=== PATIENT | female | born 1950 | race Caucasian/White ===

== ENCOUNTER → 2020-02-23 10:36 | Outpatient (BNVA) | payer MEDICARE, SELFPAY | PROVIDERS: PCP Internal Medicine; Referring Provider Internal Medicine; Visit Provider Surgery | DX: Z76.89 Persons encountering health services in other specified circumstances (principal) ==

== ENCOUNTER → 2020-03-31 10:45 | Outpatient (BNVA) | payer MEDICARE, SELFPAY | PROVIDERS: PCP Internal Medicine; Referring Provider Internal Medicine; Visit Provider Internal Medicine Cardiovascular Disease | DX: R42 Dizziness and giddiness (principal) | CPT/HCPCS: 93005; 99202 ==

== ENCOUNTER 2020-04-22 11:35 | Emergency (ER) | payer MEDICARE, SELFPAY ==
[2020-04-22 11:44] VITALS: BP 168/95; PULSE 107; RESP 18; TEMP 36.8; O2SAT 96; BMI 23.7
--- NOTE | 2020-04-22 13:14 | ECG_ITS ---
Test Reason : WEAKNESS Blood Pressure : / mmHG Vent. Rate : 094 BPM Atrial Rate : 094 BPM P-R Int : 136 ms QRS Dur : 122 ms QT Int : 398 ms P-R-T Axes : 077 -10 038 degrees QTc Int : 497 ms Normal sinus rhythm Biatrial enlargement Right bundle branch block Left ventricular hypertrophy Abnormal ECG When compared with ECG of 07-FEB-2020 07:21, No significant change was found Referred By: Britney Silva Electronically Signed By:SAMUEL JAVIER MD
--- NOTE | 2020-04-22 13:15 | CT_ITS ---
EXAMINATION: CT ABDOMEN AND PELVIS WITHOUT CONTRAST CLINICAL INFORMATION: Constipation. Assess for obstruction. COMPARISON: CT abdomen and pelvis with contrast 02/09/2020, CT abdomen and pelvis noncontrast 02/07/2020 TECHNIQUE: Multidetector volumetric imaging was performed from the superior aspect of the liver through the pubic symphysis. Sagittal and coronal reformatted images were obtained on the technologist's workstation. No oral or intravenous contrast. This CT examination was performed using dose optimization techniques as appropriate, variously including the following: *Automated exposure control *Adjustment of mA and/or kV according to patient size (this includes techniques or standardized protocols for targeted exams where dose is matched to indication/reason for exam; i.e. extremities or head) *Use of iterative reconstruction technique DLP: 470 mGy-cm FINDINGS: LUNG BASES: The visualized lung bases are unremarkable. LIVER, GALLBLADDER, AND BILIARY TREE: The liver is normal in size, shape, and attenuation. No focal hepatic lesion or biliary ductal dilatation is present. The gallbladder is unremarkable with no evidence of radiopaque gallstones, gallbladder wall thickening, or obvious pericholecystic inflammatory changes. PANCREAS: Unremarkable. SPLEEN: Unremarkable. ADRENAL GLANDS: Unremarkable. KIDNEYS AND URETERS: The kidneys are normal in size and smooth in contour. The left kidney shows no hydronephrosis, hydroureter, calculi, or perinephric stranding. The right kidney again shows mild hydronephrosis similar to prior exams. The ureter is nondistended and there is no obstructing calculus or perinephric stranding. There is a punctate renal vascular calcification right renal sinus. BLADDER: Unremarkable. GASTROINTESTINAL TRACT: There is no bowel obstruction. Probable prior appendectomy. There are no inflammatory changes in the small or large bowel or adjacent mesentery. Again, small gas bubble is noted in the proximal duodenal wall with probable mild wall thickening. Findings may suggest ulcer crater. No mesenteric inflammatory changes. No gastric dilatation. There is no ascites or fluid collection. ABDOMINAL WALL: No significant hernia is appreciated. LYMPH NODES: No lymphadenopathy. VASCULAR: Unremarkable. PELVIC VISCERA: Unremarkable. OSSEOUS STRUCTURES: Degenerative changes lumbosacral spine. CT/CT abdomen pelvis wo con IMPRESSION: 1. Mild chronic thickening duodenal bulb with small gas-like outpouching which may suggest chronic ulcer crater. No periduodenal inflammatory changes, ascites, or gastric dilatation. Small and large bowel are unremarkable. 2. Mild right hydronephrosis similar to prior studies. No hydroureter or perinephric stranding.
--- NOTE | 2020-04-22 13:15 | XR_ITS ---
EXAMINATION: XR CHEST CLINICAL INFORMATION: AMS COMPARISON: February 10, 2020 TECHNIQUE: 2 views of the chest were obtained. FINDINGS: There is hyperinflation of the lungs. There is bilateral apical pleural-parenchymal scarring present. There is no evidence of acute parenchymal disease, pneumothorax, or pleural effusion. Heart normal size. No evidence of pulmonary edema. XR/XR chest 2V IMPRESSION: No acute disease. Hyperinflation consistent with COPD.
--- NOTE | 2020-04-22 13:15 | CT_ITS ---
EXAMINATION: CT HEAD WITHOUT CONTRAST CLINICAL INFORMATION: AMS. Dizzy COMPARISON: None TECHNIQUE: Contiguous axial imaging was performed from the skull base to vertex without intravenous administration of contrast. This CT examination was performed using dose optimization techniques as appropriate, variously including the following: *Automated exposure control *Adjustment of mA and/or kV according to patient size (this includes techniques or standardized protocols for targeted exams where dose is matched to indication/reason for exam; i.e. extremities or head) *Use of iterative reconstruction technique DLP: 565 mGy-cm FINDINGS: There is no evidence of acute intracranial hemorrhage or territorial infarction. No abnormal mass effect or midline shift is seen. Downs to white matter differentiation is well preserved. No extra-axial fluid collections are identified. The ventricles are normal in size. There is periventricular white matter low density consistent with microangiopathy. The osseous structures and soft tissues are normal. The mastoid air cells and visualized portions of the paranasal sinuses are well aerated. CT/CT head/brain wo con IMPRESSION: No acute intracranial pathology. Findings consistent with microangiopathy.
--- NOTE | 2020-04-22 13:26 | ED.GENADULT ---
HPI - General Adult General Chief complaint: General Medical Stated complaint: constipated,weak,confused Time Seen by Provider: 04/22/20 13:01 Source: family Mode of arrival: ambulatory History of Present Illness HPI narrative: 69-year-old female with a past medical history of duodenectomy, presenting to ED for constipation, intermittent lightheadedness/dizziness, and worsening confusion per partner x1 week. Denies passing flatus. Partner reports patients increasingly confused, anxious, & pacing/perseverating over finances, at baseline is usually A&Ox3. Denies recent illness, falls/trauma, CP/SOB, vomiting, dysuria/hematuria Onset (ago): week(s) Related Data Home Medications Medication Instructions Recorded Confirmed omeprazole 40 mg capsule,delayed 40 mg PO DAILY 03/31/20 release Previous Rx's Medication Instructions Recorded tramadol 50 mg tablet 50 mg PO Q6H PRN #20 tab 02/23/20 Allergies Allergy/AdvReac Type Severity Reaction Status Date / Time No Known Allergies Allergy Verified 02/23/20 10:48 [No Known Allergies*] Review of Systems Review of Systems: Constitutional: No Weight loss, No Fever, No Chills ENT/Mouth: No sore throat Eyes: No Eye Pain, No Vision Changes Cardiovascular: No Chest Pain, No SOB Respiratory: No Cough, No Sputum, No Wheezing Gastrointestinal: +Nausea, No Vomiting, No Diarrhea, No Constipation, + Abdominal pain Genitourinary: No irregular bleeding, No Dysuria, No Urinary Frequency, No Hematuria Musculoskeletal: No joint pain, No Myalgias, No Joint Swelling Skin: No Skin Lesions, No rash Neuro: No Weakness, No Numbness, No Paresthesias, No Loss of Consciousness, +Dizziness, + Headache Psych: + Anxiety, +confused Yes all other systems are reviewed and are negative Neurologic: Denies Sensory deficit (Neuro) [facility] Past Medical History Attestation statement: The following information was validated with the patient. Medical History (Updated 04/22/20 @ 16:08 by JOSEMANUEL Johnson) Dizziness Surgical History (Updated 03/31/20 @ 10:59 by Lucas Ruiz) History of appendectomy History of gastric surgery Family History Family History (Updated 02/23/20 @ 10:49 by JUAN Rincon) Mother No problems noted. Father No problems noted. Social History Social History (Updated 02/23/20 @ 10:50 by Kerri Caldwell Cristo) Alcohol intake: former Smoking Status: Never smoker Advance Directives: No Advance Directives Information Provided: No Physical Exam Vital Signs: Vital Signs: Last Vital Signs Temp 97.7 F 04/22/20 15:03 Pulse 78 04/22/20 15:03 Resp 16 04/22/20 15:03 BP 161/85 H 04/22/20 15:03 Pulse Ox 98 04/22/20 15:03 Body Mass Index 23.7 Const: General: cooperative and healthy appearing Orientation/consciousness: patient oriented x3 Limitations: no limitations HENMT: Head: Yes normal to inspection Ears: hearing grossly normal bilaterally General nose exam: Normal external nose present Face and sinus: Yes normal facial exam Eyes: General: appearance normal, both eyes and all related structures Pupils: Equal, round and reactive pupils present EOM: EOMs intact bilaterally Neck: Neck: Yes normal visual inspection, Yes no lymphadenopathy and Yes no meningeal signs Chest: Chest palpation & inspection: normal inspection of the chest Resp: Effort & Inspection: normal respiratory effort Auscultation: clear to auscultation bilaterally, no rhonchi and no wheezes Cardio: Rate: regular rate Heart sounds: S1 normal heart sound present and S2 normal heart sound present GI: Inspection: Yes normal to inspection Palpation (GI): Soft to palpation, Tenderness to palpation present (GI) (Lower abdomen), no guarding and not rigid Skin: Rashes: no rashes Wounds: no wounds Neuro: Other: Pacing around room, anxious General: patient oriented x3, gait normal, tone normal, moves all extremities, no meningeal signs, no focal motor deficits and CN's II-XI intact bilaterally Cranial nerves: Yes Equal, round and reactive pupils present Cognition (Neuro): normal cognition Gait exam (Neuro): Normal gait present Motor exam (neuro): 5/5 motor strength present throughout and Pronator motor function not present Sensory Exam: No Sensory deficit (Neuro) Extrem: General: Yes normal to inspection Course Course Course Narrative: -labs, UA, and tox screen unremarkable -CXR without acute disease, hyperinflation consistent with COPD -head CT without acute intracranial pathology -CT AP with mild chronic thickening duodenal bulb suggestive of chronic ulcer crater, no inflammatory changes. Small/large bowel unremarkable. Mild right hydronephrosis similar to prior studies -1550--discussed lab/imaging results with patient and partner. Patient continues to be A&O x3. Discussed potential need for lumbar puncture, which patient is not agreeable to at this time > will touch base with patient's PCP prior to discharge -1600--spoke to patient's PCP Dr. Hinton who saw pt this morning sent to ED. Discussed with PCP lab/imaging results. She reports patient has history of memory issues, is seeing Neurology at [facility]. Informed that I offer lumbar puncture to patient which she refused, PCP aware and not high on her differential either Worrisome signs and symptoms and strict return precautions discussed with patient and partner. Plan for DC home to follow-up with PCP Medical Decision Making MDM Narrative Medical decision making narrative: 69-year-old female with a past medical history of duodenectomy, presenting to ED for constipation, intermittent lightheadedness/dizziness, and worsening confusion per partner x1 week. On exam initially mildly tachycardic, anxious/pacing around room, nontoxic appearing, no focal neuro deficits, abdomen soft was lower TTP, no rebound or guarding. Concern for constipation/SBO vs metabolic abnormalities vs infectious etiology. Meningitis/encephalitis on differential but of lower concern as patient A&O x3, afebrile. Plan: EKG, labs, UA, head CT, CXR, reassess Lab Data Result diagrams: 04/22/20 13:41 04/22/20 13:41 Labs: Lab Results 04/22/20 04/22/20 04/22/20 Range/Units 13:41 13:41 13:41 WBC 9.3 (4.8-10.8) X10*3/uL RBC 5.17 (4.20-5.50) X10*6/uL Hgb 15.3 (12.0-16.0) g/dl Hct 45.8 (37-47) % MCV 88.6 (80-98) fL MCH 29.6 (27.0-33.0) pg MCHC 33.4 (31.0-35.0) g/dl RDW 13.0 (11.0-16.0) % Plt Count 298 (160-400) X10*3/uL MPV 10.0 (9.4-12.3) fL Immature Gran % (Auto) 0.3 (0.0-0.4) % Neut % (Auto) 76.0 H (45-73) % Lymph % (Auto) 14.6 L (20-40) % [place] % (Auto) 8.4 (2-11) % Eos % (Auto) 0.3 (0-4) % Baso % (Auto) 0.4 (0-2) % Lymph # (Auto) 1.4 (1.2-4.9) X10*3/uL [place] # (Auto) 0.8 (0.1-1.2) X10*3/uL Eos # (Auto) 0.0 (0.0-0.4) X10*3/uL Baso # (Auto) 0.0 (0.0-0.2) X10*3/uL Abs Immat Gran (auto) 0.03 (0.00-0.03) X10*3/uL Absolute Neuts (auto) 7.1 (2.0-8.3) X10*3/uL Absolute Nucleated RBC 0.000 (0.0-0.012) X10*3/uL Nucleated RBC % (auto) 0.0 (0.0-0.2) /100WBC Hold Blue Top SEE NOTE Sodium 139 (135-145) mmol/L Potassium 3.8 (3.3-5.1) mmol/l Chloride 100 (96-108) mmol/L Carbon Dioxide 23 (22-29) mmol/L Anion Gap 20 (12-20) BUN 13 (9-16) mg/dL Creatinine 0.75 (0.5-1.4) mg/dL Estim Creat Clear Calc 64.3 Estimated GFR > 60 Random Glucose 83 (60-115) mg/dL Calcium 9.9 (8.4-10.2) mg/dL Magnesium 1.8 (1.6-2.6) mg/dL Total Bilirubin 0.8 (0.0-1.0) mg/dL Direct Bilirubin 0.3 (0.0-0.5) mg/dL AST 25 (5-31) U/L ALT 16 (0-31) U/L Alkaline Phosphatase 79 (39-117) U/L Ammonia (13-55) umol/L Troponin I High Sens (<3.5-17.0) ng/L B-Natriuretic Peptide (<100) pg/mL Total Protein 7.5 (6.5-8.0) g/dL Albumin 4.4 (3.5-5.0) g/dL Lipase 25 (8-78) U/L Urine Color Urine Appearance Urine pH (5.0-8.0) Ur Specific [place] (1.005-1.025) Urine Protein (NEG-TRACE) MG/DL Urine Glucose (UA) (NEG) MG/DL Urine Ketones (NEG) MG/DL Urine Blood (NEG) Urine Nitrite (NEG) Ur Leukocyte Esterase (NEG) Salicylates < 5.0 L (15-30) mg/dL Urine Opiates Screen (Not Detect) Acetaminophen < 1 (<30) mcg/mL Ur Barbiturates Screen (Not Detect) Ur Phencyclidine Scrn (Not Detect) Ur Amphetamines Screen (Not Detect) U Benzodiazepines Scrn (Not Detect) Urine Cocaine Screen (Not Detect) U Marijuana (THC) Screen (Not Detect) Ethyl Alcohol mg/dL 04/22/20 04/22/20 04/22/20 Range/Units 13:41 13:41 13:41 WBC (4.8-10.8) X10*3/uL RBC (4.20-5.50) X10*6/uL Hgb (12.0-16.0) g/dl Hct (37-47) % MCV (80-98) fL MCH (27.0-33.0) pg MCHC (31.0-35.0) g/dl RDW (11.0-16.0) % Plt Count (160-400) X10*3/uL MPV (9.4-12.3) fL Immature Gran % (Auto) (0.0-0.4) % Neut % (Auto) (45-73) % Lymph % (Auto) (20-40) % [place] % (Auto) (2-11) % Eos % (Auto) (0-4) % Baso % (Auto) (0-2) % Lymph # (Auto) (1.2-4.9) X10*3/uL [place] # (Auto) (0.1-1.2) X10*3/uL Eos # (Auto) (0.0-0.4) X10*3/uL Baso # (Auto) (0.0-0.2) X10*3/uL Abs Immat Gran (auto) (0.00-0.03) X10*3/uL Absolute Neuts (auto) (2.0-8.3) X10*3/uL Absolute Nucleated RBC (0.0-0.012) X10*3/uL Nucleated RBC % (auto) (0.0-0.2) /100WBC Hold Blue Top Sodium (135-145) mmol/L Potassium (3.3-5.1) mmol/l Chloride (96-108) mmol/L Carbon Dioxide (22-29) mmol/L Anion Gap (12-20) BUN (9-16) mg/dL Creatinine (0.5-1.4) mg/dL Estim Creat Clear Calc Estimated GFR Random Glucose (60-115) mg/dL Calcium (8.4-10.2) mg/dL Magnesium (1.6-2.6) mg/dL Total Bilirubin (0.0-1.0) mg/dL Direct Bilirubin (0.0-0.5) mg/dL AST (5-31) U/L ALT (0-31) U/L Alkaline Phosphatase (39-117) U/L Ammonia 30 (13-55) umol/L Troponin I High Sens 7.9 (<3.5-17.0) ng/L B-Natriuretic Peptide 35 (<100) pg/mL Total Protein (6.5-8.0) g/dL Albumin (3.5-5.0) g/dL Lipase (8-78) U/L Urine Color Urine Appearance Urine pH (5.0-8.0) Ur Specific [place] (1.005-1.025) Urine Protein (NEG-TRACE) MG/DL Urine Glucose (UA) (NEG) MG/DL Urine Ketones (NEG) MG/DL Urine Blood (NEG) Urine Nitrite (NEG) Ur Leukocyte Esterase (NEG) Salicylates (15-30) mg/dL Urine Opiates Screen (Not Detect) Acetaminophen (<30) mcg/mL Ur Barbiturates Screen (Not Detect) Ur Phencyclidine Scrn (Not Detect) Ur Amphetamines Screen (Not Detect) U Benzodiazepines Scrn (Not Detect) Urine Cocaine Screen (Not Detect) U Marijuana (THC) Screen (Not Detect) Ethyl Alcohol < 10 mg/dL 04/22/20 04/22/20 Range/Units 13:41 13:41 WBC (4.8-10.8) X10*3/uL RBC (4.20-5.50) X10*6/uL Hgb (12.0-16.0) g/dl Hct (37-47) % MCV (80-98) fL MCH (27.0-33.0) pg MCHC (31.0-35.0) g/dl RDW (11.0-16.0) % Plt Count (160-400) X10*3/uL MPV (9.4-12.3) fL Immature Gran % (Auto) (0.0-0.4) % Neut % (Auto) (45-73) % Lymph % (Auto) (20-40) % [place] % (Auto) (2-11) % Eos % (Auto) (0-4) % Baso % (Auto) (0-2) % Lymph # (Auto) (1.2-4.9) X10*3/uL [place] # (Auto) (0.1-1.2) X10*3/uL Eos # (Auto) (0.0-0.4) X10*3/uL Baso # (Auto) (0.0-0.2) X10*3/uL Abs Immat Gran (auto) (0.00-0.03) X10*3/uL Absolute Neuts (auto) (2.0-8.3) X10*3/uL Absolute Nucleated RBC (0.0-0.012) X10*3/uL Nucleated RBC % (auto) (0.0-0.2) /100WBC Hold Blue Top Sodium (135-145) mmol/L Potassium (3.3-5.1) mmol/l Chloride (96-108) mmol/L Carbon Dioxide (22-29) mmol/L Anion Gap (12-20) BUN (9-16) mg/dL Creatinine (0.5-1.4) mg/dL Estim Creat Clear Calc Estimated GFR Random Glucose (60-115) mg/dL Calcium (8.4-10.2) mg/dL Magnesium (1.6-2.6) mg/dL Total Bilirubin (0.0-1.0) mg/dL Direct Bilirubin (0.0-0.5) mg/dL AST (5-31) U/L ALT (0-31) U/L Alkaline Phosphatase (39-117) U/L Ammonia (13-55) umol/L Troponin I High Sens (<3.5-17.0) ng/L B-Natriuretic Peptide (<100) pg/mL Total Protein (6.5-8.0) g/dL Albumin (3.5-5.0) g/dL Lipase (8-78) U/L Urine Color YELLOW Urine Appearance CLEAR Urine pH 6.0 (5.0-8.0) Ur Specific [place] 1.015 (1.005-1.025) Urine Protein NEG (NEG-TRACE) MG/DL Urine Glucose (UA) NEG (NEG) MG/DL Urine Ketones 5 (NEG) MG/DL Urine Blood NEG (NEG) Urine Nitrite NEG (NEG) Ur Leukocyte Esterase NEG (NEG) Salicylates (15-30) mg/dL Urine Opiates Screen Not Detected (Not Detect) Acetaminophen (<30) mcg/mL Ur Barbiturates Screen Not Detected (Not Detect) Ur Phencyclidine Scrn Not Detected (Not Detect) Ur Amphetamines Screen Not Detected (Not Detect) U Benzodiazepines Scrn Not Detected (Not Detect) Urine Cocaine Screen Not Detected (Not Detect) U Marijuana (THC) Screen Not Detected (Not Detect) Ethyl Alcohol mg/dL Discharge Plan Discharge Clinical Impression: Abdominal pain, Confusion Patient Disposition: Home, Self-Care Instructions: Abdominal Pain (ED) Additional Instructions: Your blood work, urine, and imaging studies were unremarkable today in the ED I spoke your primary care doctor, you need to follow-up with them It is important that her staying hydrated at home If her symptoms persist or worsen, he develops fever, nausea/vomiting, or worsening confusion return to the ED immediately Follow-up with your neurologist as well Prescriptions: No Action tramadol 50 mg tablet 50 mg PO Q6H PRN (Reason: pain) Qty: 20 RF: 0 omeprazole 40 mg capsule,delayed release(DR/EC) 40 mg PO DAILY RF: 0 Referrals: Jasiel Fink MD [Primary Care Provider] - 2 days
[2020-04-22] MEDS: 0.9 % Sodium Chloride 1,000 ML 999 ML IVCONT (13:44)
[2020-04-22 13:46] VITALS: BP 173/93; PULSE 102; RESP 16; O2SAT 98
[2020-04-22 13:55] LABS: MANUAL DIFF FLAG NO
[2020-04-22 13:57] LABS: Basophils Percent Auto 0.4 % (0-2); Eosinophils Percent Auto 0.3 % (0-4); Hematocrit 45.8 % (37-47); Hemoglobin 15.3 g/dl (12.0-16.0); Imm Gran Abs Auto 0.03 X10*3/uL (0.00-0.03); Imm Gran Pct Auto 0.3 % (0.0-0.4); Lymphocytes Absolute Auto 1.4 X10*3/uL (1.2-4.9); Lymphocytes Percent Auto 14.6 % (20-40); Mean Corpuscular HGB Conc 33.4 g/dl (31.0-35.0); Mean Corpuscular Hemoglobin 29.6 pg (27.0-33.0); Mean Corpuscular Volume 88.6 fL (80-98); Monocytes Absolute Auto 0.8 X10*3/uL (0.1-1.2); Monocytes Percent Auto 8.4 % (2-11); Neutrophils Absolute Auto 7.1 X10*3/uL (2.0-8.3); Platelet Count 298 X10*3/uL (160-400); Red Blood Count 5.17 X10*6/uL (4.20-5.50); White Blood Count 9.3 X10*3/uL (4.8-10.8)
[2020-04-22 14:13] LABS: Ammonia 30 umol/L (13-55)
[2020-04-22 14:16] LABS: Ethanol < 10 mg/dL
[2020-04-22 14:24] LABS: Glucose Urine UA NEG (NEG); Leukocyte Esterase Urine NEG (NEG); Nitrite Urine NEG (NEG); Specific Gravity - Urine 1.015 (1.005-1.025); Urine Blood NEG (NEG); Urine Ketones 5 MG/DL (NEG); Urine Protein NEG (NEG-TRACE)
[2020-04-22 14:27] LABS: Appearance Urine CLEAR; B Type Natriuretic Peptide 35 pg/mL (<100); Color Urine YELLOW; Troponin-I High Sensitivity 7.9 ng/L (<3.5-17.0)
[2020-04-22 14:39] LABS: Alanine Aminotransferase 16 U/L (0-31); Albumin Level 4.4 g/dL (3.5-5.0); Alkaline Phosphatase 79 U/L (39-117); Anion Gap 20 (12-20); Aspartate Amino Transferase 25 U/L (5-31); Bilirubin Direct 0.3 mg/dL (0.0-0.5); Bilirubin Total 0.8 mg/dL (0.0-1.0); Blood Urea Nitrogen 13 mg/dL (9-16); Calcium 9.9 mg/dL (8.4-10.2); Carbon Dioxide 23 mmol/L (22-29); Chloride 100 mmol/L (96-108); Creatinine Clr Calc Pharmacy 64.3; Estimated Glomerular Filt Rate > 60; Glucose Random 83 mg/dL (60-115); Lipase 25 U/L (8-78); Magnesium 1.8 mg/dL (1.6-2.6); Potassium 3.8 mmol/l (3.3-5.1); Salicylate < 5.0 mg/dL (15-30); Sodium 139 mmol/L (135-145); Total Protein 7.5 g/dL (6.5-8.0)
[2020-04-22 14:41] LABS: Amphetamine Screen Urine Not Detected (Not Detect); Barbiturates, Urine Not Detected (Not Detect); Benzodiazepines Screen Urine Not Detected (Not Detect); Cannabinoid Screen Urine Not Detected (Not Detect); Cocaine Screen Urine Not Detected (Not Detect); Opiate Screen Urine Not Detected (Not Detect); Phencyclidine Screen Urine Not Detected (Not Detect)
[2020-04-22 14:49] LABS: Acetaminophen LAB < 1 mcg/mL (<30)
[2020-04-22 15:03] VITALS: BP 161/85; PULSE 78; RESP 16; TEMP 36.5; O2SAT 98
== END 2020-04-22 16:22 | disposition home or self-care (01) ==
PROVIDERS: Physician Assistant; Emergency Provider Emergency Medicine; PCP Internal Medicine
DX: R10.30 Lower abdominal pain, unspecified (principal); R41.0 Disorientation, unspecified; Z87.891 Personal history of nicotine dependence; Z79.899 Other long term (current) drug therapy
CPT/HCPCS: 36415; 70450; 71046; 74176; 80048; 80076; 80307; 80320; 81003; 82140; 83690; 83735; 83880; 84484; 85025; 93005; 96360; 99284; G0480

== ENCOUNTER 2020-05-04 06:20 | Inpatient (IN) | payer MEDICARE, SELFPAY ==
[2020-05-04] VITALS (17 sets, daily range): BP systolic 112–170; BP diastolic 65–97; PULSE 77–121; RESP 14–34; TEMP 35.7–37.6; O2SAT 94–99; BMI 23.1; BMI 22.3
--- NOTE | 2020-05-04 06:36 | PC.NURSE ---
PT TO ROOM WITH C/O NAUSEA AND VOMITING WHICH STARTED APPROX 6PM LAST NIGHT. PT APPEARS CONFUSED AND UNABLE TO GIVE TIMELINE OF WHAT HAPPENED AND STATES I JUST WANT TO GO HOME NOW . UNABLE TO GET DETAILS FROM PT. PT CHG INTO GOWN AND AWAITING MD'S EVAL.
--- NOTE | 2020-05-04 06:48 | ED_ITS ---
HPI - Nausea/Vomiting/Diarrhea General Chief complaint: Nausea/Vomiting/Diarrhea Stated complaint: VOMITING Time Seen by Provider: 05/04/20 06:48 Source: patient Mode of arrival: ambulatory Limitations: no limitations History of Present Illness HPI Narrative: Patient woke up this morning with vomiting dark blood, almost black. In the ED she continued to vomit coffee grounds MD elicited complaint: nausea and vomiting Onset (ago): hour(s) Location of pain: epigastric Related Data Home Medications Medication Instructions Recorded Confirmed omeprazole 40 mg capsule,delayed 40 mg PO DAILY 03/31/20 release Previous Rx's Medication Instructions Recorded tramadol 50 mg tablet 50 mg PO Q6H PRN #20 tab 02/23/20 Allergies Allergy/AdvReac Type Severity Reaction Status Date / Time No Known Allergies Allergy Verified 02/23/20 10:48 [No Known Allergies*] Review of Systems Constitutional: Constitutional: Reports no additional constitutional complaints Eyes: Eyes: Reports no additional eye complaints ENT: Denies dizziness Cardiovascular: Cardiovascular: Reports no additional cardiovascular complaints Respiratory: Respiratory: Reports as per HPI Gastrointestinal: Gastrointestinal: Reports no additional gastrointestinal complaints Genitourinary: Genitourinary: Reports no additional female genitourinary complaints Musculoskeletal: Musculoskeletal: Reports no additional musculoskeletal complaints Integumentary/Breasts: Skin/Breast: Denies rash Neurologic: Reports system reviewed and no additional complaints, except as documented, Denies dizziness and Denies Sensory deficit (Neuro) Psychiatric: Psychiatric: Denies anxiety PMF Past Medical History Medical History Dizziness Surgical History History of appendectomy History of gastric surgery Family History Family History Mother No problems noted. Father No problems noted. Social History Social History Alcohol intake: former Smoking Status: Never smoker Use of substances other than those prescribed or required for medical reasons: No Advance Directives: No Advance Directives Information Provided: No Physical Exam Vital Signs: Vital Signs: Last Vital Signs Temp 97.9 F 05/04/20 06:43 Pulse 83 05/04/20 11:41 Resp 28 H 05/04/20 11:41 BP 112/82 05/04/20 11:42 Pulse Ox 95 05/04/20 11:41 Body Mass Index 22.3 Const: Other: thin pale female vomiting coffee grounds Nutritional Appearance: thin Orientation/consciousness: oriented to person and patient oriented x3 Limitations: no limitations HENMT: Head: Yes normal to inspection Ears: external ears normal General nose exam: Normal external nose present Mouth: Normal oral and palatal mucosa present and oropharynx normal Throat: Yes posterior oropharynx normal Eyes: General: appearance normal, both eyes and all related structures Neck: Other: supple Neck: Yes normal visual inspection Chest: Chest palpation & inspection: normal inspection of the chest Resp: Auscultation: clear to auscultation bilaterally Cardio: Jugular venous distension: no JVD Rate: regular rate Rhythm: regular rhythm Heart sounds: S1 normal heart sound present and S2 normal heart sound present GI: Inspection: Yes normal to inspection Palpation (GI): Soft to palpation, nontender and No hepatosplenomegaly present Auscultation: normal bowel sounds : Other: rectal exam with brown stool heme negative General: Yes no CVA tenderness Back/Spine/Pelvis: Back: no CVA tenderness Skin: General skin exam: no rashes or lesions noted Neuro: General: oriented to person and patient oriented x3 Cranial nerves: Yes CN's II-XII intact bilaterally Motor exam (neuro): 5/5 motor strength present throughout Sensory Exam: No Sensory deficit (Neuro) Extrem: General: Yes normal to inspection Psych: Appearance: grossly normal Course Course Course Narrative: Discussed with Dr. Light. Patient had GI bleed needing surgical repair, now with coffee ground vomitus. she recommends admission MDM - Nausea/Vomiting/Diarrhea MDM Narrative Medical decision making narrative: Upper gI bleed vs gastritis, vs evens patricio Lab Data Result diagrams: 05/04/20 10:43 05/04/20 07:58 Labs: Lab Results 05/04/20 05/04/20 05/04/20 Range/Units 07:14 07:15 07:18 WBC 3.4 L (4.8-10.8) X10*3/uL RBC 5.37 (4.20-5.50) X10*6/uL Hgb 15.6 (12.0-16.0) g/dl Hct 46.6 (37-47) % MCV 86.8 (80-98) fL MCH 29.1 (27.0-33.0) pg MCHC 33.5 (31.0-35.0) g/dl RDW 13.5 (11.0-16.0) % Plt Count 375 D (160-400) X10*3/uL MPV 9.6 (9.4-12.3) fL Immature Gran % (Auto) 0.3 (0.0-0.4) % Neut % (Auto) 83.1 H (45-73) % Lymph % (Auto) 7.4 L (20-40) % [place] % (Auto) 8.9 (2-11) % Eos % (Auto) 0.0 (0-4) % Baso % (Auto) 0.3 (0-2) % Lymph # (Auto) 0.3 L (1.2-4.9) X10*3/uL [place] # (Auto) 0.3 (0.1-1.2) X10*3/uL Eos # (Auto) 0.0 (0.0-0.4) X10*3/uL Baso # (Auto) 0.0 (0.0-0.2) X10*3/uL Abs Immat Gran (auto) 0.01 (0.00-0.03) X10*3/uL Absolute Neuts (auto) 2.8 (2.0-8.3) X10*3/uL Absolute Nucleated RBC 0.000 (0.0-0.012) X10*3/uL Nucleated RBC % (auto) 0.0 (0.0-0.2) /100WBC Smear Tech's Comments VERIFIED Hold Purple Top SEE NOTE Hold Blue Top Sodium Cancelled Potassium Cancelled Chloride Cancelled Carbon Dioxide Cancelled Anion Gap Cancelled BUN Cancelled Creatinine Cancelled Estim Creat Clear Calc Cancelled Estimated GFR Cancelled Random Glucose Cancelled Calcium Cancelled Total Bilirubin Cancelled Direct Bilirubin Cancelled AST Cancelled ALT Cancelled Alkaline Phosphatase Cancelled Total Protein Cancelled Albumin Cancelled Lipase Cancelled Blood Type Antibody Screen 05/04/20 05/04/20 05/04/20 Range/Units 07:18 07:24 07:58 WBC (4.8-10.8) X10*3/uL RBC (4.20-5.50) X10*6/uL Hgb (12.0-16.0) g/dl Hct (37-47) % MCV (80-98) fL MCH (27.0-33.0) pg MCHC (31.0-35.0) g/dl RDW (11.0-16.0) % Plt Count (160-400) X10*3/uL MPV (9.4-12.3) fL Immature Gran % (Auto) (0.0-0.4) % Neut % (Auto) (45-73) % Lymph % (Auto) (20-40) % [place] % (Auto) (2-11) % Eos % (Auto) (0-4) % Baso % (Auto) (0-2) % Lymph # (Auto) (1.2-4.9) X10*3/uL [place] # (Auto) (0.1-1.2) X10*3/uL Eos # (Auto) (0.0-0.4) X10*3/uL Baso # (Auto) (0.0-0.2) X10*3/uL Abs Immat Gran (auto) (0.00-0.03) X10*3/uL Absolute Neuts (auto) (2.0-8.3) X10*3/uL Absolute Nucleated RBC (0.0-0.012) X10*3/uL Nucleated RBC % (auto) (0.0-0.2) /100WBC Smear Tech's Comments Hold Purple Top Hold Blue Top SEE NOTE Sodium 140 Potassium 3.0 L D Chloride 101 Carbon Dioxide 23 Anion Gap 19 BUN 24 H D Creatinine 0.73 Estim Creat Clear Calc 61.0 Estimated GFR > 60 Random Glucose 121 H D Calcium 8.1 L D Total Bilirubin 0.6 Direct Bilirubin 0.4 AST 25 ALT 16 Alkaline Phosphatase 65 Total Protein 5.7 L D Albumin 3.3 L D Lipase 51 Blood Type A Positive Antibody Screen NEGATIVE 05/04/20 Range/Units 10:43 WBC 2.5 L (4.8-10.8) X10*3/uL RBC 4.96 (4.20-5.50) X10*6/uL Hgb 14.5 (12.0-16.0) g/dl Hct 43.6 (37-47) % MCV 87.9 (80-98) fL MCH 29.2 (27.0-33.0) pg MCHC 33.3 (31.0-35.0) g/dl RDW 13.5 (11.0-16.0) % Plt Count 307 (160-400) X10*3/uL MPV 9.8 (9.4-12.3) fL Immature Gran % (Auto) 0.0 (0.0-0.4) % Neut % (Auto) 74.8 H (45-73) % Lymph % (Auto) 15.0 L (20-40) % [place] % (Auto) 9.8 (2-11) % Eos % (Auto) 0.0 (0-4) % Baso % (Auto) 0.4 (0-2) % Lymph # (Auto) 0.4 L (1.2-4.9) X10*3/uL [place] # (Auto) 0.3 (0.1-1.2) X10*3/uL Eos # (Auto) 0.0 (0.0-0.4) X10*3/uL Baso # (Auto) 0.0 (0.0-0.2) X10*3/uL Abs Immat Gran (auto) 0.00 (0.00-0.03) X10*3/uL Absolute Neuts (auto) 1.9 L (2.0-8.3) X10*3/uL Absolute Nucleated RBC 0.000 (0.0-0.012) X10*3/uL Nucleated RBC % (auto) 0.0 (0.0-0.2) /100WBC Smear Tech's Comments Hold Purple Top Hold Blue Top Sodium Potassium Chloride Carbon Dioxide Anion Gap BUN Creatinine Estim Creat Clear Calc Estimated GFR Random Glucose Calcium Total Bilirubin Direct Bilirubin AST ALT Alkaline Phosphatase Total Protein Albumin Lipase Blood Type Antibody Screen Critical Care Time Critical Care Time Critical Care Time: Yes Total Critical Care Time: 35 Attestation: I spent 35 minutes of critical care, with interventions, assessments, speaking to patient, consultants, and family. Discharge Plan Discharge Prescriptions: No Action tramadol 50 mg tablet 50 mg PO Q6H PRN (Reason: pain) Qty: 20 RF: 0 omeprazole 40 mg capsule,delayed release(DR/EC) 40 mg PO DAILY RF: 0
--- NOTE | 2020-05-04 07:00 | PC.NURSE ---
REPORT TO SHARON CASTILLO.
[2020-05-04 07:23] LABS: Basophils Percent Auto 0.3 % (0-2); Hematocrit 46.6 % (37-47); Hemoglobin 15.6 g/dl (12.0-16.0); Imm Gran Abs Auto 0.01 X10*3/uL (0.00-0.03); Imm Gran Pct Auto 0.3 % (0.0-0.4); Lymphocytes Absolute Auto 0.3 X10*3/uL (1.2-4.9); Lymphocytes Percent Auto 7.4 % (20-40); MANUAL DIFF FLAG SCAN; Mean Corpuscular HGB Conc 33.5 g/dl (31.0-35.0); Mean Corpuscular Hemoglobin 29.1 pg (27.0-33.0); Mean Corpuscular Volume 86.8 fL (80-98); Mean Platelet Volume 9.6 fL (9.4-12.3); Monocytes Absolute Auto 0.3 X10*3/uL (0.1-1.2); Monocytes Percent Auto 8.9 % (2-11); Neutrophils Absolute Auto 2.8 X10*3/uL (2.0-8.3); Neutrophils Percent Auto 83.1 % (45-73); Platelet Count 375 X10*3/uL (160-400); Red Blood Count 5.37 X10*6/uL (4.20-5.50); Red Cell Distribution Width 13.5 % (11.0-16.0); SCAN SMEAR FLAG 1; White Blood Count 3.4 X10*3/uL (4.8-10.8)
[2020-05-04] MEDS: Pantoprazole Sodium 40 MG/10 ML VIAL IVPUSH ×2 (07:26→18:25)
[2020-05-04] MEDS: ondansetron HCL 4 MG/2 ML VIAL IVPUSH (07:26)
[2020-05-04] MEDS: 0.9 % Sodium Chloride 1,000 ML 999 ML IVCONT ×2 (07:26→08:21)
--- NOTE | 2020-05-04 07:36 | PC.NURSE ---
Pt vague, reports vomiting dark emesis and abd pain since last night. Upon first assessment coffee ground emesis noted on face and peter. This RN and Dr Marin in to [facility] obtained and negative at bedside. IV established and medicated per EMAR. Fluids infusing and type/screen sent. Sinus tach on tele. Skin pale. Plan for admission
[2020-05-04 07:59] LABS: SLIDE REVIEW VERIFIED
[2020-05-04 08:42] LABS: Alanine Aminotransferase 16 U/L (0-31); Albumin Level 3.3 g/dL (3.5-5.0); Alkaline Phosphatase 65 U/L (39-117); Anion Gap 19 (12-20); Aspartate Amino Transferase 25 U/L (5-31); Bilirubin Direct 0.4 mg/dL (0.0-0.5); Bilirubin Total 0.6 mg/dL (0.0-1.0); Blood Urea Nitrogen 24 mg/dL (9-16); Calcium 8.1 mg/dL (8.4-10.2); Carbon Dioxide 23 mmol/L (22-29); Chloride 101 mmol/L (96-108); Estimated Glomerular Filt Rate > 60; Glucose Random 121 mg/dL (60-115); Lipase 51 U/L (8-78); Sodium 140 mmol/L (135-145); Total Protein 5.7 g/dL (6.5-8.0)
[2020-05-04] MEDS: Magnesium Sulfate/H2O 2 GM/50 ML PIGGYBACK IV (09:58)
[2020-05-04] MEDS: Potassium Chloride/H20 10 MEQ/100 ML PIGGYBACK 100 MEQ IV ×3 (09:58→13:11)
[2020-05-04 10:53] LABS: Basophils Percent Auto 0.4 % (0-2); Hematocrit 43.6 % (37-47); Hemoglobin 14.5 g/dl (12.0-16.0); Lymphocytes Absolute Auto 0.4 X10*3/uL (1.2-4.9); Mean Corpuscular HGB Conc 33.3 g/dl (31.0-35.0); Mean Corpuscular Hemoglobin 29.2 pg (27.0-33.0); Mean Corpuscular Volume 87.9 fL (80-98); Mean Platelet Volume 9.8 fL (9.4-12.3); Monocytes Absolute Auto 0.3 X10*3/uL (0.1-1.2); Monocytes Percent Auto 9.8 % (2-11); Neutrophils Absolute Auto 1.9 X10*3/uL (2.0-8.3); Neutrophils Percent Auto 74.8 % (45-73); Platelet Count 307 X10*3/uL (160-400); Red Blood Count 4.96 X10*6/uL (4.20-5.50); Red Cell Distribution Width 13.5 % (11.0-16.0); SCAN SMEAR FLAG 1
[2020-05-04 10:59] LABS: White Blood Count 2.5 X10*3/uL (4.8-10.8)
[2020-05-04 11:00] LABS: MANUAL DIFF FLAG SCAN
--- NOTE | 2020-05-04 11:54 | P.CNGI_ITS ---
History of Present Illness Data of Consult Service Date: 05/04/20 Primary Care Provider: Jasiel Fink MD HPI Reason for consult: UGIB, abd pain, nausea and vomiting 69 YF came to [facility] today with abdominal pain, nausea vomiting and hematemesis with weakness: Patient woke up this morning with vomiting dark blood, almost black. In the ED she continued to vomit coffee grounds. MD elicited complaint: nausea and vomiting Labs showed hemoglobin is 14.5, hematocrit 43.6, platelets 307, WBC 2.5. INR 1.2. Potassium 3.08. Coronavirus PCR negative. Vital signs were stable - initial BP was elevated when she came in at 170/96. Blood pressure improved to 112/82. Pt was treated with IV Protonix, normal saline, IV potassium, magnesium in the ER. She was admitted for further management. IMAGING STUDIES: 04/22/[address] scan showed: 1. Mild chronic thickening duodenal bulb with small gas-like outpouching which may suggest chronic ulcer crater. No periduodenal inflammatory changes, ascites, or gastric dilatation. Small and large bowel are unremarkable. 2. Mild right hydronephrosis similar to prior studies. No hydroureter or perinephric stranding. Patient complains of abdominal pain for the past few days followed by nausea and with dark coffee ground emesis this morning. She notes chills and denies fever. She has a poor appetite with decreased PO intake and has lost weight (she is unsure about the amount of weight loss) Pt was seen at [facility] on 04/22/[address] findings as noted above. At that time, she also had a head CT due to dizziness, which was negative for any acute abnormality. PAST GI HISTORY BY REVIEW OF MEDICAL RECORDS: Pt was hospitalized at [facility] in 02/07 with UGIB complicated by severe anemia (Hb of 6.2). CAT scan showed an intramural perforation without any free air in the duodenum secondary to ulcer. 02/10/20 Pt had an emergent laparotomy, duodenostomy with over-sew to duodenal bleeder by Dr. Ruiz for massive UGI bleed requiring 6 units PRBC. A distal gastrectomy with Bilroth reconstruction coud not be performed due to significant induration on the posterior aspect of the 1st part of the duodenum the pancreas. Review of Systems Constitutional: Constitutional: Reports chills, Reports fatigue, Denies fever(s), Denies headache(s), Reports poor appetite, Reports weakness and Reports weight loss Eyes: Eyes: Denies eye discharge and Denies irritation ENT: Denies dysphagia, Reports dizziness and Denies headache(s) Cardiovascular: Cardiovascular: Denies chest pain, Denies leg edema and Denies dyspnea on exertion Respiratory: Respiratory: Denies cough and Denies dyspnea on exertion Gastrointestinal: Gastrointestinal: Reports abdominal pain, Reports melena, Reports change in bowel habits, Denies dysphagia, Reports early satiety, Denies heartburn, Reports nausea, Reports vomiting and Reports hematemesis Genitourinary: Genitourinary: Denies difficulty voiding and Denies dysuria Musculoskeletal: Musculoskeletal: Denies back pain and Denies arthralgias Integumentary/Breasts: Skin/Breast: Denies pruritus, Denies rash and Denies jaundice Neurologic: Reports system reviewed and no additional complaints, except as documented, Reports dizziness, Denies headache(s), Denies Sensory deficit (Neuro) and Reports weakness Psychiatric: Psychiatric: Denies anxiety, Denies depression and Denies panic attacks Endocrine: Endocrine: Denies cold intolerance, Reports fatigue, Denies flushing and Denies heat intolerance PMFSH Past Medical History Medical History (Updated 05/04/20 @ 18:58 by Jorge Light MD) Dizziness History of ETOH abuse Family History Family History Mother No problems noted. Father No problems noted. Surgical History Surgical History History of appendectomy History of gastric surgery Social History Social History Household Members: Significant Other Housing: House Do you presently have visiting nurse or other home services: No Alcohol intake: former Smoking Status: Never smoker Use of substances other than those prescribed or required for medical reasons: No Have you been hit, kicked, punched, or otherwise hurt by someone within the past year? If so, by whom?: No Do you feel safe in your current relationship?: Yes Is there a partner from a previous relationship who is making you feel unsafe now?: No Are you made to feel afraid or neglected: No Advance Directives: No Advance Directives Information Provided: No Do you have thoughts of harming others: None Do you have a plan to hurt others: No Plan Recently lost weight without trying: No Meds Allergies Allergy/AdvReac Type Severity Reaction Status Date / Time No Known Allergies Allergy Verified 02/23/20 10:48 [No Known Allergies*] Home Medications Medication Instructions Recorded Confirmed Type omeprazole 40 mg capsule,delayed 40 mg PO DAILY 03/31/20 05/04/20 History release sertraline 25 mg PO DAILY 05/04/20 05/04/20 History Physical Exam Vital Signs: Vital Signs: Last Vital Signs Temp 97.9 F 05/04/20 06:43 Pulse 83 05/04/20 11:41 Resp 28 H 05/04/20 11:41 BP 112/82 05/04/20 11:42 Pulse Ox 95 05/04/20 11:41 Body Mass Index 22.3 Const: General: no acute distress, ill appearing and tired appearing Nutritional Appearance: malnourished and thin Orientation/consciousness: patient oriented x3 Limitations: no limitations HENMT: Head: Yes normal to inspection Ears: hearing grossly normal bilaterally Mouth: Normal oral and palatal mucosa present Eyes: Sclerae: sclerae normal Pupils: Equal, round and reactive pupils present Neck: Neck: Yes normal visual inspection Chest: Chest palpation & inspection: normal inspection of the chest Resp: Effort & Inspection: normal respiratory effort Auscultation: clear to auscultation bilaterally Cardio: Palpation: normal PMI Rate: regular rate Rhythm: regular rhythm Heart sounds: S1 normal heart sound present, S2 normal heart sound present and no murmurs GI: Palpation (GI): Soft to palpation, Tenderness to palpation present (GI) in the epigastrum (diffuse generalized tenderness) and No hepatosplenomegaly present Auscultation: normal bowel sounds Rectal Exam - Female: deferred Skin: General skin exam: no rashes or lesions noted Neuro: General: patient oriented x3, gait normal and moves all extremities Cranial nerves: Yes Equal, round and reactive pupils present Sensory Exam: No Sensory deficit (Neuro) Psych: Appearance: grossly normal Mental Status: mental status grossly normal Results Labs CBC & Chem 7: 05/04/20 17:56 05/04/20 07:58 Labs: Short CBC 05/04/20 05/04/20 Range/Units 07:14 10:43 WBC 3.4 L 2.5 L (4.8-10.8) X10*3/uL Hgb 15.6 14.5 (12.0-16.0) g/dl Hct 46.6 43.6 (37-47) % Plt Count 375 D 307 (160-400) X10*3/uL BMP 05/04/20 05/04/20 07:15 07:58 Sodium Cancelled 140 Potassium Cancelled 3.0 L D Chloride Cancelled 101 Carbon Dioxide Cancelled 23 BUN Cancelled 24 H D Creatinine Cancelled 0.73 Calcium Cancelled 8.1 L D Liver Function 05/04/20 05/04/20 Range/Units 07:15 07:58 Total Bilirubin Cancelled 0.6 Direct Bilirubin Cancelled 0.4 AST Cancelled 25 ALT Cancelled 16 Alkaline Phosphatase Cancelled 65 Albumin Cancelled 3.3 L D Assessment and Plan (1) UGI bleed: Status: Acute (2) Nausea and vomiting: Status: Acute (3) Duodenal ulcer: Problem details: She is status post laparotomy, duodenotomy and over-sew of a duodenal bleeder. She is doing well. Her coral were removed. Her incision is well healed. She was advised on avoiding NSAIDs. She has to continue taking proton pump inhibitors. I also advised her to avoid any lifting more than 20 lb for at least 2 more weeks. She was instructed to continue following up with her primary care physician gregoria kaminski. She can otherwise follow up with me on a p.r.n. basis. Status: Acute 69 YF with back pain, remote hx of ETOH abuse, and recent massive UGIB from DU treated by over-sew of duodenal bleeder Pt admitted with generalized abdominal pain, nausea, vomiting with hematemsis. H & H is stable. Pt denies taking NSAIDS recently. She has not been taking a PPI either. Her symptoms are likely due to persistent/recurrent duodenal ulcer (due to non- compliance wth PPI), erosive esophagitis or Victoria-Cobian tear. RECOMMENDATIONS: 1. Continue IV PPI and monitor H & H twice daily. 2. Proceed with the upper endoscopy today for evaluation of GI bleeding. Procedure and potential complications including bleeding, perforation, drug reaction, aspiration and misdiagnosis were reviewed with the patient.
--- NOTE | 2020-05-04 11:57 | PC.NURSE ---
introduced self to pt, c/o discomfort from lying in stretcher and ongoing epigastric pain worsened with movement. reporting mild lightheadedness. appears slightly pale, skin warm, dry. no further episodes of hematemesis, denies any nausea.
--- NOTE | 2020-05-04 12:30 | PC.NURSE ---
3RD BAG K+ HANGING. MED REC COMPLETED. SEEN BY HOSPITALIST. REPORT GIVEN TO SSS.
[2020-05-04 13:01] LABS: INTERNATIONAL NORM RATIO 1.2 (0.9-1.1); Prothrombin Time 13.8 SEC (10.8-13.0)
[2020-05-04 13:12] LABS: COVID-19 Test Negative (Negative); IDNOW Serial# 9DD0AD1C
--- NOTE | 2020-05-04 13:28 | PC.NURSE ---
REPORT GIVEN TO SSS. MED REC COMPLETED. 3RD BAG K+ HANGING.
--- NOTE | 2020-05-04 13:31 | PC.NURSE ---
TRANSFERRED TO [facility]
--- NOTE | 2020-05-04 14:40 | HP_ITS ---
DATE OF SERVICE: 05/04/2020 HISTORY OF PRESENT ILLNESS: 69-year-old woman, presenting to the ER after episodes of vomiting. She reported that she woke up this morning vomiting dark blood, resembling coffee-grounds. She did report some nausea and vomiting. She presented to the ER on April [address] showed no blockage. At that time, she also had a head CT due to dizziness, which was negative for any acute abnormality. In the ER today, her hemoglobin is 14.5, hematocrit 43.6, platelets 307, WBC 2.5. INR 1.2. Potassium 3.08. Coronavirus PCR negative. She reported that she does feel weak, but her vital signs are fairly stable after blood pressure was elevated when she came in at 170/96, however, this did improve significantly to 112/82. She received IV Protonix, normal saline, IV potassium, magnesium. She will be admitted for further management and treatment of GI bleed. PAST MEDICAL HISTORY: 1. Chronic back pain. 2. History of alcohol abuse. 3. History of appendectomy. FAMILY HISTORY: Denies any cardiac disease. ALLERGIES: NO KNOWN ALLERGIES. MEDICATIONS: 1. Omeprazole 40 mg p.o. daily. 2. Sertraline 25 mg p.o. daily. REVIEW OF SYSTEMS: CONSTITUTIONAL: Denies any recent fever, chills, or decrease in appetite. RESPIRATORY: Denies any shortness of breath, cough, or sputum production. CARDIOVASCULAR: Denies any chest pain, orthopnea, PND, or edema. GASTROINTESTINAL: See HPI. GENITOURINARY: Denies any dysuria, frequency, or hematuria. MUSCULOSKELETAL: Denies any joint pain or swelling. NEUROPSYCH: Denies any weakness or seizures. All other systems are reviewed and are negative. PHYSICAL EXAMINATION: CONSTITUTIONAL: Resting in bed, appearing weak, tired. HEENT: Head is normocephalic, atraumatic. Eyes, pupils are PERRLA. Sclerae anicteric. Mouth and throat: Mucous membranes are intact and moist. NECK: Supple. No lymphadenopathy. No JVD noted. CHEST: Clear to auscultation without wheezes, rhonchi, or rales. HEART: Regular rate and rhythm. Clear S1, S2. No murmurs, rubs, or gallops. ABDOMEN: Positive bowel sounds. Diffusely tender. NEURO: The patient is alert and oriented x3. Cranial nerves II through XII are grossly intact without focal deficits. LABORATORY DATA: WBC 2.5, hemoglobin 14.5, hematocrit 43.6, platelets 307. Sodium is 140, potassium is 3.0, chloride is 101, bicarb is 23, BUN is 24, creatinine is 0.73. Coronavirus PCR is negative. ASSESSMENT AND PLAN: 69-year-old woman, who is being admitted with upper gastrointestinal bleed. She reports coffee-ground emesis this morning. She has a history of this in the past and has been anemic; however, today her blood counts are within acceptable limits and blood pressure is stable. 1. Upper gastrointestinal bleed. She had to follow, will likely need scope. Continue IV PPI. No active bleeding at this time. Stable H and H, trend. Reported that she had been taking Aleve, however, that was in January and she had ceased taking that. 2. Depression. Continue sertraline. 3. Hypokalemia. Replete in the ER. We will trend. 4. Coagulopathy. On anticoagulation. History of alcohol use in the past. Normal LFTs. We will monitor PT, INR daily. 5. Deep vein thrombosis prophylaxis with mechanical compression boots due to GI bleed. 6. Case discussed with Dr. Brewer. 7. Full code. TOBIAS Morel MD JR/EMELIA / [id number]
--- NOTE | 2020-05-04 14:51 | MHC.SHP ---
Pre-Procedural Eval Section A The patient is an INPATIENT: Yes Changes since office visit: Yes New Medical Problems, Yes Changes in Medication and Yes Patient answered all questions; No Cold of Flu in the past 2 weeks The History & Physical has been completed within 30 days and I have reviewed it.: Yes Section B Chief Complaint: Dizziness Allergies: Allergies Allergy/AdvReac Type Severity Reaction Status Date / Time No Known Allergies Allergy Verified 02/23/20 10:48 [No Known Allergies*] Plan Diagnosis/Plan: Change (Proceed with EGD.) Patient has been examined and remains a candidate for the planned procedure
--- NOTE | 2020-05-04 15:07 | P.OP_ITS ---
Operative Note Operative Note Date of Service: 05/04/20 Narrative: Pre-op diagnosis: UGI Bleed, hx of duodenal ulcer Post-op diagnosis: other (Large duodenal ulcer, gastritis, hiatal hernia, esophagitis) Procedure: FLEXIBLE TRANSORAL UPPER GASTROINTESTINAL ENDOSCOPY WITH BIOPSIES Consent: Indications for the procedure and potential complications of bleeding, perforation, reaction to medications and missed diagnosis were discussed with the patient and informed consent was obtained. Instrument: Olympus GIF H 190 mid size upper endoscope Monitoring: Vital signs and clinical assessment, continuous EKG monitoring, Pulse oximetry, Carbon Dioxide monitoring and blood pressure monitoring were done throughout the procedure. Procedure: The patient was placed in the left lateral decubitis position and pre-procedure medications were administered and a bite block was placed. The endoscope was inserted into the mouth and advanced under direct vision to the third part of duodenum. A careful inspection was made as the upper endoscope was withdrawn including a retroflexed examination of the proximal stomach; Findings and interventions are described below. Findings: Larynx: Normal Esophagus: GE junction at 35 cms, hiatal hernia 35 to 38 cms. Severe erosive esophagitis from 30 to 35 cms with circumferential ulcerations and exudate. Stomach: Copious amount of coffee ground material in the fundus which was suctioned. Mild gastric erythema. Antral Biopsies were obtained to check for H pylori. Grade 3 flap valve on retroflexed examination of the cardia. Duodenum: Edematous folds with large ulcer crater at the apex and posterior wall of the bulb with large eschar and possible contained perforation . Descending duodenum was not examined. Intervention: Biopsies as noted above Impression and Post Procedure Diagnosis: Endoscopy Findings: ESOPHAGUS: GE junction at 35 cms, hiatal hernia 35 to 38 cms. Severe erosive esophagitis from 30 to 35 cms with circumferential ulcerations and exudate. STOMACH: Copious amount of coffee ground material in the fundus which was suctioned. Mild gastric erythema. Antral Biopsies were obtained to check for H pylori. DUODENUM: Edematous folds with large ulcer crater at the apex and posterior wall of the bulb with large eschar and possible contained perforation . Descending duodenum was not examined. Procedure was performed with minimal insufflation of CO2. UGI bleeding likely from severe erosive esophagitis. No active bleeding seen from DU. Plan: Check H & H Q 12 hrly. Serum Gastrin with next lab draw - order placed. Keep NPO and obtain repeat CT scan to rule out perforated DU. IV PPI Await pathology results. If H Pylori is positive, treat with triple therapy as an out patient. Above findings were reviewed with the patient. Surgeon: Jorge Light MD Anesthesia: MAC (ELISABETH Anaya) Aviation Maintenance Technician: Geovanna Goldberg Estimated blood loss (mL): 0 Pathology: other (A. Gastric antrum) Condition: stable Disposition: PACU
--- NOTE | 2020-05-04 16:01 | PM.EVENT ---
Event Note Date of Service: 05/04/20 Event Note: admission note the patient was seen and evaluated with Diana Ma NP. I agree with her note, assessment and plan with the following. In summary, a 69 years old patient with PMH of the reason for the chronic pain, alcohol abuse, GERD who presents to the hospital with coffee-ground emesis. She reports she woke up this morning vomiting dark blood. Episode resolved prior to hospital presentation. In the emergency head hemoglobin level was found to be stable. CT scan the did not show any acute findings. His She was evaluated by engineer sergeant Dr. Light who did EGD with findings of erosive esophagitis and peptic ulcer disease. With upper GI bleed Secondary to erosive gastritis, PUD disease Continue IV PPI Avoid nonsteroidal Keep NPO and to check for the CT scan of the abdomen and pelvis to rule out perforated DU Appreciate GI input Rest of evaluations by SHOWROOM MANAGER note.
--- NOTE | 2020-05-04 16:10 | CT_ITS ---
EXAMINATION: CT ABDOMEN AND PELVIS WITHOUT CONTRAST CLINICAL INFORMATION: Ulcer with question of perforation. COMPARISON: 04/22/2020 TECHNIQUE: Multidetector volumetric imaging was performed from the superior aspect of the liver through the pubic symphysis. Sagittal and coronal reformatted images were obtained on the technologist's workstation. This CT examination was performed using dose optimization techniques as appropriate, variously including the following: *Automated exposure control. *Adjustment of mA and/or kV according to patient size (this includes techniques or standardized protocols for targeted exams where dose is matched to indication/reason for exam; i.e. extremities or head). *Use of iterative reconstruction technique. DLP: 528 mGy-cm FINDINGS: LUNG BASES: There is a new small right pleural effusion present since the prior study. PERITONEUM: There is a large amount of free intraperitoneal air present with air within the mesentery as well. Free intraperitoneal fluid is present as well, mostly in the right upper quadrant, with air-fluid levels. LIVER, GALLBLADDER, AND BILIARY TREE: The liver is normal in size, shape, and attenuation. No focal hepatic lesion or biliary ductal dilatation is present. The gallbladder is distended and more thickened when compared to the prior study. No evidence of radiopaque gallstones obvious pericholecystic inflammatory changes. PANCREAS: Unremarkable. SPLEEN: Unremarkable. ADRENAL GLANDS: Unremarkable. KIDNEYS AND URETERS: The kidneys are normal in size, shape, and attenuation. No hydronephrosis, hydroureter, or calculi seen. No perinephric stranding. BLADDER: Unremarkable. GASTROINTESTINAL TRACT: Of note, the duodenal bulb and second portion of the duodenum is grossly abnormal with marked edema. On a number of images one can see air extending out of the duodenum and I suspect that a perforated/ruptured duodenum is the cause of the patient's large amount of free intraperitoneal air. In the mesentery, just below the gallbladder and duodenum, there are ill-defined streaky changes with small areas fluid collections but no well defined drainable collection is seen. The small and large bowel are otherwise unremarkable. The appendix is not seen with certainty. ABDOMINAL WALL: No significant hernia is appreciated. LYMPH NODES: No retroperitoneal lymphadenopathy. VASCULAR: Minimal calcific plaquing present. No aneurysms. PELVIC VISCERA: An anteverted uterus is present. An abnormal adnexal mass is not seen. OSSEOUS STRUCTURES: Degenerative change is present in the spine most marked at L4-L5 with a large Schmorl's node superior endplate L5. Marked narrowing also present at L1-L2. CT/CT abdomen pelvis wo con IMPRESSION: 1. There is a large amount of free intraperitoneal air present along with ascites with air-fluid levels and air in the mesentery. Some poorly defined small fluid collections are seen in the mesentery. I suspect that the etiology of this is a ruptured duodenal ulcer. Surgical consultation is recommended. 2. New right pleural effusion and distended gallbladder with wall thickening are all probably reactive. This critical result was discussed with Dr. Roberson at 10:45 PM on the day of the exam and it was ascertained that the content and urgency of the report was understood at the time of direct communication.
[2020-05-04 18:05] LABS: Hematocrit 42.7 % (37-47); Hemoglobin 14.4 g/dl (12.0-16.0)
[2020-05-04] MEDS: 0.9 % Sodium Chloride Flush 3 ML SYRINGE IVFLUSH (18:26)
[2020-05-04 21:33] LABS: Hematocrit 41.7 % (37-47); Hemoglobin 14.2 g/dl (12.0-16.0); Mean Corpuscular HGB Conc 34.1 g/dl (31.0-35.0); Mean Corpuscular Hemoglobin 29.7 pg (27.0-33.0); Mean Corpuscular Volume 87.2 fL (80-98); Mean Platelet Volume 9.8 fL (9.4-12.3); Platelet Count 317 X10*3/uL (160-400); Red Blood Count 4.78 X10*6/uL (4.20-5.50); Red Cell Distribution Width 13.5 % (11.0-16.0); White Blood Count 5.5 X10*3/uL (4.8-10.8)
[2020-05-04] MEDS: Diatrizoate Meglumine, Sodium 30 ML SOLUTION PO (22:14)
--- NOTE | 2020-05-04 23:10 | PM.EVENT ---
Event Note Date of Service: 05/04/20 Event Note: Called by Radiologist for a significant finding on CT abdomen for this patient: IMPRESSION: 1. There is a large amount of free intraperitoneal air present along with ascites with air-fluid levels and air in the mesentery. Some poorly defined small fluid collections are seen in the mesentery. I suspect that the etiology of this is a ruptured duodenal ulcer. Surgical consultation is recommended. 2. New right pleural effusion and distended gallbladder with wall thickening are all probably reactive. General Surgery consulted STAT Dr Riddle and was made aware of the findings. Per General surgeon, will look at the imaging and then will discuss if will plan surgery.
[2020-05-05] VITALS (7 sets, daily range): BP systolic 119–163; BP diastolic 75–100; PULSE 78–109; RESP 16–20; TEMP 36.2–36.4; O2SAT 95–97
[2020-05-05] MEDS: Piperacillin Sodium/Tazobactam 3.375 GM in 0.9 % Sodium Chloride 50 ML IV ×4 (00:49→21:36)
[2020-05-05] MEDS: 0.9 % Sodium Chloride Flush 3 ML SYRINGE IVFLUSH ×2 (00:49→16:14)
[2020-05-05] MEDS: Lactated Ringers 1,000 ML 150 ML IVCONT (00:51)
--- NOTE | 2020-05-05 00:53 | PM.CNGS ---
History of Present Illness Consult details Consult date: 05/04/20 Reason for consult: other (Perforated ulcer) Requesting physician: Anna Ventura Narrative: This is a 69-year-old female with a recent history of a bleeding duodenal ulcer who presented to the emergency department 05/04/2020 with complaints of abdominal pain. She underwent an EGD and was found to have an ulcer involving the posterior and superior aspect of the duodenal bulb with possible contained perforation. Following the procedure, a CT scan of the abdomen and pelvis was obtained. This demonstrated free intraperitoneal air and fluid and findings consistent with a perforated duodenal ulcer. She has a recent history of bleeding duodenal ulcer and underwent surgery for this in January. At that time, an attempt was made to perform a partial gastrectomy, but the duodenum was indurated and fixed and ultimately duodenostomy with over-sewing of the bleeding ulcer was carried out. Currently, she complains of diffuse abdominal pain. She does not report fever, chills, nausea or vomiting. She reports that she came to the emergency department for evaluation because of abdominal pain. Review of Systems Constitutional: Constitutional: Denies headache(s) and Reports weakness ENT: Reports dizziness and Denies headache(s) Cardiovascular: Comments: No chest pain or palpitations Respiratory: Comments: No shortness of breath or cough Gastrointestinal: Gastrointestinal: Reports as per HPI Neurologic: Reports system reviewed and no additional complaints, except as documented, Reports dizziness, Denies headache(s), Denies Sensory deficit (Neuro) and Reports weakness PMFSH Past Medical History Medical History (Updated 05/05/20 @ 00:58 by Natacha Riddle MD) Dizziness History of ETOH abuse Family History Family History Mother No problems noted. Father No problems noted. Surgical History Surgical History (Updated 05/05/20 @ 01:04 by Natacha Riddle MD) History of appendectomy History of gastric surgery Social History Social History Household Members: Significant Other Housing: House Do you presently have visiting nurse or other home services: No Alcohol intake: former Smoking Status: Never smoker Use of substances other than those prescribed or required for medical reasons: No Have you been hit, kicked, punched, or otherwise hurt by someone within the past year? If so, by whom?: No Do you feel safe in your current relationship?: Yes Is there a partner from a previous relationship who is making you feel unsafe now?: No Are you made to feel afraid or neglected: No Advance Directives: No Advance Directives Information Provided: No Do you have thoughts of harming others: None Do you have a plan to hurt others: No Plan Recently lost weight without trying: No Meds Allergies Allergy/AdvReac Type Severity Reaction Status Date / Time No Known Allergies Allergy Verified 02/23/20 10:48 [No Known Allergies*] Home Medications Medication Instructions Recorded Confirmed Type omeprazole 40 mg capsule,delayed 40 mg PO DAILY 03/31/20 05/04/20 History release sertraline 25 mg PO DAILY 05/04/20 05/04/20 History Physical Exam Vital Signs: Vital Signs: Last Vital Signs Temp 99.6 F 05/04/20 23:39 Pulse 80 05/04/20 23:39 Resp 20 05/04/20 23:39 BP 149/85 H 05/04/20 23:39 Pulse Ox 94 05/04/20 23:39 Body Mass Index 22.3 Const: Other: Uncomfortable General: anxious HENMT: Other: Normocephalic, atraumatic Neck: Other: supple trachea midline Resp: Other: Clear to auscultation Cardio: Other: Regular rate and rhythm GI: Other: Mildly distended, somewhat firm, diffusely tender most significant in the right lower quadrant, no palpable masses, well-healed upper midline scar Skin: Other: Warm and dry, pale Neuro: Sensory Exam: No Sensory deficit (Neuro) Extrem: Other: No edema, pedal pulses palpable Results Labs Result diagrams: 05/04/20 21:16 05/04/20 07:58 Labs: Abnormal lab results 05/04/20 05/04/20 05/04/20 Range/Units 07:14 07:58 10:43 WBC 3.4 L 2.5 L (4.8-10.8) X10*3/uL Neut % (Auto) 83.1 H 74.8 H (45-73) % Lymph % (Auto) 7.4 L 15.0 L (20-40) % Lymph # (Auto) 0.3 L 0.4 L (1.2-4.9) X10*3/uL Absolute Neuts (auto) 1.9 L (2.0-8.3) X10*3/uL PT (10.8-13.0) SEC INR (0.9-1.1) Potassium 3.0 L D (3.3-5.1) mmol/l BUN 24 H D (9-16) mg/dL Random Glucose 121 H D (60-115) mg/dL Calcium 8.1 L D (8.4-10.2) mg/dL Total Protein 5.7 L D (6.5-8.0) g/dL Albumin 3.3 L D (3.5-5.0) g/dL 05/04/20 Range/Units 12:41 WBC (4.8-10.8) X10*3/uL Neut % (Auto) (45-73) % Lymph % (Auto) (20-40) % Lymph # (Auto) (1.2-4.9) X10*3/uL Absolute Neuts (auto) (2.0-8.3) X10*3/uL PT 13.8 H (10.8-13.0) SEC INR 1.2 H (0.9-1.1) Potassium (3.3-5.1) mmol/l BUN (9-16) mg/dL Random Glucose (60-115) mg/dL Calcium (8.4-10.2) mg/dL Total Protein (6.5-8.0) g/dL Albumin (3.5-5.0) g/dL Short CBC 05/04/20 05/04/20 05/04/20 Range/Units 07:14 10:43 17:56 WBC 3.4 L 2.5 L (4.8-10.8) X10*3/uL Hgb 15.6 14.5 14.4 (12.0-16.0) g/dl Hct 46.6 43.6 42.7 (37-47) % Plt Count 375 D 307 (160-400) X10*3/uL 05/04/20 Range/Units 21:16 WBC 5.5 (4.8-10.8) X10*3/uL Hgb 14.2 (12.0-16.0) g/dl Hct 41.7 (37-47) % Plt Count 317 (160-400) X10*3/uL BMP 05/04/20 05/04/20 07:15 07:58 Sodium Cancelled 140 Potassium Cancelled 3.0 L D Chloride Cancelled 101 Carbon Dioxide Cancelled 23 BUN Cancelled 24 H D Creatinine Cancelled 0.73 Calcium Cancelled 8.1 L D Liver Function 05/04/20 05/04/20 Range/Units 07:15 07:58 Total Bilirubin Cancelled 0.6 Direct Bilirubin Cancelled 0.4 AST Cancelled 25 ALT Cancelled 16 Alkaline Phosphatase Cancelled 65 Albumin Cancelled 3.3 L D All other labs normal. Assessment and Plan (1) Perforated duodenal ulcer: Status: Acute She has a duodenal ulcer with evidence of perforation. She underwent surgery for bleeding duodenal ulcer apparently in the same location 3 months ago. At that time, mobilization of the stomach was carried out and preparation for distal gastrectomy, but ultimately distal gastrectomy was not performed due to severe induration in the area of the duodenum. Exploration will be needed for evaluation of spilled GI contents and repair of the perforation, possible partial gastrectomy. I have discussed the prior operative findings with her and recommendations for surgery and have reviewed risks including but not limited to recurrent perforation, breakdown of anastomotic lines, infection, bleeding, DVT and PE, incisional hernia. She agrees to proceed.
--- NOTE | 2020-05-05 07:19 | W.PM.OPN ---
Operative Note Operative Note Date of Service: 05/05/20 Narrative: Preoperative diagnosis: Perforated duodenal ulcer Postoperative Diagnosis: Same Procedure: Exploratory laparotomy, lysis of adhesions, pyloric exclusion, gastrojejunostomy, placement of decompressive duodenal tube, over-sewing of perforated duodenal ulcer and placement of Miguel A patch Mixing Machine Attendant: None Anesthesia: General endotracheal Estimated blood loss: 50 cc Specimen: Peritoneal cultures Drains: 10 mm Deandre-Rayo, 16 gauge Malicot duodenal tube Immediate complications: None Indications: This is a 69-year-old with a recent history of laparotomy and over-sewing of a bleeding duodenal ulcer who presented to the emergency department yesterday with weakness and a history of coffee-ground emesis. EGD was performed and a large ulcer with eschar was noted in the duodenal bulb posteriorly and superiorly. There was concern for contained perforation. Following the procedure, CT scan of the abdomen and pelvis was performed. This revealed copious free fluid in the abdomen and free intraperitoneal air. Perforated duodenal ulcer was suspected. Procedure in detail: With the patient in the supine position following induction of adequate general anesthesia, the abdomen was prepped with ChloraPrep and was draped sterilely. Time-out procedure was performed. The area for incision was infiltrated with local anesthetic prior to making incision. Incision was then made through the patient's old upper midline scar and was carried down through the subcutaneous tissues to the level of the fascia using the electrosurgical pencil. The fascia was initially incised centrally using a scalpel. Subfascial dissection was then carried out using Metzenbaum scissors and the fascial incision was extended to the length of the skin incision using the electrosurgical pencil. The peritoneum was then elevated with Trish clamps and incised. Peritoneal cavity was entered. Small amount of slightly greenish fluid was encountered initially. The omentum was adherent to the area of the midline scar and also to the right side to abdominal wall in several locations. These areas were mobilized using a combination of Metzenbaum dissection and division with electrosurgical pencil and LigaSure or. Once there was adequate free space, manual exploration was carried out. There were dense adhesions in the upper abdomen between the stomach, transverse colon and gallbladder as well as the inferior margin of the liver centrally. The the duodenum was not initially visible in the area of the duodenal bulb was not palpable. During exploration, a moderate amount of murky she enteric appearing fluid was encountered in the right abdomen and was drained. The abdomen was irrigated with saline solution and some inflammatory exudate was evacuated as well. The Bookwalter retractor was positioned. Tedious dissection was then undertaken to free adherent midtransverse colon from the greater curvature of the stomach and to free the gallbladder from the inferior margin of the stomach along the antrum. As this dissection was being carried out, julia bilious appearing drainage was encountered near the infundibulum of the gallbladder.. This proved to be the area of the perforated duodenal ulcer. Findings were consistent with and initially walled off perforation with the liver and infundibulum of the gallbladder forming a portion of the abscess wall. The tissues in the area of the perforation were quite indurated and thickened. The perforation was located along the superior aspect of the anterior duodenal bulb extending superiorly. The tissues posteriorly also were quite indurated. Because of the location over the uzma hepatis there was significant risk of damage to underlying portal structures with dissection in this area. Because of this risk, decision was made to perform a pyloric exclusion with gastrojejunostomy. An NG tube was inserted and the position was confirmed manually. A longitudinal gastrotomy was created along the inferior aspect of the anterior wall of the antrum. A holding suture was placed on the mid inferior and mid superior margin for retraction. The pylorus was identified and grasped with Darion clamp. It was oversewn interiorly using partial-thickness sutures of running 2 0 surgipro. The point for creation of the gastrojejunostomy was chosen about 30 cm distal to the ligament of Treitz. Small bowel mesentery was somewhat short. An opening was created in the transverse mesocolon and the loop of jejunum was brought through. A hand-sewn gastrojejunostomy was created using a seromuscular layer of interrupted imbricating sutures of 2-0 Surgilon and an interior full-thickness layer of running 2 0 Polysorb using a locking technique for the posterior layer and canal suture for the anterior layer. Next, a tube duodenostomy was created for decompression of the duodenum. This was placed along the anterior aspect of the duodenum in the descending portion. Two concentric pursestring sutures of 2 0 silk were positioned. An enterotomy was then created centrally. A 16 Vincentian mallet cut tube was passed through the right upper quadrant abdominal wall and inserted into the duodenotomy. The pursestring sutures were then securely tied. Following this, over-sewing of the duodenal ulcer was carried out using interrupted sutures of 2-0 Surgilon. For sutures were placed. The ends of the sutures were left long. A tongue of omentum was dissected free from the proximal aspect of the transverse Colon and was placed over the site. It was held in place hands of the sutures, which then were trimmed. A Deandre Rayo drain, 10 mm, was placed in the area of the gastrojejunostomy and the duodenal repair. Both the Deandre-Rayo drain and the were sutured in place with 2 0 nylon. The abdomen was copiously irrigated with saline solution and was inspected for bleeding. No bleeding was seen. The midline fascia was closed with 2 running sutures of 1. Maxon. Subcutaneous tissues were irrigated with saline solution and inspected for bleeding. Minimal bleeding was noted and was controlled with electrosurgical pencil. Skin was then loosely closed using coral. Wound felicita of quarter-inch plain packing were placed between approximately every 3rd staple. Dry sterile dressings were applied. She tolerated the procedure well and was transported to the postanesthesia care unit in stable condition. Sponge and instrument counts were correct.
--- NOTE | 2020-05-05 08:15 | PC.NURSE ---
7P-7A SHIFT; 2200 PATIENT SENT FOR CAT SCAN OF ABDOMEN. CRITICAL RESULTS REPORTED TO DR. RA VASQUES. STAT GENERAL SURGERY CONSULTED. DR. WRIGHT IN TO SEE PATIENT, AT PATIENT'S BEDSIDE. 0150; REPORT GIVEN TO OR NURSE. 0155 PATIENT SENT DOWN FOR SURGERY. 0700; PATIENT STILL OFF THE FLOOR, IN SURGERY. DAY SHIFT RN UPDATED.
[2020-05-05] MEDS: Dextrose 5 % and Lactated Ring 1,000 ML 100 ML IVCONT ×2 (10:16→20:08)
[2020-05-05 10:57] LABS: INTERNATIONAL NORM RATIO 1.3 (0.9-1.1); Prothrombin Time 15.9 SEC (10.8-13.0)
[2020-05-05 11:11] LABS: Hematocrit 42.5 % (37-47); Mean Corpuscular HGB Conc 32.9 g/dl (31.0-35.0); Mean Corpuscular Hemoglobin 29.4 pg (27.0-33.0); Mean Corpuscular Volume 89.3 fL (80-98); Mean Platelet Volume 10.1 fL (9.4-12.3); Platelet Count 302 X10*3/uL (160-400); Red Blood Count 4.76 X10*6/uL (4.20-5.50); Red Cell Distribution Width 13.8 % (11.0-16.0)
[2020-05-05 11:15] LABS: WBC ABN SCTR FOR CBC 1
[2020-05-05 11:42] LABS: Anion Gap 11 (12-20); Blood Urea Nitrogen 25 mg/dL (9-16); Calcium 7.5 mg/dL (8.4-10.2); Carbon Dioxide 26 mmol/L (22-29); Chloride 106 mmol/L (96-108); Creatinine Clr Calc Pharmacy 57.1; Estimated Glomerular Filt Rate > 60; Glucose Random 121 mg/dL (60-115); Potassium 4.3 mmol/l (3.3-5.1); Sodium 139 mmol/L (135-145)
[2020-05-05 12:20] LABS: Band Neutrophils Percent 50 % (3-5); Lymphocytes Percent Manual 4 % (20-40); Metamyelocytes Percent 4 %; Monocytes Percent Manual 9 % (2-11); Neutrophils Percent Manual 33 % (45-73)
[2020-05-05 12:22] LABS: RBC Morphology NOTED; Toxic Granulation 1+; Toxic Vacuolation 1+
[2020-05-05 12:23] LABS: Acanthocytes 2+
[2020-05-05 12:25] LABS: Platelet Estimate NORMAL (NORMAL); Platelet Morphology Comment NORMAL
[2020-05-05 12:28] LABS: Lymphocytes Absolute Manual 0.4 X10*3/uL (0.6-4.8); Metamyelocytes Absolute 0.4 X10*3/uL; Monocytes Absolute Manual 0.8 X10*3/uL (0.0-1.2); Neutrophils Absolute Manual 7.4 X10*3/uL (2.2-7.9); White Blood Count 8.9 X10*3/uL (4.8-10.8)
--- NOTE | 2020-05-05 12:47 | MHC.CM.PN ---
CM met with patient at the bedside who reports she lives with S.O. and is independent. Patient does have a HCP [facility] [phone] and a copy is on file. Discussed discharge plan home with services from [facility], [facility] S.O. will provide transport. IMM addressed. CM will continue to follow patient for discharge needs.
--- NOTE | 2020-05-05 14:25 | HO.POSTANES ---
Post Anesthesia Evaluation Post Anesthesia Evaluation Vital Signs: Vital Signs Temp Pulse Resp BP Pulse Ox 05/05/20 11:14 97.4 F 93 18 141/75 H 95 05/05/20 08:55 97.5 F 78 16 129/81 97 Anesthesia: Monitored (EGD) Mental Status: Awake Pain Control: Satisfactory Nausea/Vomiting: None Hydration: Adequate Anesthesia-Related Issues: No Anes. Related Issues
--- NOTE | 2020-05-05 14:27 | HO.POSTANES ---
Post Anesthesia Evaluation Post Anesthesia Evaluation Vital Signs: Vital Signs Temp Pulse Resp BP Pulse Ox 05/05/20 11:14 97.4 F 93 18 141/75 H 95 05/05/20 08:55 97.5 F 78 16 129/81 97 Anesthesia: General Endotracheal-GETA (patient back to OR with perforated ulcer) Mental Status: Awake Pain Control: Satisfactory Nausea/Vomiting: None Hydration: Adequate Anesthesia-Related Issues: No Anes. Related Issues
--- NOTE | 2020-05-05 16:20 | HO.PM.IMPN ---
Subjective Subjective Date of Service: 05/05/20 Interval History: patient seen and examined at bedside patient is status post surgery NG tube in place reporting abdominal pain Constitutional Constitutional: Reports no additional constitutional complaints, Reports chills, Reports fatigue, Denies fever(s), Denies headache(s), Reports poor appetite, Reports weakness and Reports weight loss Eyes Eyes: Reports no additional eye complaints, Denies eye discharge and Denies irritation ENT Ears, Nose, Mouth, and Throat: Denies dysphagia, Reports dizziness and Denies headache(s) Cardiovascular Cardiovascular: Reports no additional cardiovascular complaints, Denies chest pain, Denies leg edema and Denies dyspnea on exertion Respiratory Respiratory: Reports as per HPI, Denies cough and Denies dyspnea on exertion Gastrointestinal Gastrointestinal: Reports as per HPI, Reports no additional gastrointestinal complaints, Reports abdominal pain, Reports melena, Reports change in bowel habits, Denies dysphagia, Reports early satiety, Denies heartburn, Reports nausea, Reports vomiting and Reports hematemesis Musculoskeletal Musculoskeletal: Reports no additional musculoskeletal complaints, Denies back pain and Denies arthralgias Integumentary/Breasts Skin/Breast: Denies pruritus, Denies rash and Denies jaundice Neurologic Neurologic: Reports system reviewed and no additional complaints, except as documented, Reports dizziness, Denies headache(s), Denies Sensory deficit (Neuro) and Reports weakness Psychiatric Psychiatric: Denies anxiety, Denies depression and Denies panic attacks Endocrine Endocrine: Denies cold intolerance, Reports fatigue, Denies flushing and Denies heat intolerance Hematologic/Lymphatic Hematologic/Lymphatic: Denies easy bleeding and Denies easy bruising Physical Exam Vital Signs: Vital Signs: Last Vital Signs Temp 97.4 F 05/05/20 15:37 Pulse 99 05/05/20 15:37 Resp 20 05/05/20 15:37 BP 140/88 H 05/05/20 15:37 Pulse Ox 95 05/05/20 15:37 Body Mass Index 22.3 Const: Other: Regular rate and rhythm General: no acute distress, anxious, ill appearing and tired appearing Nutritional Appearance: malnourished and thin Orientation/consciousness: oriented to person and patient oriented x3 Limitations: no limitations and No language barrier HENMT: Other: Normocephalic, atraumatic Head: Yes normal to inspection Ears: hearing grossly normal bilaterally and external ears normal General nose exam: Normal external nose present Mouth: Normal oral and palatal mucosa present and oropharynx normal Throat: Yes posterior oropharynx normal Eyes: General: appearance normal, both eyes and all related structures Sclerae: sclerae normal Pupils: Equal, round and reactive pupils present Neck: Other: supple trachea midline Neck: Yes normal visual inspection Chest: Chest palpation & inspection: normal inspection of the chest Resp: Other: Clear to auscultation Effort & Inspection: normal respiratory effort Auscultation: clear to auscultation bilaterally Cardio: Other: Regular rate and rhythm Jugular venous distension: no JVD Palpation: normal PMI Rate: regular rate Rhythm: regular rhythm Heart sounds: S1 normal heart sound present, S2 normal heart sound present and no murmurs GI: Other: Mildly distended, somewhat firm, diffusely tender most significant in the right lower quadrant, no palpable masses, well-healed upper midline scar Inspection: Yes normal to inspection Palpation (GI): Soft to palpation, Tenderness to palpation present (GI) in the epigastrum (diffuse generalized tenderness) and No hepatosplenomegaly present Auscultation: normal bowel sounds Rectal Exam - Female: deferred : Other: rectal exam with brown stool heme negative General: Yes no CVA tenderness Back/Spine/Pelvis: Back: no CVA tenderness Skin: Other: Warm and dry, pale General skin exam: no rashes or lesions noted Neuro: General: oriented to person, patient oriented x3, gait normal and moves all extremities Cranial nerves: Yes CN's II-XII intact bilaterally and Yes Equal, round and reactive pupils present Motor exam (neuro): 5/5 motor strength present throughout Sensory Exam: No Sensory deficit (Neuro) Extrem: Other: No edema, pedal pulses palpable General: Yes normal to inspection Psych: Appearance: grossly normal Mental Status: mental status grossly normal Objective Data Current Medications Generic Name Dose Route Start Last Admin Trade Name Freq PRN Reason Stop Dose Admin Acetaminophen 1,000 mg in 100 mls @ 400 mls/hr 05/05/20 10:00 05/05/20 16:17 Ofirmev IV 400 mls/hr Q6H [facility] Administration Dextrose/Lactated Ringer's 1,000 mls @ 100 mls/hr 05/05/20 08:41 05/05/20 10:16 D5lr IVCONT 100 mls/hr .Q10H [facility] Administration Piperacillin Sod/Tazobactam 50 mls @ 100 mls/hr 12/16/20 10:00 05/05/20 16:18 Sod 3.375 gm/ Sodium Chloride IV 100 mls/hr Q6H [facility] Administration Morphine Sulfate 4 mg 05/05/20 08:41 Morphine Sulfate 4 Mg/Ml Cartridge IVPUSH Q3H PRN Pain, Severe (Pain Scale 7-10) Ondansetron HCl 4 mg 05/04/20 16:10 Ondansetron Hcl 4 Mg/2 Ml Vial IVPUSH Q8H PRN Nausea and Vomiting Pantoprazole Sodium 40 mg 05/04/20 16:30 05/05/20 06:53 Pantoprazole Sodium 40 Mg/10 Ml Vial IVPUSH Not Given BID@0630,1630 [facility] Pharmacy Consult 1 each 05/04/20 12:41 Consult Rx Perform Med Rec MISCELLANE ONCE PRN Consult order Sertraline HCl 25 mg 05/05/20 09:00 Sertraline Hcl 25 Mg Tablet PO DAILY [facility] Sodium Chloride 3 ml 05/04/20 16:46 05/05/20 16:14 0.9 % Sodium Chloride Flush 3 Ml Syringe IVFLUSH 3 ml QSHIFT [facility] Administration Sodium Chloride 3 ml 05/05/20 08:41 05/05/20 16:18 0.9 % Sodium Chloride Flush 3 Ml Syringe IVFLUSH Not Given QSHIFT [facility] Labs CBC & Chem 7: 05/05/20 10:18 05/05/20 10:18 Microbiology Microbiology Results: Microbiology 05/05/20 02:37 Peritoneal Fluid Gram Stain - Final Assessment and Plan (1) Perforated duodenal ulcer: Status: Acute Assessment and Plan: 69-year-old woman, who is being admitted with upper gastrointestinal bleed. She reports coffee-ground emesis . She has a history of this in the past and has been anemic Upper gastrointestinal bleed Perforated ulcer s/p surgery Status post EGD shows ulcer on 05/04/[address] abdomen shows perforated ulcer general surgery was consulted patient underwent Exploratory laparotomy, lysis of adhesions, pyloric exclusion, gastrojejunostomy, placement of decompressive duodenal tube, over-sewing of perforated duodenal ulcer and placement of Miguel A patch continue IV PPI continue NG tube and keep NPO management per surgery monitor H&H .Stable H and H, trend. Depression. Continue sertraline Hypokalemia. resolved monitor electrolytes Deep vein thrombosis prophylaxis with mechanical compression boots due to GI blee
[2020-05-05] MEDS: Pantoprazole Sodium 40 MG/10 ML VIAL IVPUSH (16:25)
[2020-05-06] VITALS: BP 139/68; PULSE 96; RESP 20; TEMP 36.6; O2SAT 94
[2020-05-06] MEDS: 0.9 % Sodium Chloride Flush 3 ML SYRINGE IVFLUSH ×6 (00:02→17:19)
[2020-05-06 03:24] VITALS: BP 151/70; PULSE 100; RESP 20; TEMP 36.9; O2SAT 94
[2020-05-06] MEDS: Piperacillin Sodium/Tazobactam 3.375 GM in 0.9 % Sodium Chloride 50 ML IV ×4 (04:53→22:29)
[2020-05-06] MEDS: Pantoprazole Sodium 40 MG/10 ML VIAL IVPUSH ×2 (05:06→17:21)
[2020-05-06] MEDS: Dextrose 5 % and Lactated Ring 1,000 ML 100 ML IVCONT ×2 (05:06→20:19)
[2020-05-06 06:08] LABS: Hematocrit 32.9 % (37-47); Mean Corpuscular HGB Conc 33.4 g/dl (31.0-35.0); Mean Corpuscular Hemoglobin 29.5 pg (27.0-33.0); Mean Corpuscular Volume 88.2 fL (80-98); Mean Platelet Volume 10.2 fL (9.4-12.3); Platelet Count 258 X10*3/uL (160-400); Red Blood Count 3.73 X10*6/uL (4.20-5.50); Red Cell Distribution Width 13.5 % (11.0-16.0); White Blood Count 10.7 X10*3/uL (4.8-10.8)
[2020-05-06 06:36] LABS: Anion Gap 11 (12-20); Blood Urea Nitrogen 24 mg/dL (9-16); Calcium 7.4 mg/dL (8.4-10.2); Carbon Dioxide 23 mmol/L (22-29); Chloride 109 mmol/L (96-108); Creatinine Clr Calc Pharmacy 68.5; Estimated Glomerular Filt Rate > 60; Glucose Random 99 mg/dL (60-115); Potassium 3.4 mmol/l (3.3-5.1); Sodium 140 mmol/L (135-145)
[2020-05-06 06:55] LABS: Band Neutrophils Percent 31 % (3-5); Lymphocytes Percent Manual 9 % (20-40); Metamyelocytes Absolute 0.1 X10*3/uL; Metamyelocytes Percent 1 %; Monocytes Absolute Manual 0.4 X10*3/uL (0.0-1.2); Monocytes Percent Manual 4 % (2-11); Neutrophils Absolute Manual 9.2 X10*3/uL (2.2-7.9); Neutrophils Percent Manual 55 % (45-73)
[2020-05-06 06:56] LABS: Toxic Vacuolation PRES
[2020-05-06 06:57] LABS: Platelet Estimate NORMAL (NORMAL); RBC Morphology NORMAL
[2020-05-06 06:58] LABS: Large Platelet PRESENT; Platelet Morphology Comment NOTE
[2020-05-06 06:59] LABS: Acanthocytes 1+; Toxic Granulation PRESENT
[2020-05-06 08:00] VITALS: BP 148/65; PULSE 92; RESP 18; TEMP 36.2; O2SAT 95; BMI 25.9
--- NOTE | 2020-05-06 09:30 | P.PNGS_ITS ---
Subjective Subjective Date of Service: 05/06/20 Interval history: Alert, she reports abdominal pain and some confusion about recent events. She says that she was not taking any medication for ulcer disease reliably following her discharge from [facility] in January. Physical Exam Vital Signs: Vital Signs: Last Vital Signs Temp 97.2 F 05/06/20 08:00 Pulse 92 05/06/20 08:00 Resp 18 05/06/20 08:00 BP 148/65 H 05/06/20 08:00 Pulse Ox 95 05/06/20 08:00 Body Mass Index 22.3 Laboratory Results - last 24 hr 05/05/20 05/05/20 05/05/20 10:18 10:18 10:18 WBC 8.9 RBC 4.76 Hgb 14.0 Hct 42.5 MCV 89.3 MCH 29.4 MCHC 32.9 RDW 13.8 Plt Count 302 MPV 10.1 Immature Gran % (A uto) Neut % (Auto) Lymph % (Auto) [place] % (Auto) Eos % (Auto) Baso % (Auto) Lymph # (Auto) [place] # (Auto) Eos # (Auto) Baso # (Auto) Abs Immat Gran (au to) Absolute Neuts (au to) Absolute Nucleated RBC 0.000 Nucleated RBC % (a uto) 0.0 Neutrophils % (Man ual) 33 L Band Neutrophils % 50 H Lymphocytes % (Man ual) 4 L Monocytes % (Manua l) 9 Metamyelocytes % 4 Abs Neuts (Manual) 7.4 Lymphocytes # (Man ual) 0.4 L Monocytes # (Manua l) 0.8 Metamyelocytes # 0.4 Toxic Granulation 1+ Toxic Vacuolation 1+ Platelet Estimate NORMAL Large Platelets Plt Morphology Com ment NORMAL RBC Morphology NOTED Acanthocytes (Spur ) 2+ PT 15.9 H INR 1.3 H Sodium 139 Potassium 4.3 D Chloride 106 Carbon Dioxide 26 Anion Gap 11 L BUN 25 H Creatinine 0.78 Estim Creat Clear Calc 57.1 Estimated GFR > 60 Random Glucose 121 H Fasting Glucose Calcium 7.5 L D 05/06/20 05/06/20 05/06/20 05:35 05:35 05:35 WBC Cancelled 10.7 RBC Cancelled 3.73 L D Hgb Cancelled 11.0 L D Hct Cancelled 32.9 L D MCV Cancelled 88.2 MCH Cancelled 29.5 MCHC Cancelled 33.4 RDW Cancelled 13.5 Plt Count Cancelled 258 MPV Cancelled 10.2 Immature Gran % (A uto) Cancelled Neut % (Auto) Cancelled Lymph % (Auto) Cancelled [place] % (Auto) Cancelled Eos % (Auto) Cancelled Baso % (Auto) Cancelled Lymph # (Auto) Cancelled [place] # (Auto) Cancelled Eos # (Auto) Cancelled Baso # (Auto) Cancelled Abs Immat Gran (au to) Cancelled Absolute Neuts (au to) Cancelled Absolute Nucleated RBC Cancelled 0.000 Nucleated RBC % (a uto) Cancelled 0.0 Neutrophils % (Man ual) 55 Band Neutrophils % 31 H Lymphocytes % (Man ual) 9 L Monocytes % (Manua l) 4 Metamyelocytes % 1 Abs Neuts (Manual) 9.2 H Lymphocytes # (Man ual) 1.0 Monocytes # (Manua l) 0.4 Metamyelocytes # 0.1 Toxic Granulation PRESENT Toxic Vacuolation PRES Platelet Estimate NORMAL Large Platelets PRESENT Plt Morphology Com ment NOTE RBC Morphology NORMAL Acanthocytes (Spur ) 1+ PT INR Sodium Cancelled Potassium Cancelled Chloride Cancelled Carbon Dioxide Cancelled Anion Gap Cancelled BUN Cancelled Creatinine Cancelled Estim Creat Clear Calc Cancelled Estimated GFR Cancelled Random Glucose Fasting Glucose Cancelled Calcium Cancelled 05/06/20 05:35 WBC RBC Hgb Hct MCV MCH MCHC RDW Plt Count MPV Immature Gran % (A uto) Neut % (Auto) Lymph % (Auto) [place] % (Auto) Eos % (Auto) Baso % (Auto) Lymph # (Auto) [place] # (Auto) Eos # (Auto) Baso # (Auto) Abs Immat Gran (au to) Absolute Neuts (au to) Absolute Nucleated RBC Nucleated RBC % (a uto) Neutrophils % (Man ual) Band Neutrophils % Lymphocytes % (Man ual) Monocytes % (Manua l) Metamyelocytes % Abs Neuts (Manual) Lymphocytes # (Man ual) Monocytes # (Manua l) Metamyelocytes # Toxic Granulation Toxic Vacuolation Platelet Estimate Large Platelets Plt Morphology Com ment RBC Morphology Acanthocytes (Spur ) PT INR Sodium 140 Potassium 3.4 D Chloride 109 H Carbon Dioxide 23 Anion Gap 11 L BUN 24 H Creatinine 0.65 Estim Creat Clear Calc 68.5 Estimated GFR > 60 Random Glucose 99 Fasting Glucose Calcium 7.4 L Const: Other: Alert, and in no acute distress Resp: Other: Clear to auscultation bilaterally Cardio: Other: Regular rate and rhythm GI: Other: Soft, nondistended, incision is clean, wound felicita in place, minimal drainage. Deandre-Rayo drain and duodenostomy tube sites are clean as well. DANIEL drainage in tubing appears serous with some blood clots present, but in bulb the color appears slightly bilious Duodenostomy tube is draining enteric appearing fluid Skin: Other: Normal color, warm and dry Progress Note: A&P Assessment and plan (1) Perforated duodenal ulcer: Problem details: It appears likely that she developed a contained perforation and progressed to free perforation. The area of the chronic abscess cavity and ulcer appeared to be overlying the portal structures. There is significant induration present as well as extensive scar tissue likely related to her prior surgery. Status: Acute Assessment and Plan: Healing of the ulcer repair site is of concern based upon the quality of the tissue. Nutrition is a concern. We will request PICC line for TPN. Out of bed today. Continue NPO. Monitor NG tube drainage. May be able to discontinue in the next 24 hours. Continue Zosyn pending results of our cultures. Continue to monitor mental status. She is oriented, but is having some difficulty with more complex concepts and decision making. I spoke with her significant other about this. The problem apparently predates the onset of this acute illness. Fall Risk Details Current Medications: Current Medications Generic Name Dose Route Start Last Admin Trade Name Derekq PRN Reason Stop Dose Admin Acetaminophen 1,000 mg in 100 mls @ 400 mls/hr 05/05/20 10:00 05/06/20 05:17 Ofirmev IV Infused Q6H [facility] Infusion Dextrose/Lactated Ringer's 1,000 mls @ 100 mls/hr 05/05/20 08:41 05/06/20 05:06 D5lr IVCONT 100 mls/hr .Q10H [facility] Administration Piperacillin Sod/Tazobactam 50 mls @ 100 mls/hr 05/05/20 10:00 05/06/20 09:22 Sod 3.375 gm/ Sodium Chloride IV 100 mls/hr Q6H [facility] Administration Morphine Sulfate 4 mg 05/05/20 08:41 Morphine Sulfate 4 Mg/Ml Cartridge IVPUSH Q3H PRN Pain, Severe (Pain Scale 7-10) Ondansetron HCl 4 mg 05/04/20 16:10 Ondansetron Hcl 4 Mg/2 Ml Vial IVPUSH Q8H PRN Nausea and Vomiting Pantoprazole Sodium 40 mg 05/04/20 16:30 05/06/20 05:06 Pantoprazole Sodium 40 Mg/10 Ml Vial IVPUSH 40 mg BID@0630,1630 [facility] Administration Pharmacy Consult 1 each 05/04/20 12:41 Consult Rx Perform Med Rec MISCELLANE ONCE PRN Consult order Sertraline HCl 25 mg 05/05/20 09:00 Sertraline Hcl 25 Mg Tablet PO DAILY [facility] Sodium Chloride 3 ml 05/04/20 16:46 05/06/20 09:22 0.9 % Sodium Chloride Flush 3 Ml Syringe IVFLUSH 3 ml QSHIFT [facility] Administration Sodium Chloride 3 ml 05/05/20 08:41 05/06/20 09:22 0.9 % Sodium Chloride Flush 3 Ml Syringe IVFLUSH 3 ml QSHIFT [facility] Administration Time Spent With Patient Time: Total time spent is greater than 50% in coordination of care (as documented) at patient's floor/unit and/or counseling patient: Time with patient: 15 - 24 minutes
[2020-05-06 10:39] LABS: Phosphorus 1.5 mg/dL (2.7-4.5); Triglycerides 69 mg/dL
[2020-05-06 11:38] LABS: Anion Gap 6 (12-20); Blood Urea Nitrogen 23 mg/dL (9-16); Carbon Dioxide 28 mmol/L (22-29); Chloride 109 mmol/L (96-108); Magnesium 1.9 mg/dL (1.6-2.6); Phosphorus 1.4 mg/dL (2.7-4.5); Potassium 3.3 mmol/l (3.3-5.1); Sodium 140 mmol/L (135-145)
[2020-05-06 12:00] VITALS: BP 158/79; PULSE 97; RESP 16; TEMP 36.4; O2SAT 93
[2020-05-06 12:21] VITALS: BMI 25.9
--- NOTE | 2020-05-06 12:25 | MHC.CLN ---
RE: CONSULT RECOMMEND DAY I D15 AA5% AT 40CC/HR TO PROVIDE 682KCALS, 48G PROTEIN DAY 2 INCREASE TO 60CC/HR TO PROVIDE 1022KCALS, 72G PROTEIN (1.2G/KG) DAY 3 ADD 19ML OF 20% LIPIDS X 12 HRS TO PROVIDE 1478KCALS (25KCALS/KG); DISCUSSED WITH PHARMACY; NOTED TRIGS WNL REPLETE LYTES NEEDED
[2020-05-06 12:52] LABS: Glucose, Whole Blood 110 mg/dL (60-115)
[2020-05-06] MEDS: Morphine Sulfate 4 MG/ML CARTRIDGE IVPUSH (13:43)
--- NOTE | 2020-05-06 15:29 | P.PNIM_ITS ---
Subjective Subjective Date of Service: 05/06/20 Interval History: Patient seen and examined at bedside patient is status post surgery patient was reporting abdominal discomfort Constitutional Constitutional: Reports no additional constitutional complaints, Reports chills, Reports fatigue, Denies fever(s), Denies headache(s), Reports poor appetite, Reports weakness and Reports weight loss Eyes Eyes: Reports no additional eye complaints, Denies eye discharge and Denies irritation ENT Ears, Nose, Mouth, and Throat: Reports dysphagia, Reports dizziness and Denies headache(s) Cardiovascular Cardiovascular: Reports no additional cardiovascular complaints, Denies chest pain, Denies leg edema and Denies dyspnea on exertion Respiratory Respiratory: Reports as per HPI, Denies cough and Denies dyspnea on exertion Gastrointestinal Gastrointestinal: Reports as per HPI, Reports abdominal pain and Reports dysphagia Musculoskeletal Musculoskeletal: Reports no additional musculoskeletal complaints, Denies back pain and Denies arthralgias Integumentary/Breasts Skin/Breast: Denies pruritus, Denies rash and Denies jaundice Neurologic Neurologic: Reports system reviewed and no additional complaints, except as documented, Reports dizziness, Denies headache(s), Denies Sensory deficit (Neuro) and Reports weakness Psychiatric Psychiatric: Denies anxiety, Denies depression and Denies panic attacks Endocrine Endocrine: Denies cold intolerance, Reports fatigue, Denies flushing and Denies heat intolerance Hematologic/Lymphatic Hematologic/Lymphatic: Denies easy bleeding and Denies easy bruising Physical Exam Vital Signs: Vital Signs: Last Vital Signs Temp 97.6 F 05/06/20 12:00 Pulse 97 05/06/20 12:00 Resp 16 05/06/20 12:00 BP 158/79 H 05/06/20 12:00 Pulse Ox 93 05/06/20 12:00 Body Mass Index 25.9 Const: Other: Regular rate and rhythm General: no acute distress, anxious, ill appearing and tired appearing Nutritional Appearance: malnourished and t hin Orientation/consciousness: oriented to person and patient oriented x3 Limitations: no limitations and No language barrier HENMT: Other: Normocephalic, atraumatic Head: Yes normal to inspection Ears: hearing grossly normal bilaterally and external ears normal General nose exam: Normal external nose present Mouth: Normal oral and palatal mucosa present and oropharynx normal Throat: Yes posterior oropharynx normal Eyes: General: appearance normal, both eyes and all related structures Scle hosea: sclerae normal Pupils: Equal, round and reactive pupils present Neck: Other: supple trachea midline Neck: Yes normal visual inspection Chest: Chest palpation & inspection: normal inspection of the chest Resp: Other: Clear to auscultation Effort & Inspection: normal respiratory effort Auscultation: clear to auscultation bilaterally Cardio: Other: Regular rate and rhythm Jugular venous distension: no JVD Palpation: normal PMI Rate: regular rate Rhythm: regular rhythm Heart sounds: S1 normal heart sound present, S2 normal heart sound present and no murmurs GI: Other: mild tender in upper abdomen, surgery site appears clear, drains in place Palpation (GI): Tenderness to palpation present (GI) in the epigastrum (diffuse generalized tenderness) : Other: rectal exam with brown stool heme negative General: Yes no CVA tenderness Back/Spine/Pelvis: Back: no CVA tenderness Skin: Other: Warm and dry, pale General skin exam: no rashes or lesions noted Neuro: General: oriented to person, patient oriented x3, gait normal and moves all extremities Cranial nerves: Yes CN's II-XII intact bilaterally and Yes Equal, round and reactive pupils present Motor exam (neuro): 5/5 motor strength present throughout Sensory Exam: No Sensory deficit (Neuro) Extrem: Other: No edema, pedal pulses palpable General: Yes normal to inspection Psych: Appearance: grossly normal Mental Status: mental status grossly normal Objective Data Current Medications Generic Name Dose Route Start Last Admin Trade Name Freq PRN Reason Stop Dose Admin Acetaminophen 1,000 mg in 100 mls @ 400 mls/hr 05/05/20 10:00 05/06/20 12:30 Ofirmev IV Not Given Q6H [facility] Dextrose/Lactated Ringer's 1,000 mls @ 100 mls/hr 05/05/20 08:41 05/06/20 13:50 D5lr IVCONT 0 mls/hr .Q10H [facility] Infusion Piperacillin Sod/Tazobactam 50 mls @ 100 mls/hr 05/05/20 10:00 05/06/20 09:52 Sod 3.375 gm/ Sodium Chloride IV Infused Q6H [facility] Infusion Multivitamins 10.5 ml/ Trace 960 mls @ 40 mls/hr 05/06/20 18:00 Metals 1 ml/ Amino Acids/ IV 05/07/20 17:59 Electrolytes DAILY@1800 [facility] Morphine Sulfate 4 mg 05/05/20 08:41 05/06/20 13:43 Morphine Sulfate 4 Mg/Ml Cartridge IVPUSH 4 mg Q3H PRN Administration Pain, Severe (Pain Scale 7-10) Ondansetron HCl 4 mg 05/04/20 16:10 Ondansetron Hcl 4 Mg/2 Ml Vial IVPUSH Q8H PRN Nausea and Vomiting Pantoprazole Sodium 40 mg 05/04/20 16:30 05/06/20 05:06 Pantoprazole Sodium 40 Mg/10 Ml Vial IVPUSH 40 mg BID@0630,1630 [facility] Administration Pharmacy Consult 1 each 05/04/20 12:41 Consult Rx Perform Med Rec MISCELLANE ONCE PRN Consult order Sertraline HCl 25 mg 05/05/20 09:00 Sertraline Hcl 25 Mg Tablet PO DAILY [facility] Sodium Chloride 3 ml 05/04/20 16:46 05/06/20 09:22 0.9 % Sodium Chloride Flush 3 Ml Syringe IVFLUSH 3 ml QSHIFT [facility] Administration Sodium Chloride 3 ml 05/05/20 08:41 05/06/20 09:22 0.9 % Sodium Chloride Flush 3 Ml Syringe IVFLUSH 3 ml QSHIFT [facility] Administration Labs CBC & Chem 7: 05/06/20 05:35 05/06/20 10:47 Microbiology Microbiology Results: Microbiology 05/05/20 02:37 Peritoneal Fluid Gram Stain - Final 05/05/20 02:37 Peritoneal Fluid Routine Culture - Preliminary Culture in progress. Assessment and Plan (1) Perforated duodenal ulcer: Problem details: I Status: Acute Assessment and Plan: 69-year-old woman, who is being admitted with upper gastrointestinal bleed. She reports coffee-ground emesis . patient underwent EGD, found to have ulcer with possible contained perforation, CT abdomen shows perforation with free air,l surgery was consulted patient underwent Exploratory laparotomy, lysis of adhesions, pyloric exclusion, gastrojejunostomy, placement of decompressive duodenal tube, over-sewing of perforated duodenal ulcer and placement of Miguel A patch, Upper gastrointestinal bleed Perforated ulcer s/p surgery Status post EGD shows ulcer on 05/04/[address] abdomen shows perforated ulcer S/p Exploratory laparotomy, lysis of adhesions, pyloric exclusion, gastrojejunostomy, placement of decompressive duodenal tube, over-sewing of perforated duodenal ulcer and placement of Miguel A patch continue IV PPI continue NG tube started on TPN management per surgery monitor H&H .Stable H and H Depression. Continue sertraline Hypokalemia. resolved monitor electrolytes Deep vein thrombosis prophylaxis with mechanical compression boots due to GI bleed
--- NOTE | 2020-05-06 16:03 | XR_ITS ---
EXAMINATION: XR CHEST CLINICAL INFORMATION: Evaluate right PICC positioning. COMPARISON: 04/22/2020 chest radiographs. TECHNIQUE: Frontal view of the chest was obtained. FINDINGS: Support devices: There has been interval placement of a right PICC with tip pointing superiorly, likely within the right internal jugular vein. A nasogastric tube is seen with tip not included on the study, but below the left hemidiaphragm. There is mild elevation of the right hemidiaphragm. Mild increased markings are seen in the right infrahilar region. The left lung is clear. The heart and mediastinal structures are unremarkable. XR/XR chest 1V IMPRESSION: 1. Right PICC tip likely within the proximal aspect of the right internal jugular vein. Repositioning is recommended. 2. Mild increased markings in the right infrahilar region likely represents vascular crowding. Atelectasis or an infiltrate would be less likely.
--- NOTE | 2020-05-06 16:42 | HO.PICC ---
PICC Line Insertion NPICC Diagnosis: [Upper GI Bleed] Indication: [NEEDED FOR TPN] Pertinent Labs: [Reviewed] Technique: Following informed consent including risks, benefits and alternatives and using sterile technique including cap and mask, sterile gown, glove and drape, the [Right] arm was prepped and draped in the usual sterile fashion of full barrier technique with CHG. Following completion of [place] Protocol the skin and soft tissues were anesthetized with 1% Lidocaine plain. Using ultrasound guidance, [Right Basilic] vein access was obtained by Lucrecia Owens RN. Over an 0.018 wire through peel-away sheath, a [5fr Double Lumen] PICC line was positioned. Catheter length is [36 CM] internal length, [OCM at HUB] external length, for a total trimmed length of [36CM]. The procedure was performed in [RM. 279]. Had difficulty placing Picc Line in SVC. Dr Lay assisted with placement over 0.18 wire. Ultrasound was used to document vein patency and for needle entry. CXR verified placement of PICC line in the SVC. Line is currently dressed with a StatLock, Tegaderm, and CHG disc. Verification has been performed for blood return and line patency. Arm Circumference: [27cm] Equipment: [[employer] PiCC Solo] Catheter Type: [5fR Double Lumen PICC] Lot #: [id number]]
[2020-05-06 17:10] VITALS: BP 152/70; PULSE 95; RESP 18; TEMP 37.1; O2SAT 94
[2020-05-06 17:12] LABS: Glucose, Whole Blood 80 mg/dL (60-115)
[2020-05-06 20:03] VITALS: BP 145/71; PULSE 91; RESP 18; TEMP 36.8; O2SAT 93
[2020-05-06 22:00] LABS: Glucose, Whole Blood 134 mg/dL (60-115)
[2020-05-07] VITALS (7 sets, daily range): BP systolic 137–169; BP diastolic 74–100; PULSE 54–98; RESP 16–20; TEMP 36.6–37.2; O2SAT 94–97; BMI 26.4
[2020-05-07] MEDS: Piperacillin Sodium/Tazobactam 3.375 GM in 0.9 % Sodium Chloride 50 ML IV ×4 (04:08→22:19)
[2020-05-07] MEDS: Pantoprazole Sodium 40 MG/10 ML VIAL IVPUSH ×2 (04:12→16:55)
[2020-05-07] MEDS: Dextrose 5 % and Lactated Ring 1,000 ML 100 ML IVCONT (06:07)
[2020-05-07 06:20] LABS: MANUAL DIFF FLAG NO
[2020-05-07 06:26] LABS: Basophils Percent Auto 0.2 % (0-2); Eosinophils Percent Auto 0.4 % (0-4); Hematocrit 31.1 % (37-47); Hemoglobin 10.2 g/dl (12.0-16.0); Imm Gran Abs Auto 0.03 X10*3/uL (0.00-0.03); Imm Gran Pct Auto 0.3 % (0.0-0.4); Lymphocytes Absolute Auto 0.8 X10*3/uL (1.2-4.9); Lymphocytes Percent Auto 7.8 % (20-40); Mean Corpuscular HGB Conc 32.8 g/dl (31.0-35.0); Mean Corpuscular Hemoglobin 29.1 pg (27.0-33.0); Mean Corpuscular Volume 88.6 fL (80-98); Mean Platelet Volume 10.3 fL (9.4-12.3); Monocytes Absolute Auto 0.5 X10*3/uL (0.1-1.2); Monocytes Percent Auto 4.7 % (2-11); Neutrophils Absolute Auto 8.6 X10*3/uL (2.0-8.3); Neutrophils Percent Auto 86.6 % (45-73); Platelet Count 256 X10*3/uL (160-400); Red Blood Count 3.51 X10*6/uL (4.20-5.50); Red Cell Distribution Width 13.6 % (11.0-16.0)
[2020-05-07 06:50] LABS: Anion Gap 13 (12-20); Blood Urea Nitrogen 12 mg/dL (9-16); Calcium 7.5 mg/dL (8.4-10.2); Carbon Dioxide 26 mmol/L (22-29); Chloride 105 mmol/L (96-108); Creatinine Clr Calc Pharmacy 89.2; Estimated Glomerular Filt Rate > 60; Glucose Random 126 mg/dL (60-115); Potassium 3.2 mmol/l (3.3-5.1); Sodium 141 mmol/L (135-145)
[2020-05-07 07:05] LABS: Magnesium 1.6 mg/dL (1.6-2.6); Phosphorus 1.5 mg/dL (2.7-4.5)
[2020-05-07 08:00] LABS: Glucose, Whole Blood 134 mg/dL (60-115)
--- NOTE | 2020-05-07 08:27 | PM.PNGS ---
Subjective Subjective Date of Service: 05/07/20 <Phuong Sparks PA-C - Last Filed: 05/07/20 08:48> 05/07/20 <Louie Ruiz MD - Last Filed: 05/07/20 09:55> Interval history: Pain is less then when she came in. C/o throat discomfort from NGT. <Phuong Sparks PA-C - Last Filed: 05/07/20 08:48> Physical Exam Vital Signs: Vital Signs: Last Vital Signs Temp 98.4 F 05/07/20 04:46 Pulse 95 05/07/20 04:46 Resp 18 05/07/20 04:46 BP 165/85 H 05/07/20 04:46 Pulse Ox 97 05/07/20 04:46 Body Mass Index 25.9 <SHADIA Torres Last Filed: 05/07/20 08:48> Const: General: no acute distress and alert <Phuong Sparks PA-C - Last Filed: 05/07/20 08:48> Orientation/consciousness: patient oriented x3 <Phuong Sparks PA-C - Last Filed: 05/07/20 08:48> Eyes: Sclerae: sclerae normal <Phuong Sparks PA-C Last Filed: 05/07/20 08:48> Resp: Effort & Inspection: normal respiratory effort <Phuong Sparks PA-C - Last Filed: 05/07/20 08:48> Cardio: Rate: regular rate <Phuong Sparks PA-C Last Filed: 05/07/20 08:48> GI: Other: DANIEL drain and duodenal tube with enteric contents <Phuong Sparks PA-C Last Filed: 05/07/20 08:48> Inspection: No distended and Yes incision (large abdominal dressings intact, clean) <SHADIA Torres Last Filed: 05/07/20 08:48> Palpation (GI): Soft to palpation, Tenderness to palpation present (GI) (mild), not rigid and No Rebound tenderness present <SHADIA Torres Last Filed: 05/07/20 08:48> Skin: Other: normal color, warm and dry <SHADIA Torres Last Filed: 05/07/20 08:48> Neuro: General: patient oriented x3 <SHADIA Torres Last Filed: 05/07/20 08:48> Extrem: General: Yes no clubbing, cyanosis or edema <SHADIA Torres Last Filed: 05/07/20 08:48> Progress Note: A&P Assessment and plan (1) Perforated duodenal ulcer: Problem details: It appears likely that she developed a contained perforation and progressed to free perforation. The area of the chronic abscess cavity and ulcer appeared to be overlying the portal structures. There is significant induration present as well as extensive scar tissue likely related to her prior surgery. Healing of the ulcer repair site is of concern based upon the quality of the tissue. <SHADIA Torres Last Filed: 05/07/20 08:48> Status: Acute <SHADIA Torres Last Filed: 05/07/20 08:48> Assessment and Plan: POD #2 s/p exploratory laparotomy, lysis of adhesions, pyloric exclusion, gastrojejunostomy, placement of decompressive duodenal tube, over-sewing of perforated duodenal ulcer and placement of Miguel A patch. PICC line placed yesterday, started on TPN. Will continue and increase rate to 60cc/hr per nutrition recs. Hypokalemia and hypophosphatemia on labs this am- will supplement. Continue NPO. Monitor NG tube drainage. Cont DANIEL and duodenal tube. Continue Zosyn, cultures pending. Continue IV protonix. Encouraged OOB to chair today, IS use. <SHADIA Torres Last Filed: 05/07/20 08:48> she looks well abd soft, DANIEL - scanty, tube duodenostomy draining bilious fluid NGT in place correct K keep NGT in place until output lower TPN OOB pt's son Filiberto and signficiant other John updated by phone seen and examined - agree with JOSEMANUEL Sparks <Louie Ruiz MD - Last Filed: 05/07/20 09:55> Fall Risk Details Current Medications: Current Medications Generic Name Dose Route Start Last Admin Trade Name Freq PRN Reason Stop Dose Admin Acetaminophen 1,000 mg in 100 mls @ 400 mls/hr 05/05/20 10:00 05/07/20 05:04 Ofirmev IV Infused Q6H [facility] Infusion Dextrose/Lactated Ringer's 1,000 mls @ 100 mls/hr 05/05/20 08:41 05/07/20 06:07 D5lr IVCONT 100 mls/hr .Q10H [facility] Administration Piperacillin Sod/Tazobactam 50 mls @ 100 mls/hr 05/05/20 10:00 05/07/20 05:04 Sod 3.375 gm/ Sodium Chloride IV Infused Q6H [facility] Infusion Multivitamins 10.5 ml/ Trace 960 mls @ 40 mls/hr 05/06/20 18:00 05/06/20 18:20 Metals 1 ml/ Amino Acids/ IV 05/07/20 17:59 40 mls/hr Electrolytes DAILY@1800 [facility] Administration Potassium Phosphate 15 mmol/ 505 mls @ 84.17 mls/hr 05/07/20 08:25 Sodium Chloride IV 05/07/20 14:24 ONCE ONE Morphine Sulfate 4 mg 05/05/20 08:41 05/06/20 13:43 Morphine Sulfate 4 Mg/Ml Cartridge IVPUSH 4 mg Q3H PRN Administration Pain, Severe (Pain Scale 7-10) Ondansetron HCl 4 mg 05/04/20 16:10 Ondansetron Hcl 4 Mg/2 Ml Vial IVPUSH Q8H PRN Nausea and Vomiting Pantoprazole Sodium 40 mg 05/04/20 16:30 05/07/20 04:12 Pantoprazole Sodium 40 Mg/10 Ml Vial IVPUSH 40 mg BID@0630,1630 [facility] Administration Pharmacy Consult 1 each 05/04/20 12:41 Consult Rx Perform Med Rec MISCELLANE ONCE PRN Consult order Sertraline HCl 25 mg 05/05/20 09:00 Sertraline Hcl 25 Mg Tablet PO DAILY [facility] Sodium Chloride 3 ml 05/04/20 16:46 05/07/20 01:51 0.9 % Sodium Chloride Flush 3 Ml Syringe IVFLUSH Not Given QSHIFT [facility] Sodium Chloride 3 ml 05/05/20 08:41 05/07/20 01:51 0.9 % Sodium Chloride Flush 3 Ml Syringe IVFLUSH Not Given QSHIFT [facility] <Phuong Sparks PA-C - Last Filed: 05/07/20 08:48> Time Spent With Patient Time: Total time spent is greater than 50% in coordination of care (as documented) at patient's floor/unit and/or counseling patient: <SHADIA Torres Last Filed: 05/07/20 08:48> Time with patient: 15 - 24 minutes <SHADIA Torres Last Filed: 05/07/20 08:48> No Severe Sepsis: No Severe Sepsis <SHADIA Torres Last Filed: 05/07/20 08:48>
[2020-05-07 10:07] LABS: Thyroid Stimulating Hormone 2.26 uIU/mL (0.32-4.0)
[2020-05-07 10:27] LABS: Folate 4.7 ng/mL (> or = 4.0); Vitamin B12 994 pg/mL (200-900)
[2020-05-07 11:00] LABS: Glucose, Whole Blood 120 mg/dL (60-115)
--- NOTE | 2020-05-07 11:57 | MHC.CM.PN ---
Patient is NPO with NG tube to wall suction S/P duodenal ulcer repair day 3.. Patient is on IV Clinimix, IV MS and IV Zosyn. Discharge plan is home with new referral to [facility]. [facility] will provide transportation. CM will continue to follow patient for discharge needs.
--- NOTE | 2020-05-07 13:31 | MHC.CLN ---
F/U DAY 2 D15 AA5% AT 60CC/HR TO PROVIDE 1022KCALS, 72G PROTEIN (1.2G/KG) NOTED TRIGS WNL DAY 3 TOMORROW (05/08) ADD 19ML OF 20% LIPIDS X 12 HRS TO PROVIDE 1478KCALS (25KCALS/KG) REPLETE LYTES NEEDED FOLLOWING
--- NOTE | 2020-05-07 14:28 | PC.NURSE ---
Pt peripheral IV line blew. Pt difficult stick. Pt IV potassium started in second PICC line port. Checked with Pharmacy to confirm it is ok to run TPN and Potassium through different PICC line ports.
[2020-05-07] MEDS: 0.9 % Sodium Chloride Flush 3 ML SYRINGE IVFLUSH ×3 (16:55→22:55)
[2020-05-07 17:02] LABS: Glucose, Whole Blood 112 mg/dL (60-115)
--- NOTE | 2020-05-07 17:12 | HO.PM.IMPN ---
Subjective Subjective Date of Service: 05/07/20 Interval History: Patient seen and examined at bedside patient is status post surgery patient was reporting abdominal discomfort Constitutional Constitutional: Reports no additional constitutional complaints, Reports chills, Reports fatigue, Denies fever(s), Denies headache(s), Reports poor appetite, Reports weakness and Reports weight loss Eyes Eyes: Reports no additional eye complaints, Denies eye discharge and Denies irritation ENT Ears, Nose, Mouth, and Throat: Reports dysphagia, Reports dizziness and Denies headache(s) Cardiovascular Cardiovascular: Reports no additional cardiovascular complaints, Denies chest pain, Denies leg edema and Denies dyspnea on exertion Respiratory Respiratory: Reports as per HPI, Denies cough and Denies dyspnea on exertion Gastrointestinal Gastrointestinal: Reports as per HPI, Reports abdominal pain and Reports dysphagia Musculoskeletal Musculoskeletal: Reports no additional musculoskeletal complaints, Denies back pain and Denies arthralgias Integumentary/Breasts Skin/Breast: Denies pruritus, Denies rash and Denies jaundice Neurologic Neurologic: Reports system reviewed and no additional complaints, except as documented, Reports dizziness, Denies headache(s), Denies Sensory deficit (Neuro) and Reports weakness Psychiatric Psychiatric: Denies anxiety, Denies depression and Denies panic attacks Endocrine Endocrine: Denies cold intolerance, Reports fatigue, Denies flushing and Denies heat intolerance Hematologic/Lymphatic Hematologic/Lymphatic: Denies easy bleeding and Denies easy bruising Physical Exam Vital Signs: Vital Signs: Last Vital Signs Temp 98.9 F 05/07/20 16:33 Pulse 94 05/07/20 16:33 Resp 18 05/07/20 16:33 BP 162/93 H 05/07/20 16:33 Pulse Ox 96 05/07/20 16:33 Body Mass Index 26.4 Const: Other: Regular rate and rhythm General: no acute distress, anxious, ill appearing and tired appearing Nutritional Appearance: malnourished and thin Orientation/consciousness: oriented to person and patient oriented x3 Limitations: no limitations and No language barrier HENMT: Other: Normocephalic, atraumatic Head: Yes normal to inspection Ears: hearing grossly normal bilaterally and external ears normal General nose exam: Normal external nose present Mouth: Normal oral and palatal mucosa present and oropharynx normal Throat: Yes posterior oropharynx normal Eyes: General: appearance normal, both eyes and all related structures Sclerae: sclerae normal Pupils: Equal, round and reactive pupils present Neck: Other: supple trachea midline Neck: Yes normal visual inspection Chest: Chest palpation & inspection: normal inspection of the chest Resp: Other: Clear to auscultation Effort & Inspection: normal respiratory effort Auscultation: clear to auscultation bilaterally Cardio: Other: Regular rate and rhythm Jugular venous distension: no JVD Palpation: normal PMI Rate: regular rate Rhythm: regular rhythm Heart sounds: S1 normal heart sound present, S2 normal heart sound present and no murmurs GI: Other: mild tender in upper abdomen, surgery site appears clear, drains in place Inspection: Yes normal to inspection Palpation (GI): Tenderness to palpation present (GI) in the epigastrum (diffuse generalized tenderness) Auscultation: normal bowel sounds Rectal Exam - Female: deferred : Other: rectal exam with brown stool heme negative General: Yes no CVA tenderness Back/Spine/Pelvis: Back: no CVA tenderness Skin: Other: Warm and dry, pale General skin exam: no rashes or lesions noted Neuro: General: oriented to person, patient oriented x3, gait normal and moves all extremities Cranial nerves: Yes CN's II-XII intact bilaterally and Yes Equal, round and reactive pupils present Motor exam (neuro): 5/5 motor strength present throughout Sensory Exam: No Sensory deficit (Neuro) Extrem: Other: No edema, pedal pulses palpable General: Yes normal to inspection Psych: Appearance: grossly normal Mental Status: mental status grossly normal Objective Data Current Medications Generic Name Dose Route Start Last Admin Trade Name Freq PRN Reason Stop Dose Admin Benzocaine 1 lozenge 05/07/20 08:48 Throat Lozenge, Medicated Lozenge MUCOUS MEM Q2H PRN Sore Throat Acetaminophen 1,000 mg in 100 mls @ 400 mls/hr 05/05/20 10:00 05/07/20 17:03 Ofirmev IV 400 mls/hr Q6H [facility] Administration Dextrose/Lactated Ringer's 1,000 mls @ 100 mls/hr 05/05/20 08:41 05/07/20 10:10 D5lr IVCONT 0 mls/hr .Q10H [facility] Infusion Piperacillin Sod/Tazobactam 50 mls @ 100 mls/hr 05/05/20 10:00 05/07/20 10:02 Sod 3.375 gm/ Sodium Chloride IV Infused Q6H [facility] Infusion Multivitamins 10.5 ml/ Trace 960 mls @ 40 mls/hr 05/06/20 18:00 05/06/20 18:20 Metals 1 ml/ Amino Acids/ IV 05/07/20 17:59 40 mls/hr Electrolytes DAILY@1800 COUNTS INCLUDE 234 BEDS AT [facility] Administration Multivitamins 14 ml/ Trace 1,440 mls @ 60 mls/hr 05/07/20 18:00 Metals 1.4 ml/ Amino Acids/ IV 05/08/20 17:59 Electrolytes DAILY@1800 COUNTS INCLUDE 234 BEDS AT THE [facility] Morphine Sulfate 4 mg 05/05/20 08:41 05/06/20 13:43 Morphine Sulfate 4 Mg/Ml Cartridge IVPUSH 4 mg Q3H PRN Administration Pain, Severe (Pain Scale 7-10) Ondansetron HCl 4 mg 05/04/20 16:10 Ondansetron Hcl 4 Mg/2 Ml Vial IVPUSH Q8H PRN Nausea and Vomiting Pantoprazole Sodium 40 mg 05/04/20 16:30 05/07/20 16:55 Pantoprazole Sodium 40 Mg/10 Ml Vial IVPUSH 40 mg BID@0630,1630 COUNTS INCLUDE 234 BEDS AT THE [facility] Administration Pharmacy Consult 1 each 05/04/20 12:41 Consult Rx Perform Med Rec MISCELLANE ONCE PRN Consult order Sertraline HCl 25 mg 05/05/20 09:00 Sertraline Hcl 25 Mg Tablet PO DAILY COUNTS INCLUDE 234 BEDS AT THE [facility] Sodium Chloride 3 ml 05/04/20 16:46 05/07/20 16:55 0.9 % Sodium Chloride Flush 3 Ml [facility]ringe [facility] Administration Sodium Chloride 3 ml 05/05/20 08:41 05/07/20 16:55 0.9 % Sodium Chloride Flush 3 Ml Syringe [facility]FLUSH Not [facility] Labs CBC & Chem 7: 05/07/20 05:17 05/07/20 05:17 Microbiology Microbiology Results: Microbiology 05/05/20 02:37 Peritoneal Fluid Gram Stain - Final 05/05/20 02:37 Peritoneal Fluid Routine Culture - Preliminary Yeast Gram positive cocci 05/05/20 02:37 Peritoneal Fluid Anaerobic Culture - Preliminary Culture in progress. Assessment and Plan (1) Perforated duodenal ulcer: Status: Acute Assessment and Plan: 69-year-old woman, who is being admitted with upper gastrointestinal bleed. She reports coffee-ground emesis . patient underwent EGD, found to have ulcer with possible contained perforation, CT abdomen shows perforation with free air,l surgery was consulted patient underwent Exploratory laparotomy, lysis of adhesions, pyloric exclusion, gastrojejunostomy, placement of decompressive duodenal tube, over-sewing of perforated duodenal ulcer and placement of Miguel A patch, Upper gastrointestinal bleed Perforated ulcer s/p surgery Status post EGD shows ulcer on 05/04/[address] abdomen shows perforated ulcer S/p Exploratory laparotomy, lysis of adhesions, pyloric exclusion, gastrojejunostomy, placement of decompressive duodenal tube, over-sewing of perforated duodenal ulcer and placement of Miguel A patch continue IV PPI continue NG tube continue TPN management per surgery monitor H&H Stable H and H Depression. Continue sertraline Hypokalemia. resolved monitor electrolytes Deep vein thrombosis prophylaxis with mechanical compression boots due to GI bleed
[2020-05-07 21:26] LABS: Glucose, Whole Blood 120 mg/dL (60-115)
[2020-05-08] MEDS: Dextrose 5 % and Lactated Ring 1,000 ML 100 ML IVCONT (01:44)
[2020-05-08 03:00] VITALS: BP 161/82; PULSE 88; RESP 20; TEMP -13; TEMP 8.6; O2SAT 93
[2020-05-08] MEDS: Piperacillin Sodium/Tazobactam 3.375 GM in 0.9 % Sodium Chloride 50 ML IV ×4 (03:35→20:59)
[2020-05-08] MEDS: Pantoprazole Sodium 40 MG/10 ML VIAL IVPUSH (05:33)
[2020-05-08 06:16] VITALS: BMI 25.9
[2020-05-08 07:05] LABS: MANUAL DIFF FLAG NO
[2020-05-08 07:14] LABS: Basophils Percent Auto 0.2 % (0-2); Eosinophils Absolute Auto 0.1 X10*3/uL (0.0-0.4); Eosinophils Percent Auto 1.4 % (0-4); Hematocrit 34.2 % (37-47); Hemoglobin 11.2 g/dl (12.0-16.0); Imm Gran Abs Auto 0.08 X10*3/uL (0.00-0.03); Imm Gran Pct Auto 0.9 % (0.0-0.4); Lymphocytes Absolute Auto 0.9 X10*3/uL (1.2-4.9); Lymphocytes Percent Auto 10.4 % (20-40); Mean Corpuscular HGB Conc 32.7 g/dl (31.0-35.0); Mean Corpuscular Hemoglobin 28.8 pg (27.0-33.0); Mean Corpuscular Volume 87.9 fL (80-98); Mean Platelet Volume 10.2 fL (9.4-12.3); Monocytes Absolute Auto 0.7 X10*3/uL (0.1-1.2); Monocytes Percent Auto 7.8 % (2-11); Neutrophils Percent Auto 79.3 % (45-73); Platelet Count 262 X10*3/uL (160-400); Red Blood Count 3.89 X10*6/uL (4.20-5.50); Red Cell Distribution Width 13.6 % (11.0-16.0); White Blood Count 8.9 X10*3/uL (4.8-10.8)
[2020-05-08 07:47] LABS: Anion Gap 11 (12-20); Blood Urea Nitrogen 10 mg/dL (9-16); Carbon Dioxide 28 mmol/L (22-29); Chloride 102 mmol/L (96-108); Creatinine Clr Calc Pharmacy 96.1; Estimated Glomerular Filt Rate > 60; Glucose Random 134 mg/dL (60-115); Potassium 3.3 mmol/l (3.3-5.1); Sodium 138 mmol/L (135-145)
[2020-05-08] MEDS: 0.9 % Sodium Chloride Flush 3 ML SYRINGE IVFLUSH ×6 (08:31→21:06)
[2020-05-08 08:48] LABS: Glucose, Whole Blood 142 mg/dL (60-115)
[2020-05-08 09:23] VITALS: BP 144/79; PULSE 76; RESP 18; TEMP 36.9; O2SAT 95
--- NOTE | 2020-05-08 10:19 | PM.PNGS ---
Subjective Subjective Date of Service: 05/08/20 Interval history: frustrated about being in the hospital no n/v pain well controlled Physical Exam Vital Signs: Vital Signs: Last Vital Signs Temp 98.5 F 05/08/20 09:23 Pulse 76 05/08/20 09:23 Resp 18 05/08/20 09:23 BP 144/79 H 05/08/20 09:23 Pulse Ox 95 05/08/20 09:23 Body Mass Index 25.9 Chemistry 05/05/20 05/06/20 05/06/20 10:18 05:35 05:35 Sodium 139 Cancelled 140 Potassium 4.3 D Cancelled 3.4 D Carbon Dioxide 26 Cancelled 23 BUN 25 H Cancelled 24 H Creatinine 0.78 Cancelled 0.65 Calcium 7.5 L D Cancelled 7.4 L Phosphorus 1.5 L 05/06/20 05/07/20 05/07/20 10:47 05:17 05:17 Sodium 140 141 Potassium 3.3 3.2 L Carbon Dioxide 28 26 BUN 23 H 12 Creatinine 0.55 Calcium 7.5 L Phosphorus 1.4 L 1.5 L 05/08/20 06:15 Sodium 138 Potassium 3.3 Carbon Dioxide 28 BUN 10 Creatinine 0.51 Calcium 8.0 L D Phosphorus Hematology 05/05/20 05/06/20 05/06/20 10:18 05:35 05:35 WBC 8.9 Cancelled 10.7 Hgb 14.0 Cancelled 11.0 L D Plt Count 302 Cancelled 258 05/07/20 05/08/20 05:17 06:15 WBC 10.0 8.9 Hgb 10.2 L 11.2 L Plt Count 256 262 Const: General: no acute distress Orientation/consciousness: patient oriented x3 Eyes: Sclerae: sclerae normal Resp: Effort & Inspection: normal respiratory effort Cardio: Rhythm: regular rhythm : Other: soft, nondistended, no guarding, incision clean and dry, tube duodenostomy - draining bilious fluid, DANIEL drain scanty, serous-clear Neuro: General: patient oriented x3 Progress Note: A&P Assessment and plan (1) Perforated duodenal ulcer: Status: Acute Assessment and Plan: S/P pyloric exclusion, tube duodenostomy, gastrojej NGT output not much dc NGT today dc Krishnamurthy OOB instructed on incentive spirometry lytes ok - K 3.3 TPN discussed plan with pt improving Fall Risk Details Current Medications: Current Medications Generic Name Dose Route Start Last Admin Trade Name Freq PRN Reason Stop Dose Admin Benzocaine 1 lozenge 05/07/20 08:48 Throat Lozenge, Medicated Lozenge MUCOUS MEM Q2H PRN Sore Throat Piperacillin Sod/Tazobactam 50 mls @ 100 mls/hr 05/05/20 10:00 05/08/20 09:18 Sod 3.375 gm/ Sodium Chloride IV Infused Q6H [facility] Infusion Multivitamins 14 ml/ Trace 1,440 mls @ 60 mls/hr 05/07/20 18:00 05/07/20 18:14 Metals 1.4 ml/ Amino Acids/ IV 05/08/20 17:59 60 mls/hr Electrolytes DAILY@1800 [facility] Administration Morphine Sulfate 4 mg 05/05/20 08:41 05/06/20 13:43 Morphine Sulfate 4 Mg/Ml Cartridge IVPUSH 4 mg Q3H PRN Administration Pain, Severe (Pain Scale 7-10) Ondansetron HCl 4 mg 05/04/20 16:10 Ondansetron Hcl 4 Mg/2 Ml Vial IVPUSH Q8H PRN Nausea and Vomiting Pharmacy Consult 1 each 05/04/20 12:41 Consult Rx Perform Med Rec MISCELLANE ONCE PRN Consult order Sertraline HCl 25 mg 05/05/20 09:00 Sertraline Hcl 25 Mg Tablet PO DAILY [facility] Sodium Chloride 3 ml 05/04/20 16:46 05/08/20 08:31 0.9 % Sodium Chloride Flush 3 Ml Syringe IVFLUSH 3 ml QSHIFT [facility] Administration Sodium Chloride 3 ml 05/05/20 08:41 05/08/20 08:31 0.9 % Sodium Chloride Flush 3 Ml Syringe IVFLUSH 3 ml QSHIFT [facility] Administration Time Spent With Patient Time: Total time spent is greater than 50% in coordination of care (as documented) at patient's floor/unit and/or counseling patient: Time with patient: 15 - 24 minutes
[2020-05-08 12:12] LABS: Glucose, Whole Blood 136 mg/dL (60-115)
[2020-05-08 12:20] VITALS: BP 161/90; PULSE 90; RESP 20; TEMP 36.6; O2SAT 97
--- NOTE | 2020-05-08 13:45 | PM.EVENT ---
Event Note Date of Service: 05/08/20 Event Note: pt seen and examined NGT output seems higher since this AM ?200 cc kristy keep NGT in instructed nursing staff to kevin/monitor NGT output
--- NOTE | 2020-05-08 15:08 | HO.PM.IMPN ---
Subjective Subjective Date of Service: 05/08/20 Interval History: Patient seen and examined at bedside patient is status post surgery patient was reporting abdominal discomfort Constitutional Constitutional: Reports no additional constitutional complaints, Reports chills, Reports fatigue, Denies fever(s), Denies headache(s), Reports poor appetite, Reports weakness and Reports weight loss Eyes Eyes: Reports no additional eye complaints, Denies eye discharge and Denies irritation ENT Ears, Nose, Mouth, and Throat: Reports dysphagia, Reports dizziness and Denies headache(s) Cardiovascular Cardiovascular: Reports no additional cardiovascular complaints, Denies chest pain, Denies leg edema and Denies dyspnea on exertion Respiratory Respiratory: Reports as per HPI, Denies cough and Denies dyspnea on exertion Gastrointestinal Gastrointestinal: Reports as per HPI, Reports abdominal pain and Reports dysphagia Musculoskeletal Musculoskeletal: Reports no additional musculoskeletal complaints, Denies back pain and Denies arthralgias Integumentary/Breasts Skin/Breast: Denies pruritus, Denies rash and Denies jaundice Neurologic Neurologic: Reports system reviewed and no additional complaints, except as documented, Reports dizziness, Denies headache(s), Denies Sensory deficit (Neuro) and Reports weakness Psychiatric Psychiatric: Denies anxiety, Denies depression and Denies panic attacks Endocrine Endocrine: Denies cold intolerance, Reports fatigue, Denies flushing and Denies heat intolerance Hematologic/Lymphatic Hematologic/Lymphatic: Denies easy bleeding and Denies easy bruising Physical Exam Vital Signs: Vital Signs: Last Vital Signs Temp 97.9 F 05/08/20 12:20 Pulse 90 05/08/20 12:20 Resp 20 05/08/20 12:20 BP 161/90 H 05/08/20 12:20 Pulse Ox 97 05/08/20 12:20 Body Mass Index 25.9 Const: Other: Regular rate and rhythm General: no acute distress, anxious, ill appearing and tired appearing Nutritional Appearance: malnourished and thin Orientation/consciousness: oriented to person and patient oriented x3 Limitations: no limitations and No language barrier HENMT: Other: Normocephalic, atraumatic Head: Yes normal to inspection Ears: hearing grossly normal bilaterally and external ears normal General nose exam: Normal external nose present Mouth: Normal oral and palatal mucosa present and oropharynx normal Throat: Yes posterior oropharynx normal Eyes: General: appearance normal, both eyes and all related structures Sclerae: sclerae normal Pupils: Equal, round and reactive pupils present Neck: Other: supple trachea midline Neck: Yes normal visual inspection Chest: Chest palpation & inspection: normal inspection of the chest Resp: Other: Clear to auscultation Effort & Inspection: normal respiratory effort Auscultation: clear to auscultation bilaterally Cardio: Other: Regular rate and rhythm Jugular venous distension: no JVD Palpation: normal PMI Rate: regular rate Rhythm: regular rhythm Heart sounds: S1 normal heart sound present, S2 normal heart sound present and no murmurs GI: Other: mild tender in upper abdomen, surgery site appears clear, drains in place Inspection: Yes normal to inspection Palpation (GI): Tenderness to palpation present (GI) in the epigastrum (diffuse generalized tenderness) Auscultation: normal bowel sounds Rectal Exam - Female: deferred : Other: rectal exam with brown stool heme negative General: Yes no CVA tenderness Back/Spine/Pelvis: Back: no CVA tenderness Skin: Other: Warm and dry, pale General skin exam: no rashes or lesions noted Neuro: General: oriented to person, patient oriented x3, gait normal and moves all extremities Cranial nerves: Yes CN's II-XII intact bilaterally and Yes Equal, round and reactive pupils present Motor exam (neuro): 5/5 motor strength present throughout Sensory Exam: No Sensory deficit (Neuro) Extrem: Other: No edema, pedal pulses palpable General: Yes normal to inspection Psych: Appearance: grossly normal Mental Status: mental status grossly normal Objective Data Current Medications Generic Name Dose Route Start Last Admin Trade Name Freq PRN Reason Stop Dose Admin Benzocaine 1 lozenge 05/07/20 08:48 Throat Lozenge, Medicated Lozenge MUCOUS MEM Q2H PRN Sore Throat Piperacillin Sod/Tazobactam 50 mls @ 100 mls/hr 05/05/20 10:00 05/08/20 09:18 Sod 3.375 gm/ Sodium Chloride IV Infused Q6H MOSHE Infusion Multivitamins 14 ml/ Trace 1,440 mls @ 60 mls/hr 05/07/20 18:00 05/07/20 18:14 Metals 1.4 ml/ Amino Acids/ IV 05/08/20 17:59 60 mls/hr Electrolytes DAILY@1800 MOS[facility] Administration Multivitamins 14 ml/ Trace 2,015.4 mls @ 60 mls/hr 05/08/20 18:00 Metals 1.4 ml/ Amino Acids/ IV 05/09/20 17:59 Electrolytes DAILY@1800 [facility] Fat Emulsion Intravenous 228 mls @ 19 mls/hr 05/08/20 18:00 Intralipid IV 05/09/20 05:59 DAILY@1800 [facility] Morphine Sulfate 4 mg 05/05/20 08:41 05/06/20 13:43 Morphine Sulfate 4 Mg/Ml Cartridge IVPUSH 4 mg Q3H PRN Administration Pain, Severe (Pain Scale 7-10) Ondansetron HCl 4 mg 05/04/20 16:10 Ondansetron Hcl 4 Mg/2 Ml Vial IVPUSH Q8H PRN Nausea and Vomiting Pharmacy Consult 1 each 05/04/20 12:41 Consult Rx Perform Med Rec MISCELLANE ONCE PRN Consult order Potassium Chloride 40 meq 05/08/20 15:03 Potassium Chloride Packet 20 Meq Packet PO 05/08/20 15:04 ONCE ONE Sertraline HCl 25 mg 05/05/20 09:00 Sertraline Hcl 25 Mg Tablet PO DAILY [facility] Sodium Chloride 3 ml 05/04/20 16:46 05/08/20 08:31 0.9 % Sodium Chloride Flush 3 Ml Syringe IVFLUSH 3 ml QSHIFT [facility] Administration Sodium Chloride 3 ml 05/05/20 08:41 05/08/20 08:31 0.9 % Sodium Chloride Flush 3 Ml Syringe IVFLUSH 3 ml QSHIFT [facility] Administration Labs CBC & Chem 7: 05/08/20 06:15 05/08/20 06:15 Microbiology Microbiology Results: Microbiology 05/05/20 02:37 Peritoneal Fluid Gram Stain - Final 05/05/20 02:37 Peritoneal Fluid Routine Culture - Preliminary Catherine dubliniensis Gram positive cocci Yeast#2 Staphylococcus species 05/05/20 02:37 Peritoneal Fluid Anaerobic Culture - Preliminary Culture in progress. Assessment and Plan (1) Perforated duodenal ulcer: Status: Acute Assessment and Plan: 69-year-old woman, who is being admitted with upper gastrointestinal bleed. She reports coffee-ground emesis . patient underwent EGD, found to have ulcer with possible contained perforation, CT abdomen shows perforation with free air,l surgery was consulted patient underwent Exploratory laparotomy, lysis of adhesions, pyloric exclusion, gastrojejunostomy, placement of decompressive duodenal tube, over-sewing of perforated duodenal ulcer and placement of Miguel A patch, Upper gastrointestinal bleed Perforated ulcer s/p surgery Status post EGD shows ulcer on 05/04/[address] abdomen shows perforated ulcer S/p Exploratory laparotomy, lysis of adhesions, pyloric exclusion, gastrojejunostomy, placement of decompressive duodenal tube, over-sewing of perforated duodenal ulcer and placement of Miguel A patch Continue IV PPI Continue NG tube Continue TPN management per surgery monitor H&H Stable H and H Depression. Continue sertraline Hypokalemia. resolved Monitor electrolytes Question of memory issues at home TSH B12 and folate level normal Deep vein thrombosis prophylaxis with mechanical compression boots due to GI bleed
[2020-05-08 15:34] VITALS: BP 170/100; PULSE 96; RESP 18; TEMP 36.5; O2SAT 96
[2020-05-08] MEDS: KCl 40 mEq in 5% Dex/0.45% Sod 40 MEQ/1,000 ML IV.SOLN 42 MEQ IVCONT (16:13)
[2020-05-08 16:45] LABS: Glucose, Whole Blood 128 mg/dL (60-115)
[2020-05-08] MEDS: Fat Emulsions 20% 250 ML 19 ML IV (17:32)
[2020-05-08 18:30] VITALS: BP 150/90
[2020-05-08 20:21] LABS: Glucose, Whole Blood 138 mg/dL (60-115)
[2020-05-08 22:00] VITALS: BP 150/86; PULSE 82; RESP 18; TEMP 36.9; O2SAT 96
[2020-05-09] VITALS (10 sets, daily range): BP systolic 121–166; BP diastolic 70–97; PULSE 58–114; RESP 18; TEMP 36.6–37.2; O2SAT 96–97
[2020-05-09] MEDS: Piperacillin Sodium/Tazobactam 3.375 GM in 0.9 % Sodium Chloride 50 ML IV ×4 (04:37→22:06)
[2020-05-09 07:06] LABS: Anion Gap 14 (12-20); Blood Urea Nitrogen 14 mg/dL (9-16); Calcium 8.2 mg/dL (8.4-10.2); Carbon Dioxide 25 mmol/L (22-29); Chloride 101 mmol/L (96-108); Creatinine Clr Calc Pharmacy 92.5; Estimated Glomerular Filt Rate > 60; Glucose Random 123 mg/dL (60-115); Potassium 3.7 mmol/l (3.3-5.1); Sodium 136 mmol/L (135-145)
[2020-05-09 07:07] LABS: Basophils Percent Auto 0.4 % (0-2); Eosinophils Absolute Auto 0.2 X10*3/uL (0.0-0.4); Eosinophils Percent Auto 1.6 % (0-4); Hematocrit 37.5 % (37-47); Hemoglobin 12.2 g/dl (12.0-16.0); Imm Gran Abs Auto 0.14 X10*3/uL (0.00-0.03); Imm Gran Pct Auto 1.3 % (0.0-0.4); Lymphocytes Absolute Auto 1.4 X10*3/uL (1.2-4.9); Lymphocytes Percent Auto 13.1 % (20-40); MANUAL DIFF FLAG SCAN; Mean Corpuscular HGB Conc 32.5 g/dl (31.0-35.0); Mean Corpuscular Hemoglobin 28.6 pg (27.0-33.0); Monocytes Absolute Auto 1.5 X10*3/uL (0.1-1.2); Monocytes Percent Auto 13.9 % (2-11); Neutrophils Absolute Auto 7.6 X10*3/uL (2.0-8.3); Neutrophils Percent Auto 69.7 % (45-73); Platelet Count 300 X10*3/uL (160-400); Red Blood Count 4.26 X10*6/uL (4.20-5.50); Red Cell Distribution Width 13.7 % (11.0-16.0); SCAN SMEAR FLAG 1; White Blood Count 10.9 X10*3/uL (4.8-10.8)
[2020-05-09 07:08] LABS: Glucose, Whole Blood 126 mg/dL (60-115)
[2020-05-09 07:51] LABS: SLIDE REVIEW VERIFIED
--- NOTE | 2020-05-09 09:51 | PM.PNGS ---
Subjective Subjective Date of Service: 05/09/20 Interval history: frustrated says she has been in the hospital too long appears depressed and unmotivated does not want to get out of bed NGT kept in place yesterday due to high output Physical Exam Vital Signs: Vital Signs: Last Vital Signs Temp 97.9 F 05/09/20 07:00 Pulse 100 05/09/20 07:00 Resp 18 05/09/20 07:00 BP 166/90 H 05/09/20 07:00 Pulse Ox 96 05/09/20 07:00 Body Mass Index 25.9 Chemistry 05/06/20 05/06/20 05/07/20 05:35 10:47 05:17 Sodium 140 141 Potassium 3.3 3.2 L Carbon Dioxide 28 26 BUN 23 H 12 Creatinine 0.55 Calcium 7.5 L Phosphorus 1.5 L 1.4 L 05/07/20 05/08/20 05/09/20 05:17 06:15 05:54 Sodium 138 136 Potassium 3.3 3.7 Carbon Dioxide 28 25 BUN 10 14 Creatinine 0.51 0.53 Calcium 8.0 L D 8.2 L Phosphorus 1.5 L Hematology 05/07/20 05/08/20 05/09/20 05:17 06:15 05:54 WBC 10.0 8.9 10.9 H Hgb 10.2 L 11.2 L 12.2 Plt Count 256 262 300 Const: General: comfortable, no acute distress and anxious Eyes: Sclerae: sclerae normal Resp: Effort & Inspection: normal respiratory effort GI: Other: soft, nondistended, DANIEL - scanty, serous; tube duodenostomy bilious; NGT high output overnight, incision clean Extrem: General: Yes no calf tenderness Progress Note: A&P Assessment and plan (1) Perforated duodenal ulcer: Status: Acute Assessment and Plan: appears unmotivated, frustrated had a long discussion with her about need to get out of bed, do incentive spirometry and be more active she had been refusing to get out of bed, did poorly with PT NGT output was high yesterday - will keep in place labs ok - continue same TPN formula DANIEL drain around duodenal repair with scanty output Krishnamurthy out - pt voiding but says she has been wetting her bed; difficult to quantify UO creatinine ok Fall Risk Details Current Medications: Current Medications Generic Name Dose Route Start Last Admin Trade Name Freq PRN Reason Stop Dose Admin Benzocaine 1 lozenge 05/07/20 08:48 Throat Lozenge, Medicated Lozenge MUCOUS MEM Q2H PRN Sore Throat Piperacillin Sod/Tazobactam 50 mls @ 100 mls/hr 05/05/20 10:00 05/09/20 09:16 Sod 3.375 gm/ Sodium Chloride IV 100 mls/hr Q6H [facility] Administration Multivitamins 14 ml/ Trace 2,015.4 mls @ 60 mls/hr 05/08/20 18:00 05/08/20 17:30 Metals 1.4 ml/ Amino Acids/ IV 05/09/20 17:59 60 mls/hr Electrolytes DAILY@1800 [facility] Administration Potassium Chloride/Dextrose/Sod Cl 40 meq in 1,000 mls @ 42 mls/hr 05/08/20 16:00 05/08/20 16:13 IVCONT 42 mls/hr .[id number] [facility] Administration Morphine Sulfate 4 mg 05/05/20 08:41 05/06/20 13:43 Morphine Sulfate 4 Mg/Ml Cartridge IVPUSH 4 mg Q3H PRN Administration Pain, Severe (Pain Scale 7-10) Ondansetron HCl 4 mg 05/04/20 16:10 Ondansetron Hcl 4 Mg/2 Ml Vial IVPUSH Q8H PRN Nausea and Vomiting Pharmacy Consult 1 each 05/04/20 12:41 Consult Rx Perform Med Rec MISCELLANE ONCE PRN Consult order Sertraline HCl 25 mg 05/05/20 09:00 Sertraline Hcl 25 Mg Tablet PO DAILY [facility] Sodium Chloride 3 ml 05/04/20 16:46 05/09/20 09:16 0.9 % Sodium Chloride Flush 3 Ml Syringe IVFLUSH Not Given QSHIFT [facility]HE Sodium Chloride 3 ml 05/05/20 08:41 05/09/20 09:16 0.9 % Sodium Chloride Flush 3 Ml Syringe IVFLUSH Not Given QSHIFT MOSHE Time Spent With Patient Time: Total time spent is greater than 50% in coordination of care (as documented) at patient's floor/unit and/or counseling patient: Time with patient: 15 - 24 minutes
[2020-05-09 10:43] LABS: Magnesium 1.7 mg/dL (1.6-2.6); Phosphorus 2.9 mg/dL (2.7-4.5)
[2020-05-09 11:03] LABS: Glucose, Whole Blood 126 mg/dL (60-115)
--- NOTE | 2020-05-09 14:31 | PM.EVENT ---
Event Note Date of Service: 05/09/20 Event Note: pt noted to have retention of urine Krishnamurthy reinserted - large amount of urine drained pt encouraged to get out of bed to reclined keep NGT in drains in place continue current care
--- NOTE | 2020-05-09 14:41 | P.PNIM_ITS ---
Subjective Subjective Date of Service: 05/09/20 Interval History: Patient seen and examined at bedside patient is status post surgery patient was reporting abdominal discomfort Constitutional Constitutional: Reports no additional constitutional complaints, Reports chills, Reports fatigue, Denies fever(s), Denies headache(s), Reports poor appetite, Reports weakness and Reports weight loss Eyes Eyes: Reports no additional eye complaints, Denies eye discharge and Denies irritation ENT Ears, Nose, Mouth, and Throat: Reports dysphagia, Reports dizziness and Denies headache(s) Cardiovascular Cardiovascular: Reports no additional cardiovascular complaints, Denies chest pain, Denies leg edema and Denies dyspnea on exertion Respiratory Respiratory: Reports as per HPI, Denies cough and Denies dyspnea on exertion Gastrointestinal Gastrointestinal: Reports as per HPI, Reports no additional gastrointestinal complaints, Reports abdominal pain, Reports melena, Reports change in bowel habits, Reports dysphagia, Reports early satiety, Denies heartburn, Reports nausea, Reports vomiting and Reports hematemesis Musculoskeletal Musculoskeletal: Reports no additional musculoskeletal complaints, Denies back pain and Denies arthralgias Integumentary/Breasts Skin/Breast: Denies pruritus, Denies rash and Denies jaundice Neurologic Neurologic: Reports system reviewed and no additional complaints, except as documented, Reports dizziness, Denies headache(s), Denies Sensory deficit (Neuro) and Reports weakness Psychiatric Psychiatric: Denies anxiety, Denies depression and Denies panic attacks Endocrine Endocrine: Denies cold intolerance, Reports fatigue, Denies flushing and Denies heat intolerance Hematologic/Lymphatic Hematologic/Lymphatic: Denies easy bleeding and Denies easy bruising Physical Exam Vital Signs: Vital Signs: Last Vital Signs Temp 98.5 F 05/09/20 11:00 Pulse 78 05/09/20 11:00 Resp 18 05/09/20 11:00 BP 160/82 H 05/09/20 11:00 Pulse Ox 96 05/09/20 11:00 Body Mass Index 25.9 Const: Other: Regular rate and rhythm General: no acute distress, anxious, ill appearing and tired appearing Nutritional Appearance: malnourished and thin Orientation/consciousness: oriented to person and patient oriented x3 Limitations: no limitations and No language barrier HENMT: Other: Normocephalic, atraumatic Head: Yes normal to inspection Ears: hearing grossly normal bilaterally and external ears normal General nose exam: Normal external nose present Mouth: Normal oral and palatal mucosa present and oropharynx normal Throat: Yes posterior oropharynx normal Eyes: General: appearance normal, both eyes and all related structures Sclerae: sclerae normal Pupils: Equal, round and reactive pupils present Neck: Other: supple trachea midline Neck: Yes normal visual inspection Chest: Chest palpation & inspection: normal inspection of the chest Resp: Other: Clear to auscultation Effort & Inspection: normal respiratory effort Auscultation: clear to auscultation bilaterally Cardio: Other: Regular rate and rhythm Jugular venous distension: no JVD Palpation: normal PMI Rate: regular rate Rhythm: regular rhythm Heart sounds: S1 normal heart sound present, S2 normal heart sound present and no murmurs GI: Other: mild tender in upper abdomen, surgery site appears clear, drains in place Palpation (GI): Tenderness to palpation present (GI) in the epigastrum (diffuse generalized tenderness) Auscultation: Hypoactive bowel sounds present Rectal Exam - Female: deferred : Other: rectal exam with brown stool heme negative General: Yes no CVA tenderness Back/Spine/Pelvis: Back: no CVA tenderness Skin: Other: Warm and dry, pale General skin exam: no rashes or lesions noted Neuro: General: oriented to person, patient oriented x3, gait normal and moves all extremities Cranial nerves: Yes CN's II-XII intact bilaterally and Yes Equal, round and reactive pupils present Motor exam (neuro): 5/5 motor strength present throughout Sensory Exam: No Sensory deficit (Neuro) Extrem: Other: No edema, pedal pulses palpable General: Yes normal to inspection Psych: Appearance: grossly normal Mental Status: mental status grossly normal Objective Data Current Medications Generic Name Dose Route Start Last Admin Trade Name Freq PRN Reason Stop Dose Admin Benzocaine 1 lozenge 05/07/20 08:48 Throat Lozenge, Medicated Lozenge MUCOUS MEM Q2H PRN Sore Throat Piperacillin Sod/Tazobactam 50 mls @ 100 mls/hr 05/05/20 10:00 05/09/20 09:58 Sod 3.375 gm/ Sodium Chloride IV Infused Q6H [facility] Infusion Multivitamins 14 ml/ Trace 2,015.4 mls @ 60 mls/hr 05/08/20 18:00 05/08/20 17:30 Metals 1.4 ml/ Amino Acids/ IV 05/09/20 17:59 60 mls/hr Electrolytes DAILY@1800 [facility] Administration Potassium Chloride/Dextrose/Sod Cl 40 meq in 1,000 mls @ 42 mls/hr 05/08/20 16:00 05/08/20 16:13 IVCONT 42 mls/hr .[id number] [facility] Administration Multivitamins 10 ml/ Trace 1,011 mls @ 60 mls/hr 05/09/20 18:00 Metals 1 ml/ Amino Acids/ IV 05/10/20 10:50 Electrolytes DAILY@1800 [facility] Fat Emulsion Intravenous 228 mls @ 19 mls/hr 05/09/20 18:00 Intralipid IVCONT 05/10/20 05:59 DAILY@1800 [facility] Amino Acids/Electrolytes 440 mls @ 60 mls/hr 05/10/20 10:50 Clinimix E 5%-15% IV 05/10/20 18:09 DAILY@1050 [facility] Morphine Sulfate 4 mg 05/05/20 08:41 05/06/20 13:43 Morphine Sulfate 4 Mg/Ml Cartridge IVPUSH 4 mg Q3H PRN Administration Pain, Severe (Pain Scale 7-10) Ondansetron HCl 4 mg 05/04/20 16:10 Ondansetron Hcl 4 Mg/2 Ml Vial IVPUSH Q8H PRN Nausea and Vomiting Pharmacy Consult 1 each 05/04/20 12:41 Consult Rx Perform Med Rec MISCELLANE ONCE PRN Consult order Sertraline HCl 25 mg 05/05/20 09:00 Sertraline Hcl 25 Mg Tablet PO DAILY [facility] Sodium Chloride 3 ml 05/04/20 16:46 05/09/20 09:16 0.9 % Sodium Chloride Flush 3 Ml Syringe IVFLUSH Not Given [facility] Sodium Chloride 3 ml 05/05/20 08:41 05/09/20 09:16 0.9 % Sodium Chloride Flush 3 Ml [facility] Chem 7: 05/09/20 05:54 05/09/20 05:54 Microbiology Microbiology Results: Microbiology 05/05/20 02:37 Peritoneal Fluid Gram Stain - Final 05/05/20 02:37 Peritoneal Fluid Routine Culture - Final Catherine dubliniensis Streptococcus gordonii Catherine glabrata Methicillin Res Staph Aureus 05/05/20 02:37 Peritoneal Fluid Anaerobic Culture - Preliminary Culture in progress. Assessment and Plan (1) Perforated duodenal ulcer: Status: Acute Assessment and Plan: 69-year-old woman, who is being admitted with upper gastrointestinal bleed. She reports coffee-ground emesis . patient underwent EGD, found to have ulcer with possible contained perforation, CT abdomen shows perforation with free air,l surgery was consulted patient underwent Exploratory laparotomy, lysis of adhesions, pyloric exclusion, gastrojejunostomy, placement of decompressive duodenal tube, over-sewing of perforated duodenal ulcer and placement of Miguel A patch, Upper gastrointestinal bleed Perforated ulcer s/p surgery Status post EGD shows ulcer on 05/04/[address] abdomen shows perforated ulcer S/p Exploratory laparotomy, lysis of adhesions, pyloric exclusion, gastrojejunostomy, placement of decompressive duodenal tube, over-sewing of p erforated duodenal ulcer and placement of Miguel A patch Continue IV PPI Continue NG tube Continue TPN management per surgery monitor H&H Depression. Continue sertraline Hypokalemia. resolved Monitor electrolytes Question of memory issues at home TSH B12 and folate level normal Deep vein thrombosis prophylaxis with mechanical compression boots due to GI bleed Medicine will sign off call us with question
[2020-05-09] MEDS: KCl 40 mEq in 5% Dex/0.45% Sod 40 MEQ/1,000 ML IV.SOLN 42 MEQ IVCONT (16:07)
[2020-05-09 16:58] LABS: Glucose, Whole Blood 154 mg/dL (60-115)
[2020-05-09] MEDS: Fat Emulsions 20% 250 ML 19 ML IVCONT (18:01)
[2020-05-09 21:13] LABS: Glucose, Whole Blood 122 mg/dL (60-115)
[2020-05-10] VITALS (7 sets, daily range): BP systolic 133–149; BP diastolic 60–92; PULSE 89–112; RESP 18–20; TEMP 36.6–37.3; O2SAT 91–98
--- NOTE | 2020-05-10 | CT_ITS ---
EXAMINATION: CT ABDOMEN AND PELVIS WITHOUT CONTRAST CLINICAL INFORMATION: High NG tube output. Post gastrojejunostomy. Pyloric exclusion. COMPARISON: Previous CT scans most recent 05/04/2020 TECHNIQUE: Multidetector volumetric imaging was performed from the superior aspect of the liver through the pubic symphysis. Sagittal and coronal reformatted images were obtained on the technologist's workstation. This CT examination was performed using dose optimization techniques as appropriate, variously including the following: *Automated exposure control *Adjustment of mA and/or kV according to patient size (this includes techniques or standardized protocols for targeted exams where dose is matched to indication/reason for exam; i.e. extremities or head) *Use of iterative reconstruction technique DLP: 463 mGy-cm FINDINGS: LUNG BASES: There is a right lower lobe atelectasis. There are small bilateral pleural effusions, right greater than left. LIVER, GALLBLADDER, AND BILIARY TREE: The liver is normal in size, shape, and attenuation. No focal hepatic lesion or biliary ductal dilatation is present. The gallbladder is unremarkable with no evidence of radiopaque gallstones, gallbladder wall thickening, or obvious pericholecystic inflammatory changes. PANCREAS: Unremarkable. SPLEEN: Unremarkable. ADRENAL GLANDS: Unremarkable. KIDNEYS AND URETERS: There is mild right hydronephrosis. This is new from previous exams. The right ureter does not appear dilated. The left kidney is unremarkable. BLADDER: There is a Krishnamurthy catheter in the bladder. GASTROINTESTINAL TRACT: There is a nasogastric tube with tip projecting over the distal stomach. There is a question of a postsurgical change with small bowel anastomosis to the anterior distal stomach. There is wall thickening seen in this region. There is some high attenuation that may represent oral contrast. The duodenum remains abnormal appearing with dilatation of wall thickening and small amount of extraluminal air. No free air is seen. There is a small amount of ascites in the right upper quadrant adjacent to the liver and in the pelvis. The small and large bowel are otherwise unremarkable. ABDOMINAL WALL: There are new postsurgical changes. LYMPH NODES: Normal. VASCULAR: Unremarkable. PELVIC VISCERA: Unremarkable. OSSEOUS STRUCTURES: There is a L5 vertebral body compression fracture versus Schmorl's node that appears unchanged. CT/CT abdomen pelvis wo con IMPRESSION: New postsurgical change with question anastomosis of the small bowel to the anterior distal stomach. There is wall thickening seen in this region and high attenuation, question representing oral contrast. The duodenum remains abnormal appearing with wall thickening and small amount of extraluminal air. No free air is seen. This could be further evaluated with upper GI if clinically indicated. There are no dilated loops of bowel to suggest obstruction. Small amount of ascites decreased from previous exam. New mild right hydronephrosis. Small bilateral pleural effusions, right greater than left and right lower lobe atelectasis.
--- NOTE | 2020-05-10 04:49 | MHC.PIE ---
P- Patient c/o blurred vision and dizziness at rest. I- Assessed patient , neuro signs intact, vss. Dr. Portillo notified, Orthos ordered. E- Patient resting in bed. Orthostatic BP's neg. Will continue to monitor.
[2020-05-10] MEDS: Piperacillin Sodium/Tazobactam 3.375 GM in 0.9 % Sodium Chloride 50 ML IV ×4 (05:18→22:03)
[2020-05-10 07:40] LABS: Glucose, Whole Blood 127 mg/dL (60-115)
--- NOTE | 2020-05-10 08:58 | PM.PNGS ---
Subjective Subjective Date of Service: 05/10/20 Interval history: Very depressed Says she is frustrated More confused today than yesterday Denies abdominal pain however Krishnamurthy reinserted yesterday due to urinary retention Physical Exam Vital Signs: Vital Signs: Last Vital Signs Temp 97.9 F 05/10/20 07:42 Pulse 93 05/10/20 07:42 Resp 18 05/10/20 07:42 BP 142/87 H 05/10/20 07:42 Pulse Ox 97 05/10/20 07:42 Body Mass Index 25.9 Const: Other: Very depressed affect, some confusion General: no acute distress Resp: Effort & Inspection: normal respiratory effort Cardio: Rate: regular rate GI: Other: Soft, no guarding, nondistended, NG tube output still elevated - as per nurse 1700cc/24 hours, tube duodenostomy in place, DANIEL drain in place, scanty, thin serous Progress Note: A&P Assessment and plan (1) Perforated duodenal ulcer: Status: Acute Assessment and Plan: Status post pyloric exclusion, gastrojejunostomy NG tube now with higher output - will check CT scan with oral contrast via NG tube Check labs Continue TPN Abdomen otherwise benign Will update family Fall Risk Details Current Medications: Current Medications Generic Name Dose Route Start Last Admin Trade Name Freq PRN Reason Stop Dose Admin Benzocaine 1 lozenge 05/07/20 08:48 Throat Lozenge, Medicated Lozenge MUCOUS MEM Q2H PRN Sore Throat Potassium Chloride/Dextrose/Sod Cl 40 meq in 1,000 mls @ 42 mls/hr 05/08/20 16:00 05/10/20 06:17 IVCONT 42 mls/hr .[id number] [facility] Infusion Multivitamins 10 ml/ Trace 1,011 mls @ 60 mls/hr 05/09/20 18:00 05/10/20 07:01 Metals 1 ml/ Amino Acids/ IV 05/10/20 10:50 Infused Electrolytes DAILY@1800 [facility] Infusion Amino Acids/Electrolytes 440 mls @ 60 mls/hr 05/10/20 10:50 Clinimix E 5%-15% IV 05/10/20 18:09 DAILY@1050 [facility] Piperacillin Sod/Tazobactam 50 mls @ 100 mls/hr 05/09/20 22:00 05/10/20 08:56 Sod 3.375 gm/ Sodium Chloride IV 100 mls/hr Q6H [facility] Administration Ondansetron HCl 4 mg 05/04/20 16:10 Ondansetron Hcl 4 Mg/2 Ml Vial IVPUSH Q8H PRN Nausea and Vomiting Pharmacy Consult 1 each 05/04/20 12:41 Consult Rx Perform Med Rec MISCELLANE ONCE PRN Consult order Sertraline HCl 25 mg 05/05/20 09:00 Sertraline Hcl 25 Mg Tablet PO DAILY [facility] Sodium Chloride 3 ml 05/04/20 16:46 05/10/20 08:20 0.9 % Sodium Chloride Flush 3 Ml Syringe IVFLUSH Not Given QSHIFT MOSHE Sodium Chloride 3 ml 05/05/20 08:41 05/10/20 08:21 0.9 % Sodium Chloride Flush 3 Ml Syringe IVFLUSH Not Given QSHIFT MOSHE Time Spent With Patient Time: Total time spent is greater than 50% in coordination of care (as documented) at patient's floor/unit and/or counseling patient: Time with patient: 15 - 24 minutes
[2020-05-10 09:44] LABS: Hematocrit 36.9 % (37-47); Hemoglobin 12.2 g/dl (12.0-16.0); Mean Corpuscular HGB Conc 33.1 g/dl (31.0-35.0); Mean Corpuscular Hemoglobin 28.8 pg (27.0-33.0); Mean Platelet Volume 9.9 fL (9.4-12.3); Platelet Count 404 X10*3/uL (160-400); Red Blood Count 4.24 X10*6/uL (4.20-5.50); Red Cell Distribution Width 13.9 % (11.0-16.0); White Blood Count 15.2 X10*3/uL (4.8-10.8)
[2020-05-10 10:12] LABS: Anion Gap 14 (12-20); Blood Urea Nitrogen 24 mg/dL (9-16); Calcium 8.4 mg/dL (8.4-10.2); Carbon Dioxide 32 mmol/L (22-29); Chloride 95 mmol/L (96-108); Creatinine Clr Calc Pharmacy 79.1; Estimated Glomerular Filt Rate > 60; Glucose Random 102 mg/dL (60-115); Sodium 137 mmol/L (135-145)
[2020-05-10 10:59] LABS: Phosphorus 3.5 mg/dL (2.7-4.5)
[2020-05-10 11:06] LABS: Albumin Level 2.6 g/dL (3.5-5.0)
[2020-05-10 11:11] LABS: Glucose, Whole Blood 137 mg/dL (60-115)
--- NOTE | 2020-05-10 11:38 | MHC.CM.PN ---
Patient continues to be NPO with NG tube to wall suctioning with higher output. Surgeon has ordered a CT scan for today. Patient also has a DANIEL drain, F/C and is on IV Zosyn and IV Clinimix. Discharge plan is home with [facility] services, patient will need PT eval to determine if this is safe d/c plan. CM will continue to follow for discharge needs.
--- NOTE | 2020-05-10 14:03 | W.PM.IDCN ---
History of Present Illness Data of Consult Service Date: 05/10/20 Requesting physician: Natacha Riddle Primary Care Provider: Jasiel Fink MD HPI Reason for consult: possible GI infection She presents to hospital with vomiting black material in the morning of admission. She was seen by GI and found to have perforated duodenal ulcer. She on 05/04 underwent exploratory lap with lysis of adhesions,pyloric exclusion and gastrojejunostomy. She then had oversewing perforated duodenal ulcer as well as Miguel A patch Swab from abdominal fluid showed mixed abdominal jaswant on thiol broth only,no growth on plate, was initially reported as mildred dublinensis,MRSA,strep gordonae Pathology was negative for Helicobacter Review of Systems Review of Systems: Yes all other systems are reviewed and are negative Constitutional: Constitutional: Denies headache(s) and Reports weakness ENT: Reports dizziness and Denies headache(s) Neurologic: Reports system reviewed and no additional complaints, except as documented, Reports dizziness, Denies headache(s), Denies Sensory deficit (Neuro) and Reports weakness PMFSH Past Medical History Medical History Dizziness History of ETOH abuse Family History Family History Mother No problems noted. Father No problems noted. Family history: reviewed and not pertinent Surgical History Surgical History History of appendectomy History of gastric surgery Social History Social History Household Members: Significant Other Housing: House Do you presently have visiting nurse or other home services: No Alcohol intake: former Smoking Status: Never smoker Use of substances other than those prescribed or required for medical reasons: No Currently Displaying Signs/Symptoms of Drug Intoxication Withdrawal: No Have you been hit, kicked, punched, or otherwise hurt by someone within the past year? If so, by whom?: No Do you feel safe in your current relationship?: Yes Is there a partner from a previous relationship who is making you feel unsafe now?: No Are you made to feel afraid or neglected: No Advance Directives: No Advance Directives Information Provided: No Do you have thoughts of harming others: None Do you have a plan to hurt others: No Plan Recently lost weight without trying: No service: No Current occupational status: retired Meds Allergies Allergy/AdvReac Type Severity Reaction Status Date / Time No Known Allergies Allergy Verified 02/23/20 10:48 [No Known Allergies*] Home Medications Medication Instructions Recorded Confirmed Type omeprazole 40 mg capsule,delayed 40 mg PO DAILY 03/31/20 05/04/20 History release sertraline 25 mg PO DAILY 05/04/20 05/04/20 History Physical Exam Vital Signs: Vital Signs: Last Vital Signs Temp 98.0 F 05/10/20 11:22 Pulse 89 05/10/20 11:22 Resp 18 05/10/20 11:22 BP 141/80 H 05/10/20 11:22 Pulse Ox 98 05/10/20 11:22 Body Mass Index 25.9 Const: General: cooperative Orientation/consciousness: oriented to person, oriented to place and oriented to time HENMT: Head: Yes normal to inspection Mouth: Normal oral and palatal mucosa present Eyes: General: appearance normal, both eyes and all related structures Resp: Effort & Inspection: normal respiratory effort Cardio: Rate: regular rate Rhythm: regular rhythm GI: Other: drains in place,coral in Palpation (GI): nontender and no hepatosplenomegaly : General: Yes no CVA tenderness Back/Spine/Pelvis: Back: no CVA tenderness Skin: General skin exam: no rashes or lesions noted Neuro: General: oriented to person, oriented to place and oriented to time Sensory Exam: No Sensory deficit (Neuro) Extrem: General: Yes normal to inspection Assessment and Plan (1) Perforated duodenal ulcer: Status: Acute (2) Back pain: Status: Acute (3) Nausea and vomiting: Status: Acute (4) Peritonitis: Problem details: there is concern over peritonitis however patient looks comfortable there is slightly increased WBC count today to 15,000 There are no organisms found except on swab and particularly MRSA likely not associated but rarely fungal organisms can be associated with peritonitis Status: Acute Would continue Zosyn at this time cover strep and anerobes Would add Diflucan 200 mg daily at this time Follow WBC,doubtful but consider add Vancomycin if increasing Results Labs CBC & Chem 7: 05/10/20 09:28 05/10/20 09:28 Labs: Short CBC 05/10/20 Range/Units 09:28 WBC 15.2 H (4.8-10.8) X10*3/uL Hgb 12.2 (12.0-16.0) g/dl Hct 36.9 L (37-47) % Plt Count 404 H D (160-400) X10*3/uL BMP 05/10/20 09:28 Sodium 137 Potassium 4.0 Chloride 95 L Carbon Dioxide 32 H BUN 24 H D Creatinine 0.62 Calcium 8.4 Liver Function 05/10/20 Range/Units 09:28 Albumin 2.6 L D (3.5-5.0) g/dL Microbiology Microbiology Results: Microbiology 05/05/20 02:37 Peritoneal Fluid Gram Stain - Final 05/05/20 02:37 Peritoneal Fluid Routine Culture - Final Mildred dubliniensis Streptococcus gordonii Mildred glabrata Methicillin Res Staph Aureus 05/05/20 02:37 Peritoneal Fluid Anaerobic Culture - Final
--- NOTE | 2020-05-10 14:21 | MHC.CLN ---
F/U PT RECEIVING D15 AA5% AT 60CC/HR TO PROVIDE 19ML OF 20% LIPIDS X 12 HRS TO PROVIDE 1478KCALS (25KCALS/KG) 72G PROTEIN (1.2G/KG) LABS REVIEWED REPLETE LYTES NEEDED FOLLOWING
[2020-05-10] MEDS: Diatrizoate Meglumine, Sodium 30 ML SOLUTION PO (14:30)
[2020-05-10] MEDS: Fluconazole in NaCl,Iso-Osm 200 MG/100 ML PIGGYBACK 100 MG IV (15:35)
[2020-05-10] MEDS: 0.9 % Sodium Chloride Flush 3 ML SYRINGE IVFLUSH ×2 (15:36→15:37)
[2020-05-10 16:06] LABS: Glucose, Whole Blood 135 mg/dL (60-115)
--- NOTE | 2020-05-10 17:04 | P.EN_ITS ---
Event Note Date of Service: 05/11/20 Event Note: CT scan done earlier today. I have reviewed the images with the r adiologist Dr. Gupta. There is no new fluid collection. There was no signs of any extravasation of oral contrast. There is no evidence of any bowel obstruction. The tube duodenostomy and DANIEL drain are in place. The NG tube is in place as well. This small amount of extraluminal air seen adjacent to the duodenum may represent air from the drain itself as there is no significant fluid collection around this. She does have pleural effusions right more than the left. There is no small bowel dilatation. She does have large amount of NG tube output still and today, she put out 1000 cc from 07:00 o'clock. Given extra IVF and K I therefore am not going to remove the NG tube today. I plan on clamping this tomorrow and see how she does. She has been started on anti fungal because of the culture report from the peritoneum. We will follow her electrolytes and white count. She appears more confused today than yesterday. Otherwise is hemodynamically stable. I have updated her significant other John.
[2020-05-10] MEDS: Fat Emulsions 20% 250 ML 19 ML IVCONT (18:09)
[2020-05-10 19:32] LABS: Glucose, Whole Blood 130 mg/dL (60-115)
[2020-05-11] MEDS: 0.9 % Sodium Chloride Flush 3 ML SYRINGE IVFLUSH ×6 (00:25→17:37)
[2020-05-11 04:00] VITALS: BP 160/74; PULSE 101; RESP 18; TEMP 37; O2SAT 96
[2020-05-11] MEDS: Piperacillin Sodium/Tazobactam 3.375 GM in 0.9 % Sodium Chloride 50 ML IV ×4 (04:38→21:09)
[2020-05-11 05:03] VITALS: BMI 23.8
[2020-05-11 06:53] LABS: Hematocrit 37.5 % (37-47); Hemoglobin 12.4 g/dl (12.0-16.0); Mean Corpuscular HGB Conc 33.1 g/dl (31.0-35.0); Mean Corpuscular Hemoglobin 28.9 pg (27.0-33.0); Mean Corpuscular Volume 87.4 fL (80-98); Platelet Count 519 X10*3/uL (160-400); Red Blood Count 4.29 X10*6/uL (4.20-5.50); Red Cell Distribution Width 13.8 % (11.0-16.0); White Blood Count 20.2 X10*3/uL (4.8-10.8)
[2020-05-11 07:00] LABS: Anion Gap 16 (12-20); Blood Urea Nitrogen 36 mg/dL (9-16); Calcium 8.4 mg/dL (8.4-10.2); Carbon Dioxide 34 mmol/L (22-29); Chloride 90 mmol/L (96-108); Creatinine Clr Calc Pharmacy 57.1; Estimated Glomerular Filt Rate > 60; Glucose Random 126 mg/dL (60-115); Magnesium 2.2 mg/dL (1.6-2.6); Sodium 136 mmol/L (135-145)
[2020-05-11 08:00] VITALS: BP 131/88; PULSE 107; RESP 16; TEMP 36.9; O2SAT 94
[2020-05-11 08:18] LABS: Glucose, Whole Blood 138 mg/dL (60-115)
--- NOTE | 2020-05-11 10:31 | PM.PNGS ---
Subjective Subjective Date of Service: 05/11/20 Interval history: No complaints of pain. She reports that she can not get comfortable, but she is not able to be specific. Remains somewhat confused. Physical Exam Vital Signs: Vital Signs: Last Vital Signs Temp 98.4 F 05/11/20 08:00 Pulse 107 H 05/11/20 08:00 Resp 16 05/11/20 08:00 BP 131/88 05/11/20 08:00 Pulse Ox 94 05/11/20 08:00 Body Mass Index 23.8 Const: Other: Frail, alert, appears mildly upset but not in acute distress Resp: Other: Clear to auscultation Cardio: Other: Regular rate and rhythm GI: Other: Soft, flat, occasional bowel sounds, incision clean and well approximated, DANIEL drainage scant and serous, duodenostomy tube moderate and bilious Skin: Other: Pale, warm and dry Progress Note: A&P Assessment and plan (1) Perforated duodenal ulcer: Status: Acute Assessment and Plan: She is now day 6 following exploratory laparotomy with lysis of adhesions, pyloric exclusion, gastrojejunostomy, placement of decompressive duodenostomy tube and repair of perforated duodenal ulcer with over-sewing and Miguel A patch. Peritoneal cultures reveal MRSA and yeast. She has been started on Diflucan and remains on Zosyn. White blood count has increased. CT done 05/10/2020 scan does not show any evidence of leak or collection. Continue antibiotics, if white blood count continues to rise, will consult with Dr. Fritz regarding need for MRSA coverage. Malnutrition. On TPN. Will continue. Trial of NG clamping in progress. Will request physical therapy consultation. Fall Risk Details Current Medications: Current Medications Generic Name Dose Route Start Last Admin Trade Name Freq PRN Reason Stop Dose Admin Benzocaine 1 lozenge 05/07/20 08:48 Throat Lozenge, Medicated Lozenge MUCOUS MEM Q2H PRN Sore Throat Piperacillin Sod/Tazobactam 50 mls @ 100 mls/hr 05/09/20 22:00 05/11/20 09:54 Sod 3.375 gm/ Sodium Chloride IV 100 mls/hr Q6H [facility] Administration Multivitamins 10 ml/ Trace 1,011 mls @ 60 mls/hr 05/10/20 18:00 05/10/20 18:13 Metals 1 ml/ Amino Acids/ IV 12/22/20 10:50 60 mls/hr Electrolytes DAILY@1800 [facility] Administration Amino Acids/Electrolytes 440 mls @ 26.4 mls/hr 05/11/20 10:51 Clinimix E 5%-15% IV 05/11/20 17:59 DAILY@1800 [facility] Fluconazole 200 mg in 100 mls @ 100 mls/hr 05/10/20 14:45 05/10/20 16:44 Diflucan IV Infused Q24H [facility] Infusion Ondansetron HCl 4 mg 05/04/20 16:10 Ondansetron Hcl 4 Mg/2 Ml Vial IVPUSH Q8H PRN Nausea and Vomiting Pharmacy Consult 1 each 05/04/20 12:41 Consult Rx Perform Med Rec MISCELLANE ONCE PRN Consult order Sertraline HCl 25 mg 05/05/20 09:00 Sertraline Hcl 25 Mg Tablet PO DAILY [facility] Sodium Chloride 3 ml 05/04/20 16:46 05/11/20 09:56 0.9 % Sodium Chloride Flush 3 Ml Syringe IVFLUSH 3 ml QSHIFT [facility] Administration Sodium Chloride 3 ml 05/05/20 08:41 05/11/20 09:49 0.9 % Sodium Chloride Flush 3 Ml Syringe IVFLUSH 3 ml QSHIFT [facility] Administration Time Spent With Patient Time: Total time spent is greater than 50% in coordination of care (as documented) at patient's floor/unit and/or counseling patient: Time with patient: 15 - 24 minutes
[2020-05-11 11:18] LABS: Glucose, Whole Blood 122 mg/dL (60-115)
[2020-05-11 11:35] VITALS: BP 122/55; PULSE 111; RESP 18; TEMP 37.2; O2SAT 96
[2020-05-11] MEDS: Fluconazole in NaCl,Iso-Osm 200 MG/100 ML PIGGYBACK 100 MG IV (15:48)
[2020-05-11 15:56] VITALS: BP 103/66; PULSE 103; RESP 18; TEMP 36.6; O2SAT 94
[2020-05-11 17:10] LABS: Glucose, Whole Blood 126 mg/dL (60-115)
[2020-05-11 17:12] LABS: Gastrin 66 pg/mL (<=100)
--- NOTE | 2020-05-11 19:00 | PM.EVENT ---
Event Note Date of Service: 05/11/20 Event Note: NG tube was removed earlier today. No nausea or vomiting since then. Remains somewhat confused. Reports incisional pain. BP is running a somewhat lower than usual, 103/66 this afternoon. May be due to relative volume depletion as losses from NG tube and duodenostomy tube have been high. Will add normal saline IV. Repeat labs in a.m..
[2020-05-11 19:11] VITALS: BP 146/86; PULSE 97; RESP 20; TEMP 37.3; O2SAT 95
[2020-05-11] MEDS: Fat Emulsions 20% 250 ML 19 ML IV (19:20)
[2020-05-11] MEDS: 0.9 % Sodium Chloride 1,000 ML 80 ML IVCONT (19:20)
[2020-05-12] VITALS (7 sets, daily range): BP systolic 150–169; BP diastolic 74–98; PULSE 82–98; RESP 16–20; TEMP 36.1–37.4; O2SAT 95–98; BMI 23.8
[2020-05-12] MEDS: Piperacillin Sodium/Tazobactam 3.375 GM in 0.9 % Sodium Chloride 50 ML IV ×4 (04:45→21:31)
[2020-05-12 06:48] LABS: Basophils Absolute Auto 0.1 X10*3/uL (0.0-0.2); Basophils Percent Auto 0.2 % (0-2); Eosinophils Absolute Auto 0.2 X10*3/uL (0.0-0.4); Eosinophils Percent Auto 0.9 % (0-4); Hematocrit 34.8 % (37-47); Hemoglobin 11.1 g/dl (12.0-16.0); Imm Gran Abs Auto 0.36 X10*3/uL (0.00-0.03); Imm Gran Pct Auto 1.8 % (0.0-0.4); Lymphocytes Absolute Auto 1.7 X10*3/uL (1.2-4.9); Lymphocytes Percent Auto 8.1 % (20-40); MANUAL DIFF FLAG SCAN; Mean Corpuscular HGB Conc 31.9 g/dl (31.0-35.0); Mean Corpuscular Hemoglobin 28.6 pg (27.0-33.0); Mean Corpuscular Volume 89.7 fL (80-98); Mean Platelet Volume 10.1 fL (9.4-12.3); Monocytes Absolute Auto 1.6 X10*3/uL (0.1-1.2); Neutrophils Absolute Auto 16.5 X10*3/uL (2.0-8.3); Platelet Count 537 X10*3/uL (160-400); Red Blood Count 3.88 X10*6/uL (4.20-5.50); Red Cell Distribution Width 13.7 % (11.0-16.0); SCAN SMEAR FLAG 1; White Blood Count 20.4 X10*3/uL (4.8-10.8)
[2020-05-12 07:35] LABS: Glucose, Whole Blood 146 mg/dL (60-115)
[2020-05-12 07:54] LABS: Anion Gap 14 (12-20); Blood Urea Nitrogen 42 mg/dL (9-16); Carbon Dioxide 30 mmol/L (22-29); Chloride 95 mmol/L (96-108); Estimated Glomerular Filt Rate > 60; Glucose Fasting 127 mg/dL (60-99); Sodium 135 mmol/L (135-145)
[2020-05-12] MEDS: 0.9 % Sodium Chloride Flush 3 ML SYRINGE IVFLUSH ×6 (08:23→21:31)
[2020-05-12] MEDS: 0.9 % Sodium Chloride 1,000 ML 80 ML IVCONT ×2 (08:28→21:31)
[2020-05-12 10:08] LABS: Alanine Aminotransferase 34 U/L (0-31); Albumin Level 2.6 g/dL (3.5-5.0); Alkaline Phosphatase 302 U/L (39-117); Aspartate Amino Transferase 45 U/L (5-31); Bilirubin Direct 1.2 mg/dL (0.0-0.5); Bilirubin Total 1.5 mg/dL (0.0-1.0)
[2020-05-12 11:30] LABS: Glucose, Whole Blood 126 mg/dL (60-115)
--- NOTE | 2020-05-12 11:53 | PM.PNGS ---
Subjective Subjective Date of Service: 05/12/20 Interval history: Easily arousable. Remains somewhat confused. Continues to complain of abdominal pain, which she localizes to the area of the incision. NG tube was removed yesterday. Physical Exam Vital Signs: Vital Signs: Last Vital Signs Temp 97.6 F 05/12/20 11:10 Pulse 88 05/12/20 11:10 Resp 16 05/12/20 11:10 BP 156/74 H 05/12/20 11:10 Pulse Ox 95 05/12/20 11:10 Body Mass Index 23.8 Const: Other: Arousable. Appears mildly ill. Resp: Auscultation: clear to auscultation bilaterally Cardio: Rate: regular rate Rhythm: regular rhythm GI: Other: Nondistended, hypoactive bowel sounds, diffuse mild tenderness, midline incision clean and well approximated Skin: Other: Pale, warm, dry Progress Note: A&P Assessment and plan (1) Perforated duodenal ulcer: Problem details: She is 1 week post exploratory laparotomy with lysis of adhesions, pyloric exclusion, gastrojejunostomy, insertion of decompressive duodenostomy tube and repair of perforated duodenal ulcer with Miguel A patch. She continues to exhibit confusion that appears similar to immediate postoperative situation. She is on parental nutrition. Liver function studies, particularly alkaline phosphatase, are a now somewhat elevated. BUN is elevated as well. This may be related to cholestasis and the parental nutrition. Cholecystitis is a concern as well. There was no evidence of this on recent CT scan. Status: Acute Assessment and Plan: Continue parental nutrition, check HIDA scan to evaluate for cholestasis/cholecystitis. Continue IV antibiotics, Zosyn and Diflucan. Will check with Dr. Fritz regarding any need for broadening coverage. Out of bed. Will begin trial of clear liquids if appropriate following completion of HIDA scan. Fall Risk Details Current Medications: Current Medications Generic Name Dose Route Start Last Admin Trade Name Freq PRN Reason Stop Dose Admin Benzocaine 1 lozenge 05/07/20 08:48 Throat Lozenge, Medicated Lozenge MUCOUS MEM Q2H PRN Sore Throat Piperacillin Sod/Tazobactam 50 mls @ 100 mls/hr 05/09/20 22:00 05/12/20 11:07 Sod 3.375 gm/ Sodium Chloride IV 100 mls/hr Q6H [facility] Administration Fluconazole 200 mg in 100 mls @ 100 mls/hr 05/10/20 14:45 05/11/20 16:50 Diflucan IV Infused Q24H [facility] Infusion Multivitamins 14 ml/ Trace 1,440 mls @ 60 mls/hr 05/11/20 18:00 05/11/20 18:51 Metals 1.4 ml/ Amino Acids/ IV 05/12/20 17:59 60 mls/hr Electrolytes DAILY@1800 [facility] Administration Sodium Chloride 1,000 mls @ 80 mls/hr 05/11/20 19:00 05/12/20 08:28 Ns IVCONT 80 mls/hr .[id number] [facility] Administration Morphine Sulfate 2 mg 05/12/20 05:37 Morphine Sulfate 2 Mg/Ml Cartridge IVPUSH Q3H PRN Pain, Moderate (Pain Scale 4-6 Ondansetron HCl 4 mg 05/04/20 16:10 Ondansetron Hcl 4 Mg/2 Ml Vial IVPUSH Q8H PRN Nausea and Vomiting Pharmacy Consult 1 each 05/04/20 12:41 Consult Rx Perform Med Rec MISCELLANE ONCE PRN Consult order Sertraline HCl 25 mg 05/05/20 09:00 Sertraline Hcl 25 Mg Tablet PO DAILY [facility] Sodium Chloride 3 ml 05/04/20 16:46 05/12/20 08:23 0.9 % Sodium Chloride Flush 3 Ml Syringe IVFLUSH 3 ml QSHIFT [facility] Administration Sodium Chloride 3 ml 05/05/20 08:41 05/12/20 08:24 0.9 % Sodium Chloride Flush 3 Ml Syringe IVFLUSH 3 ml QSHIFT [facility] Administration Time Spent With Patient Time: Total time spent is greater than 50% in coordination of care (as documented) at patient's floor/unit and/or counseling patient: Time with patient: 15 - 24 minutes Results Laboratory Findings Labs: Laboratory Results - last 24 hr 05/04/20 05/11/20 05/12/20 17:56 17:06 05:36 WBC 20.4 H RBC 3.88 L Hgb 11.1 L Hct 34.8 L MCV 89.7 MCH 28.6 MCHC 31.9 RDW 13.7 Plt Count 537 H MPV 10.1 Immature Gran % (Auto) 1.8 H Neut % (Auto) 81.0 H Lymph % (Auto) 8.1 L Hendry % (Auto) 8.0 Eos % (Auto) 0.9 Baso % (Auto) 0.2 Lymph # (Auto) 1.7 Hendry # (Auto) 1.6 H Eos # (Auto) 0.2 Baso # (Auto) 0.1 Abs Immat Gran (auto) 0.36 H Absolute Neuts (auto) 16.5 H Absolute Nucleated RBC 0.000 Nucleated RBC % (auto) 0.0 Smear Tech's Comments VERIFIED Sodium Potassium Chloride Carbon Dioxide Anion Gap BUN Creatinine Estim Creat Clear Calc Estimated GFR POC Glucose 126 H Fasting Glucose Calcium Total Bilirubin Direct Bilirubin AST ALT Alkaline Phosphatase Total Protein Albumin Gastrin 66 05/12/20 05/12/20 05/12/20 05:36 07:24 11:15 WBC RBC Hgb Hct MCV MCH MCHC RDW Plt Count MPV Immature Gran % (Auto) Neut % (Auto) Lymph % (Auto) Hendry % (Auto) Eos % (Auto) Baso % (Auto) Lymph # (Auto) Hendry # (Auto) Eos # (Auto) Baso # (Auto) Abs Immat Gran (auto) Absolute Neuts (auto) Absolute Nucleated RBC Nucleated RBC % (auto) Smear Tech's Comments Sodium 135 Potassium 4.0 Chloride 95 L Carbon Dioxide 30 H Anion Gap 14 BUN 42 H Creatinine 0.73 Estim Creat Clear Calc 61.0 Estimated GFR > 60 POC Glucose 146 H 126 H Fasting Glucose 127 H Calcium 8.0 L Total Bilirubin 1.5 H Direct Bilirubin 1.2 H AST 45 H D ALT 34 H Alkaline Phosphatase 302 H D Total Protein 6.0 L Albumin 2.6 L Gastrin
[2020-05-12 11:58] LABS: SLIDE REVIEW VERIFIED
--- NOTE | 2020-05-12 14:12 | MHC.CM.PN ---
Patient's NG tube was discontinued today but remains NPO and on TPN for nutrition. Continues on IV Zosyn/Diflucan for peritoneal fluid +. PT has recommending STR, list left with patient for STR's that are contracted with [facility], still need choices. CM will continue to follow patient for discharge needs.
[2020-05-12 16:30] LABS: Glucose, Whole Blood 94 mg/dL (60-115)
[2020-05-12] MEDS: Fluconazole in NaCl,Iso-Osm 200 MG/100 ML PIGGYBACK 100 MG IV (17:44)
[2020-05-12] MEDS: Fat Emulsions 20% 250 ML 19 ML IV (18:44)
[2020-05-12] MEDS: vancomycin HCL 750 MG in 0.9 % Sodium Chloride 250 ML 265 MG IV (19:03)
[2020-05-12 20:40] LABS: Glucose, Whole Blood 105 mg/dL (60-115)
--- NOTE | 2020-05-13 | NM_ITS ---
EXAMINATION: NUCLEAR MEDICINE HEPATOBILIARY SCAN. CLINICAL INFORMATION: Cholestasis versus cholecystitis. COMPARISON: None TECHNIQUE: Following intravenous administration of 5 mCi of 99m technetium mebrofenin, imaging over the right upper quadrant was obtained up to 3.5 hours. FINDINGS: There is normal hepatic uptake without any focal defect. No intrahepatic ductal dilatation seen. There is prompt visualization of gallbladder by 29 minutes. CBD is not visualized. However the size of the valleculae seen within the catheter draining the duodenal bulb following a duodenal ulcer repair. This finding is suggestive of the patent CBD but not clearly visualized due to surgery. NM/NM hepatobiliary wo pharm IMPRESSION: Patent cystic duct. Indirect patency of CBD with isotope activity seen in the drainage catheter extending from the duodenal bulb into the bag. Normal hepatic uptake. Results were discussed with Dr. Riddle after the exam
[2020-05-13 03:46] VITALS: BP 169/81; PULSE 78; RESP 18; TEMP 36.6; O2SAT 93
[2020-05-13] MEDS: Piperacillin Sodium/Tazobactam 3.375 GM in 0.9 % Sodium Chloride 50 ML IV ×4 (05:02→23:39)
[2020-05-13] MEDS: vancomycin HCL 750 MG in 0.9 % Sodium Chloride 250 ML 265 MG IV ×2 (05:33→18:10)
[2020-05-13 06:49] LABS: Hemoglobin 9.7 g/dl (12.0-16.0); Mean Corpuscular HGB Conc 32.3 g/dl (31.0-35.0); Mean Corpuscular Hemoglobin 29.3 pg (27.0-33.0); Mean Corpuscular Volume 90.6 fL (80-98); Platelet Count 519 X10*3/uL (160-400); Red Blood Count 3.31 X10*6/uL (4.20-5.50); Red Cell Distribution Width 13.8 % (11.0-16.0); White Blood Count 18.6 X10*3/uL (4.8-10.8)
[2020-05-13 07:15] LABS: Alanine Aminotransferase 36 U/L (0-31); Albumin Level 2.3 g/dL (3.5-5.0); Anion Gap 13 (12-20); Aspartate Amino Transferase 36 U/L (5-31); Bilirubin Direct 1.1 mg/dL (0.0-0.5); Bilirubin Total 1.2 mg/dL (0.0-1.0); Blood Urea Nitrogen 31 mg/dL (9-16); Calcium 7.8 mg/dL (8.4-10.2); Carbon Dioxide 23 mmol/L (22-29); Chloride 105 mmol/L (96-108); Estimated Glomerular Filt Rate > 60; Glucose Fasting 105 mg/dL (60-99); Potassium 4.3 mmol/l (3.3-5.1); Sodium 137 mmol/L (135-145); Total Protein 5.4 g/dL (6.5-8.0)
[2020-05-13 07:30] VITALS: BP 137/75; PULSE 79; RESP 16; TEMP 36.6; O2SAT 97
[2020-05-13 07:30] LABS: Alkaline Phosphatase 275 U/L (39-117)
[2020-05-13 08:14] LABS: Glucose, Whole Blood 116 mg/dL (60-115)
[2020-05-13] MEDS: Morphine Sulfate 2 MG/ML CARTRIDGE IVPUSH ×3 (08:19→20:08)
--- NOTE | 2020-05-13 09:24 | PM.PNGS ---
Subjective Subjective Date of Service: 05/13/20 Interval history: Continues to report incisional pain. Has been unwilling to undergo HIDA scan. She states that she is not able to go now but is either on willing or unable to explain why. She is oriented x2-3. She read the date from the dry erase board in the room but questioned whether it really is May 13. Physical Exam Vital Signs: Vital Signs: Last Vital Signs Temp 98 F 05/13/20 07:30 Pulse 79 05/13/20 07:30 Resp 16 05/13/20 07:30 BP 137/75 05/13/20 07:30 Pulse Ox 97 05/13/20 07:30 Body Mass Index 23.8 Const: Other: Continually covering head and face during my visit General: alert Chest: Other: Clear to auscultation Resp: Other: Regular rate and rhythm GI: Other: Nondistended, hypoactive bowel sounds, incision clean, tender centrally and in right upper quadrant. DNAIEL draining serous fluid in small amounts. Duodenostomy tube remains high output, bilious Progress Note: A&P Assessment and plan (1) Perforated duodenal ulcer: Problem details: She is 8 days post exploratory laparotomy with lysis of adhesions, pyloric exclusion, gastrojejunostomy, insertion of decompressive duodenostomy tube and repair of perforated duodenal ulcer with Miguel A patch. She continues to exhibit confusion that appears similar to immediate postoperative situation. She is on parental nutrition. Clear liquid diet was initiated last night. Liver function studies and white blood count are slightly improved. Status: Acute Assessment and Plan: Concern regarding cholecystitis versus TPN related cholestasis remains. She has been refusing the HIDA scan. I discussed this with her. We will try medicating her for pain and will see if she is willing to proceed with the scan after this. Will continue clear liquid diet today, TPN. Continue antibiotics, Zosyn, vancomycin and Diflucan. Continue physical therapy as tolerated. Discussed progress with her significant other, healthcare proxy, yesterday. Fall Risk Details Current Medications: Current Medications Generic Name Dose Route Start Last Admin Trade Name Freq PRN Reason Stop Dose Admin Benzocaine 1 lozenge 05/07/20 08:48 Throat Lozenge, Medicated Lozenge MUCOUS MEM Q2H PRN Sore Throat Piperacillin Sod/Tazobactam 50 mls @ 100 mls/hr 05/09/20 22:00 05/13/20 05:31 Sod 3.375 gm/ Sodium Chloride IV Infused Q6H MOS[facility] Infusion Fluconazole 200 mg in 100 mls @ 100 mls/hr 05/10/20 14:45 05/12/20 18:44 Diflucan IV Infused Q24H [facility] Infusion Sodium Chloride 1,000 mls @ 20 mls/hr 05/11/20 19:00 05/12/20 21:31 Ns IVCONT 80 mls/hr .Q24H MOSHE Administration Multivitamins 14 ml/ Trace 1,440 mls @ 60 mls/hr 05/12/20 18:00 05/12/20 18:43 Metals 1.4 ml/ Amino Acids/ IV 05/13/20 17:59 60 mls/hr Electrolytes DAILY@1800 MOSHE Administration Vancomycin HCl 750 mg/ Sodium 265 mls @ 265 mls/hr 05/12/20 18:00 05/13/20 05:53 Chloride IV Infused Q12H [facility] Infusion Morphine Sulfate 2 mg 05/12/20 05:37 05/13/20 08:19 Morphine Sulfate 2 Mg/Ml Cartridge IVPUSH 2 mg Q3H PRN Administration Pain, Moderate (Pain Scale 4-6 Ondansetron HCl 4 mg 05/04/20 16:10 Ondansetron Hcl 4 Mg/2 Ml Vial IVPUSH Q8H PRN Nausea and Vomiting Oxycodone HCl 5 mg 05/12/20 17:41 Oxycodone Hcl Immed Release 5 Mg Tablet PO Q4H PRN Pain, Moderate (Pain Scale 4-6 Pharmacy Consult 1 each 05/04/20 12:41 Consult Rx Perform Med Rec MISCELLANE ONCE PRN Consult order Pharmacy Consult 1 each 05/12/20 16:38 Consult Rx Vancomycin Dosing MISCELLANE DAILY PRN Consult order Sertraline HCl 25 mg 05/05/20 09:00 Sertraline Hcl 25 Mg Tablet PO DAILY MOSHE Sodium Chloride 3 ml 05/04/20 16:46 05/12/20 21:31 0.9 % Sodium Chloride Flush 3 Ml Syringe IVFLUSH 3 ml QSHIFT MOSHE Administration Sodium Chloride 3 ml 05/05/20 08:41 05/12/20 21:31 0.9 % Sodium Chloride Flush 3 Ml Syringe IVFLUSH 3 ml QSHIFT MOSHE Administration Time Spent With Patient Time: Total time spent is greater than 50% in coordination of care (as documented) at patient's floor/unit and/or counseling patient: Time with patient: 15 - 24 minutes Results Laboratory Findings Labs: Laboratory Results - last 24 hr 05/12/20 05/12/20 05/12/20 05:36 05:36 11:15 WBC RBC Hgb Hct MCV MCH MCHC RDW Plt Count MPV Absolute Nucleated RBC Nucleated RBC % (auto) Smear Tech's Comments VERIFIED Sodium Potassium Chloride Carbon Dioxide Anion Gap BUN Creatinine Estim Creat Clear Calc Estimated GFR POC Glucose 126 H Fasting Glucose Calcium Total Bilirubin 1.5 H Direct Bilirubin 1.2 H AST 45 H D ALT 34 H Alkaline Phosphatase 302 H D Total Protein 6.0 L Albumin 2.6 L 05/12/20 05/12/20 05/13/20 16:22 20:33 05:44 WBC 18.6 H RBC 3.31 L Hgb 9.7 L Hct 30.0 L MCV 90.6 MCH 29.3 MCHC 32.3 RDW 13.8 Plt Count 519 H MPV 10.0 Absolute Nucleated RBC 0.000 Nucleated RBC % (auto) 0.0 Smear Tech's Comments Sodium Potassium Chloride Carbon Dioxide Anion Gap BUN Creatinine Estim Creat Clear Calc Estimated GFR POC Glucose 94 105 Fasting Glucose Calcium Total Bilirubin Direct Bilirubin AST ALT Alkaline Phosphatase Total Protein Albumin 05/13/20 05/13/20 05:44 08:02 WBC RBC Hgb Hct MCV MCH MCHC RDW Plt Count MPV Absolute Nucleated RBC Nucleated RBC % (auto) Smear Tech's Comments Sodium 137 Potassium 4.3 Chloride 105 Carbon Dioxide 23 Anion Gap 13 BUN 31 H Creatinine 0.61 Estim Creat Clear Calc 73.0 Estimated GFR > 60 POC Glucose 116 H Fasting Glucose 105 H Calcium 7.8 L Total Bilirubin 1.2 H Direct Bilirubin 1.1 H AST 36 H ALT 36 H Alkaline Phosphatase 275 H Total Protein 5.4 L Albumin 2.3 L
[2020-05-13 10:21] LABS: MANUAL DIFF FLAG NO
[2020-05-13] MEDS: 0.9 % Sodium Chloride Flush 3 ML SYRINGE IVFLUSH ×4 (10:22→16:20)
[2020-05-13 10:24] LABS: Basophils Absolute Auto 0.1 X10*3/uL (0.0-0.2); Basophils Percent Auto 0.3 % (0-2); Eosinophils Absolute Auto 0.2 X10*3/uL (0.0-0.4); Eosinophils Percent Auto 1.1 % (0-4); Hematocrit 28.7 % (37-47); Hemoglobin 9.2 g/dl (12.0-16.0); Imm Gran Abs Auto 0.38 X10*3/uL (0.00-0.03); Imm Gran Pct Auto 2.2 % (0.0-0.4); Lymphocytes Absolute Auto 1.5 X10*3/uL (1.2-4.9); Lymphocytes Percent Auto 8.7 % (20-40); Mean Corpuscular HGB Conc 32.1 g/dl (31.0-35.0); Mean Corpuscular Hemoglobin 29.2 pg (27.0-33.0); Mean Corpuscular Volume 91.1 fL (80-98); Mean Platelet Volume 9.6 fL (9.4-12.3); Monocytes Absolute Auto 1.1 X10*3/uL (0.1-1.2); Monocytes Percent Auto 6.6 % (2-11); Neutrophils Percent Auto 81.1 % (45-73); Platelet Count 505 X10*3/uL (160-400); Red Blood Count 3.15 X10*6/uL (4.20-5.50); Red Cell Distribution Width 13.7 % (11.0-16.0); White Blood Count 17.3 X10*3/uL (4.8-10.8)
[2020-05-13] MEDS: 0.9 % Sodium Chloride 1,000 ML 20 ML IVCONT (10:25)
--- NOTE | 2020-05-13 10:30 | PC.NURSE ---
Addendum entered by Jessica Nunez RN 05/13/20 17:48: Pt did agree to go to nuclear medicine. She returned with no changes to mentation. She continues to be drowsy but alert and oriented yet bizarre at times. PT cleaned of dark stool, she had not realized that she was incontinent. Original Note: Pt not wanting to go for nuclear med scan. Pt edcucated and encouraged on importance of going to scan. She is alert but drowst and oriented x3. She is able to recall the events of her admission and the treatments she has received. She is however makng other unrelated strange comments at times.
[2020-05-13 10:42] LABS: Magnesium 2.3 mg/dL (1.6-2.6); Phosphorus 2.2 mg/dL (2.7-4.5)
[2020-05-13 10:48] LABS: Triglycerides 75 mg/dL
--- NOTE | 2020-05-13 11:34 | MHC.CM.PN ---
Addendum entered by Renee Chou 05/13/20 11:45: Mejia has returned call and [facility]st choice is [facility], 2nd choice [facility]. Referrals made via allscripts. Original Note: CM spoke with patient today re: discharge plan. Patient somewhat confused and does not want to pick STR. Patient gave CM permission to speak with Isabel Ba. CM spoke with Mejia and instructed PT is recommending STR for patient prior to going home. Mejia voiced concern and asked if patient has to go to STR. CATRACHITO explained patient has a right to refuse to go but also voiced concern for patient safety and fall risk if she does not go to STR. Also instructed if she goes home we can refer patient to a VNA. Mejia asked for names of STR in [place] are: [facility], [facility], [facility] and [facility]. Also stated patient is not ready for discharge yet and CM can return call on Thursday 05/17. Mejia verbalizes understanding and agrees with plan. CM will continue to follow patient for discharge needs.
[2020-05-13 16:00] VITALS: BP 141/73; PULSE 81; RESP 18; TEMP 36.3; O2SAT 96
[2020-05-13] MEDS: Fluconazole in NaCl,Iso-Osm 200 MG/100 ML PIGGYBACK 100 MG IV (16:13)
[2020-05-13] MEDS: Sodium,Potassium Phosphates POWD.PACK 1 PACKET PO (16:22)
[2020-05-13 17:02] LABS: Glucose, Whole Blood 97 mg/dL (60-115)
[2020-05-13] MEDS: Fat Emulsions 20% 250 ML 19 ML IV (18:21)
[2020-05-13 20:04] VITALS: BP 148/80; PULSE 94; RESP 18; TEMP 37.6; O2SAT 95
[2020-05-13 20:08] VITALS: RESP 18
[2020-05-13 21:20] LABS: Glucose, Whole Blood 107 mg/dL (60-115)
[2020-05-14] VITALS (7 sets, daily range): BP systolic 140–177; BP diastolic 67–103; PULSE 83–108; RESP 15–20; TEMP 36.3–36.9; O2SAT 93–98; BMI 22.2
[2020-05-14] MEDS: 0.9 % Sodium Chloride Flush 3 ML SYRINGE IVFLUSH ×8 (01:08→23:11)
[2020-05-14] MEDS: Morphine Sulfate 2 MG/ML CARTRIDGE IVPUSH (01:28)
[2020-05-14] MEDS: Piperacillin Sodium/Tazobactam 3.375 GM in 0.9 % Sodium Chloride 50 ML IV ×4 (04:36→21:53)
[2020-05-14] MEDS: vancomycin HCL 750 MG in 0.9 % Sodium Chloride 250 ML 265 MG IV ×2 (05:42→17:10)
[2020-05-14 06:11] LABS: Vancomycin Trough 9.6 mcg/mL (10.0-20.0)
[2020-05-14 07:33] LABS: Glucose, Whole Blood 120 mg/dL (60-115)
--- NOTE | 2020-05-14 08:33 | P.PNGS_ITS ---
Subjective Subjective Date of Service: 05/14/20 Interval history: Patient denies any abdominal pain but appears confused to place and time. Physical Exam Vital Signs: Vital Signs: Last Vital Signs Temp 97.9 F 05/14/20 07:18 Pulse 84 05/14/20 07:18 Resp 20 05/14/20 07:18 BP 177/82 H 05/14/20 07:18 Pulse Ox 97 05/14/20 07:18 Body Mass Index 23.8 Const: General: comfortable, no acute distress and confusion Orientation/consciousness: oriented to person, No oriented to place, No oriented to time and confusion Eyes: Sclerae: sclerae normal Resp: Effort & Inspection: normal respiratory effort, no cough and not tachypneic GI: Other: Soft, nondistended, drains intact, DANIEL with approximately 15 mL and duodenostomy tube approximately 400 mL Skin: Other: Warm and dry Neuro: General: oriented to person, No oriented to place, No oriented to time and confusion Progress Note: A&P Assessment and plan (1) Perforated duodenal ulcer: Problem details: She is 8 days post exploratory laparotomy with lysis of adhesions, pyloric exclusion, gastrojejunostomy, insertion of decompressive duodenostomy tube and repair of perforated duodenal ulcer with Miguel A patch. She continues to exhibit confusion that appears similar to immediate postoperative situation. Continue parental nutrition, clear liquid diet. Results of HIDA scan noted. No evidence of common bile duct obstruction, contrast in drainage tube from duodenostomy. Will recheck labs in a.m.. Status: Acute Fall Risk Details Current Medications: Current Medications Generic Name Dose Route Start Last Admin Trade Name Freq PRN Reason Stop Dose Admin Benzocaine 1 lozenge 05/07/20 08:48 Throat Lozenge, Medicated Lozenge MUCOUS MEM Q2H PRN Sore Throat Piperacillin Sod/Tazobactam 50 mls @ 100 mls/hr 05/09/20 22:00 05/14/20 05:38 Sod 3.375 gm/ Sodium Chloride IV Infused Q6H [facility] Infusion Fluconazole 200 mg in 100 mls @ 100 mls/hr 05/10/20 14:45 05/13/20 17:20 Diflucan IV Infused Q24H [facility] Infusion Sodium Chloride 1,000 mls @ 20 mls/hr 05/11/20 19:00 05/13/20 10:25 Ns IVCONT 20 mls/hr .Q24H [facility] Administration Vancomycin HCl 750 mg/ Sodium 265 mls @ 265 mls/hr 05/12/20 18:00 05/14/20 06:47 Chloride IV Infused Q12H [facility] Infusion Multivitamins 14 ml/ Trace 1,440 mls @ 60 mls/hr 05/13/20 18:00 05/13/20 18:13 Metals 1.4 ml/ Amino Acids/ IV 05/14/20 17:59 60 mls/hr Electrolytes DAILY@1800 MOS[facility] Administration Morphine Sulfate 2 mg 05/12/20 05:37 05/14/20 01:28 Morphine Sulfate 2 Mg/Ml Cartridge IVPUSH 2 mg Q3H PRN Administration Pain, Moderate (Pain Scale 4-6 Ondansetron HCl 4 mg 05/04/20 16:10 Ondansetron Hcl 4 Mg/2 Ml Vial IVPUSH Q8H PRN Nausea and Vomiting Oxycodone HCl 5 mg 05/12/20 17:41 Oxycodone Hcl Immed Release 5 Mg Tablet PO Q4H PRN Pain, Moderate (Pain Scale 4-6 Pharmacy Consult 1 each 05/04/20 12:41 Consult Rx Perform Med Rec MISCELLANE ONCE PRN Consult order Pharmacy Consult 1 each 05/12/20 16:38 Consult Rx Vancomycin Dosing MISCELLANE DAILY PRN Consult order Sertraline HCl 25 mg 05/05/20 09:00 Sertraline Hcl 25 Mg Tablet PO DAILY MOSHE Sodium Chloride 3 ml 05/04/20 16:46 05/14/20 01:08 0.9 % Sodium Chloride Flush 3 Ml Syringe IVFLUSH 3 ml QSHIFT MOSHE Administration Sodium Chloride 3 ml 05/05/20 08:41 05/14/20 01:10 0.9 % Sodium Chloride Flush 3 Ml Syringe IVFLUSH 3 ml QSHIFT MOSHE Administration Time Spent With Patient Time: Total time spent is greater than 50% in coordination of care (as documented) at patient's floor/unit and/or counseling patient: Time with patient: 15 - 24 minutes Results Laboratory Findings Labs: Laboratory Results - last 24 hr 05/13/20 05/13/20 05/13/20 05:44 10:10 10:10 WBC 17.3 H RBC 3.15 L Hgb 9.2 L Hct 28.7 L MCV 91.1 MCH 29.2 MCHC 32.1 RDW 13.7 Plt Count 505 H MPV 9.6 Immature Gran % (Auto) 2.2 H Neut % (Auto) 81.1 H Lymph % (Auto) 8.7 L [place] % (Auto) 6.6 Eos % (Auto) 1.1 Baso % (Auto) 0.3 Lymph # (Auto) 1.5 [place] # (Auto) 1.1 Eos # (Auto) 0.2 Baso # (Auto) 0.1 Abs Immat Gran (auto) 0.38 H Absolute Neuts (auto) 14.0 H Absolute Nucleated RBC 0.000 Nucleated RBC % (auto) 0.0 PT 12.0 D INR 1.0 POC Glucose Phosphorus 2.2 L Magnesium 2.3 Triglycerides Vancomycin Trough 05/13/20 05/13/20 05/13/20 10:10 16:53 21:14 WBC RBC Hgb Hct MCV MCH MCHC RDW Plt Count MPV Immature Gran % (Auto) Neut % (Auto) Lymph % (Auto) [place] % (Auto) Eos % (Auto) Baso % (Auto) Lymph # (Auto) [place] # (Auto) Eos # (Auto) Baso # (Auto) Abs Immat Gran (auto) Absolute Neuts (auto) Absolute Nucleated RBC Nucleated RBC % (auto) PT INR POC Glucose 97 107 Phosphorus Magnesium Triglycerides 75 Vancomycin Trough 05/14/20 05/14/20 04:49 07:25 WBC RBC Hgb Hct MCV MCH MCHC RDW Plt Count MPV Immature Gran % (Auto) Neut % (Auto) Lymph % (Auto) [place] % (Auto) Eos % (Auto) Baso % (Auto) Lymph # (Auto) [place] # (Auto) Eos # (Auto) Baso # (Auto) Abs Immat Gran (auto) Absolute Neuts (auto) Absolute Nucleated RBC Nucleated RBC % (auto) PT INR POC Glucose 120 H Phosphorus Magnesium Triglycerides Vancomycin Trough 9.6 L EXAMINATION: NUCLEAR MEDICINE HEPATOBILIARY SCAN. CLINICAL INFORMATION: Cholestasis versus cholecystitis. COMPARISON: None TECHNIQUE: Following intravenous administration of 5 mCi of 99m technetium mebrofenin, imaging over the right upper quadrant was obtained up to 3.5 hours. FINDINGS: There is normal hepatic uptake without any focal defect. No intrahepatic ductal dilatation seen. There is prompt visualization of gallbladder by 29 minutes. CBD is not visualized. However the size of the valleculae seen within the catheter draining the duodenal bulb following a duodenal ulcer repair. This finding is suggestive of the patent CBD but not clearly visualized due to surgery. NM/NM hepatobiliary wo pharm IMPRESSION: Patent cystic duct. Indirect patency of CBD with isotope activity seen in the drainage catheter extending from the duodenal bulb into the bag. Normal hepatic uptake. Results were discussed with Dr. Riddle after the exam Dictated By:THEO ISAAC MD Signed By:<Electronically signed by THEO ISAAC MD in OV>05/13/20 2559
[2020-05-14] MEDS: 0.9 % Sodium Chloride 1,000 ML 20 ML IVCONT (09:12)
[2020-05-14] MEDS: Sertraline HCL 25 MG TABLET PO (09:13)
[2020-05-14 11:19] LABS: Glucose, Whole Blood 120 mg/dL (60-115)
[2020-05-14] MEDS: Fluconazole in NaCl,Iso-Osm 200 MG/100 ML PIGGYBACK 100 MG IV (13:36)
--- NOTE | 2020-05-14 13:58 | MHC.CM.PN ---
DP STR VS [facility]. S.O. WILL PROVIDE TRANSPORTATION.
[2020-05-14 17:12] LABS: Glucose, Whole Blood 85 mg/dL (60-115)
[2020-05-14] MEDS: Fat Emulsions 20% 250 ML 19 ML IV (17:29)
[2020-05-14 21:33] LABS: Glucose, Whole Blood 109 mg/dL (60-115)
[2020-05-15] VITALS (7 sets, daily range): BP systolic 135–176; BP diastolic 63–89; PULSE 75–95; RESP 16–20; TEMP 36.7–37.1; O2SAT 95–97; BMI 22.1
[2020-05-15] MEDS: Morphine Sulfate 2 MG/ML CARTRIDGE IVPUSH (01:13)
--- NOTE | 2020-05-15 01:47 | PC.NURSE ---
Pt becoming increasingly confused, alert only to person. Pt trying to get out of bed, stating she needs to find the door. Pt scoring 8 on gonzalez-masters pain scale, prn morphine administered. Sitter placed at bedside for safety.
[2020-05-15] MEDS: Piperacillin Sodium/Tazobactam 3.375 GM in 0.9 % Sodium Chloride 50 ML IV ×4 (04:17→21:18)
[2020-05-15] MEDS: vancomycin HCL 750 MG in 0.9 % Sodium Chloride 250 ML 265 MG IV ×2 (05:51→17:48)
[2020-05-15 06:43] LABS: MANUAL DIFF FLAG NO
[2020-05-15 07:00] LABS: Basophils Percent Auto 0.3 % (0-2); Eosinophils Absolute Auto 0.2 X10*3/uL (0.0-0.4); Eosinophils Percent Auto 1.2 % (0-4); Hematocrit 26.1 % (37-47); Hemoglobin 8.3 g/dl (12.0-16.0); Imm Gran Pct Auto 2.6 % (0.0-0.4); Lymphocytes Absolute Auto 1.4 X10*3/uL (1.2-4.9); Lymphocytes Percent Auto 9.4 % (20-40); Mean Corpuscular HGB Conc 31.8 g/dl (31.0-35.0); Mean Corpuscular Hemoglobin 28.4 pg (27.0-33.0); Mean Corpuscular Volume 89.4 fL (80-98); Mean Platelet Volume 9.8 fL (9.4-12.3); Monocytes Absolute Auto 1.1 X10*3/uL (0.1-1.2); Monocytes Percent Auto 7.1 % (2-11); Neutrophils Absolute Auto 12.1 X10*3/uL (2.0-8.3); Neutrophils Percent Auto 79.4 % (45-73); Platelet Count 595 X10*3/uL (160-400); Red Blood Count 2.92 X10*6/uL (4.20-5.50); Red Cell Distribution Width 13.7 % (11.0-16.0); White Blood Count 15.3 X10*3/uL (4.8-10.8)
[2020-05-15 07:22] LABS: Anion Gap 10 (12-20); Blood Urea Nitrogen 19 mg/dL (9-16); Calcium 7.9 mg/dL (8.4-10.2); Carbon Dioxide 22 mmol/L (22-29); Chloride 107 mmol/L (96-108); Creatinine Clr Calc Pharmacy 82.5; Estimated Glomerular Filt Rate > 60; Glucose Random 130 mg/dL (60-115); Sodium 135 mmol/L (135-145)
[2020-05-15 07:42] LABS: Glucose, Whole Blood 126 mg/dL (60-115)
[2020-05-15] MEDS: 0.9 % Sodium Chloride 1,000 ML 20 ML IVCONT (08:12)
[2020-05-15 11:48] LABS: Glucose, Whole Blood 121 mg/dL (60-115)
--- NOTE | 2020-05-15 11:52 | P.PNGS_ITS ---
Subjective Subjective Date of Service: 05/15/20 Interval history: Patient appears less confused this morning and seem to remember our conversation yesterday. She denies significant abdominal pain currently. Physical Exam Vital Signs: Vital Signs: Last Vital Signs Temp 98.5 F 05/15/20 08:00 Pulse 80 05/15/20 08:00 Resp 18 05/15/20 08:00 BP 151/78 H 05/15/20 08:00 Pulse Ox 97 05/15/20 08:00 Body Mass Index 22.1 Const: General: cooperative, comfortable and no acute distress Eyes: Other: Normal sclera Resp: Other: Breathing comfortably on room air, no respiratory distress GI: Other: Abdomen is soft and nondistended. Duodenostomy tube is draining bilious fluid, small amount of clear, serosanguineous discharge. Skin: Other: Warm and dry Extrem: Other: No edema Progress Note: A&P Assessment and plan (1) Perforated duodenal ulcer: Status: Acute Assessment and Plan: She is status post exploratory laparotomy with lysis of adhesions, pyloric exclusion, gastrojejunostomy, insertion of decompressive duodenostomy tube and repair of perforated duodenal ulcer with Miguel A patch. She continues to exhibit confusion but is slightly improved today.. Continue parental nutrition, clear liquid diet. Labs recheck this morning appears stable. Continue to monitor DANIEL and duodenostomy output Fall Risk Details Current Medications: Current Medications Generic Name Dose Route Start Last Admin Trade Name Freq PRN Reason Stop Dose Admin Benzocaine 1 lozenge 05/07/20 08:48 Throat Lozenge, Medicated Lozenge MUCOUS MEM Q2H PRN Sore Throat Piperacillin Sod/Tazobactam 50 mls @ 100 mls/hr 05/09/20 22:00 05/15/20 10:53 Sod 3.375 gm/ Sodium Chloride IV Infused Q6H [facility] Infusion Fluconazole 200 mg in 100 mls @ 100 mls/hr 05/10/20 14:45 05/14/20 14:57 Diflucan IV Infused Q24H [facility] Infusion Sodium Chloride 1,000 mls @ 20 mls/hr 05/11/20 19:00 05/15/20 08:12 Ns IVCONT 20 mls/hr .Q24H MOS[facility] Administration Vancomycin HCl 750 mg/ Sodium 265 mls @ 265 mls/hr 05/12/20 18:00 05/15/20 07:32 Chloride IV Infused Q12H [facility] Infusion Multivitamins 14 ml/ Trace 1,440 mls @ 60 mls/hr 05/14/20 18:00 05/14/20 17:22 Metals 1.4 ml/ Amino Acids/ IV 05/15/20 17:59 60 mls/hr Electrolytes DAILY@1800 MOSHE Administration Morphine Sulfate 2 mg 05/12/20 05:37 05/15/20 01:13 Morphine Sulfate 2 Mg/Ml Cartridge IVPUSH 2 mg Q3H PRN Administration Pain, Moderate (Pain Scale 4-6 Ondansetron HCl 4 mg 05/04/20 16:10 Ondansetron Hcl 4 Mg/2 Ml Vial IVPUSH Q8H PRN Nausea and Vomiting Oxycodone HCl 5 mg 05/12/20 17:41 Oxycodone Hcl Immed Release 5 Mg Tablet PO Q4H PRN Pain, Moderate (Pain Scale 4-6 Pharmacy Consult 1 each 05/04/20 12:41 Consult Rx Perform Med Rec MISCELLANE ONCE PRN Consult order Pharmacy Consult 1 each 05/12/20 16:38 Consult Rx Vancomycin Dosing MISCELLANE DAILY PRN Consult order Sertraline HCl 25 mg 05/05/20 09:00 05/15/20 08:11 Sertraline Hcl 25 Mg Tablet PO Not Given DAILY MOSHE Sodium Chloride 3 ml 05/04/20 16:46 05/14/20 23:11 0.9 % Sodium Chloride Flush 3 Ml Syringe IVFLUSH 3 ml QSHIFT MOSHE Administration Sodium Chloride 3 ml 05/05/20 08:41 05/15/20 08:11 0.9 % Sodium Chloride Flush 3 Ml Syringe IVFLUSH Not Given QSHIFT MOSHE Time Spent With Patient Time: Total time spent is greater than 50% in coordination of care (as document ed) at patient's floor/unit and/or counseling patient: Time with patient: 15 - 24 minutes
--- NOTE | 2020-05-15 13:23 | MHC.CLN ---
F/U PT STARTED ON C/L DIET PT CONTINUES TO RECEIVE D15 AA5% AT 60CC/HR WITH 19ML OF 20% LIPIDS X 12 HRS TO PROVIDE 1478KCALS (25KCALS/KG) 72G PROTEIN (1.2G/KG) LABS REVIEWED, WT STABLE REPLETE LYTES NEEDED, MONITOR TRIGS AND PO INTAKE FOLLOWING
[2020-05-15] MEDS: Fluconazole in NaCl,Iso-Osm 200 MG/100 ML PIGGYBACK 100 MG IV (14:26)
[2020-05-15 16:24] LABS: Glucose, Whole Blood 109 mg/dL (60-115)
[2020-05-15] MEDS: Fat Emulsions 20% 250 ML 19 ML IV (17:32)
[2020-05-15 17:40] LABS: Vancomycin Trough 9.3 mcg/mL (10.0-20.0)
[2020-05-15 20:22] LABS: Glucose, Whole Blood 106 mg/dL (60-115)
[2020-05-16] VITALS (7 sets, daily range): BP systolic 138–168; BP diastolic 60–85; PULSE 80–86; RESP 14–20; TEMP 36.8–37; O2SAT 97–99
[2020-05-16] MEDS: Morphine Sulfate 2 MG/ML CARTRIDGE IVPUSH ×2 (04:31→16:14)
[2020-05-16] MEDS: Piperacillin Sodium/Tazobactam 3.375 GM in 0.9 % Sodium Chloride 50 ML IV ×4 (04:31→23:57)
[2020-05-16] MEDS: vancomycin HCL 1,000 MG in 0.9 % Sodium Chloride 250 ML 270 MG IV ×2 (05:51→18:11)
[2020-05-16] MEDS: oxyCODONE HCl Immed Release 5 MG TABLET PO (06:01)
[2020-05-16 08:33] LABS: Glucose, Whole Blood 124 mg/dL (60-115)
[2020-05-16] MEDS: 0.9 % Sodium Chloride Flush 3 ML SYRINGE IVFLUSH ×4 (09:13→22:08)
--- NOTE | 2020-05-16 09:35 | PM.PNGS ---
Subjective Subjective Date of Service: 05/16/20 Interval history: Patient is sleepy this morning, denies any new complaints.. She denies any significant abdominal pain currently. Physical Exam Vital Signs: Vital Signs: Last Vital Signs Temp 98.3 F 05/16/20 08:00 Pulse 80 05/16/20 08:00 Resp 20 05/16/20 08:00 BP 140/85 H 05/16/20 08:00 Pulse Ox 97 05/16/20 08:00 Body Mass Index 22.1 Const: General: confusion and tired appearing Orientation/consciousness: oriented to person and confusion Neck: Neck: Yes normal visual inspection GI: Other: Abdomen is soft and nondistended. Duodenostomy tube is draining bilious fluid, small amount of clear, serosanguineous discharge Neuro: General: oriented to person and confusion Progress Note: A&P Assessment and plan (1) Perforated duodenal ulcer: Status: Acute Assessment and Plan: 69-year-old female patient who is status post exploratory laparotomy with lysis of adhesions, pyloric exclusion, gastrojejunostomy, insertion of decompressive duodenostomy tube and repair of perforated duodenal ulcer with Miguel A patch. She continues to exhibit confusion but is slightly improved today. Continue parental nutrition, clear liquid diet. Continue to monitor DANIEL and duodenostomy output. Fall Risk Details Current Medications: Current Medications Generic Name Dose Route Start Last Admin Trade Name Freq PRN Reason Stop Dose Admin Benzocaine 1 lozenge 05/07/20 08:48 Throat Lozenge, Medicated Lozenge MUCOUS MEM Q2H PRN Sore Throat Piperacillin Sod/Tazobactam 50 mls @ 100 mls/hr 05/09/20 22:00 05/16/20 05:01 Sod 3.375 gm/ Sodium Chloride IV Infused Q6H [facility] Infusion Fluconazole 200 mg in 100 mls @ 100 mls/hr 05/10/20 14:45 05/15/20 15:57 Diflucan IV Infused Q24H [facility] Infusion Sodium Chloride 1,000 mls @ 20 mls/hr 05/11/20 19:00 05/15/20 08:12 Ns IVCONT 20 mls/hr .Q24H MOSHE Administration Multivitamins 14 ml/ Trace 2,015.4 mls @ 60 mls/hr 05/15/20 18:00 05/15/20 17:32 Metals 1.4 ml/ Amino Acids/ IV 05/16/20 17:59 60 mls/hr Electrolytes DAILY@1800 MOSHE Administration Vancomycin HCl 1,000 mg/ 270 mls @ 270 mls/hr 05/16/20 06:00 05/16/20 06:58 Sodium Chloride IV Infused Q12H [facility]HE Infusion Morphine Sulfate 2 mg 05/12/20 05:37 05/16/20 04:31 Morphine Sulfate 2 Mg/Ml Cartridge IVPUSH 2 mg Q3H PRN Administration Pain, Moderate (Pain Scale 4-6 Ondansetron HCl 4 mg 05/04/20 16:10 Ondansetron Hcl 4 Mg/2 Ml Vial IVPUSH Q8H PRN Nausea and Vomiting Oxycodone HCl 5 mg 05/12/20 17:41 05/16/20 06:01 Oxycodone Hcl Immed Release 5 Mg Tablet PO 5 mg Q4H PRN Administration Pain, Moderate (Pain Scale 4-6 Pharmacy Consult 1 each 05/04/20 12:41 Consult Rx Perform Med Rec MISCELLANE ONCE PRN Consult order Pharmacy Consult 1 each 05/12/20 16:38 Consult Rx Vancomycin Dosing MISCELLANE DAILY PRN Consult order Sertraline HCl 25 mg 05/05/20 09:00 05/15/20 08:11 Sertraline Hcl 25 Mg Tablet PO Not Given DAILY MOSHE Sodium Chloride 3 ml 05/04/20 16:46 05/16/20 09:13 0.9 % Sodium Chloride Flush 3 Ml Syringe IVFLUSH 3 ml QSHIFT MOSHE Administration Sodium Chloride 3 ml 05/05/20 08:41 05/16/20 09:14 0.9 % Sodium Chloride Flush 3 Ml Syringe IVFLUSH 3 ml QSHIFT MOSHE Administration Time Spent With Patient Time: Total time spent is greater than 50% in coordination of care (as documented) at patient's floor/unit and/or counseling patient: Time with patient: 15 - 24 minutes
[2020-05-16 10:38] LABS: Albumin Level 2.4 g/dL (3.5-5.0)
[2020-05-16 10:44] LABS: Anion Gap 10 (12-20); Blood Urea Nitrogen 20 mg/dL (9-16); Calcium 7.9 mg/dL (8.4-10.2); Carbon Dioxide 21 mmol/L (22-29); Chloride 107 mmol/L (96-108); Creatinine Clr Calc Pharmacy 85.7; Estimated Glomerular Filt Rate > 60; Glucose Random 112 mg/dL (60-115); Potassium 4.3 mmol/l (3.3-5.1); Sodium 134 mmol/L (135-145)
[2020-05-16 10:45] LABS: Magnesium 1.8 mg/dL (1.6-2.6); Phosphorus 2.7 mg/dL (2.7-4.5)
--- NOTE | 2020-05-16 11:09 | PC.NURSE ---
Pt is alert and oriented to person, place, and time. She is aware why she is in the hospital but she can be very bizarre at times. When I wake pt to assess she says things such as I'm supposed to be upstairs and these arent all alright my wires i just fixed Not reporting pain but says she is frustrated when asked why she again makes me odd remarks I forgot to organize this morning Tried to encourage PO clear liq intake- pt refused tray just took one simple sip of water. Refusing mouth care at this time. Tried to encourage pt to get OOB today, offered to set up in chair - refused. Encouraging use of Incentive Spirometer- instructed use but pt not able to understand the big deep breath part - taking short shallow breaths. Showed pt an exaggerated big deep breath to indicate how to breath with it- still not able to comprehend at this time. DANIEL drain draining <5ml per 12hr shift of light yellow drainage. duodenostomy tube draining brown ~600ml per 12hr shift brown. Pt also refused PO zoloft today and yesterday - pt is stating she hasnt taken that in years Told pt she has been taking it here and on med list- pt denies. Will cont with current plan at this time. Will note any significant changes.
[2020-05-16 11:42] LABS: Glucose, Whole Blood 120 mg/dL (60-115)
[2020-05-16] MEDS: Fluconazole in NaCl,Iso-Osm 200 MG/100 ML PIGGYBACK 100 MG IV (14:35)
[2020-05-16] MEDS: Fat Emulsions 20% 250 ML 19 ML IV (17:52)
[2020-05-16 18:22] LABS: Glucose, Whole Blood 113 mg/dL (60-115)
[2020-05-16 21:05] LABS: Glucose, Whole Blood 107 mg/dL (60-115)
[2020-05-17 03:03] VITALS: BP 144/67; PULSE 72; RESP 18; TEMP 36.8; O2SAT 97
[2020-05-17] MEDS: Piperacillin Sodium/Tazobactam 3.375 GM in 0.9 % Sodium Chloride 50 ML IV ×4 (05:16→23:31)
[2020-05-17 06:27] LABS: MANUAL DIFF FLAG NO
[2020-05-17] MEDS: vancomycin HCL 1,000 MG in 0.9 % Sodium Chloride 250 ML 270 MG IV ×2 (06:30→19:46)
[2020-05-17 06:51] LABS: Basophils Absolute Auto 0.1 X10*3/uL (0.0-0.2); Basophils Percent Auto 0.6 % (0-2); Eosinophils Absolute Auto 0.3 X10*3/uL (0.0-0.4); Eosinophils Percent Auto 2.1 % (0-4); Hematocrit 27.4 % (37-47); Hemoglobin 8.9 g/dl (12.0-16.0); Imm Gran Abs Auto 0.39 X10*3/uL (0.00-0.03); Imm Gran Pct Auto 2.7 % (0.0-0.4); Lymphocytes Absolute Auto 1.9 X10*3/uL (1.2-4.9); Mean Corpuscular HGB Conc 32.5 g/dl (31.0-35.0); Mean Corpuscular Hemoglobin 28.9 pg (27.0-33.0); Monocytes Absolute Auto 1.3 X10*3/uL (0.1-1.2); Monocytes Percent Auto 8.7 % (2-11); Neutrophils Absolute Auto 10.6 X10*3/uL (2.0-8.3); Neutrophils Percent Auto 72.9 % (45-73); Platelet Count 741 X10*3/uL (160-400); Red Blood Count 3.08 X10*6/uL (4.20-5.50); Red Cell Distribution Width 14.1 % (11.0-16.0); White Blood Count 14.5 X10*3/uL (4.8-10.8)
[2020-05-17 06:58] LABS: Anion Gap 14 (12-20); Blood Urea Nitrogen 19 mg/dL (9-16); Calcium 8.1 mg/dL (8.4-10.2); Carbon Dioxide 19 mmol/L (22-29); Chloride 106 mmol/L (96-108); Creatinine Clr Calc Pharmacy 84.1; Estimated Glomerular Filt Rate > 60; Glucose Random 113 mg/dL (60-115); Potassium 4.5 mmol/l (3.3-5.1); Sodium 134 mmol/L (135-145)
[2020-05-17 07:50] VITALS: BP 148/74; PULSE 88; RESP 18; TEMP 36.7; O2SAT 99
[2020-05-17] MEDS: 0.9 % Sodium Chloride 1,000 ML 20 ML IVCONT (08:15)
[2020-05-17 08:21] LABS: Glucose, Whole Blood 115 mg/dL (60-115)
[2020-05-17] MEDS: 0.9 % Sodium Chloride Flush 3 ML SYRINGE IVFLUSH ×3 (08:23→19:48)
[2020-05-17 10:47] LABS: Albumin Level 2.5 g/dL (3.5-5.0); Magnesium 1.8 mg/dL (1.6-2.6); Phosphorus 2.8 mg/dL (2.7-4.5); Triglycerides 107 mg/dL
[2020-05-17 11:48] VITALS: BP 166/77; PULSE 104; RESP 18; TEMP 37.1; O2SAT 98
[2020-05-17 12:05] LABS: Glucose, Whole Blood 110 mg/dL (60-115)
--- NOTE | 2020-05-17 13:46 | PM.PNGS ---
Subjective Subjective Date of Service: 05/17/20 Interval history: Patient sitting up in chair, appears more alert and awake, reports some abdominal pain but denies nausea or vomiting. Was able to ambulate a short distance but was fairly unsteady. Physical Exam Vital Signs: Vital Signs: Last Vital Signs Temp 98.7 F 05/17/20 11:48 Pulse 104 H 05/17/20 11:48 Resp 18 05/17/20 11:48 BP 166/77 H 05/17/20 11:48 Pulse Ox 98 05/17/20 11:48 Body Mass Index 22.1 Const: General: comfortable, no acute distress and confusion Orientation/consciousness: confusion Resp: Effort & Inspection: normal respiratory effort, no cough, no stridor and not tachypneic GI: Other: Abdomen is soft and nondistended. Duodenostomy tube is draining thin, clear bilious fluid, small amount of clear, serosanguineous discharge from DANIEL, approximately 11 cc in 24 hours Skin: General skin exam: dry skin, no ecchymosis and no erythema Neuro: General: confusion Extrem: General: Yes pedal edema Progress Note: A&P Assessment and plan (1) Perforated duodenal ulcer: Status: Acute Assessment and Plan: 69-year-old female patient who is status post exploratory laparotomy with lysis of adhesions, pyloric exclusion, gastrojejunostomy, insertion of decompressive duodenostomy tube and repair of perforated duodenal ulcer with Miguel A patch. Her confusion appears improved today but is still present. DANIEL drainage is minimal and duodenostomy drainage is clear slightly bilious. Continue parental nutrition, clear liquid diet. Continue to monitor DANIEL and duodenostomy output. Fall Risk Details Current Medications: Current Medications Generic Name Dose Route Start Last Admin Trade Name Freq PRN Reason Stop Dose Admin Benzocaine 1 lozenge 05/07/20 08:48 Throat Lozenge, Medicated Lozenge MUCOUS MEM Q2H PRN Sore Throat Fluconazole 200 mg in 100 mls @ 100 mls/hr 05/10/20 14:45 05/16/20 15:44 Diflucan IV Infused Q24H [facility] Infusion Vancomycin HCl 1,000 mg/ 270 mls @ 270 mls/hr 05/16/20 06:00 05/17/20 07:30 Sodium Chloride IV Infused Q12H [facility] Infusion Multivitamins 14 ml/ Trace 2,015.4 mls @ 60 mls/hr 05/16/20 18:00 05/17/20 03:28 Metals 1.4 ml/ Amino Acids/ IV 05/17/20 17:59 60 mls/hr Electrolytes DAILY@1800 [facility] Infusion Piperacillin Sod/Tazobactam 50 mls @ 100 mls/hr 05/16/20 22:30 05/17/20 13:41 Sod 3.375 gm/ Sodium Chloride IV Infused Q6H [facility] Infusion Multivitamins 14 ml/ Trace 1,440 mls @ 60 mls/hr 05/17/20 18:00 Metals 1.4 ml/ Amino Acids/ IV Electrolytes DAILY@1800 [facility] Fat Emulsion Intravenous 228 mls @ 19 mls/hr 05/17/20 18:00 Intralipid IV 05/18/20 05:59 DAILY@1800 [facility] Ondansetron HCl 4 mg 05/04/20 16:10 Ondansetron Hcl 4 Mg/2 Ml Vial IVPUSH Q8H PRN Nausea and Vomiting Oxycodone HCl 5 mg 05/12/20 17:41 05/16/20 06:01 Oxycodone Hcl Immed Release 5 Mg Tablet PO 5 mg Q4H PRN Administration Pain, Moderate (Pain Scale 4-6 Pharmacy Consult 1 each 05/04/20 12:41 Consult Rx Perform Med Rec MISCELLANE ONCE PRN Consult order Pharmacy Consult 1 each 05/12/20 16:38 Consult Rx Vancomycin Dosing MISCELLANE DAILY PRN Consult order Sertraline HCl 25 mg 05/05/20 09:00 05/17/20 08:23 Sertraline Hcl 25 Mg Tablet PO Not Given DAILY MOS[facility] Sodium Chloride 3 ml 05/04/20 16:46 05/17/20 08:23 0.9 % Sodium Chloride Flush 3 Ml Syringe IVFLUSH 3 ml QSHIFT MOSHE Administration Time Spent With Patient Time: Total time spent is greater than 50% in coordination of care (as documented) at patient's floor/unit and/or counseling patient: Time with patient: 15 - 24 minutes
--- NOTE | 2020-05-17 14:57 | MHC.CLN ---
F/U PT ON C/L DIET BUT PT REFUSES PT CONTINUES TO RECEIVE D15 AA5% AT 60CC/HR WITH 19ML OF 20% LIPIDS X 12 HRS TO PROVIDE 1478KCALS (25KCALS/KG) 72G PROTEIN (1.2G/KG) LABS REVIEWED; DISCUSSED WITH PHARMACY, WT STABLE REPLETE LYTES NEEDED, MONITOR TRIGS AND PO INTAKE FOLLOWING
[2020-05-17 16:00] VITALS: BP 150/64; PULSE 97; RESP 16; TEMP 36.8; O2SAT 98
[2020-05-17] MEDS: Fluconazole in NaCl,Iso-Osm 200 MG/100 ML PIGGYBACK 100 MG IV (16:14)
[2020-05-17 17:28] LABS: Glucose, Whole Blood 108 mg/dL (60-115)
[2020-05-17 17:53] LABS: Vancomycin Trough 17.1 mcg/mL (10.0-20.0)
[2020-05-17] MEDS: Fat Emulsions 20% 250 ML 19 ML IV (18:02)
[2020-05-17 19:44] VITALS: BP 160/71; PULSE 94; RESP 18; TEMP 36.8; O2SAT 99
[2020-05-17 21:16] LABS: Glucose, Whole Blood 109 mg/dL (60-115)
[2020-05-18] VITALS (7 sets, daily range): BP systolic 137–192; BP diastolic 74–90; PULSE 79–110; RESP 16–22; TEMP 36.2–36.9; O2SAT 95–99
[2020-05-18] MEDS: Piperacillin Sodium/Tazobactam 3.375 GM in 0.9 % Sodium Chloride 50 ML IV ×4 (05:14→21:25)
[2020-05-18] MEDS: vancomycin HCL 1,000 MG in 0.9 % Sodium Chloride 250 ML 270 MG IV ×2 (06:14→18:01)
[2020-05-18 07:23] LABS: Glucose, Whole Blood 124 mg/dL (60-115)
--- NOTE | 2020-05-18 08:43 | PM.PNGS ---
Subjective Subjective Date of Service: 05/18/20 Interval history: Resting quietly in bed, awake, reports being unwell, which has been her usual response to me. Unable to provide any additional information as to why she is unwell or what is bothering her. Physical Exam Vital Signs: Vital Signs: Last Vital Signs Temp 98.1 F 05/18/20 08:00 Pulse 82 05/18/20 08:00 Resp 22 H 05/18/20 08:00 BP 159/88 H 05/18/20 08:00 Pulse Ox 98 05/18/20 08:00 Body Mass Index 22.1 Const: General: cooperative and confusion (Mildly) Orientation/consciousness: confusion (Mildly) Resp: Effort & Inspection: normal respiratory effort Auscultation: clear to auscultation bilaterally Cardio: Rate: regular rate Rhythm: regular rhythm GI: Other: Soft, nontender, nondistended, incision clean and well approximated. DANIEL draining minimal serous material. Right upper quadrant duodenostomy output remains high. Skin: Other: Pale, warm and dry Neuro: General: confusion (Mildly) Progress Note: A&P Assessment and plan (1) Perforated duodenal ulcer: Status: Acute Assessment and Plan: 69-year-old female patient who is status post exploratory laparotomy with lysis of adhesions, pyloric exclusion, gastrojejunostomy, insertion of decompressive duodenostomy tube and repair of perforated duodenal ulcer with Miguel A patch. Continue parental nutrition, IV antibiotics. Advance to full liquid diet. Duodenostomy tube clamped. Remove Krishnamurthy catheter. Continue physical therapy. PPI - omeprazole PO. Fall Risk Details Current Medications: Current Medications Generic Name Dose Route Start Last Admin Trade Name Freq PRN Reason Stop Dose Admin Benzocaine 1 lozenge 05/07/20 08:48 Throat Lozenge, Medicated Lozenge MUCOUS MEM Q2H PRN Sore Throat Fluconazole 200 mg in 100 mls @ 100 mls/hr 05/10/20 14:45 05/17/20 17:14 Diflucan IV Infused Q24H [facility] Infusion Vancomycin HCl 1,000 mg/ 270 mls @ 270 mls/hr 05/16/20 06:00 05/18/20 06:14 Sodium Chloride IV 270 mls/hr Q12H [facility] Administration Piperacillin Sod/Tazobactam 50 mls @ 100 mls/hr 05/16/20 22:30 05/18/20 05:47 Sod 3.375 gm/ Sodium Chloride IV Infused Q6H [facility] Infusion Multivitamins 14 ml/ Trace 1,440 mls @ 60 mls/hr 05/17/20 18:00 05/17/20 18:10 Metals 1.4 ml/ Amino Acids/ IV 60 mls/hr Electrolytes DAILY@1800 [facility] Administration Ondansetron HCl 4 mg 05/04/20 16:10 Ondansetron Hcl 4 Mg/2 Ml Vial IVPUSH Q8H PRN Nausea and Vomiting Pharmacy Consult 1 each 05/04/20 12:41 Consult Rx Perform Med Rec MISCELLANE ONCE PRN Consult order Pharmacy Consult 1 each 05/12/20 16:38 Consult Rx Vancomycin Dosing MISCELLANE DAILY PRN Consult order Sertraline HCl 25 mg 05/05/20 09:00 05/17/20 08:23 Sertraline Hcl 25 Mg Tablet PO Not Given DAILY [facility] Sodium Chloride 3 ml 05/04/20 16:46 05/17/20 19:48 0.9 % Sodium Chloride Flush 3 Ml Syringe IVFLUSH 3 ml QSHIFT MOSHE Administration Time Spent With Patient Time: Total time spent is greater than 50% in coordination of care (as documented) at patient's floor/unit and/or counseling patient: Time with patient: 15 - 24 minutes
[2020-05-18] MEDS: Sertraline HCL 25 MG TABLET PO (10:18)
[2020-05-18] MEDS: 0.9 % Sodium Chloride Flush 3 ML SYRINGE IVFLUSH ×2 (10:21→15:54)
[2020-05-18 11:06] LABS: Glucose, Whole Blood 120 mg/dL (60-115)
[2020-05-18] MEDS: Fluconazole in NaCl,Iso-Osm 200 MG/100 ML PIGGYBACK 100 MG IV (13:32)
[2020-05-18] MEDS: Omeprazole 20 MG CAPSULE.DR PO (15:55)
[2020-05-18 17:07] LABS: Glucose, Whole Blood 111 mg/dL (60-115)
[2020-05-18] MEDS: Fat Emulsions 20% 250 ML 19 ML IV (17:55)
[2020-05-18] MEDS: oxyCODONE HCl Immed Release 5 MG TABLET PO (21:38)
[2020-05-19] VITALS (7 sets, daily range): BP systolic 120–176; BP diastolic 65–85; PULSE 72–91; RESP 16–19; TEMP 36.3–36.7; O2SAT 95–98
[2020-05-19] MEDS: 0.9 % Sodium Chloride Flush 3 ML SYRINGE IVFLUSH
[2020-05-19] MEDS: Piperacillin Sodium/Tazobactam 3.375 GM in 0.9 % Sodium Chloride 50 ML IV ×4 (04:55→20:45)
[2020-05-19 05:56] LABS: Vancomycin Trough 18.9 mcg/mL (10.0-20.0)
[2020-05-19] MEDS: vancomycin HCL 1,000 MG in 0.9 % Sodium Chloride 250 ML 270 MG IV (06:17)
[2020-05-19 06:59] LABS: Glucose, Whole Blood 110 mg/dL (60-115)
[2020-05-19 07:10] LABS: Glucose, Whole Blood 108 mg/dL (60-115)
--- NOTE | 2020-05-19 07:13 | MHC.PIE ---
p - pt continues refusing po intake except for rare sips, denied nausea on q4h assessments 12 hr shift i - continue to encourage e - continue to monitor
[2020-05-19] MEDS: Sertraline HCL 25 MG TABLET PO (08:42)
[2020-05-19 08:43] LABS: MANUAL DIFF FLAG NO
[2020-05-19 08:44] LABS: Basophils Absolute Auto 0.1 X10*3/uL (0.0-0.2); Basophils Percent Auto 0.4 % (0-2); Eosinophils Absolute Auto 0.4 X10*3/uL (0.0-0.4); Eosinophils Percent Auto 2.7 % (0-4); Hematocrit 26.9 % (37-47); Hemoglobin 8.6 g/dl (12.0-16.0); Imm Gran Abs Auto 0.31 X10*3/uL (0.00-0.03); Imm Gran Pct Auto 2.3 % (0.0-0.4); Lymphocytes Absolute Auto 1.9 X10*3/uL (1.2-4.9); Lymphocytes Percent Auto 14.5 % (20-40); Mean Corpuscular Hemoglobin 28.6 pg (27.0-33.0); Mean Corpuscular Volume 89.4 fL (80-98); Mean Platelet Volume 9.3 fL (9.4-12.3); Monocytes Absolute Auto 1.1 X10*3/uL (0.1-1.2); Monocytes Percent Auto 8.1 % (2-11); NRBC Pct Auto 0.2 /100WBC (0.0-0.2); Neutrophils Absolute Auto 9.5 X10*3/uL (2.0-8.3); Platelet Count 688 X10*3/uL (160-400); Red Blood Count 3.01 X10*6/uL (4.20-5.50); Red Cell Distribution Width 14.4 % (11.0-16.0); White Blood Count 13.2 X10*3/uL (4.8-10.8)
[2020-05-19] MEDS: ondansetron HCL 4 MG/2 ML VIAL IVPUSH (08:46)
[2020-05-19 09:18] LABS: Alanine Aminotransferase 32 U/L (0-31); Albumin Level 2.7 g/dL (3.5-5.0); Alkaline Phosphatase 323 U/L (39-117); Anion Gap 12 (12-20); Aspartate Amino Transferase 28 U/L (5-31); Bilirubin Direct 0.5 mg/dL (0.0-0.5); Bilirubin Total 0.7 mg/dL (0.0-1.0); Blood Urea Nitrogen 20 mg/dL (9-16); Calcium 8.4 mg/dL (8.4-10.2); Carbon Dioxide 23 mmol/L (22-29); Chloride 107 mmol/L (96-108); Estimated Glomerular Filt Rate > 60; Glucose Random 108 mg/dL (60-115); Magnesium 1.7 mg/dL (1.6-2.6); Phosphorus 2.7 mg/dL (2.7-4.5); Potassium 4.2 mmol/l (3.3-5.1); Sodium 138 mmol/L (135-145); Total Protein 6.4 g/dL (6.5-8.0)
--- NOTE | 2020-05-19 09:25 | PM.PNGS ---
Subjective Subjective Date of Service: 05/19/20 Interval history: Somewhat more interactive, continues to report abdominal pain but unable to describe. Physical Exam Vital Signs: Vital Signs: Last Vital Signs Temp 97.8 F 05/19/20 07:59 Pulse 72 05/19/20 07:59 Resp 19 05/19/20 07:59 BP 152/76 H 05/19/20 07:59 Pulse Ox 97 05/19/20 07:59 Body Mass Index 22.1 Laboratory Results - last 24 hr 05/18/20 05/18/20 05/18/20 11:02 17:04 21:31 WBC RBC Hgb Hct MCV MCH MCHC RDW Plt Count MPV Immature Gran % (A uto) Neut % (Auto) Lymph % (Auto) Refugio % (Auto) Eos % (Auto) Baso % (Auto) Lymph # (Auto) Refugio # (Auto) Eos # (Auto) Baso # (Auto) Abs Immat Gran (au to) Absolute Neuts (au to) Absolute Nucleated RBC Nucleated RBC % (a uto) Sodium Potassium Chloride Carbon Dioxide Anion Gap BUN Creatinine Estim Creat Clear Calc Estimated GFR POC Glucose 120 H 111 110 Random Glucose Calcium Phosphorus Magnesium Total Bilirubin Direct Bilirubin AST ALT Alkaline Phosphata se Total Protein Albumin Vancomycin Trough 05/19/20 05/19/20 05/19/20 04:33 07:01 08:34 WBC 13.2 H RBC 3.01 L Hgb 8.6 L Hct 26.9 L MCV 89.4 MCH 28.6 MCHC 32.0 RDW 14.4 Plt Count 688 H MPV 9.3 L Immature Gran % (A uto) 2.3 H Neut % (Auto) 72.0 Lymph % (Auto) 14.5 L Refugio % (Auto) 8.1 Eos % (Auto) 2.7 Baso % (Auto) 0.4 Lymph # (Auto) 1.9 Refugio # (Auto) 1.1 Eos # (Auto) 0.4 Baso # (Auto) 0.1 Abs Immat Gran (au to) 0.31 H Absolute Neuts (au to) 9.5 H Absolute Nucleated RBC 0.020 H Nucleated RBC % (a uto) 0.2 Sodium Potassium Chloride Carbon Dioxide Anion Gap BUN Creatinine Estim Creat Clear Calc Estimated GFR POC Glucose 108 Random Glucose Calcium Phosphorus Magnesium Total Bilirubin Direct Bilirubin AST ALT Alkaline Phosphata se Total Protein Albumin Vancomycin Trough 18.9 05/19/20 08:34 WBC RBC Hgb Hct MCV MCH MCHC RDW Plt Count MPV Immature Gran % (A uto) Neut % (Auto) Lymph % (Auto) Refugio % (Auto) Eos % (Auto) Baso % (Auto) Lymph # (Auto) Refugio # (Auto) Eos # (Auto) Baso # (Auto) Abs Immat Gran (au to) Absolute Neuts (au to) Absolute Nucleated RBC Nucleated RBC % (a uto) Sodium 138 Potassium 4.2 Chloride 107 Carbon Dioxide 23 Anion Gap 12 BUN 20 H Creatinine 0.61 Estim Creat Clear Calc 73.0 Estimated GFR > 60 POC Glucose Random Glucose 108 Calcium 8.4 Phosphorus 2.7 Magnesium 1.7 Total Bilirubin 0.7 Direct Bilirubin 0.5 AST 28 ALT 32 H Alkaline Phosphata se 323 H Total Protein 6.4 L Albumin 2.7 L Vancomycin Trough Const: General: no acute distress and alert Resp: Effort & Inspection: normal respiratory effort Auscultation: clear to auscultation bilaterally Cardio: Rate: regular rate Rhythm: regular rhythm GI: Other: Slightly distended, hypoactive bowel sounds, incision clean and dry, reports generalized tenderness and seems more tender lower abdomen Skin: Other: Pale, warm and dry Progress Note: A&P Assessment and plan (1) Perforated duodenal ulcer: Status: Acute Assessment and Plan: 69-year-old female patient who is status post exploratory laparotomy with lysis of adhesions, pyloric exclusion, gastrojejunostomy, insertion of decompressive duodenostomy tube and repair of perforated duodenal ulcer with Miguel A patch. Continue parental nutrition, albumin slightly improved, 2.7. Appetite remains poor. Continue full liquid diet IV antibiotics: Zosyn, vancomycin, Diflucan. Vancomycin trough in range. White blood count is slowly decreasing. Duodenostomy tube clamped 05/18/20. She appears to be tolerating this so far though she does appear slightly more distended today. DANIEL drainage remained serous and low volume. Will check bladder scan as Krishnamurthy was removed yesterday, to evaluate for urinary retention. May need to repeat CT scan of the abdomen and pelvis depending upon progress. Has thrombocytosis, reactive, improving. Cannot use aspirin due to peptic ulcer disease. Begin subcu heparin. Continue physical therapy. Clonus and dystonia noted. She has mental status changes as well that may be more chronic. Her significant other reported that she was having difficulty with more complex tasks prior to admission. Neurology consult requested. PPI - omeprazole PO. Fall Risk Details Current Medications: Current Medications Generic Name Dose Route Start Last Admin Trade Name Freq PRN Reason Stop Dose Admin Benzocaine 1 lozenge 05/07/20 08:48 Throat Lozenge, Medicated Lozenge MUCOUS MEM Q2H PRN Sore Throat Fluconazole 200 mg in 100 mls @ 100 mls/hr 05/10/20 14:45 05/18/20 15:07 Diflucan IV Infused Q24H [facility] Infusion Vancomycin HCl 1,000 mg/ 270 mls @ 270 mls/hr 05/16/20 06:00 05/19/20 07:17 Sodium Chloride IV Infused Q12H [facility] Infusion Piperacillin Sod/Tazobactam 50 mls @ 100 mls/hr 05/16/20 22:30 05/19/20 05:32 Sod 3.375 gm/ Sodium Chloride IV Infused Q6H [facility] Infusion Multivitamins 14 ml/ Trace 1,440 mls @ 60 mls/hr 05/18/20 18:00 05/18/20 17:50 Metals 1.4 ml/ Amino Acids/ IV 05/19/20 17:59 60 mls/hr Electrolytes DAILY@1800 [facility] Administration Omeprazole 20 mg 05/18/20 16:30 05/19/20 06:17 Omeprazole 20 Mg Capsule.Dr PO 20 mg BID@0630,1630 [facility] Administration Ondansetron HCl 4 mg 05/04/20 16:10 05/19/20 08:46 Ondansetron Hcl 4 Mg/2 Ml Vial IVPUSH 4 mg Q8H PRN Administration Nausea and Vomiting Oxycodone HCl 5 mg 05/18/20 13:12 05/18/20 21:38 Oxycodone Hcl Immed Release 5 Mg Tablet PO 5 mg Q4H PRN Administration Pain, Moderate (Pain Scale 4-6 Pharmacy Consult 1 each 05/04/20 12:41 Consult Rx Perform Med Rec MISCELLANE ONCE PRN Consult order Pharmacy Consult 1 each 05/12/20 16:38 Consult Rx Vancomycin Dosing MISCELLANE DAILY PRN Consult order Sertraline HCl 25 mg 05/05/20 09:00 05/19/20 08:42 Sertraline Hcl 25 Mg Tablet PO 25 mg DAILY [facility] Administration Sodium Chloride 3 ml 05/04/20 16:46 05/19/20 08:41 0.9 % Sodium Chloride Flush 3 Ml Syringe IVFLUSH Not Given QSHIFT MOSHE Time Spent With Patient Time: Total time spent is greater than 50% in coordination of care (as documented) at patient's floor/unit and/or counseling patient: Time with patient: 15 - 24 minutes
[2020-05-19] MEDS: Heparin Sodium,Porcine 5,000 UNIT/ML VIAL 5000 UNIT SUBCUT ×2 (10:16→20:44)
--- NOTE | 2020-05-19 10:38 | P.CNNE_ITS ---
History of Present Illness Data of Consult Service Date: 05/19/20 Primary Care Provider: Jasiel Fink MD [facility] Reason for consult: Altered mental status This is a 69-year-old woman who was admitted with a GI bleed with the a perforated duodenal ulcer also hemoglobin has dropped from 12-8.6. She also has the low back pain. She has a previous history of alcohol abuse but joint achy and has been dry since 1987. The patient denies any headache at this time is not dizzy. She complains of abdominal pain. She is alert and cooperative with examination answering questions appropriately. She has no history of dementia. No history of stroke or seizures. Review of Systems Constitutional: Constitutional: Denies headache(s) and Reports weakness Eyes: Eyes: Reports no additional eye complaints ENT: Reports Normal hearing present, Reports dizziness and Denies headache(s) Cardiovascular: Cardiovascular: Reports no additional cardiovascular complaints Respiratory: Respiratory: Reports no additional respiratory complaints Gastrointestinal: Gastrointestinal: Reports no additional gastrointestinal complaints Musculoskeletal: Musculoskeletal: Reports no additional musculoskeletal complaints Integumentary/Breasts: Skin/Breast: Reports system reviewed and no additional complaints, except as docu Neurologic: Reports system reviewed and no additional complaints, except as documented, Reports Normal hearing present, Reports dizziness, Denies headache(s), Denies Sensory deficit (Neuro) and Reports weakness Endocrine: Endocrine: Reports no additional endocrine complaints Hematologic/Lymphatic: Hematologic/Lymphatic: Reports no additional hematologic/lymphatic complaints Allergic/Immunologic: Allergic/Immunologic: Reports no additional allergic/immunologic complaints PMFSH Past Medical History Medical History (Updated 05/19/20 @ 10:45 by Jennifer Funez MD) Dizziness History of ETOH abuse Peritonitis Family History Family History Mother No problems noted. Father No problems noted. Family history: reviewed and not pertinent Surgical History Surgical History History of appendectomy History of gastric surgery Social History Social History Household Members: Significant Other Housing: House Do you presently have visiting nurse or other home services: No Alcohol intake: former Smoking Status: Never smoker Use of substances other than those prescribed or required for medical reasons: No Currently Displaying Signs/Symptoms of Drug Intoxication Withdrawal: No Have you been hit, kicked, punched, or otherwise hurt by someone within the past year? If so, by whom?: No Do you feel safe in your current relationship?: Yes Is there a partner from a previous relationship who is making you feel unsafe now?: No Are you made to feel afraid or neglected: No Advance Directives: No Advance Directives Information Provided: No Do you have thoughts of harming others: None Do you have a plan to hurt others: No Plan Recently lost weight without trying: No service: No Current occupational status: [employer] Allergies Allergy/AdvReac Type Severity Reaction Status Date / Time No Known Allergies Allergy Verified 02/23/20 10:48 [No Known Allergies*] Home Medications Medication Instructions Recorded Confirmed Type omeprazole 40 mg capsule,delayed 40 mg PO DAILY 03/31/20 05/04/20 History release sertraline 25 mg PO DAILY 05/04/20 05/04/20 History Physical Exam Vital Signs: Vital Signs: Last Vital Signs Temp 97.8 F 05/19/20 07:59 Pulse 72 05/19/20 07:59 Resp 19 05/19/20 07:59 BP 152/76 H 05/19/20 07:59 Pulse Ox 97 05/19/20 07:59 Body Mass Index 22.1 Const: General: cooperative, alert and awake Nutritional Appearance: well nourished Limitations: no limitations HENMT: Head: Yes normal to inspection, Yes normocephalic and Yes atraumatic Ears: hearing grossly normal bilaterally General nose exam: Normal external nose present Face and sinus: Yes normal facial exam Mouth: Normal oral and palatal mucosa present Eyes: General: appearance normal, both eyes and all related structures Visual Franklin: normal visual franklin by confrontation Alignment and Position: alignment normal Periorbital: periorbital findings normal Eyelids: Yes eyelids normal Conjunctivae: conjunctivae normal Sclerae: sclerae normal Corneas: corneas normal Pupils: Equal, round and reactive pupils present and Pupil accommodation reflex normal EOM: EOMs intact bilaterally Direct Ophthalmoscopy: normal light reflex Neck: Neck: Yes normal visual inspection, Yes full ROM and Yes no meningeal signs Thyroid: Thyroid normal Carotids: normal carotid upstroke and bounding pulses Chest: Chest palpation & inspection: normal inspection of the chest Resp: Effort & Inspection: normal respiratory effort Auscultation: clear to auscultation bilaterally Cardio: Rate: regular rate Rhythm: regular rhythm Heart sounds: S1 normal heart sound present and S2 normal heart sound present Peripheral p ulses: Peripheral pulses 2+ throughout GI: Inspection: Yes normal to inspection Percussion: Yes normal to percussion Auscultation: normal bowel sounds Rectal Exam - Female: deferred Back/Spine/Pelvis: Cervical Spine: normal cervical lordosis and cervical ROM normal Thoracic/Lumbar Spine: thoracic and lumbar spine normal to inspection Skin: General skin exam: no rashes or lesions noted Neuro: Other: She is alert oriented except for the exact day and date. She knows it's the end of April 2020. She gives me a coherent history and follows commands. General: no meningeal signs Cranial nerves: Yes CN's II- XII intact bilaterally, Yes Equal, round and reactive pupils present, Yes Bilaterally intact EOM present, Yes Nystagmus not present, Yes Normal facial strength present, Yes Midline tongue present, Yes Normal gag reflex present, Yes Symmetric palate elevation present, Yes Normal hearing present and Yes Ability to bilaterally rotate head present Speech: Other speech findings present (Neuro) Gait exam (Neuro): Normal gait present Motor exam (neuro): 5/5 motor strength present throughout, Pronator motor function not present, no tremor noted, no asterixis, Motor fasciculations not present, Normal motor mu scle tone present throughout and Motor abnormalities not present Sensory Exam: No Sensory deficit (Neuro) Deep tendon reflexes (DTR's): Right triceps reflex intensity grade: 2+, Left triceps reflex intensity grade: 2+, Rt Biceps (C5, C6): 2+, Left biceps reflex intensity grade: 2+, Right brachioradialis reflex intensity grade: 2+, Left brachioradialis reflex intensity grade: 2+, Right patellar reflex intensity grade: 2+, Left patellar reflex intensity grade: 2+, Right ankle reflex intensity grade: 2+ and Left ankle reflex intensity grade: 2+ Plantar Reflex Responses: downgoing: right, left and bilateral Coordination: [id number] test normal and [id number] test normal Pupils: Normal pupillary reactivity/response: bilateral Extrem: General: Yes normal to inspection, Yes normal exam except as noted and Yes no pedal edema Psych: Appearance: grossly normal Mental Status: mental status grossly normal Speech and movement: Normal speech and movement present and Clear speech present Affect: normal affect Attitude: cooperative Thought pro cess: Normal thought process present Results Labs CBC & Chem 7: 05/19/20 08:34 05/19/20 08:34 Labs: Short CBC 05/19/20 Range/Units 08:34 WBC 13.2 H (4.8-10.8) X10*3/uL Hgb 8.6 L (12.0-16.0) g/dl Hct 26.9 L (37-47) % Plt Count 688 H (160-400) X10*3/uL BMP 05/19/20 08:34 Sodium 138 Potassium 4.2 Chloride 107 Carbon Dioxide 23 BUN 20 H Creatinine 0.61 Calcium 8.4 Liver Function 05/19/20 Range/Units 08:34 Total Bilirubin 0.7 (0.0-1.0) mg/dL Direct Bilirubin 0.5 (0.0-0.5) mg/dL AST 28 (5-31) U/L ALT 32 H (0-31) U/L Alkaline Phosphatase 323 H (39-117) U/L Albumin 2.7 L (3.5-5.0) g/dL Microbiology Microbiology Results: Microbiology 05/05/20 02:37 Peritoneal Fluid Gram Stain - Final 05/05/20 02:37 Peritoneal Fluid Routine Culture - Final Catherine dubliniensis Streptococcus gordonii Catherine glabrata Methicillin Res Staph Aureus 05/05/20 02:37 Peritoneal Fluid Anaerobic Culture - Final Assessment and Plan (1) Encephalopathy: Problem details: She appears to have a mild metabolic encephalopathy which could be multifactorial. It's probably related to her infection as well has possibly slightly elevated the morning of from the GI bleed. No evidence of primary neurological process or [employer] infection.CT scan of the brain on 04/22/20 was normal except for mild age-related atrophy and mild microvascular disease. Her labs are fairly unremarkable except for anemia from her GI bleed. Serum ammonia has not been checked. Status: Acute Check serum ammonia.
[2020-05-19 10:52] LABS: Glucose Urine UA NEG (NEG); Leukocyte Esterase Urine NEG (NEG); Nitrite Urine NEG (NEG); PH 5.5 (5.0-8.0); Specific Gravity - Urine 1.025 (1.005-1.025); Urine Blood NEG (NEG); Urine Ketones NEG (NEG); Urine Protein NEG (NEG-TRACE)
[2020-05-19 10:56] LABS: Appearance Urine CLEAR; Color Urine YELLOW
[2020-05-19 11:36] LABS: Glucose, Whole Blood 112 mg/dL (60-115)
[2020-05-19 11:45] LABS: Ammonia 35 umol/L (13-55)
[2020-05-19 13:23] LABS: Vancomycin Trough 32.9 mcg/mL (10.0-20.0)
--- NOTE | 2020-05-19 13:38 | MHC.CM.PN ---
Patient is on IV Flagyl, IV Vanco, IV Zosyn for infected peritoneal fluid. Diet has been upgraded to full liquids and continues on TPN. Patient's discharge plan is [facility], [facility] and [facility] are following. Patient will need BLS transport. CM will continue to follow patient for discharge needs.
--- NOTE | 2020-05-19 13:39 | MHC.CLN ---
F/U PT ON F/L DIET BUT PT CONTINUES TO REFUSE PT RECEIVING D15 AA5% AT 60CC/HR WITH 19ML OF 20% LIPIDS X 12 HRS TO PROVIDE 1478KCALS (25KCALS/KG) 72G PROTEIN (1.2G/KG) LABS REVIEWED REPLETE LYTES NEEDED, MONITOR PO INTAKE FOLLOWING
[2020-05-19 13:56] LABS: Ammonia 34 umol/L (13-55)
[2020-05-19] MEDS: Fluconazole in NaCl,Iso-Osm 200 MG/100 ML PIGGYBACK 100 MG IV (13:57)
[2020-05-19 16:29] LABS: Glucose, Whole Blood 97 mg/dL (60-115)
[2020-05-19] MEDS: Omeprazole 20 MG CAPSULE.DR PO (16:40)
[2020-05-19] MEDS: oxyCODONE HCl Immed Release 5 MG TABLET PO (16:47)
[2020-05-19] MEDS: Fat Emulsions 20% 250 ML 19 ML IV (18:03)
[2020-05-19] MEDS: vancomycin HCL 750 MG in 0.9 % Sodium Chloride 250 ML 265 MG IV (18:16)
[2020-05-19 20:26] LABS: Glucose, Whole Blood 99 mg/dL (60-115)
[2020-05-20 03:50] VITALS: BP 142/79; PULSE 82; RESP 18; TEMP 36.8; O2SAT 99
[2020-05-20] MEDS: Piperacillin Sodium/Tazobactam 3.375 GM in 0.9 % Sodium Chloride 50 ML IV ×4 (04:05→21:22)
[2020-05-20] MEDS: vancomycin HCL 750 MG in 0.9 % Sodium Chloride 250 ML 265 MG IV ×2 (05:03→18:28)
[2020-05-20 07:29] LABS: Glucose, Whole Blood 101 mg/dL (60-115)
[2020-05-20 08:00] VITALS: BP 118/63; PULSE 83; RESP 18; TEMP 36.8; O2SAT 97
[2020-05-20] MEDS: 0.9 % Sodium Chloride Flush 3 ML SYRINGE IVFLUSH ×2 (08:45→16:24)
[2020-05-20] MEDS: Sertraline HCL 25 MG TABLET PO (08:46)
[2020-05-20] MEDS: Heparin Sodium,Porcine 5,000 UNIT/ML VIAL 5000 UNIT SUBCUT ×2 (08:46→21:22)
[2020-05-20 08:50] LABS: Anion Gap 11 (12-20); Blood Urea Nitrogen 20 mg/dL (9-16); Calcium 8.4 mg/dL (8.4-10.2); Carbon Dioxide 25 mmol/L (22-29); Chloride 107 mmol/L (96-108); Creatinine Clr Calc Pharmacy 76.8; Estimated Glomerular Filt Rate > 60; Glucose Random 76 mg/dL (60-115); Potassium 4.3 mmol/l (3.3-5.1); Sodium 139 mmol/L (135-145)
--- NOTE | 2020-05-20 09:07 | PM.PNGS ---
Subjective Subjective Date of Service: 05/20/20 Interval history: More interactive today. Reports some difficulty expressing herself. She is feeling worn out and stated that she is not sure that it is worth at all. She also was concerned about the possibility of incontinence, both for stool and urine. Physical Exam Vital Signs: Vital Signs: Last Vital Signs Temp 98.2 F 05/20/20 08:00 Pulse 83 05/20/20 08:00 Resp 18 05/20/20 08:00 BP 118/63 05/20/20 08:00 Pulse Ox 97 05/20/20 08:00 Body Mass Index 22.1 Const: Other: Still somewhat vague, but oriented and more interactive General: cooperative and alert HENMT: Other: Has whitish plaque on posterior aspect of tongue consistent with thrush Resp: Other: Clear to auscultation Cardio: Other: Regular rate and rhythm GI: Other: Hypoactive bowel sounds, soft, nontender, incision clean and well approximated Skin: Other: Normal color, warm and dry Extrem: Other: No edema Progress Note: A&P Assessment and plan (1) Perforated duodenal ulcer: Status: Acute Assessment and Plan: 69-year-old female patient who is status post exploratory laparotomy with lysis of adhesions, pyloric exclusion, gastrojejunostomy, insertion of decompressive duodenostomy tube and repair of perforated duodenal ulcer with Miguel A patch. Continue parental nutrition, albumin slightly improved, 2.7. Appetite remains poor. Continue full liquid diet, TPN IV antibiotics: Zosyn, vancomycin, Diflucan. Vancomycin trough in range. White blood count is slowly decreasing. She appears to have thrush despite Diflucan. Will add nystatin swish and swallow. Duodenostomy tube clamped 05/18/20. She appears to be tolerating this so far, though she reports intermittent nausea. She has not had any vomiting. Has thrombocytosis, reactive, improving. Cannot use aspirin due to peptic ulcer disease. On subcu heparin. Continue physical therapy. Neurology consult - seen by Dr. Funez, who felt that she might have mild metabolic encephalopathy related to the acute process. No other concerns at this time. Ammonia level was normal. PPI - omeprazole PO. She has refused a couple of doses. I discussed this with her. She reports difficulty swallowing due to intermittent nausea. If she continues to miss doses, may need to switch back to IV medication. Fall Risk Details Current Medications: Current Medications Generic Name Dose Route Start Last Admin Trade Name Freq PRN Reason Stop Dose Admin Benzocaine 1 lozenge 05/07/20 08:48 Throat Lozenge, Medicated Lozenge MUCOUS MEM Q2H PRN Sore Throat Heparin Sodium (Porcine) 5,000 unit 05/19/20 09:45 05/20/20 08:46 Heparin Sodium,Porcine 5,000 Unit/Ml Vial SUBCUT 5,000 unit Q12H [facility] Administration Fluconazole 200 mg in 100 mls @ 100 mls/hr 05/10/20 14:45 05/19/20 14:57 Diflucan IV Infused Q24H [facility] Piperacillin Sod/Tazobactam 50 mls @ 100 mls/hr 05/16/20 22:30 05/20/20 04:42 Sod 3.375 gm/ Sodium Chloride IV Infused Q6H [facility] Vancomycin HCl 750 mg/ Sodium 265 mls @ 265 mls/hr 05/19/20 18:00 05/20/20 06:22 Chloride IV Infused Q12H [facility] Multivitamins 14 ml/ Trace 1,440 mls @ 60 mls/hr 05/19/20 18:00 05/19/20 18:01 Metals 1.4 ml/ Amino Acids/ IV 05/20/20 17:59 60 mls/hr Electrolytes DAILY@1800 [facility] Administration Omeprazole 20 mg 05/18/20 16:30 05/20/20 06:49 Omeprazole 20 Mg Capsule.Dr FIELD Not Given BID@0630,1630 [facility] Ondansetron HCl 4 mg 05/04/20 16:10 05/19/20 08:46 Ondansetron Hcl 4 Mg/2 Ml Vial IVPUSH 4 mg Q8H PRN Administration Nausea and Vomiting Oxycodone HCl 5 mg 05/18/20 13:12 05/19/20 16:47 Oxycodone Hcl Immed Release 5 Mg Tablet PO 5 mg Q4H PRN Administration Pain, Moderate (Pain Scale 4-6 Pharmacy Consult 1 each 05/04/20 12:41 Consult Rx Perform Med Rec MISCELLANE ONCE PRN Consult order Pharmacy Consult 1 each 05/19/20 16:51 Consult Rx Vancomycin Dosing MISCELLANE DAILY PRN Consult order Sertraline HCl 25 mg 05/05/20 09:00 05/20/20 08:46 Sertraline Hcl 25 Mg Tablet PO 25 mg DAILY [facility] Administration Sodium Chloride 3 ml 05/04/20 16:46 05/20/20 08:45 0.9 % Sodium Chloride Flush 3 Ml Syringe IVFLUSH 3 ml QSHIFT [facility] Administration Time Spent With Patient Time: Total time spent is greater than 50% in coordination of care (as documented) at patient's floor/unit and/or counseling patient: Time with patient: 15 - 24 minutes
[2020-05-20 10:15] LABS: Magnesium 1.8 mg/dL (1.6-2.6); Phosphorus 3.2 mg/dL (2.7-4.5)
[2020-05-20 11:06] LABS: Glucose, Whole Blood 124 mg/dL (60-115)
[2020-05-20 11:16] VITALS: BP 122/63; PULSE 80; RESP 18; TEMP 36.6; O2SAT 97
[2020-05-20 15:14] VITALS: BP 116/72; PULSE 76; RESP 18; TEMP 36.4; O2SAT 97
[2020-05-20 16:13] LABS: Glucose, Whole Blood 105 mg/dL (60-115)
[2020-05-20] MEDS: Fluconazole in NaCl,Iso-Osm 200 MG/100 ML PIGGYBACK 100 MG IV (16:21)
[2020-05-20] MEDS: Nystatin Oral Susp 500,000 UNIT/5 ML ORAL.SUSP 200000 UNIT PO ×3 (16:23→21:21)
[2020-05-20] MEDS: Omeprazole 20 MG CAPSULE.DR PO (16:25)
[2020-05-20 17:21] LABS: Vancomycin Trough 17.6 mcg/mL (10.0-20.0)
[2020-05-20] MEDS: Fat Emulsions 20% 250 ML 19 ML IV (18:30)
[2020-05-20 19:52] VITALS: BP 133/61; PULSE 79; RESP 18; TEMP 36.4; O2SAT 98
[2020-05-20 21:20] LABS: Glucose, Whole Blood 109 mg/dL (60-115)
[2020-05-20 23:29] VITALS: BP 165/70; PULSE 85; RESP 16; TEMP 36.8; O2SAT 98
[2020-05-21 04:00] VITALS: BP 164/75; PULSE 87; RESP 18; O2SAT 98
[2020-05-21] MEDS: Piperacillin Sodium/Tazobactam 3.375 GM in 0.9 % Sodium Chloride 50 ML IV ×4 (04:02→22:30)
[2020-05-21] MEDS: vancomycin HCL 750 MG in 0.9 % Sodium Chloride 250 ML 265 MG IV ×2 (06:26→18:51)
[2020-05-21] MEDS: Omeprazole 20 MG CAPSULE.DR PO ×2 (06:28→15:58)
[2020-05-21 07:02] VITALS: BP 155/75; PULSE 73; RESP 17; TEMP 36.2; O2SAT 98
[2020-05-21] MEDS: Nystatin Oral Susp 500,000 UNIT/5 ML ORAL.SUSP 200000 UNIT PO ×3 (07:24→15:58)
[2020-05-21] MEDS: oxyCODONE HCl Immed Release 5 MG TABLET PO ×2 (07:25→12:14)
[2020-05-21] MEDS: 0.9 % Sodium Chloride Flush 3 ML SYRINGE IVFLUSH ×2 (07:25→15:58)
[2020-05-21] MEDS: Sertraline HCL 25 MG TABLET PO (07:25)
[2020-05-21 07:48] LABS: Hematocrit 24.6 % (37-47); Hemoglobin 7.8 g/dl (12.0-16.0); Mean Corpuscular HGB Conc 31.7 g/dl (31.0-35.0); Mean Corpuscular Hemoglobin 28.9 pg (27.0-33.0); Mean Corpuscular Volume 91.1 fL (80-98); NRBC Pct Auto 0.2 /100WBC (0.0-0.2); Platelet Count 557 X10*3/uL (160-400); Red Cell Distribution Width 14.7 % (11.0-16.0); White Blood Count 8.5 X10*3/uL (4.8-10.8)
[2020-05-21 07:53] LABS: Glucose, Whole Blood 114 mg/dL (60-115)
[2020-05-21 08:00] VITALS: BMI 19.0
[2020-05-21 08:14] LABS: Anion Gap 13 (12-20); Blood Urea Nitrogen 21 mg/dL (9-16); Calcium 7.9 mg/dL (8.4-10.2); Carbon Dioxide 24 mmol/L (22-29); Chloride 104 mmol/L (96-108); Creatinine Clr Calc Pharmacy 75.5; Estimated Glomerular Filt Rate > 60; Glucose Fasting 97 mg/dL (60-99); Potassium 4.4 mmol/l (3.3-5.1); Sodium 137 mmol/L (135-145)
[2020-05-21] MEDS: Heparin Sodium,Porcine 5,000 UNIT/ML VIAL 5000 UNIT SUBCUT (09:22)
--- NOTE | 2020-05-21 09:58 | PM.PNGS ---
Subjective Subjective Date of Service: 05/21/20 Interval history: More alert and interactive again today. She reports that she does not quite feel mentally clear. More motivated to participate in plan of care. Physical Exam Vital Signs: Vital Signs: Last Vital Signs Temp 97.1 F 05/21/20 07:02 Pulse 73 05/21/20 07:02 Resp 17 05/21/20 07:02 BP 155/75 H 05/21/20 07:02 Pulse Ox 98 05/21/20 07:02 Body Mass Index 19.0 DANIEL drain 8 cc Const: General: cooperative, no acute distress and alert Orientation/consciousness: oriented to person and oriented to place Resp: Effort & Inspection: normal respiratory effort Auscultation: clear to auscultation bilaterally Cardio: Rate: regular rate Rhythm: regular rhythm GI: Other: Soft, nontender, nondistended, duodenostomy tube remains capped, a DANIEL output minimal serous, incision clean and well approximated Skin: Other: Normal color, warm and dry Neuro: General: oriented to person and oriented to place Progress Note: A&P Assessment and plan (1) Perforated duodenal ulcer: Status: Acute Assessment and Plan: 69-year-old female patient who is status post exploratory laparotomy with lysis of adhesions, pyloric exclusion, gastrojejunostomy, insertion of decompressive duodenostomy tube and repair of perforated duodenal ulcer with Miguel A patch. Continue parental nutrition, albumin slightly improved, 2.7. Appetite remains poor. Continue TPN, advanced to soft diet today IV antibiotics: Zosyn, vancomycin, Diflucan. Vancomycin trough in range but approaching high end. Dose adjusted. Repeat trough to be drawn this evening. White blood count is normal today. Will discontinue Zosyn, vancomycin. Continue Diflucan for now, day 11 today She has thrush despite Diflucan. On nystatin swish and swallow. Duodenostomy tube clamped 05/18/20. DANIEL drain removed today. Has thrombocytosis, reactive, improving. Cannot use aspirin due to peptic ulcer disease. On subcu heparin. Anemia: Slowly worsening, likely related to combination of malnutrition and frequent blood draws. Will continue to monitor, add iron. Continue physical therapy. Neurology consult - seen by Dr. Funez, who felt that she might have mild metabolic encephalopathy related to the acute process. No other concerns at this time. Ammonia level was normal. PPI - omeprazole PO. She has refused a couple of doses. I discussed this with her. She reports difficulty swallowing due to intermittent nausea. If she continues to miss doses, may need to switch back to IV medication. Fall Risk Details Current Medications: Current Medications Generic Name Dose Route Start Last Admin Trade Name Freq PRN Reason Stop Dose Admin Benzocaine 1 lozenge 05/07/20 08:48 Throat Lozenge, Medicated Lozenge MUCOUS MEM Q2H PRN Sore Throat Heparin Sodium (Porcine) 5,000 unit 05/19/20 09:45 05/21/20 09:22 Heparin Sodium,Porcine 5,000 Unit/Ml Vial SUBCUT 5,000 unit Q12H [facility] Administration Fluconazole 200 mg in 100 mls @ 100 mls/hr 05/10/20 14:45 05/20/20 17:25 Diflucan IV Infused Q24H [facility] Piperacillin Sod/Tazobactam 50 mls @ 100 mls/hr 05/16/20 22:30 05/21/20 06:29 Sod 3.375 gm/ Sodium Chloride IV Infused Q6H [facility] Vancomycin HCl 750 mg/ Sodium 265 mls @ 265 mls/hr 05/19/20 18:00 05/21/20 07:33 Chloride IV Infused Q12H [facility] Multivitamins 14 ml/ Trace 1,440 mls @ 60 mls/hr 05/20/20 18:00 05/20/20 18:27 Metals 1.4 ml/ Amino Acids/ IV 05/21/20 17:59 60 mls/hr Electrolytes DAILY@1800 [facility] Administration Multivitamins 14 ml/ Trace 1,440 mls @ 60 mls/hr 05/21/20 18:00 Metals 1.4 ml/ Amino Acids/ IV 05/22/20 17:59 Electrolytes DAILY@1800 [facility] Fat Emulsion Intravenous 228 mls @ 19 mls/hr 05/21/20 18:00 Intralipid IV 05/22/20 05:59 DAILY@1800 [facility] Nystatin 200,000 unit 05/20/20 13:00 05/21/20 07:24 Nystatin Oral Susp 500,000 Unit/5 Ml Oral.Susp PO 200,000 unit QID [facility] Administration Protocol Omeprazole 20 mg 05/18/20 16:30 05/21/20 06:28 Omeprazole 20 Mg Capsule. PO 20 mg BID@0630,1630 [facility] Administration Ondansetron HCl 4 mg 05/04/20 16:10 05/19/20 08:46 Ondansetron Hcl 4 Mg/2 Ml Vial IVPUSH 4 mg Q8H PRN Administration Nausea and Vomiting Oxycodone HCl 5 mg 05/18/20 13:12 05/21/20 07:25 Oxycodone Hcl Immed Release 5 Mg Tablet PO 5 mg Q4H PRN Administration Pain, Moderate (Pain Scale 4-6 Pharmacy Consult 1 each 05/04/20 12:41 Consult Rx Perform Med Rec MISCELLANE ONCE PRN Consult order Pharmacy Consult 1 each 05/19/20 16:51 Consult Rx Vancomycin Dosing MISCELLANE DAILY PRN Consult order Sertraline HCl 25 mg 05/05/20 09:00 05/21/20 07:25 Sertraline Hcl 25 Mg Tablet PO 25 mg DAILY [facility] Administration Sodium Chloride 3 ml 05/04/20 16:46 05/21/20 07:25 0.9 % Sodium Chloride Flush 3 Ml Syringe IVFLUSH 3 ml QSHIFT [facility] Administration Time Spent With Patient Time: Total time spent is greater than 50% in coordination of care (as documented) at patient's floor/unit and/or counseling patient: Time with patient: 15 - 24 minutes
[2020-05-21 10:56] VITALS: BP 121/71; PULSE 77; RESP 18; TEMP 36.1; O2SAT 97
[2020-05-21 11:38] LABS: Glucose, Whole Blood 111 mg/dL (60-115)
[2020-05-21] MEDS: Docusate Sodium 100 MG CAPSULE PO (12:15)
[2020-05-21] MEDS: Fluconazole in NaCl,Iso-Osm 200 MG/100 ML PIGGYBACK 100 MG IV (13:35)
[2020-05-21 15:43] VITALS: BP 145/69; PULSE 88; RESP 18; TEMP 36.9; O2SAT 99
[2020-05-21] MEDS: Ferrous Sulfate 324 MG TABLET.DR PO (15:58)
[2020-05-21 16:19] LABS: Glucose, Whole Blood 112 mg/dL (60-115)
[2020-05-21] MEDS: Fat Emulsions 20% 250 ML 19 ML IV (18:20)
[2020-05-21 18:44] VITALS: BP 135/62; PULSE 85; RESP 18; TEMP 36.6; O2SAT 95
[2020-05-21 21:40] LABS: Glucose, Whole Blood 118 mg/dL (60-115)
[2020-05-21 23:46] VITALS: BP 182/92; PULSE 109; RESP 24; TEMP 36.4; O2SAT 98
[2020-05-22] MEDS: 0.9 % Sodium Chloride Flush 3 ML SYRINGE IVFLUSH ×3 (00:26→15:05)
[2020-05-22 03:32] VITALS: BP 168/74; PULSE 95; RESP 16; TEMP 36.5; O2SAT 98
[2020-05-22 05:14] LABS: Hematocrit 26.3 % (37-47); Hemoglobin 8.3 g/dl (12.0-16.0); Mean Corpuscular HGB Conc 31.6 g/dl (31.0-35.0); Mean Corpuscular Hemoglobin 28.3 pg (27.0-33.0); Mean Corpuscular Volume 89.8 fL (80-98); Mean Platelet Volume 9.7 fL (9.4-12.3); NRBC Pct Auto 0.2 /100WBC (0.0-0.2); Platelet Count 597 X10*3/uL (160-400); Red Blood Count 2.93 X10*6/uL (4.20-5.50); Red Cell Distribution Width 14.8 % (11.0-16.0); White Blood Count 11.4 X10*3/uL (4.8-10.8)
[2020-05-22 05:55] LABS: Vancomycin Trough 14.7 mcg/mL (10.0-20.0)
[2020-05-22] MEDS: vancomycin HCL 750 MG in 0.9 % Sodium Chloride 250 ML 265 MG IV ×2 (06:28→18:46)
[2020-05-22] MEDS: Omeprazole 20 MG CAPSULE.DR PO ×2 (06:28→15:04)
[2020-05-22 07:22] LABS: Glucose, Whole Blood 118 mg/dL (60-115)
[2020-05-22 07:45] VITALS: BP 149/69; PULSE 52; RESP 18; TEMP 36.4; O2SAT 96
[2020-05-22] MEDS: Docusate Sodium 100 MG CAPSULE PO ×2 (09:00→20:24)
[2020-05-22] MEDS: Ferrous Sulfate 324 MG TABLET.DR PO ×2 (09:00→18:20)
[2020-05-22] MEDS: Sertraline HCL 25 MG TABLET PO (09:00)
[2020-05-22] MEDS: Nystatin Oral Susp 500,000 UNIT/5 ML ORAL.SUSP 200000 UNIT PO ×4 (09:01→20:24)
[2020-05-22] MEDS: Heparin Sodium,Porcine 5,000 UNIT/ML VIAL 5000 UNIT SUBCUT ×2 (09:01→20:23)
--- NOTE | 2020-05-22 10:30 | P.PNGS_ITS ---
Subjective Subjective Date of Service: 05/22/20 Interval history: No significant overnight events. Patient was started on regular diet and is tolerating well. She is up out of bed to the chair. Patient has not been ambulating much has not been working with physical therapy. She denies any nausea or vomiting. She reports mild appropriate incisional tenderness. The duodenostomy is clamped. Vital signs are within normal limits. White blood cell count is 11.4 hematocrit 26.3. Physical Exam Vital Signs: Vital Signs: Last Vital Signs Temp 97.6 F 05/22/20 07:45 Pulse 52 05/22/20 07:45 Resp 18 05/22/20 07:45 BP 149/69 H 05/22/20 07:45 Pulse Ox 96 05/22/20 07:45 Body Mass Index 19.0 Const: General: cooperative, healthy appearing, comfortable and no acute distress GI: Inspection: Yes normal to inspection, No Abdominal wall edema, No diste nded and Yes other (Duodenostomy tube is clamped) Palpation (GI): Soft to palpation, Tenderness to palpation present (GI) (Mild appropriate incisional), no guarding and not rigid Extrem: General: Yes normal to inspection, Yes no clubbing, cyanosis or edema, Yes no pedal edema and Yes no calf tenderness Progress Note: A&P Assessment and plan (1) History of gastric surgery: Problem details: Over-sewing bleeding duodenal ulcer Status: Acute Assessment and Plan: Patient is status post exploratory laparotomy with Miguel A patch for duodenal ulcer and duodenostomy tube placement. Duodenostomy is clamped and patient has been tolerating regular diet since yesterday. Will continue regular diet and discontinue TPN. Will continue antibiotics. Patient should be up and out of bed will order physical therapy consultation. (2) Duodenal ulcer: Problem details: She is status post laparotomy, duodenotomy and over-sew of a duodenal bleeder. She is doing well. Her coral were removed. Her incision is well healed. She was advised on avoiding NSAIDs. She has to continue taking proton pump inhibitors. I also advised her to avoid any lifting more than 20 lb for at least 2 more weeks. She was instructed to continue following up with her primary care physician as well. She can otherwise follow up with me on a p.r.n. basis. Status: Acute Fall Risk Details Current Medications: Current Medications Generic Name Dose Route Start Last Admin Trade Name Freq PRN Reason Stop Dose Admin Benzocaine 1 lozenge 05/07/20 08:48 Throat Lozenge, Medicated Lozenge MUCOUS MEM Q2H PRN Sore Throat Docusate Sodium 100 mg 05/21/20 11:15 05/22/20 09:00 Docusate Sodium 100 Mg Capsule PO 100 mg BID [facility] Administration Ferrous Sulfate 324 mg 05/21/20 17:00 05/22/20 09:00 Ferrous Sulfate 324 Mg Tablet. PO 324 mg BIDWM [facility] Administration Heparin Sodium (Porcine) 5,000 unit 05/19/20 09:45 05/22/20 09:01 Heparin Sodium,Porcine 5,000 Unit/Ml Vial SUBCUT 5,000 unit Q12H [facility] Administration Fluconazole 200 mg in 100 mls @ 100 mls/hr 05/10/20 14:45 05/21/20 14:37 Diflucan IV Infused Q24H [facility] Vancomycin HCl 750 mg/ Sodium 265 mls @ 265 mls/hr 05/19/20 18:00 05/22/20 08:57 Chloride IV Infused Q12H [facility] Multivitamins 14 ml/ Trace 1,440 mls @ 60 mls/hr 05/21/20 18:00 05/21/20 18:20 Metals 1.4 ml/ Amino Acids/ IV 05/22/20 17:59 60 mls/hr Electrolytes DAILY@1800 [facility] Administration Multivitamins 14 ml/ Trace 1,440 mls @ 60 mls/hr 05/22/20 18:00 Metals 1.4 ml/ Amino Acids/ IV 05/23/20 17:59 Electrolytes DAILY@1800 [facility] Fat Emulsion Intravenous 228 mls @ 19 mls/hr 05/22/20 18:00 Intralipid IV 05/23/20 05:59 DAILY@1800 [facility] Nystatin 200,000 unit 05/20/20 13:00 05/22/20 09:01 Nystatin Oral Susp 500,000 Unit/5 Ml Oral.Susp PO 200,000 unit QID [facility] Administration Protocol Omeprazole 20 mg 05/18/20 16:30 05/22/20 06:28 Omeprazole 20 Mg Capsule. PO 20 mg BID@0630,1630 [facility] Administration Ondansetron HCl 4 mg 05/04/20 16:10 05/19/20 08:46 Ondansetron Hcl 4 Mg/2 Ml Vial IVPUSH 4 mg Q8H PRN Administration Nausea and Vomiting Oxycodone HCl 5 mg 05/18/20 13:12 05/21/20 12:14 Oxycodone Hcl Immed Release 5 Mg Tablet PO 5 mg Q4H PRN Administration Pain, Moderate (Pain Scale 4-6 Pharmacy Consult 1 each 05/04/20 12:41 Consult Rx Perform Med Rec MISCELLANE ONCE PRN Consult order Pharmacy Consult 1 each 05/19/20 16:51 Consult Rx Vancomycin Dosing MISCELLANE DAILY PRN Consult order Sertraline HCl 25 mg 05/05/20 09:00 05/22/20 09:00 Sertraline Hcl 25 Mg Tablet PO 25 mg DAILY [facility] Administration Sodium Chloride 3 ml 05/04/20 16:46 05/22/20 09:00 0.9 % Sodium Chloride Flush 3 Ml Syringe IVFLUSH 3 ml QSHIFT [facility] Administration Time Spent With Patient Time: Total time spent is greater than 50% in coordination of care (as documented) at patient's floor/unit and/or counseling patient: Time with patient: less than 15 minutes
[2020-05-22 11:02] LABS: Glucose, Whole Blood 135 mg/dL (60-115)
[2020-05-22 11:29] VITALS: BP 118/76; PULSE 82; RESP 18; TEMP 36.4; O2SAT 98
[2020-05-22] MEDS: Fluconazole in NaCl,Iso-Osm 200 MG/100 ML PIGGYBACK 100 MG IV (15:06)
[2020-05-22 15:17] VITALS: BP 135/59; PULSE 83; RESP 18; TEMP 37.2; O2SAT 98
[2020-05-22 16:44] LABS: Glucose, Whole Blood 117 mg/dL (60-115)
[2020-05-22] MEDS: Fat Emulsions 20% 250 ML 19 ML IV (18:23)
[2020-05-22 20:00] VITALS: BP 145/65; PULSE 95; RESP 18; TEMP 36.9; O2SAT 98
[2020-05-22 20:40] LABS: Glucose, Whole Blood 104 mg/dL (60-115)
[2020-05-23] VITALS (7 sets, daily range): BP systolic 131–159; BP diastolic 61–80; PULSE 84–102; RESP 16–18; TEMP 36.6–37; O2SAT 98–100
[2020-05-23] MEDS: 0.9 % Sodium Chloride Flush 3 ML SYRINGE IVFLUSH ×4 (00:37→22:05)
[2020-05-23] MEDS: vancomycin HCL 750 MG in 0.9 % Sodium Chloride 250 ML 265 MG IV ×2 (06:28→18:31)
[2020-05-23] MEDS: Ferrous Sulfate 324 MG TABLET.DR PO ×2 (08:57→18:22)
[2020-05-23] MEDS: Docusate Sodium 100 MG CAPSULE PO ×2 (08:57→22:05)
[2020-05-23] MEDS: Sertraline HCL 25 MG TABLET PO (08:57)
[2020-05-23] MEDS: Heparin Sodium,Porcine 5,000 UNIT/ML VIAL 5000 UNIT SUBCUT ×2 (08:57→22:05)
[2020-05-23] MEDS: Nystatin Oral Susp 500,000 UNIT/5 ML ORAL.SUSP 200000 UNIT PO ×4 (08:57→22:05)
[2020-05-23 11:12] LABS: Glucose, Whole Blood 125 mg/dL (60-115)
--- NOTE | 2020-05-23 13:29 | PM.PNGS ---
Subjective Subjective Date of Service: 05/23/20 Patient reports: no new complaints Interval history: No significant overnight events. Patient tolerating more of her regular diet. TPN was continued today. Patient has not been out of bed today but was out of bed most of the day yesterday. She tolerated that well. She reports some mild abdominal discomfort but has had no nausea vomiting. Physical Exam Vital Signs: Vital Signs: Last Vital Signs Temp 98.5 F 05/23/20 03:44 Pulse 94 05/23/20 03:44 Resp 16 05/23/20 03:44 BP 151/67 H 05/23/20 03:44 Pulse Ox 99 05/23/20 03:44 Body Mass Index 19.0 Const: Other: Patient lying in bed comfortably without apparent distress she is comfortable. GI: Other: Abdomen is soft, nondistended, mild incisional tenderness. No rebound or guarding. Incision is clean dry intact. The duodenostomy is clamped. Extrem: General: Yes normal to inspection, Yes no clubbing, cyanosis or edema, Yes no pedal edema and Yes no calf tenderness Progress Note: A&P Assessment and plan (1) History of gastric surgery: Problem details: Over-sewing bleeding duodenal ulcer Status: Acute Assessment and Plan: 69-year-old lady status post Miguel A patch repair of perforated duodenal ulcer and duodenostomy tube placement. Patient is doing relatively well tolerating regular diet. She still was not eating in adequate amount but is improving in the amount of p.o. diet she is taking. We will continue TPN and will likely be able to discontinue TPN tomorrow. Continue current antibiotics. Labs have been ordered for tomorrow. Patient should be out of bed with physical therapy. Fall Risk Details Current Medications: Current Medications Generic Name Dose Route Start Last Admin Trade Name Freq PRN Reason Stop Dose Admin Benzocaine 1 lozenge 05/07/20 08:48 Throat Lozenge, Medicated Lozenge MUCOUS MEM Q2H PRN Sore Throat Docusate Sodium 100 mg 05/21/20 11:15 05/23/20 08:57 Docusate Sodium 100 Mg Capsule PO 100 mg BID [facility] Administration Ferrous Sulfate 324 mg 05/21/20 17:00 05/23/20 08:57 Ferrous Sulfate 324 Mg Tablet. PO 324 mg BIDWM [facility] Administration Heparin Sodium (Porcine) 5,000 unit 05/19/20 09:45 05/23/20 08:57 Heparin Sodium,Porcine 5,000 Unit/Ml Vial SUBCUT 5,000 unit Q12H [facility] Administration Fluconazole 200 mg in 100 mls @ 100 mls/hr 05/10/20 14:45 05/22/20 16:13 Diflucan IV Infused Q24H [facility] Infusion Vancomycin HCl 750 mg/ Sodium 265 mls @ 265 mls/hr 05/19/20 18:00 05/23/20 07:51 Chloride IV Infused Q12H [facility] Infusion Multivitamins 14 ml/ Trace 1,440 mls @ 60 mls/hr 05/22/20 18:00 05/22/20 18:23 Metals 1.4 ml/ Amino Acids/ IV 05/23/20 17:59 60 mls/hr Electrolytes DAILY@1800 [facility] Administration Multivitamins 14 ml/ Trace 1,440 mls @ 60 mls/hr 05/23/20 18:00 Metals 1.4 ml/ Amino Acids/ IV 05/24/20 17:59 Electrolytes DAILY@1800 [facility] Fat Emulsion Intravenous 228 mls @ 19 mls/hr 05/23/20 18:00 Intralipid IV 05/24/20 05:59 DAILY@1800 [facility] Nystatin 200,000 unit 05/20/20 13:00 05/23/20 08:57 Nystatin Oral Susp 500,000 Unit/5 Ml Oral.Susp PO 200,000 unit QID [facility] Administration Protocol Omeprazole 20 mg 05/18/20 16:30 05/23/20 06:41 Omeprazole 20 Mg Capsule. PO Not Given BID@0630,1630 [facility] Ondansetron HCl 4 mg 05/04/20 16:10 05/19/20 08:46 Ondansetron Hcl 4 Mg/2 Ml Vial IVPUSH 4 mg Q8H [facility] Administration Nausea and Vomiting Oxycodone HCl 5 mg 05/18/20 13:12 05/21/20 12:14 Oxycodone Hcl Immed Release 5 Mg Tablet PO 5 mg Q4H PRN Administration Pain, Moderate (Pain Scale 4-6 Pharmacy Consult 1 each 05/04/20 12:41 Consult Rx Perform Med Rec MISCELLANE ONCE PRN Consult order Pharmacy Consult 1 each 05/19/20 16:51 Consult Rx Vancomycin Dosing MISCELLANE DAILY PRN Consult order Sertraline HCl 25 mg 05/05/20 09:00 05/23/20 08:57 Sertraline Hcl 25 Mg Tablet PO 25 mg DAILY [facility] Administration Sodium Chloride 3 ml 05/04/20 16:46 05/23/20 08:57 0.9 % Sodium Chloride Flush 3 Ml Syringe IVFLUSH 3 ml QSHIFT [facility] Administration Time Spent With Patient Time: Total time spent is greater than 50% in coordination of care (as documented) at patient's floor/unit and/or counseling patient: Time with patient: less than 15 minutes
[2020-05-23] MEDS: Fluconazole in NaCl,Iso-Osm 200 MG/100 ML PIGGYBACK 100 MG IV (14:08)
[2020-05-23 16:31] LABS: Glucose, Whole Blood 108 mg/dL (60-115)
[2020-05-23] MEDS: Omeprazole 20 MG CAPSULE.DR PO (18:21)
[2020-05-23] MEDS: Fat Emulsions 20% 250 ML 19 ML IV (18:39)
[2020-05-23 20:32] LABS: Glucose, Whole Blood 124 mg/dL (60-115)
[2020-05-24 03:28] VITALS: BP 153/71; PULSE 93; RESP 18; TEMP 36.3; O2SAT 95
[2020-05-24 04:51] LABS: Hematocrit 25.1 % (37-47); Hemoglobin 7.9 g/dl (12.0-16.0); Mean Corpuscular HGB Conc 31.5 g/dl (31.0-35.0); Mean Corpuscular Hemoglobin 28.6 pg (27.0-33.0); Mean Corpuscular Volume 90.9 fL (80-98); Mean Platelet Volume 9.7 fL (9.4-12.3); NRBC Pct Auto 0.2 /100WBC (0.0-0.2); Platelet Count 464 X10*3/uL (160-400); Red Blood Count 2.76 X10*6/uL (4.20-5.50); Red Cell Distribution Width 15.2 % (11.0-16.0); White Blood Count 10.8 X10*3/uL (4.8-10.8)
[2020-05-24 05:25] LABS: Vancomycin Trough 13.1 mcg/mL (10.0-20.0)
[2020-05-24] MEDS: Omeprazole 20 MG CAPSULE.DR PO ×2 (05:33→15:56)
[2020-05-24] MEDS: vancomycin HCL 750 MG in 0.9 % Sodium Chloride 250 ML 265 MG IV ×2 (05:33→18:26)
[2020-05-24 08:00] VITALS: BP 127/64; PULSE 90; RESP 18; TEMP 36.6; O2SAT 97
[2020-05-24 08:11] LABS: Creatinine Clr Calc Pharmacy 75.7; Estimated Glomerular Filt Rate > 60
[2020-05-24 08:21] LABS: Glucose, Whole Blood 106 mg/dL (60-115)
--- NOTE | 2020-05-24 08:31 | MHC.CM.PN ---
at this time dc plan is to str. refs have been made. cm to cont. to follow.
[2020-05-24] MEDS: Docusate Sodium 100 MG CAPSULE PO ×2 (09:58→20:44)
[2020-05-24] MEDS: Sertraline HCL 25 MG TABLET PO (09:58)
[2020-05-24] MEDS: Ferrous Sulfate 324 MG TABLET.DR PO ×2 (09:58→18:25)
[2020-05-24] MEDS: Nystatin Oral Susp 500,000 UNIT/5 ML ORAL.SUSP 200000 UNIT PO ×4 (09:58→20:43)
[2020-05-24] MEDS: Heparin Sodium,Porcine 5,000 UNIT/ML VIAL 5000 UNIT SUBCUT ×2 (09:59→20:43)
[2020-05-24] MEDS: 0.9 % Sodium Chloride Flush 3 ML SYRINGE IVFLUSH ×3 (09:59→21:44)
[2020-05-24 11:31] LABS: Glucose, Whole Blood 223 mg/dL (60-115)
[2020-05-24 11:47] VITALS: BP 152/69; PULSE 118; RESP 20; TEMP 36.8; O2SAT 98
[2020-05-24 12:24] LABS: Anion Gap 13 (12-20); Blood Urea Nitrogen 20 mg/dL (9-16); Calcium 8.8 mg/dL (8.4-10.2); Carbon Dioxide 27 mmol/L (22-29); Chloride 101 mmol/L (96-108); Creatinine Clr Calc Pharmacy 58.4; Estimated Glomerular Filt Rate > 60; Glucose Random 116 mg/dL (60-115); Sodium 136 mmol/L (135-145)
[2020-05-24 12:51] LABS: Magnesium 1.7 mg/dL (1.6-2.6); Phosphorus 3.1 mg/dL (2.7-4.5)
--- NOTE | 2020-05-24 13:11 | PM.PNGS ---
Subjective Subjective Date of Service: 05/24/20 Interval history: sitting up on chair, having lunch no reports of N/V she says she has some difficulty swallowing looks anxious Physical Exam Vital Signs: Vital Signs: Last Vital Signs Temp 98.3 F 05/24/20 11:47 Pulse 118 H 05/24/20 11:47 Resp 20 05/24/20 11:47 BP 152/69 H 05/24/20 11:47 Pulse Ox 98 05/24/20 11:47 Body Mass Index 19.0 Chemistry 05/24/20 05/24/20 04:42 11:18 Sodium 136 Potassium 5.0 Carbon Dioxide 27 BUN 20 H Creatinine 0.54 0.70 Calcium 8.8 D Phosphorus 3.1 Hematology 05/22/20 05/24/20 04:57 04:42 WBC 11.4 H 10.8 Hgb 8.3 L 7.9 L Plt Count 597 H 464 H Const: Other: appears anxious, sitting up, having lunch on her own, a little confused General: no acute distress Resp: Effort & Inspection: normal respiratory effort GI: Other: soft, nondistended, laparotomy incision wellhealed, duodenostomy tube has been clamped Progress Note: A&P Assessment and plan (1) Perforated duodenal ulcer: Status: Acute Assessment and Plan: s/p pyloric exclusion tolerating PO intake will stop TPN for today electrolytes ok Hg low - seems to be chronic, multifactorial, no evidence of active bleeding OOB improving still a little confused skin coral removed encouraged oral intake Fall Risk Details Current Medications: Current Medications Generic Name Dose Route Start Last Admin Trade Name Freq PRN Reason Stop Dose Admin Benzocaine 1 lozenge 05/07/20 08:48 Throat Lozenge, Medicated Lozenge MUCOUS MEM Q2H PRN Sore Throat Docusate Sodium 100 mg 05/21/20 11:15 05/24/20 09:58 Docusate Sodium 100 Mg Capsule PO 100 mg BID [facility] Administration Ferrous Sulfate 324 mg 05/21/20 17:00 05/24/20 09:58 Ferrous Sulfate 324 Mg Tablet. PO 324 mg BIDWM [facility] Administration Heparin Sodium (Porcine) 5,000 unit 05/19/20 09:45 05/24/20 09:59 Heparin Sodium,Porcine 5,000 Unit/Ml Vial SUBCUT 5,000 unit Q12H [facility] Administration Fluconazole 200 mg in 100 mls @ 100 mls/hr 05/10/20 14:45 05/23/20 15:18 Diflucan IV Infused Q24H [facility] Infusion Vancomycin HCl 750 mg/ Sodium 265 mls @ 265 mls/hr 05/19/20 18:00 05/24/20 06:45 Chloride IV Infused Q12H [facility] Multivitamins 14 ml/ Trace 1,440 mls @ 60 mls/hr 05/23/20 18:00 05/23/20 18:31 Metals 1.4 ml/ Amino Acids/ IV 05/24/20 17:59 60 mls/hr Electrolytes DAILY@1800 [facility] Administration Fat Emulsion Intravenous 228 mls @ 19 mls/hr 05/24/20 18:00 Intralipid IV 05/25/20 05:59 DAILY@1800 [facility] Nystatin 200,000 unit 05/20/20 13:00 05/24/20 09:58 Nystatin Oral Susp 500,000 Unit/5 Ml Oral.Susp PO 200,000 unit QID [facility] Administration Protocol Omeprazole 20 mg 05/18/20 16:30 05/24/20 05:33 Omeprazole 20 Mg Capsule.Dr PO 20 mg BID@0630,1630 [facility] Administration Ondansetron HCl 4 mg 05/04/20 16:10 05/19/20 08:46 Ondansetron Hcl 4 Mg/2 Ml Vial IVPUSH 4 mg Q8H [facility] Administration Nausea and Vomiting Oxycodone HCl 5 mg 05/18/20 13:12 05/21/20 12:14 Oxycodone Hcl Immed Release 5 Mg Tablet PO 5 mg Q4H PRN Administration Pain, Moderate (Pain Scale 4-6 Pharmacy Consult 1 each 05/04/20 12:41 Consult Rx Perform Med Rec MISCELLANE ONCE PRN Consult order Pharmacy Consult 1 each 05/19/20 16:51 Consult Rx Vancomycin Dosing MISCELLANE DAILY PRN Consult order Sertraline HCl 25 mg 05/05/20 09:00 05/24/20 09:58 Sertraline Hcl 25 Mg Tablet PO 25 mg DAILY [facility] Administration Sodium Chloride 3 ml 05/04/20 16:46 05/24/20 09:59 0.9 % Sodium Chloride Flush 3 Ml Syringe IVFLUSH 3 ml QSHIFT [facility] Administration Time Spent With Patient Time: Total time spent is greater than 50% in coordination of care (as documented) at patient's floor/unit and/or counseling patient: Time with patient: 15 - 24 minutes
[2020-05-24] MEDS: Fluconazole in NaCl,Iso-Osm 200 MG/100 ML PIGGYBACK 100 MG IV (14:11)
--- NOTE | 2020-05-24 14:25 | MHC.CLN ---
F/U PO INTAKE 50% AVG DIET RX: REGULAR-APPROPRIATE ADVANCED ON 05/21 PT RECEIVING D15 AA5% AT 60CC/HR WITH 19ML OF 20% LIPIDS X 12 HRS TO PROVIDE 1478KCALS (25KCALS/KG) 72G PROTEIN (1.2G/KG) MD TO STOP TPN TODAY CONTINUE TO MONITOR PO INTAKE FOLLOWING
[2020-05-24 15:47] VITALS: BP 145/77; PULSE 97; RESP 18; TEMP 36.2; O2SAT 98
[2020-05-24 16:51] LABS: Glucose, Whole Blood 123 mg/dL (60-115)
[2020-05-24 19:34] VITALS: BP 154/78; PULSE 100; RESP 20; TEMP 36.4; O2SAT 98
--- NOTE | 2020-05-24 19:37 | PC.NURSE ---
1210- Pt had brief run ventricular bigemeny. Pt asymptomatic. Dr. Ruiz and Dr. Ha made aware. No new orders at this time.
[2020-05-24 21:05] LABS: Glucose, Whole Blood 99 mg/dL (60-115)
[2020-05-24] MEDS: bisacodyL 10 MG SUPP.RECT PR (22:13)
[2020-05-24 23:35] VITALS: BP 150/82; PULSE 93; RESP 22; TEMP 36.6; O2SAT 98
[2020-05-25] MEDS: Sodium Phosphate,Mono-Dibasic 133 ML ENEMA PR (00:47)
[2020-05-25 03:45] VITALS: PULSE 99; RESP 20; TEMP 36.6; O2SAT 93
[2020-05-25] MEDS: vancomycin HCL 750 MG in 0.9 % Sodium Chloride 250 ML 265 MG IV (06:03)
[2020-05-25] MEDS: Omeprazole 20 MG CAPSULE.DR PO ×2 (06:03→17:12)
[2020-05-25] MEDS: hydrOXYzine HCL 25 MG TABLET PO (06:38)
[2020-05-25 06:50] LABS: Hematocrit 26.4 % (37-47); Hemoglobin 8.2 g/dl (12.0-16.0); Mean Corpuscular HGB Conc 31.1 g/dl (31.0-35.0); Mean Corpuscular Volume 90.1 fL (80-98); Mean Platelet Volume 10.1 fL (9.4-12.3); Platelet Count 478 X10*3/uL (160-400); Red Blood Count 2.93 X10*6/uL (4.20-5.50); Red Cell Distribution Width 15.5 % (11.0-16.0); White Blood Count 11.5 X10*3/uL (4.8-10.8)
[2020-05-25 07:22] LABS: Anion Gap 15 (12-20); Blood Urea Nitrogen 21 mg/dL (9-16); Calcium 8.4 mg/dL (8.4-10.2); Carbon Dioxide 22 mmol/L (22-29); Chloride 106 mmol/L (96-108); Creatinine Clr Calc Pharmacy 69.3; Estimated Glomerular Filt Rate > 60; Glucose Random 82 mg/dL (60-115); Potassium 4.3 mmol/l (3.3-5.1); Sodium 139 mmol/L (135-145)
[2020-05-25 08:00] VITALS: BP 129/74; PULSE 98; RESP 18; TEMP 37; O2SAT 100
--- NOTE | 2020-05-25 08:02 | PM.PNGS ---
Subjective Subjective Date of Service: 05/25/20 Interval history: Seems more mentally clear, but continues to exhibit moderate anxiety and apparent mild confusion. Already out of bed this morning. This coverage with her own progress. Physical Exam Vital Signs: Vital Signs: Last Vital Signs Temp 97.8 F 05/25/20 03:45 Pulse 99 05/25/20 03:45 Resp 20 05/25/20 03:45 BP 150/82 H 05/24/20 23:35 Pulse Ox 93 05/25/20 03:45 Body Mass Index 19.0 Const: General: cooperative, no acute distress and alert Resp: Effort & Inspection: normal respiratory effort Auscultation: clear to auscultation bilaterally Cardio: Rate: regular rate Rhythm: regular rhythm GI: Other: Soft, nontender, nondistended Skin: Other: Normal color, warm and dry Progress Note: A&P Assessment and plan (1) Perforated duodenal ulcer: Status: Acute Assessment and Plan: 69-year-old female patient who is status post exploratory laparotomy with lysis of adhesions, pyloric exclusion, gastrojejunostomy, insertion of decompressive duodenostomy tube and repair of perforated duodenal ulcer with Miguel A patch. Continue parental nutrition, albumin slightly improved, 2.7. Appetite remains poor. TPN stopped yesterday, tolerating soft diet IV antibiotics: Completed Zosyn last week, will discontinue vancomycin, continue Diflucan. She has thrush-improving. On nystatin swish and swallow. Duodenostomy tube clamped 05/18/20. Has thrombocytosis, reactive, improving. Cannot use aspirin due to peptic ulcer disease. On subcu heparin. Anemia: Slowly worsening, likely related to combination of malnutrition and frequent blood draws. Will continue to monitor, add iron. Continue physical therapy. Neurology consult - seen by Dr. Funez, who felt that she might have mild metabolic encephalopathy related to the acute process. No other concerns at this time. PPI - omeprazole PO. Will need short-term rehabilitation. I anticipate that she will be ready for transfer in the next 2-3 days. Fall Risk Details Current Medications: Current Medications Generic Name Dose Route Start Last Admin Trade Name Freq PRN Reason Stop Dose Admin Benzocaine 1 lozenge 05/07/20 08:48 Throat Lozenge, Medicated Lozenge MUCOUS MEM Q2H PRN Sore Throat Bisacodyl 10 mg 05/24/20 21:48 05/24/20 22:13 Bisacodyl 10 Mg Supp.Rect NJ 10 mg BEDTIME PRN Administration Constipation Docusate Sodium 100 mg 05/21/20 11:15 05/24/20 20:44 Docusate Sodium 100 Mg Capsule PO 100 mg BID MOSHE Administration Ferrous Sulfate 324 mg 05/21/20 17:00 05/24/20 18:25 Ferrous Sulfate 324 Mg Tablet. PO 324 mg BIDWM MOSHE Administration Heparin Sodium (Porcine) 5,000 unit 05/19/20 09:45 05/24/20 20:43 Heparin Sodium,Porcine 5,000 Unit/Ml Vial SUBCUT 5,000 unit Q12H MOSHE Administration Fluconazole 200 mg in 100 mls @ 100 mls/hr 05/10/20 14:45 05/24/20 15:38 Diflucan IV Infused Q24H MOSHE Infusion Vancomycin HCl 750 mg/ Sodium 265 mls @ 265 mls/hr 05/19/20 18:00 05/25/20 07:07 Chloride IV Infused Q12H MOSHE Infusion Nystatin 200,000 unit 05/20/20 13:00 05/24/20 20:43 Nystatin Oral Susp 500,000 Unit/5 Ml Oral.Susp PO 200,000 unit QID MOSHE Administration Protocol Omeprazole 20 mg 05/18/20 16:30 05/25/20 06:03 Omeprazole 20 Mg Capsule. PO 20 mg BID@0630,1630 MOSHE Administration Ondansetron HCl 4 mg 05/04/20 16:10 05/19/20 08:46 Ondansetron Hcl 4 Mg/2 Ml Vial IVPUSH 4 mg Q8H PRN Administration Nausea and Vomiting Oxycodone HCl 5 mg 05/18/20 13:12 05/21/20 12:14 Oxycodone Hcl Immed Release 5 Mg Tablet PO 5 mg Q4H PRN Administration Pain, Moderate (Pain Scale 4-6 Pharmacy Consult 1 each 05/04/20 12:41 Consult Rx Perform Med Rec MISCELLANE ONCE PRN Consult order Pharmacy Consult 1 each 05/19/20 16:51 Consult Rx Vancomycin Dosing MISCELLANE DAILY PRN Consult order Sertraline HCl 25 mg 05/05/20 09:00 05/24/20 09:58 Sertraline Hcl 25 Mg Tablet PO 25 mg DAILY MOSHE Administration Sodium Chloride 3 ml 05/04/20 16:46 05/24/20 21:44 0.9 % Sodium Chloride Flush 3 Ml Syringe IVFLUSH 3 ml QSHIFT MOSHE Administration Time Spent With Patient Time: Total time spent is greater than 50% in coordination of care (as documented) at patient's floor/unit and/or counseling patient: Time with patient: less than 15 minutes
[2020-05-25] MEDS: Ferrous Sulfate 324 MG TABLET.DR PO ×2 (08:32→17:12)
[2020-05-25] MEDS: Docusate Sodium 100 MG CAPSULE PO ×2 (08:32→20:09)
[2020-05-25] MEDS: Sertraline HCL 25 MG TABLET PO (08:32)
[2020-05-25] MEDS: 0.9 % Sodium Chloride Flush 3 ML SYRINGE IVFLUSH ×3 (08:32→20:10)
[2020-05-25] MEDS: Nystatin Oral Susp 500,000 UNIT/5 ML ORAL.SUSP 200000 UNIT PO ×4 (08:32→20:09)
[2020-05-25 08:51] LABS: Glucose, Whole Blood 68 mg/dL (60-115)
[2020-05-25] MEDS: Heparin Sodium,Porcine 5,000 UNIT/ML VIAL 5000 UNIT SUBCUT ×2 (10:17→20:08)
[2020-05-25 12:26] VITALS: BP 129/69; PULSE 100; RESP 18; TEMP 37.1; O2SAT 100
[2020-05-25 12:32] LABS: Glucose, Whole Blood 98 mg/dL (60-115)
[2020-05-25] MEDS: Fluconazole in NaCl,Iso-Osm 200 MG/100 ML PIGGYBACK 100 MG IV (13:45)
[2020-05-25 16:00] VITALS: BP 129/63; PULSE 93; RESP 16; TEMP 36.9; O2SAT 100
[2020-05-25 16:44] LABS: Glucose, Whole Blood 122 mg/dL (60-115)
--- NOTE | 2020-05-25 19:12 | PC.NURSE ---
Pt had large black tarry stool. Dr. Riddle made aware. Occult stool ordered. Awaiting for next stool. Will continue to monitor.
[2020-05-25 19:57] VITALS: BP 137/82; PULSE 72; RESP 17; TEMP 36.8; O2SAT 96
[2020-05-25 21:56] LABS: Glucose, Whole Blood 97 mg/dL (60-115)
[2020-05-25 23:33] VITALS: BP 147/72; PULSE 92; RESP 15; TEMP 36.5; O2SAT 100
[2020-05-26 03:20] VITALS: BP 139/82; PULSE 82; RESP 15; TEMP 36.8; O2SAT 98
[2020-05-26] MEDS: Omeprazole 20 MG CAPSULE.DR PO ×2 (05:25→16:04)
[2020-05-26 06:52] LABS: Hematocrit 25.8 % (37-47); Hemoglobin 7.9 g/dl (12.0-16.0); Mean Corpuscular HGB Conc 30.6 g/dl (31.0-35.0); Mean Corpuscular Hemoglobin 28.1 pg (27.0-33.0); Mean Corpuscular Volume 91.8 fL (80-98); Mean Platelet Volume 10.4 fL (9.4-12.3); Platelet Count 427 X10*3/uL (160-400); Red Blood Count 2.81 X10*6/uL (4.20-5.50); Red Cell Distribution Width 15.9 % (11.0-16.0); White Blood Count 10.5 X10*3/uL (4.8-10.8)
[2020-05-26 07:35] LABS: Glucose, Whole Blood 79 mg/dL (60-115)
[2020-05-26 08:00] VITALS: BP 139/62; PULSE 92; RESP 18; TEMP 36.9; O2SAT 99
[2020-05-26] MEDS: Sertraline HCL 25 MG TABLET PO (08:32)
[2020-05-26] MEDS: Ferrous Sulfate 324 MG TABLET.DR PO ×2 (08:32→16:04)
[2020-05-26] MEDS: Docusate Sodium 100 MG CAPSULE PO ×2 (08:32→22:02)
[2020-05-26] MEDS: Nystatin Oral Susp 500,000 UNIT/5 ML ORAL.SUSP 200000 UNIT PO ×4 (08:32→22:02)
[2020-05-26] MEDS: 0.9 % Sodium Chloride Flush 3 ML SYRINGE IVFLUSH ×3 (08:33→22:03)
[2020-05-26] MEDS: Heparin Sodium,Porcine 5,000 UNIT/ML VIAL 5000 UNIT SUBCUT ×2 (08:40→22:02)
[2020-05-26 11:16] VITALS: BP 144/63; PULSE 77; RESP 14; TEMP 37.3; O2SAT 98
--- NOTE | 2020-05-26 11:19 | PM.PNGS ---
Subjective Subjective Date of Service: 05/26/20 Interval history: Alert, out of bed, expressing concerns about arranging for short-term rehabilitation Physical Exam Vital Signs: Vital Signs: Last Vital Signs Temp 98.4 F 05/26/20 08:00 Pulse 92 05/26/20 08:00 Resp 18 05/26/20 08:00 BP 139/62 05/26/20 08:00 Pulse Ox 99 05/26/20 08:00 Body Mass Index 19.0 Const: General: cooperative, no acute distress and anxious Resp: Effort & Inspection: normal respiratory effort Auscultation: clear to auscultation bilaterally Cardio: Rate: regular rate Rhythm: regular rhythm GI: Other: Soft, nontender, nondistended Skin: Other: Normal color, warm and dry Progress Note: A&P Assessment and plan (1) Perforated duodenal ulcer: Status: Acute Assessment and Plan: 69-year-old female patient who is status post exploratory laparotomy with lysis of adhesions, pyloric exclusion, gastrojejunostomy, insertion of decompressive duodenostomy tube and repair of perforated duodenal ulcer with Miguel A patch. Continue parental nutrition, albumin slightly improved, 2.7. Appetite is improving, tolerating soft diet IV antibiotics: Completed Zosyn last week, vancomycin stopped 05/25/2020, continue Diflucan IV 1 more day. She has thrush-improving. On nystatin swish and swallow. Duodenostomy tube clamped 05/18/20. Has thrombocytosis, reactive, improving. Cannot use aspirin due to peptic ulcer disease. On subcu heparin. Anemia: Appears stable, likely related to combination of malnutrition and frequent blood draws. On iron. Continue physical therapy. Neurology consult - seen by Dr. Funez, who felt that she might have mild metabolic encephalopathy related to the acute process. No other concerns at this time. PPI - omeprazole PO. Will need short-term rehabilitation. I anticipate that she will be ready for transfer in the next 1-2 days. (2) Anxiety and depression: Status: Acute Assessment and Plan: She reports ongoing difficulty with expressing herself, concerns about the future and difficulty in making decisions. Her significant other told me that she had been experiencing difficulty with complex decisions prior to this hospitalization. Today, she reported a history of prior care with 2 psychiatrists. She reported that she had been on Depakote and that it was stopped in the past year. She has been participating in rehabilitation efforts, but is expressing passed some is in about recovery and concerns about decision making and what to do moving forward although she is aware that she has good support from her family including her significant other and her sons. Will request Psychiatry evaluation. Fall Risk Details Current Medications: Current Medications Generic Name Dose Route Start Last Admin Trade Name Freq PRN Reason Stop Dose Admin Benzocaine 1 lozenge 05/07/20 08:48 Throat Lozenge, Medicated Lozenge MUCOUS MEM Q2H PRN Sore Throat Bisacodyl 10 mg 05/24/20 21:48 05/24/20 22:13 Bisacodyl 10 Mg Supp.Rect SC 10 mg BEDTIME PRN Administration Constipation Docusate Sodium 100 mg 05/21/20 11:15 05/26/20 08:32 Docusate Sodium 100 Mg Capsule PO 100 mg BID MOSHE Administration Ferrous Sulfate 324 mg 05/21/20 17:00 05/26/20 08:32 Ferrous Sulfate 324 Mg Tablet. PO 324 mg BIDWM MOSHE Administration Heparin Sodium (Porcine) 5,000 unit 05/19/20 09:45 05/26/20 08:40 Heparin Sodium,Porcine 5,000 Unit/Ml Vial SUBCUT 5,000 unit Q12H MOSHE Administration Fluconazole 200 mg in 100 mls @ 100 mls/hr 05/10/20 14:45 05/25/20 14:55 Diflucan IV Infused Q24H MOSHE Infusion Nystatin 200,000 unit 05/20/20 13:00 05/26/20 08:32 Nystatin Oral Susp 500,000 Unit/5 Ml Oral.Susp PO 200,000 unit QID MOSHE Administration Protocol Omeprazole 20 mg 05/18/20 16:30 05/26/20 05:25 Omeprazole 20 Mg Capsule. PO 20 mg BID@0630,1630 MOSHE Administration Ondansetron HCl 4 mg 05/04/20 16:10 05/19/20 08:46 Ondansetron Hcl 4 Mg/2 Ml Vial IVPUSH 4 mg Q8H PRN Administration Nausea and Vomiting Oxycodone HCl 5 mg 05/18/20 13:12 05/21/20 12:14 Oxycodone Hcl Immed Release 5 Mg Tablet PO 5 mg Q4H PRN Administration Pain, Moderate (Pain Scale 4-6 Pharmacy Consult 1 each 05/04/20 12:41 Consult Rx Perform Med Rec MISCELLANE ONCE PRN Consult order Pharmacy Consult 1 each 05/19/20 16:51 Consult Rx Vancomycin Dosing MISCELLANE DAILY PRN Consult order Sertraline HCl 25 mg 05/05/20 09:00 05/26/20 08:32 Sertraline Hcl 25 Mg Tablet PO 25 mg DAILY MOSHE Administration Sodium Chloride 3 ml 05/04/20 16:46 05/26/20 08:33 0.9 % Sodium Chloride Flush 3 Ml Syringe IVFLUSH 3 ml QSHIFT MOSHE Administration Time Spent With Patient Time: Total time spent is greater than 50% in coordination of care (as documented) at patient's floor/unit and/or counseling patient: Time with patient: 15 - 24 minutes
[2020-05-26 11:55] LABS: Glucose, Whole Blood 116 mg/dL (60-115)
[2020-05-26] MEDS: Fluconazole in NaCl,Iso-Osm 200 MG/100 ML PIGGYBACK 100 MG IV (14:09)
--- NOTE | 2020-05-26 14:31 | MHC.CM.PN ---
Patient has been accepted to [facility] pending auth and d/c clearance by surgeon. Patient will need BLS transport. CM will continue to follow patient for discharge needs.
[2020-05-26 15:26] VITALS: BP 167/84; PULSE 100; RESP 18; TEMP 36.6; O2SAT 97
[2020-05-26 16:26] LABS: Glucose, Whole Blood 75 mg/dL (60-115)
[2020-05-26 19:10] VITALS: BP 184/91; PULSE 101; RESP 18; TEMP 36.9; O2SAT 98
--- NOTE | 2020-05-26 19:46 | P.CNPS_ITS ---
History of Present Illness Date of Service: 05/26/2020 Chief Complaint: Dizziness Reason for Consult: AMS ?depression Requesting physician: Natacha Riddle Discussed with referring provider: Yes Sources of Information: patient interviewed and chart reviewed Additional Sources of Information: collateral obtained from boyfriend son, flakita MOE Narrative: Patient is a 69 year old female currently medically admitted followi ng repair of duodenal ulcer. Consult requested as there was concern regarding patients mental status and questioning depression. Patient seen in room 485-1. Sitting up in recliner, blanket pulled up to her neck appearing anxious. Patient guarded/suspicious, initially reporting she needed to rest, then reporting she was trying to get into the system to check on the claims . Unclear what patient was referring to. Initially denied hx of psychiatric medications, then confirmed hx of depakote, though unable to report dose or reason for tx. Collateral from boyfriend: -has been living with patient since July -4 weeks ago he noted that patient was becoming very concerned with finances and checking mail and bills repeatedly -Noted that she was waking in the middle of the night several times Collateral from son: -patient moved to [facility] 4 years ago from [place], [place] -patient has diagnosis of Bipolar I for over 30 years - psychiatric admission late 's early 90's for tuan -Had been stable on Depakote for over 30 years until about a year ago when she started with new psychiatrist and started tapering depakote with plan to d/c (pt unhappy about hairloss r/t depakote) -patient visibly decompensating shortly after medications d/c. Sending text messages to sons at 3am, posting on social media, created numerous social media accts, sending son and ex letters reporting had been conspiring against her -patient irritable and verbally aggressive with son when he has encouraged patient to seek treatment -patient's current presentation is not her baseline -boyfriend unaware of patient's psychiatric hx and diagnosis -history of AUDin remission, son concerned that perhaps she has been drinking again as she admitted to him having one drink within the last year This bid writer called [facility] to obtain medication fill history and Depakote [id number] was last filled late 2018. Also in profile Wellbutrin SR 100mg, Adderall BID, Mirtazipine 7.5mg, and Seroquel 25mg QHS (may of 2019) Past Psychiatric History: as noted above Medical Evaluation Reviewed: Yes seen and cleared by neurology Personal & Social History: reported in HPI Review of Systems Review of Systems Yes Unobtainable due to mental status (gurarded) [facility] Medical History (Updated 05/26/20 @ 20:30 by Reshma Feng CNP) Dizziness History of ETOH abuse Peritonitis Surgical History (Updated 05/22/20 @ 10:33 by Monica Huitron MD) History of appendectomy History of gastric surgery Diagnostics Vital Signs (24Hr): Vital Signs - 24 hr 05/25/20 19:57 05/25/20 23:33 05/26/20 03:20 Temperature 98.3 F 97.7 F 98.3 F Pulse Rate 72 92 82 Respiratory Rate 17 15 15 Blood Pressure 137/82 147/72 H 139/82 Pulse Oximetry 96 100 98 05/26/20 08:00 05/26/20 11:16 05/26/20 15:26 Temperature 98.4 F 99.2 F 97.9 F Pulse Rate 92 77 100 Respiratory Rate 18 14 18 Blood Pressure 139/62 144/63 H 167/84 H Pulse Oximetry 99 98 97 05/26/20 19:10 Temperature 98.5 F Pulse Rate 101 H Respiratory Rate 18 Blood Pressure 184/91 H Pulse Oximetry 98 Body Mass Index 19.0 Labs Results: 05/26/20 04:31 05/25/20 05:35 Labs: Laboratory Results - last 48 hr 05/24/20 05/25/20 05/25/20 20:52 05:34 05:35 WBC 11.5 H RBC 2.93 L Hgb 8.2 L Hct 26.4 L MCV 90.1 MCH 28.0 MCHC 31.1 RDW 15.5 Plt Count 478 H MPV 10.1 Absolute Nucleated RBC 0.000 Nucleated RBC % (auto) 0.0 Sodium 139 Potassium 4.3 Chloride 106 Carbon Dioxide 22 Anion Gap 15 BUN 21 H Creatinine 0.59 Estim Creat Clear Calc 69.3 Estimated GFR > 60 POC Glucose 99 Random Glucose 82 Calcium 8.4 Stool Collect Date Stool 2 Collect Date Fecal Immunochem Test FIT Diagnostic Vancomycin Trough 05/25/20 05/25/20 05/25/20 08:05 12:24 16:32 WBC RBC Hgb Hct MCV MCH MCHC RDW Plt Count MPV Absolute Nucleated RBC Nucleated RBC % (auto) Sodium Potassium Chloride Carbon Dioxide Anion Gap BUN Creatinine Estim Creat Clear Calc Estimated GFR POC Glucose 68 98 122 H Random Glucose Calcium Stool Collect Date Stool 2 Collect Date Fecal Immunochem Test FIT Diagnostic Vancomycin Trough 05/25/20 05/25/20 05/25/20 16:58 21:53 22:37 WBC RBC Hgb Hct MCV MCH MCHC RDW Plt Count MPV Absolute Nucleated RBC Nucleated RBC % (auto) Sodium Potassium Chloride Carbon Dioxide Anion Gap BUN Creatinine Estim Creat Clear Calc Estimated GFR POC Glucose 97 Random Glucose Calcium Stool Collect Date Cancelled Stool 2 Collect Date Cancelled Fecal Immunochem Test Cancelled FIT Diagnostic Cancelled Vancomycin Trough 14.0 05/26/20 05/26/20 05/26/20 04:31 07:08 11:39 WBC 10.5 RBC 2.81 L Hgb 7.9 L Hct 25.8 L MCV 91.8 MCH 28.1 MCHC 30.6 L RDW 15.9 Plt Count 427 H MPV 10.4 Absolute Nucleated RBC 0.000 Nucleated RBC % (auto) 0.0 Sodium Potassium Chloride Carbon Dioxide Anion Gap BUN Creatinine Estim Creat Clear Calc Estimated GFR POC Glucose 79 116 H Random Glucose Calcium Stool Collect Date Stool 2 Collect Date Fecal Immunochem Test FIT Diagnostic Vancomycin Trough 05/26/20 16:11 WBC RBC Hgb Hct MCV MCH MCHC RDW Plt Count MPV Absolute Nucleated RBC Nucleated RBC % (auto) Sodium Potassium Chloride Carbon Dioxide Anion Gap BUN Creatinine Estim Creat Clear Calc Estimated GFR POC Glucose 75 Random Glucose Calcium Stool Collect Date Stool 2 Collect Date Fecal Immunochem Test FIT Diagnostic Vancomycin Trough Imaging Radiology Impressions: ITS Impressions Abdomen/Pelvis CT 05/04/20 16:10 IMPRESSION: 1. There is a large amount of free intraperitoneal air present along with ascites with air-fluid levels and air in the mesentery. Some poorly defined small fluid collections are seen in the mesentery. I suspect that the etiology of this is a ruptured duodenal ulcer. Surgical consultation is recommended. 2. New right pleural effusion and distended gallbladder with wall thickening are all probably reactive. This critical result was discussed with Dr. Roberson at 10:45 PM on the day of the exam and it was ascertained that the content and urgency of the report was understood at the time of direct communication. Chest X-Ray 05/06/20 16:03 IMPRESSION: 1. Right PICC tip likely within the proximal aspect of the right internal jugular vein. Repositioning is recommended. 2. Mild increased markings in the right infrahilar region likely represents vascular crowding. Atelectasis or an infiltrate would be less likely. Abdomen/Pelvis CT 05/10/20 00:00 IMPRESSION: New postsurgical change with question anastomosis of the small bowel to the anterior distal stomach. There is wall thickening seen in this region and high attenuation, question representing oral contrast. The duodenum remains abnormal appearing with wall thickening and small amount of extraluminal air. No free air is seen. This could be further evaluated with upper GI if clinically indicated. There are no dilated loops of bowel to suggest obstruction. Small amount of ascites decreased from previous exam. New mild right hydronephrosis. Small bilateral pleural effusions, right greater than left and right lower lobe atelectasis. Hepatobiliary Scan Nuclear Medicine 05/13/20 00:00 IMPRESSION: Patent cystic duct. Indirect patency of CBD with isotope activity seen in the drainage catheter extending from the duodenal bulb into the bag. Normal hepatic uptake. Results were discussed with Dr. Riddle after the exam Mental Status Exam Mental Status Exam Patient Appearance: Appropriate Patient Orientation: Person, Place and Situation Level of Consciousness: Awake and Alert Patient Behavior: Guarded and Suspicious Mood Description: Anxious and Apprehensive Affect Description: Anxious, Flat and Apprehensive Speech Pattern: Difficulty Finding Words Thought Content: positive for [place] and positive for Poverty of Content Judgement: Fair Medications Medications Current Medications Generic Name Dose Route Start Last Admin Trade Name Freq PRN Reason Stop Dose Admin Benzocaine 1 lozenge 05/07/20 08:48 Throat Lozenge, Medicated Lozenge MUCOUS MEM Q2H PRN Sore Throat Bisacodyl 10 mg 05/24/20 21:48 05/24/20 22:13 Bisacodyl [address] 10 mg BEDTIME PRN Administration Constipation Docusate Sodium 100 mg 05/21/20 11:15 05/26/20 08:32 Docusate Sodium 100 Mg Capsule PO 100 mg BID MOSHE Administration Ferrous Sulfate 324 mg 05/21/20 17:00 05/26/20 16:04 Ferrous Sulfate 324 Mg Tablet. PO 324 mg BIDWM MOSHE Administration Heparin Sodium (Porcine) 5,000 unit 05/19/20 09:45 05/26/20 08:40 Heparin Sodium,Porcine 5,000 Unit/Ml Vial SUBCUT 5,000 unit Q12H MOSHE Administration Fluconazole 200 mg in 100 mls @ 100 mls/hr 05/10/20 14:45 05/26/20 15:15 Diflucan IV Infused Q24H MOSHE Infusion Lorazepam 0.25 mg 05/26/20 17:13 Lorazepam 0.5 Mg Tablet PO Q8H PRN Anxiety Nystatin 200,000 unit 05/20/20 13:00 05/26/20 16:04 Nystatin Oral Susp 500,000 Unit/5 Ml Oral.Susp PO 200,000 unit QID MOSHE Administration Protocol Omeprazole 20 mg 05/18/20 16:30 05/26/20 16:04 Omeprazole 20 Mg Capsule.Dr PO 20 mg BID@0630,1630 MOSHE Administration Ondansetron HCl 4 mg 05/04/20 16:10 05/19/20 08:46 Ondansetron Hcl 4 Mg/2 Ml Vial IVPUSH 4 mg Q8H PRN Administration Nausea and Vomiting Oxcarbazepine 300 mg 05/26/20 21:00 Oxcarbazepine 300 Mg Tablet PO BEDTIME MOSHE Oxycodone HCl 5 mg 05/18/20 13:12 05/21/20 12:14 Oxycodone Hcl Immed Release 5 Mg Tablet PO 5 mg Q4H PRN Administration Pain, Moderate (Pain Scale 4-6 Pharmacy Consult 1 each 05/04/20 12:41 Consult Rx Perform Med Rec MISCELLANE ONCE PRN Consult order Risperidone 0.5 mg 05/26/20 21:00 Risperidone 0.5 Mg Tablet PO BEDTIME MOSHE Sertraline HCl 25 mg 05/05/20 09:00 05/26/20 08:32 Sertraline Hcl 25 Mg Tablet PO 25 mg DAILY MOSHE Administration Sodium Chloride 3 ml 05/04/20 16:46 05/26/20 16:04 0.9 % Sodium Chloride Flush 3 Ml Syringe IVFLUSH 3 ml QSHIFT MOSHE Administration Allergies Allergies Allergy/AdvReac Type Severity Reaction Status Date / Time No Known Allergies Allergy Verified 02/23/20 10:48 [No Known Allergies*] Assessment & Plan Assessment & Plan (1) Bipolar 1 disorder: Status: Acute Code(s): F31.9 - Bipolar disorder, unspecified Recommendations: * trileptal 300mg QHS with plan to titrate * Risperdal 0.5mg QHS * Lorazepam PRN to address anxiety * follow up in AM Greater than 50% of the session was spent on counseling and/or coordination of care
[2020-05-26 20:59] LABS: Glucose, Whole Blood 94 mg/dL (60-115)
[2020-05-26] MEDS: risperiDONE 0.5 MG TABLET PO (22:02)
[2020-05-26] MEDS: OXcarbazepine 300 MG TABLET PO (22:02)
[2020-05-27 00:14] VITALS: BP 156/70; PULSE 100; RESP 18; TEMP 36.6; O2SAT 99
[2020-05-27 04:17] VITALS: BP 156/93; PULSE 92; RESP 18; TEMP 36.9; O2SAT 99
[2020-05-27] MEDS: Omeprazole 20 MG CAPSULE.DR PO (05:45)
[2020-05-27 08:00] VITALS: BP 157/85; PULSE 88; RESP 18; TEMP 36.6; O2SAT 99; BMI 22.1
[2020-05-27 08:16] LABS: Glucose, Whole Blood 81 mg/dL (60-115)
[2020-05-27] MEDS: Nystatin Oral Susp 500,000 UNIT/5 ML ORAL.SUSP 200000 UNIT PO ×2 (08:32→12:19)
[2020-05-27] MEDS: 0.9 % Sodium Chloride Flush 3 ML SYRINGE IVFLUSH (08:32)
[2020-05-27] MEDS: Docusate Sodium 100 MG CAPSULE PO (08:33)
[2020-05-27] MEDS: Ferrous Sulfate 324 MG TABLET.DR PO (08:33)
[2020-05-27] MEDS: Heparin Sodium,Porcine 5,000 UNIT/ML VIAL 5000 UNIT SUBCUT (08:33)
[2020-05-27] MEDS: Sertraline HCL 25 MG TABLET PO (08:33)
--- NOTE | 2020-05-27 09:26 | P.PNGS_ITS ---
Subjective Subjective Date of Service: 05/27/20 Interval history: Reports that she feels disorganized in uncomfortable this morning. Physical Exam Vital Signs: Vital Signs: Last Vital Signs Temp 97.8 F 05/27/20 08:00 Pulse 88 05/27/20 08:00 Resp 18 05/27/20 08:00 BP 157/85 H 05/27/20 08:00 Pulse Ox 99 05/27/20 08:00 Body Mass Index 19.0 Const: General: cooperative and alert Resp: Effort & Inspection: normal respiratory effort Auscultation: clear to auscultation bilaterally Cardio: Rate: regular rate Rhythm: regular rhythm GI: Other: Round, soft, mild generalized tenderness and more significant discomfort overlying the urinary bladder, duodenostomy tube right upper quadrant, tube site clean, healing midline incision Skin: Other: Normal color, warm and dry Progress Note: A&P Assessment and plan (1) Perforated duodenal ulcer: Problem details: She had a history of bleeding duodenal ulcer and was treated with an exploratory laparotomy and over-sewing of the bleeding point in January 2020. On the day of admission, she presented with coffee-ground emesis concerning for recurrent bleeding and underwent EGD with biopsies. The impression at the time of EGD was that she might have a contained perforation. Subsequent to the EGD, a CT scan of the abdomen and pelvis was obtained for further evaluation and revealed free intraperitoneal air and fluid. Findings were suspicious for perforated duodenal ulcer. She was taken to the operating room urgently and underwent exploratory laparotomy with lysis of adhesions, pyloric exclusion, gastrojejunostomy, over- sewing of perforated duodenal ulcer and placement of a decompressive duodenostomy tube. Status: Acute Assessment and Plan: 69-year-old female patient who is status post exploratory laparotomy with lysis of adhesions, pyloric exclusion, gastrojejunostomy, insertion of decompressive duodenostomy tube and repair of perforated duodenal ulcer with Miguel A patch. Continue parental nutrition, albumin slightly improved, 2.7. Appetite is improving, tolerating soft diet IV antibiotics: Completed Zosyn last week, vancomycin stopped 05/25/2020, stop Diflucan IV today. She has thrush-improving. On nystatin swish and swallow. Duodenostomy tube clamped 05/18/20. Has thrombocytosis, reactive, improving. Cannot use aspirin due to peptic ulcer disease. On subcu heparin. Anemia: Appears stable, likely related to combination of malnutrition and frequent blood draws. On iron. Continue physical therapy. Neurology consult - seen by Dr. Funez, who felt that she might have mild metabolic encephalopathy related to the acute process. No other concerns at this time. PPI - omeprazole PO. Will need short-term rehabilitation. I anticipate that she will be ready for transfer in the next 1-2 days. Blood pressure has been running borderline high and has been higher over the pas t 24 hours. Awaiting results of post void bladder scan as interview today and examination suggests that she may be retaining urine again, which could be contributing to her elevated blood pressure. If this is not the case, and blood pressure remained significantly elevated, will consult hospitalist service for evaluation. PICC line removed intact 36 cm. Pressure held at site right upper arm for 2 minutes and dry sterile dressing applied. (2) Anxiety and depression: Problem details: Chronic. Psychiatry consultation was completed by Resmha Feng NP. Treatment with Trileptal and risperidone initiated Status: Acute Assessment and Plan: She reports ongoing difficulty with expressing herself, concerns about the future and difficulty in making decisions. Her significant other told me that she had been experiencing difficulty with complex decisions prior to this hospitalization. Yesterday, she reported a history of prior care with 2 psychiatrists. She reported that she had been on Depakote and that it was stopped in the past year. She was evaluated yesterday by Reshma Feng NP, who obtained a history of bipolar disorder and recommended initial medication management, which has been initiated. Fall Risk Details Current Medications: Current Medications Generic Name Dose Route Start Last Admin Trade Name Freq PRN Reason Stop Dose Admin Benzocaine 1 lozenge 05/07/20 08:48 Throat Lozenge, Medicated Lozenge MUCOUS MEM Q2H PRN Sore Throat Bisacodyl 10 mg 05/24/20 21:48 05/24/20 22:13 Bisacodyl 10 Mg Supp.Rect ND 10 mg BEDTIME PRN Administration Constipation Docusate Sodium 100 mg 05/21/20 11:15 05/27/20 08:33 Docusate Sodium 100 Mg Capsule PO 100 mg BID MOSHE Administration Ferrous Sulfate 324 mg 05/21/20 17:00 05/27/20 08:33 Ferrous Sulfate 324 Mg Tablet. PO 324 mg BIDWM MOSHE Administration Heparin Sodium (Porcine) 5,000 unit 12/30/20 09:45 05/27/20 08:33 Heparin Sodium,Porcine 5,000 Unit/Ml Vial SUBCUT 5,000 unit Q12H MOSHE Administration Fluconazole 200 mg in 100 mls @ 100 mls/hr 05/10/20 14:45 05/26/20 15:15 Diflucan IV Infused Q24H MOSHE Infusion Lorazepam 0.25 mg 05/26/20 17:13 Lorazepam 0.5 Mg Tablet PO Q8H PRN Anxiety Nystatin 200,000 unit 05/20/20 13:00 05/27/20 08:32 Nystatin Oral Susp 500,000 Unit/5 Ml Oral.Susp PO 200,000 unit QID MOSHE Administration Protocol Omeprazole 20 mg 05/18/20 16:30 05/27/20 05:45 Omeprazole 20 Mg Capsule.Dr PO 20 mg BID@0630,1630 MOSHE Administration Ondansetron HCl 4 mg 05/04/20 16:10 05/19/20 08:46 Ondansetron Hcl 4 Mg/2 Ml Vial IVPUSH 4 mg Q8H PRN Administration Nausea and Vomiting Oxcarbazepine 300 mg 05/26/20 21:00 05/26/20 22:02 Oxcarbazepine 300 Mg Tablet PO 300 mg BEDTIME MOSHE Administration Oxycodone HCl 5 mg 05/18/20 13:12 05/21/20 12:14 Oxycodone Hcl Immed Release 5 Mg Tablet PO 5 mg Q4H PRN Administration Pain, Moderate (Pain Scale 4-6 Pharmacy Consult 1 each 05/04/20 12:41 Consult Rx Perform Med Rec MISCELLANE ONCE PRN Consult order Risperidone 0.5 mg 05/26/20 21:00 05/26/20 22:02 Risperidone 0.5 Mg Tablet PO 0.5 mg BEDTIME MOSHE Administration Sertraline HCl 25 mg 05/05/20 09:00 05/27/20 08:33 Sertraline Hcl 25 Mg Tablet PO 25 mg DAILY MOSHE Administration Sodium Chloride 3 ml 05/04/20 16:46 05/27/20 08:32 0.9 % Sodium Chloride Flush 3 Ml Syringe IVFLUSH 3 ml QSHIFT MOSHE Administration Time Spent With Patient Time with patient: 15 - 24 minutes
[2020-05-27 11:13] VITALS: BP 133/63; PULSE 83; RESP 18; TEMP 36.4; O2SAT 97
[2020-05-27 12:20] LABS: COVID-19 Test Negative (Negative)
--- NOTE | 2020-05-27 12:43 | PM.DS ---
DS: Providers Provider Date of Service: 05/27/20 Date of admission: 05/04/20 13:36 Primary care physician: Jasiel Fink MD Consults: 05/04/20 16:46 Consult to Gastroenterology Routine Consulting Provider: Jorge Light Reason for consultation: gi bleed Has provider been notified: No 05/04/20 22:54 Consult to General Surgery Stat Consulting Provider: [facility] [place] [facility] Reason for consultation: perforated ulcer Has provider been notified: No 05/10/20 10:44 Consult to Infectious Diseases Routine Consulting Provider: Lin Fritz Reason for consultation: peritoneal cx MRSA and Catherine Has provider been notified: No 05/18/20 13:18 Consult to Neurology Routine Consulting Provider: [facility] Reason for consultation: change in mental status (began prior to admission) Has provider been notified: No 05/26/20 09:51 Consult to Psychiatry Routine Consulting Provider: Psychiatry,[facility] [place] Reason for consultation: anxiety, depression Has provider been notified: No DS: Diagnosis Discharge Diagnosis (1) Perforated duodenal ulcer: Status: Acute Problem details: She had a history of bleeding duodenal ulcer and was treated with an exploratory laparotomy and over-sewing of the bleeding point in January 2020. On the day of admission, she presented with coffee-ground emesis concerning for recurrent bleeding and underwent EGD with biopsies. The impression at the time of EGD was that she might have a contained perforation. Subsequent to the EGD, a CT scan of the abdomen and pelvis was obtained for further evaluation and revealed free intraperitoneal air and fluid. Findings were suspicious for perforated duodenal ulcer. She was taken to the operating room urgently and underwent exploratory laparotomy with lysis of adhesions, pyloric exclusion, gastrojejunostomy, over-sewing of perforated duodenal ulcer and placement of a decompressive duodenostomy tube. (2) Anxiety and depression: Status: Acute Problem details: Chronic. Psychiatry consultation was completed by Reshma Feng NP. Treatment with Trileptal and risperidone all initiated DS: Medications Discharge Medications Home Medications: Home Medications Medication Instructions Recorded Confirmed omeprazole 40 mg capsule,delayed 40 mg PO DAILY 03/31/20 05/04/20 release sertraline 25 mg PO DAILY 05/04/20 05/04/20 Previous Rx's Medication Instructions Recorded lorazepam 0.25 mg PO Q8H PRN #30 tab 05/27/20 sertraline 25 mg p.o. daily Risperidone 0.5 mg p.o. at bedtime Oxcarbazepine 300 mg p.o. at bedtime Lorazepam 0.5 mg p.o. Q 8 hours p.r.n. anxiety Omeprazole 20 mg p.o. b.i.d. Colace 100 mg p.o. b.i.d. Ferrous sulfate 324 mg p.o. b.i.d. Nystatin 200,000 units p.o. swish and swallow q.i.d. for 5 days Bisacodyl suppository 10 mg p.r. daily p.r.n. constipation DS: Summary Hospital Course Hospital Course: 69-year-old woman, presenting to the ER after episodes of vomiting. She reported that she woke up this morning vomiting dark blood, resembling coffee-grounds. She did report some nausea and vomiting. She presented to the ER on April [address] showed no blockage. At that time, she also had a head CT due to dizziness, which was negative for any acute abnormality. In the ER today, her hemoglobin is 14.5, hematocrit 43.6, platelets 307, WBC 2.5. INR 1.2. Potassium 3.08. Coronavirus PCR negative. She reported that she does feel weak, but her vital signs are fairly stable after blood pressure was elevated when she came in at 170/96, however, this did improve significantly to 112/82. She received IV Protonix, normal saline, IV potassium, magnesium. She will be admitted for further management and treatment of GI bleed. PHYSICAL EXAMINATION: CONSTITUTIONAL: Resting in bed, appearing weak, tired. HEENT: Head is normocephalic, atraumatic. Eyes, pupils are PERRLA. Sclerae anicteric. Mouth and throat: Mucous membranes are intact and moist. NECK: Supple. No lymphadenopathy. No JVD noted. CHEST: Clear to auscultation without wheezes, rhonchi, or rales. HEART: Regular rate and rhythm. Clear S1, S2. No murmurs, rubs, or gallops. ABDOMEN: Positive bowel sounds. Diffusely tender. NEURO: The patient is alert and oriented x3. Cranial nerves II through XII are grossly intact without focal deficits. She was admitted to the hospitalist service and GI consultation was requested. She was seen by Dr. Light, who obtained in the history that the patient had not been taking her proton pump inhibitor. She recommended proceeding with EGD. EGD done by Dr. Light on 05/04/2020 revealed: mpression and Post Procedure Diagnosis: Endoscopy Findings: ESOPHAGUS: GE junction at 35 cms, hiatal hernia 35 to 38 cms. Severe erosive esophagitis from 30 to 35 cms with circumferential ulcerations and exudate. STOMACH: Copious amount of coffee ground material in the fundus which was suctioned. Mild gastric erythema. Antral Biopsies were obtained to check for H pylori. DUODENUM: Edematous folds with large ulcer crater at the apex and posterior wall of the bulb with large eschar and possible contained perforation . Descending duodenum was not examined. Procedure was performed with minimal insufflation of CO2. UGI bleeding likely from severe erosive esophagitis. No active bleeding seen from DU. Plan: Check H & H Q 12 hrly. Serum Gastrin with next lab draw - order placed. Keep NPO and obtain repeat CT scan to rule out perforated DU. IV PPI CT scan of the abdomen and pelvis was obtained. This revealed findings consistent with free perforation of a duodenal ulcer with free intraperitoneal air and a large amount of free fluid. Surgery consultation was requested, and I saw the patient late in the evening of 05/04/2020. She was oriented but had difficulty making a decision regarding my recommendation to proceed with surgery. Ultimately, after speaking with her healthcare proxy, she agreed to proceed. Early on 05/05/2020, she underwent exploratory laparotomy with lysis of adhesions, pyloric exclusion, creation of gastrojejunostomy, over-sewing of perforated duodenal ulcer with placement of Miguel A patch, placement of decompressive duodenostomy tube. Postoperatively, she was maintained on Zosyn. An NG tube was kept in place and the duodenostomy tube was placed to gravity drainage. She had high output from both the NG tube and the duodenostomy. NG tube was removed on 05/11/2020. Albumin was noted to be low. Because an extended period of NPO was anticipated, a PICC line was placed and she was started on TPN. White blood count, which was normal initially, began to rise slowly. Peritoneal cultures grew yeast and MRSA. CT scan of the abdomen and pelvis was obtained and did not reveal any evidence of postoperative complication or abscess. Infectious Disease consultation was obtained. She was started on Diflucan. After 48 hours, white blood count had increased slightly more, to 20.2, and vancomycin was added, after which white blood count slowly declined to normal. She was oriented postoperatively, but had difficulty expressing her thoughts and seemed confused. Neurology consultation was obtained. She was seen by Dr. Funez who felt that she did not have any chronic neurologic issues but might have some mild postoperative delirium. Symptoms persisted and psychiatry consultation was obtained with Reshma Feng NP on 05/26/2020. A history of prior treatment for bipolar disorder was identified. The patient has discontinued her medications for this apparently under guidance of a psychiatrist about a year previously. Treatment with Trileptal and respirdone was initiated. LFTs were noted to be rising. This was thought to be related to the TPN, but HIDA scan was obtained. This showed no evidence of acute cholecystitis. Clear liquid diet was initiated. She tolerated this well. On 05/18/2030, the the duodenostomy tube was clamped. She tolerated this well. Diet was advanced to full liquid and ultimately to soft diet. TPN was discontinued on 05/24/2019. Krishnamurthy catheter was removed. Initially, she was unable to void and the catheter was reinserted the following day. A 2nd trial of Krishnamurthy removal was undertaken. She appeared to tolerate this well initially, but on the day of discharge, 05/27/2020, she was noted to have high post voiding residual and the Krishnamurthy catheter was reinserted. She will follow-up with Urology on an outpatient basis in about 1 week. She developed anemia, which was felt to be due to a combination of rehydration, malnutrition and frequent blood drawing. H&H was stable with levels of 7.9 and 25.8 on 05/26/2020. She was started on iron supplementation b.i.d. She participated in physical therapy and occupational therapy during her inpatient stay and made slow progress, but because of weakness and debility related to the acute illness, transfer to short-term rehabilitation was planned. Stay of under 30 days anticipated. Status at Discharge Overall status at discharge: patient is not back to baseline Time Spent with Patient Time attestation: Total time spent providing and/or coordinating discharge services: 48 minutes Discharge coordination time: Greater than 30 minutes Physical Exam Vital Signs: Vital Signs: Last Vital Signs Temp 97.6 F 05/27/20 11:13 Pulse 83 05/27/20 11:13 Resp 18 05/27/20 11:13 BP 133/63 05/27/20 11:13 Pulse Ox 97 05/27/20 11:13 Body Mass Index 22.1 Const: General: cooperative and anxious Orientation/consciousness: patient oriented x3 HENMT: Head: Yes normocephalic and Yes atraumatic Resp: Effort & Inspection: normal respiratory effort Auscultation: clear to auscultation bilaterally Cardio: Rate: regular rate Rhythm: regular rhythm GI: Other: Soft, round, mild generalized tenderness, duodenostomy tube present right upper quadrant, tube site clean, well-approximated healing midline incision Skin: Other: Normal color, warm and dry Neuro: General: patient oriented x3 Extrem: Other: No edema DS: Data Data Completed and Pending Completed studies during hospitalization [Text1]: Pending at discharge 05/04/20 15:02 Surgical [PTH] Routine :Diagnosis Stomach, antrum, biopsy: Antral-type mucosa with mild chronic inactive inflammation; no Helicobacter organisms seen. Serum Gastrin level was normal Labs on day of discharge: 05/04/20 06:50 Pantoprazole Sodium [Protonix] 40 mg IVPUSH ONCE ONE ondansetron HCL [Zofran] 4 mg IVPUSH ONCE ONE 05/04/20 07:00 0.9 % Sodium Chloride [Ns] 1,000 ml IVCONT 999 mls/hr 05/04/20 07:14 Complete Blood Count Auto Diff Stat SLIDE REVIEW Stat 05/04/20 07:18 Hold Lav - Possible Hematology Stat Hold Lt Blue - Possible Coag Stat 05/04/20 07:24 Type and Screen Stat 05/04/20 07:58 Basic Metabolic Panel Stat Lipase Stat Liver Panel Stat 05/04/20 09:09 Magnesium Sulfate/H2O 2 gm in 50 ml IV ONCE 05/04/20 09:15 Potassium Chloride/H20 10 meq in 100 ml IV Q1H 05/04/20 10:43 Complete Blood Count Auto Diff Stat 05/04/20 11:45 Potassium Chloride/H20 10 meq in 100 ml IV Q1H 05/04/20 12:41 Prothrombin Time INR Stat 05/04/20 12:45 COVID-19 ID NOW (Brown) Stat 05/04/20 13:32 Transfer Order Routine 05/04/20 14:30 Lidocaine HCl 2 % MPF [Xylocaine 2 % MPF] 5 ml .ROUTE .STK-MED ONE propofoL [Diprivan] 200 mg IVPUSH .STK-MED ONE 05/04/20 15:02 Surgical [PTH] Routine 05/04/20 16:10 CT abdomen pelvis wo con Stat 05/04/20 16:10 Vital Signs Q4HR 05/04/20 16:30 Pantoprazole Sodium [Protonix] 40 mg IVPUSH BID@0630,1630 05/04/20 16:46 Acetaminophen [Tylenol] 650 mg PO Q6H PRN 05/04/20 16:46 Ambulate QSHIFT WHILE AWAKE IV insert/maintain Q4HR Intake and Output QSHIFTE Pulse Oximetry Q4HR Vital Signs, Orthostatic QSHIFT 05/04/20 17:56 Gastrin Routine Hemoglobin and Hematocrit Routine 05/04/20 21:16 Complete Blood Count no Diff Routine 05/04/20 22:14 Diatrizoate Meglumine, Sodium [Gastrografin 66-10] 30 ml PO ONCE ONE 05/05/20 00:23 Lactated Ringers [Lr] 1,000 ml IVCONT 150 mls/hr 05/05/20 00:35 Transfer Order Routine 05/05/20 00:42 Piperacillin Sodium/Tazobactam [Zosyn] 3.375 gm 0.9 % Sodium Chloride [Ns] 50 ml IV ONCE 05/05/20 00:47 Piperacillin Sodium/Tazobactam [Zosyn] 3.375 gm IV .STK-MED ONE 05/05/20 01:26 Midazolam HCl/PF [Versed] 2 mg .ROUTE .STK-MED ONE 05/05/20 01:27 Lidocaine HCl 2 % MPF [Xylocaine 2 % MPF] 5 ml .ROUTE .STK-MED ONE Rocuronium Sidney [Zemuron] 100 mg IV .STK-MED ONE Sugammadex Sodium [Bridion] 200 mg IVPUSH .STK-MED ONE dexAMETHasone sod phosphate [Decadron] 4 mg .ROUTE .STK-MED ONE fentaNYL citrate/PF [Sublimaze] 50 mcg .ROUTE .STK-MED ONE ondansetron HCL [Zofran] 4 mg .ROUTE .STK-MED ONE propofoL [Diprivan] 200 mg IVPUSH .STK-MED ONE 05/05/20 01:30 cefoTEtan disodium [Cefotan] 2 gm .ROUTE .STK-MED ONE 05/05/20 01:31 Ketamine HCl/NS 50 mg IVPUSH .K-MED ONE 05/05/20 02:24 Bupivacaine MPF 0.75 % w/EPI [Sensorcaine MPF 0.75%/EPI 1:200,000] 30 ml .ROUTE .K-MED ONE 05/05/20 02:37 Anaerobic Culture (incl CULT) Routine Routine Culture w Gram Stain Routine 05/05/20 05:53 fentaNYL citrate/PF [Sublimaze] 50 mcg .ROUTE .[facility]-MED ONE 05/05/20 06:35 Ketorolac Tromethamine [Toradol] 30 mg .ROUTE .[facility] ONE 05/05/20 07:21 Transfer Order Routine 05/05/20 07:22 ondansetron HCL [Zofran] 4 mg .ROUTE .[facility]-MED ONE 05/05/20 07:58 fentaNYL citrate/PF [Sublimaze] 100 mcg .ROUTE .[facility]-MED ONE 05/05/20 08:29 Acetaminophen [Ofirmev] 1,000 mg in 100 ml IV As directed 05/05/20 08:41 0.9 % Sodium Chloride Flush [NS Flush] 3 ml IVFLUSH QSHIFT Dextrose 5 % and Lactated Ring [D5lr] 1,000 ml IVCONT 100 mls/hr Morphine Sulfate 4 mg IVPUSH Q3H PRN 05/05/20 08:41 Compression Therapy QSHIFT Cont. Telemetry w/Vital Sign limit ICU Q4HR Insert/maintain urinary catheter Q8HR NG/OG Tube Insert/Maintain QSHIFT 05/05/20 09:36 Piperacillin Sodium/Tazobactam [Zosyn] 3.375 gm IV .STK-MED ONE 05/05/20 Breakfast NPO Diet Acetaminophen [Ofirmev] 1,000 mg in 100 ml IV Q6H Piperacillin Sodium/Tazobactam [Zosyn] 3.375 gm 0.9 % Sodium Chloride [Ns] 50 ml IV Q6H 05/05/20 10:18 Basic Metabolic Panel DAILY@0600 Complete Blood Count Man Dif Routine Prothrombin Time INR DAILY@0600 05/05/20 16:03 Piperacillin Sodium/Tazobactam [Zosyn] 3.375 gm IV .STK-MED ONE 05/05/20 21:31 Piperacillin Sodium/Tazobactam [Zosyn] 3.375 gm IV .STK-MED ONE 05/06/20 IR cvc insert peripheral Routine 05/06/20 04:45 Piperacillin Sodium/Tazobactam [Zosyn] 3.375 gm IV .STK-MED ONE 05/06/20 05:35 Basic Metabolic Panel DAILY@0600 Complete Blood Count Man Dif Routine Magnesium Routine Phosphorus Routine Triglycerides Routine 05/06/20 06:00 Glucose, blood poc DAILY 05/06/20 07:50 Drain Management Orders ONGOING 05/06/20 09:15 Piperacillin Sodium/Tazobactam [Zosyn] 3.375 gm IV .STK-MED ONE 05/06/20 10:18 Glucose, blood poc QIDACHS 05/06/20 10:41 Add Laboratory Test Routine 05/06/20 10:47 Blood Urea Nitrogen Routine Electrolytes Routine Magnesium Routine Phosphorus Routine 05/06/20 12:49 Glucose, Whole Blood Routine 05/06/20 16:03 CXR [XR chest 1V] Stat 05/06/20 17:09 Glucose, Whole Blood Routine 05/06/20 17:14 Piperacillin Sodium/Tazobactam [Zosyn] 3.375 gm IV .STK-MED ONE 05/06/20 18:00 MVI, Adult [Infuvite Adult] 10.5 ml Trace Elements w/o chromium [Tralement] 1 ml AA 5 %/Calcium/Lytes/Dext 15 % [Clinimix E 5%-15%] 1,000 ml IV DAILY@1800 05/06/20 21:54 Glucose, Whole Blood Routine 05/06/20 22:24 Piperacillin Sodium/Tazobactam [Zosyn] 3.375 gm IV .STK-MED ONE 05/07/20 04:04 Piperacillin Sodium/Tazobactam [Zosyn] 3.375 gm IV .STK-MED ONE 05/07/20 05:17 Basic Metabolic Panel DAILY@0600 Complete Blood Count Auto Diff DAILY@0600 Folate Routine Magnesium Routine Phosphorus Routine Thyroid Stimulating Hormone Routine Vitamin B12 Routine 05/07/20 07:41 Glucose, Whole Blood Routine 05/07/20 08:25 Potassium Phosphate [KPhos] 15 mmol 0.9 % Sodium Chloride [Ns] 500 ml IV ONCE 05/07/20 09:17 Piperacillin Sodium/Tazobactam [Zosyn] 3.375 gm IV .STK-MED ONE 05/07/20 09:37 Add Laboratory Test Routine 05/07/20 10:56 Glucose, Whole Blood Routine 05/07/20 16:47 Glucose, Whole Blood Routine 05/07/20 17:22 Piperacillin Sodium/Tazobactam [Zosyn] 3.375 gm IV .STK-MED ONE 05/07/20 18:00 MVI, Adult [Infuvite Adult] 14 ml Trace Elements w/o chromium [Tralement] 1.4 ml AA 5 %/Calcium/Lytes/Dext 15 % [Clinimix E 5%-15%] 2,000 ml IV DAILY@1800 05/07/20 20:51 Glucose, Whole Blood Routine 05/07/20 22:09 Piperacillin Sodium/Tazobactam [Zosyn] 3.375 gm IV .STK-MED ONE 05/08/20 03:30 Piperacillin Sodium/Tazobactam [Zosyn] 3.375 gm IV .STK-MED ONE 05/08/20 06:15 Basic Metabolic Panel DAILY@0600 Complete Blood Count Auto Diff DAILY@0600 05/08/20 07:58 Glucose, Whole Blood Routine 05/08/20 08:25 Piperacillin Sodium/Tazobactam [Zosyn] 3.375 gm IV .STK-MED ONE 05/08/20 11:14 Glucose, Whole Blood Routine 05/08/20 13:50 NG/OG Tube Insert/Maintain QSHIFT 05/08/20 15:03 Potassium Chloride Packet [Klor-Con Packet] 40 meq PO ONCE ONE 05/08/20 15:24 Piperacillin Sodium/Tazobactam [Zosyn] 3.375 gm IV .STK-MED ONE 05/08/20 Lunch NPO Diet 05/08/20 16:00 KCl 40 mEq in 5% Dex/0.45% Sod 40 meq in 1,000 ml IVCONT 42 mls/hr 05/08/20 16:40 Glucose, Whole Blood Routine 05/08/20 18:00 Fat Emulsions 20% [Intralipid] 250 ml IV DAILY@1800 MVI, Adult [Infuvite Adult] 14 ml Trace Elements w/o chromium [Tralement] 1.4 ml AA 5 %/Calcium/Lytes/Dext 15 % [Clinimix E 5%-15%] 2,000 ml IV DAILY@1800 05/08/20 20:17 Glucose, Whole Blood Routine 05/08/20 20:48 Piperacillin Sodium/Tazobactam [Zosyn] 3.375 gm IV .STK-MED ONE 05/09/20 04:28 Piperacillin Sodium/Tazobactam [Zosyn] 3.375 gm IV .STK-MED ONE 05/09/20 05:54 Basic Metabolic Panel DAILY@0600 Complete Blood Count Auto Diff DAILY@0600 Magnesium Routine Phosphorus Routine SLIDE REVIEW Routine 05/09/20 07:00 Glucose, Whole Blood Routine 05/09/20 09:07 Piperacillin Sodium/Tazobactam [Zosyn] 3.375 gm IV .STK-MED ONE 05/09/20 10:19 Add Laboratory Test Stat 05/09/20 10:52 Insert/maintain urinary catheter NOW 05/09/20 10:56 Glucose, Whole Blood Routine 05/09/20 15:32 Piperacillin Sodium/Tazobactam [Zosyn] 3.375 gm IV .STK-MED ONE 05/09/20 16:49 Glucose, Whole Blood Routine 05/09/20 18:00 Fat Emulsions 20% [Intralipid] 250 ml IVCONT DAILY@1800 MVI, Adult [Infuvite Adult] 10 ml Trace Elements w/o chromium [Tralement] 1 ml AA 5 %/Calcium/Lytes/Dext 15 % [Clinimix E 5%-15%] 1,000 ml IV DAILY@1800 05/09/20 21:10 Glucose, Whole Blood Routine 05/09/20 21:49 Piperacillin Sodium/Tazobactam [Zosyn] 3.375 gm IV .STK-MED ONE 05/09/20 22:00 Piperacillin Sodium/Tazobactam [Zosyn] 3.375 gm 0.9 % Sodium Chloride [Ns] 50 ml IV Q6H 05/10/20 CT abdomen pelvis wo con Routine 05/10/20 05:09 Piperacillin Sodium/Tazobactam [Zosyn] 3.375 gm IV .STK-MED ONE 05/10/20 07:28 Glucose, Whole Blood Routine 05/10/20 08:49 Piperacillin Sodium/Tazobactam [Zosyn] 3.375 gm IV .STK-MED ONE 05/10/20 09:28 Albumin Level Routine Basic Metabolic Panel Routine Complete Blood Count no Diff Routine Magnesium Routine Phosphorus Routine 05/10/20 10:35 Add Laboratory Test Urgent 05/10/20 10:50 AA 5 %/Calcium/Lytes/Dext 15 % [Clinimix E 5%-15%] 1,000 ml IV DAILY@1050 05/10/20 11:03 Glucose, Whole Blood Routine 05/10/20 14:30 Diatrizoate Meglumine, Sodium [Gastrografin 66-10] 30 ml PO ONCE ONE 05/10/20 14:45 Fluconazole in NaCl,Iso-Osm [Diflucan] 200 mg in 100 ml IV Q24H 05/10/20 16:00 Glucose, Whole Blood Routine 05/10/20 16:41 Piperacillin Sodium/Tazobactam [Zosyn] 3.375 gm IV .STK-MED ONE 05/10/20 18:00 Fat Emulsions 20% [Intralipid] 250 ml IVCONT DAILY@1800 MVI, Adult [Infuvite Adult] 10 ml Trace Elements w/o chromium [Tralement] 1 ml AA 5 %/Calcium/Lytes/Dext 15 % [Clinimix E 5%-15%] 1,000 ml IV DAILY@1800 05/10/20 19:27 Glucose, Whole Blood Routine 05/10/20 22:00 Piperacillin Sodium/Tazobactam [Zosyn] 3.375 gm IV .STK-MED ONE 05/11/20 04:35 Piperacillin Sodium/Tazobactam [Zosyn] 3.375 gm IV .STK-MED ONE 05/11/20 05:24 Basic Metabolic Panel Routine Complete Blood Count no Diff Routine Magnesium Routine 05/11/20 08:07 Glucose, Whole Blood Routine 05/11/20 09:29 Piperacillin Sodium/Tazobactam [Zosyn] 3.375 gm IV .STK-MED ONE 05/11/20 10:51 AA 5 %/Calcium/Lytes/Dext 15 % [Clinimix E 5%-15%] 1,000 ml IV DAILY@1800 05/11/20 10:53 Glucose, Whole Blood Routine 05/11/20 16:28 Piperacillin Sodium/Tazobactam [Zosyn] 3.375 gm IV .STK-MED ONE 05/11/20 17:06 Glucose, Whole Blood Routine 05/11/20 18:00 Fat Emulsions 20% [Intralipid] 250 ml IV DAILY@1800 MVI, Adult [Infuvite Adult] 14 ml Trace Elements w/o chromium [Tralement] 1.4 ml AA 5 %/Calcium/Lytes/Dext 15 % [Clinimix E 5%-15%] 2,000 ml IV DAILY@1800 05/11/20 19:00 0.9 % Sodium Chloride [Ns] 1,000 ml IVCONT 20 mls/hr 05/11/20 21:06 Piperacillin Sodium/Tazobactam [Zosyn] 3.375 gm IV .STK-MED ONE 05/12/20 04:40 Piperacillin Sodium/Tazobactam [Zosyn] 3.375 gm IV .STK-MED ONE 05/12/20 05:36 Basic Metabolic Panel Fasting Routine Complete Blood Count Auto Diff Routine Liver Panel Routine SLIDE REVIEW Routine 05/12/20 05:37 Morphine Sulfate 2 mg IVPUSH Q3H PRN 05/12/20 07:24 Glucose, Whole Blood Routine 05/12/20 09:50 Add Laboratory Test Routine 05/12/20 11:02 Piperacillin Sodium/Tazobactam [Zosyn] 3.375 gm IV .STK-MED ONE 05/12/20 11:15 Glucose, Whole Blood Routine 05/12/20 16:22 Glucose, Whole Blood Routine 05/12/20 16:38 Consult Rx Vancomycin Dosing 1 each MISCELLANE DAILY PRN 05/12/20 16:49 Piperacillin Sodium/Tazobactam [Zosyn] 3.375 gm IV .STK-MED ONE 05/12/20 17:41 oxyCODONE HCl Immed Release [Roxicodone] 5 mg PO Q4H PRN 05/12/20 18:00 Fat Emulsions 20% [Intralipid] 250 ml IV DAILY@1800 MVI, Adult [Infuvite Adult] 14 ml Trace Elements w/o chromium [Tralement] 1.4 ml AA 5 %/Calcium/Lytes/Dext 15 % [Clinimix E 5%-15%] 2,000 ml IV DAILY@1800 vancomycin HCL 750 mg 0.9 % Sodium Chloride [Ns] 250 ml IV Q12H 05/12/20 18:58 vancomycin HCL 750 mg IV .STK-MED ONE 05/12/20 Dinner Clear Liquid Diet 05/12/20 20:33 Glucose, Whole Blood Routine 05/12/20 20:56 Piperacillin Sodium/Tazobactam [Zosyn] 3.375 gm IV .STK-MED ONE 05/13/20 NM hepatobiliary wo pharm Urgent 05/13/20 04:53 Piperacillin Sodium/Tazobactam [Zosyn] 3.375 gm IV .STK-MED ONE 05/13/20 05:29 vancomycin HCL 750 mg IV .STK-MED ONE 05/13/20 05:44 Basic Metabolic Panel Fasting Routine Complete Blood Count no Diff Routine Liver Panel Routine Magnesium Routine Phosphorus Routine 05/13/20 08:02 Glucose, Whole Blood Routine 05/13/20 10:10 Complete Blood Count Auto Diff Routine Prothrombin Time INR Routine Triglycerides Routine 05/13/20 10:17 Piperacillin Sodium/Tazobactam [Zosyn] 3.375 gm IV .STK-MED ONE 05/13/20 10:27 Add Laboratory Test Stat 05/13/20 14:22 Sodium,Potassium Phosphates [Phos-NaK] 1 packet PO ONCE ONE 05/13/20 15:58 Piperacillin Sodium/Tazobactam [Zosyn] 3.375 gm IV .STK-MED ONE 05/13/20 16:53 Glucose, Whole Blood Routine 05/13/20 17:52 vancomycin HCL 750 mg IV .STK-MED ONE 05/13/20 18:00 Fat Emulsions 20% [Intralipid] 250 ml IV DAILY@1800 MVI, Adult [Infuvite Adult] 14 ml Trace Elements w/o chromium [Tralement] 1.4 ml AA 5 %/Calcium/Lytes/Dext 15 % [Clinimix E 5%-15%] 2,000 ml IV DAILY@1800 05/13/20 21:14 Glucose, Whole Blood Routine 05/13/20 23:31 Piperacillin Sodium/Tazobactam [Zosyn] 3.375 gm IV .STK-MED ONE 05/14/20 04:30 Piperacillin Sodium/Tazobactam [Zosyn] 3.375 gm IV .STK-MED ONE 05/14/20 04:49 Vancomycin Trough Routine 05/14/20 05:17 vancomycin HCL 750 mg IV .STK-MED ONE 05/14/20 07:25 Glucose, Whole Blood Routine 05/14/20 08:53 Piperacillin Sodium/Tazobactam [Zosyn] 3.375 gm IV .STK-MED ONE 05/14/20 11:15 Glucose, Whole Blood Routine 05/14/20 15:30 Piperacillin Sodium/Tazobactam [Zosyn] 3.375 gm IV .STK-MED ONE 05/14/20 17:07 vancomycin HCL 750 mg IV .STK-MED ONE 05/14/20 17:08 Glucose, Whole Blood Routine 05/14/20 18:00 Fat Emulsions 20% [Intralipid] 250 ml IV DAILY@1800 MVI, Adult [Infuvite Adult] 14 ml Trace Elements w/o chromium [Tralement] 1.4 ml AA 5 %/Calcium/Lytes/Dext 15 % [Clinimix E 5%-15%] 2,000 ml IV DAILY@1800 05/14/20 21:27 Glucose, Whole Blood Routine 05/14/20 21:49 Piperacillin Sodium/Tazobactam [Zosyn] 3.375 gm IV .STK-MED ONE 05/15/20 04:07 Piperacillin Sodium/Tazobactam [Zosyn] 3.375 gm IV .STK-MED ONE 05/15/20 05:44 vancomycin HCL 750 mg IV .STK-MED ONE 05/15/20 06:31 Basic Metabolic Panel DAILY@0600 Complete Blood Count Auto Diff DAILY@0600 05/15/20 07:37 Glucose, Whole Blood Routine 05/15/20 10:06 Piperacillin Sodium/Tazobactam [Zosyn] 3.375 gm IV .STK-MED ONE 05/15/20 11:44 Glucose, Whole Blood Routine 05/15/20 16:17 Piperacillin Sodium/Tazobactam [Zosyn] 3.375 gm IV .STK-MED ONE 05/15/20 16:18 Glucose, Whole Blood Routine 05/15/20 16:55 Vancomycin Trough Stat 05/15/20 17:44 vancomycin HCL 750 mg IV .STK-MED ONE 05/15/20 18:00 Fat Emulsions 20% [Intralipid] 250 ml IV DAILY@1800 MVI, Adult [Infuvite Adult] 14 ml Trace Elements w/o chromium [Tralement] 1.4 ml AA 5 %/Calcium/Lytes/Dext 15 % [Clinimix E 5%-15%] 2,000 ml IV DAILY@1800 05/15/20 20:13 Glucose, Whole Blood Routine 05/15/20 21:15 Piperacillin Sodium/Tazobactam [Zosyn] 3.375 gm IV .STK-MED ONE 05/16/20 04:25 Piperacillin Sodium/Tazobactam [Zosyn] 3.375 gm IV .STK-MED ONE 05/16/20 05:42 vancomycin HCL 1,000 mg .ROUTE .STK-MED ONE 05/16/20 06:00 vancomycin HCL 1,000 mg 0.9 % Sodium Chloride [Ns] 250 ml IV Q12H 05/16/20 08:25 Glucose, Whole Blood Routine 05/16/20 10:14 Albumin Level Stat BMP [Basic Metabolic Panel] Stat Magnesium Stat Phosphorus Stat 05/16/20 10:18 Piperacillin Sodium/Tazobactam [Zosyn] 3.375 gm IV .STK-MED ONE 05/16/20 11:35 Glucose, Whole Blood Routine 05/16/20 15:38 Piperacillin Sodium/Tazobactam [Zosyn] 3.375 gm IV .STK-MED ONE 05/16/20 17:23 Glucose, Whole Blood Routine 05/16/20 18:00 Fat Emulsions 20% [Intralipid] 250 ml IV DAILY@1800 MVI, Adult [Infuvite Adult] 14 ml Trace Elements w/o chromium [Tralement] 1.4 ml AA 5 %/Calcium/Lytes/Dext 15 % [Clinimix E 5%-15%] 2,000 ml IV DAILY@1800 05/16/20 18:07 vancomycin HCL 1,000 mg .ROUTE .STK-MED ONE 05/16/20 21:02 Glucose, Whole Blood Routine 05/16/20 22:30 Piperacillin Sodium/Tazobactam [Zosyn] 3.375 gm 0.9 % Sodium Chloride [Ns] 50 ml IV Q6H 05/16/20 23:00 Piperacillin Sodium/Tazobactam [Zosyn] 3.375 gm IV .STK-MED ONE 05/17/20 05:06 Piperacillin Sodium/Tazobactam [Zosyn] 3.375 gm IV .STK-MED ONE 05/17/20 05:09 Albumin Level Routine Basic Metabolic Panel DAILY@0600 Complete Blood Count Auto Diff DAILY@0600 Magnesium Routine Phosphorus Routine Triglycerides Routine 05/17/20 06:19 vancomycin HCL 1,000 mg .ROUTE .STK-MED ONE 05/17/20 07:54 Glucose, Whole Blood Routine 05/17/20 09:27 Add Laboratory Test Stat 05/17/20 11:50 Glucose, Whole Blood Routine 05/17/20 13:07 Piperacillin Sodium/Tazobactam [Zosyn] 3.375 gm IV .STK-MED ONE 05/17/20 16:57 Vancomycin Trough Routine 05/17/20 17:24 Glucose, Whole Blood Routine 05/17/20 17:58 Piperacillin Sodium/Tazobactam [Zosyn] 3.375 gm IV .STK-MED ONE 05/17/20 18:00 Fat Emulsions 20% [Intralipid] 250 ml IV DAILY@1800 MVI, Adult [Infuvite Adult] 14 ml Trace Elements w/o chromium [Tralement] 1.4 ml AA 5 %/Calcium/Lytes/Dext 15 % [Clinimix E 5%-15%] 2,000 ml IV DAILY@1800 05/17/20 19:40 vancomycin HCL 1,000 mg .ROUTE .STK-MED ONE 05/17/20 21:07 Glucose, Whole Blood Routine 05/17/20 23:15 Piperacillin Sodium/Tazobactam [Zosyn] 3.375 gm IV .STK-MED ONE 05/18/20 05:09 Piperacillin Sodium/Tazobactam [Zosyn] 3.375 gm IV .STK-MED ONE 05/18/20 06:07 vancomycin HCL 1,000 mg .ROUTE .STK-MED ONE 05/18/20 07:19 Glucose, Whole Blood Routine 05/18/20 Breakfast Full Liquid Diet 05/18/20 10:11 Piperacillin Sodium/Tazobactam [Zosyn] 3.375 gm IV .STK-MED ONE 05/18/20 11:02 Glucose, Whole Blood Routine 05/18/20 15:44 Piperacillin Sodium/Tazobactam [Zosyn] 3.375 gm IV .STK-MED ONE 05/18/20 17:04 Glucose, Whole Blood Routine 05/18/20 17:35 vancomycin HCL 1,000 mg .ROUTE .STK-MED ONE 05/18/20 18:00 Fat Emulsions 20% [Intralipid] 250 ml IV DAILY@1800 MVI, Adult [Infuvite Adult] 14 ml Trace Elements w/o chromium [Tralement] 1.4 ml AA 5 %/Calcium/Lytes/Dext 15 % [Clinimix E 5%-15%] 2,000 ml IV DAILY@1800 05/18/20 20:58 Piperacillin Sodium/Tazobactam [Zosyn] 3.375 gm IV .STK-MED ONE 05/18/20 21:31 Glucose, Whole Blood Routine 05/19/20 04:33 Vancomycin Trough Routine 05/19/20 04:44 Piperacillin Sodium/Tazobactam [Zosyn] 3.375 gm IV .STK-MED ONE 05/19/20 06:09 vancomycin HCL 1,000 mg .ROUTE .STK-MED ONE 05/19/20 07:01 Glucose, Whole Blood Routine 05/19/20 08:34 Basic Metabolic Panel Routine Complete Blood Count Auto Diff Routine Liver Panel Routine Magnesium Routine Phosphorus Routine 05/19/20 09:54 Insert/maintain urinary catheter NOW 05/19/20 10:05 Piperacillin Sodium/Tazobactam [Zosyn] 3.375 gm IV .STK-MED ONE 05/19/20 10:32 UA CC w/rflx Micro + Cult Routine 05/19/20 10:45 Vancomycin Trough Routine 05/19/20 11:10 Ammonia Routine 05/19/20 11:19 Glucose, Whole Blood Routine 05/19/20 13:27 Ammonia Routine 05/19/20 16:24 Glucose, Whole Blood Routine 05/19/20 16:31 Piperacillin Sodium/Tazobactam [Zosyn] 3.375 gm IV .STK-MED ONE 05/19/20 16:51 Consult Rx Vancomycin Dosing 1 each MISCELLANE DAILY PRN 05/19/20 18:00 Fat Emulsions 20% [Intralipid] 250 ml IV DAILY@1800 MVI, Adult [Infuvite Adult] 14 ml Trace Elements w/o chromium [Tralement] 1.4 ml AA 5 %/Calcium/Lytes/Dext 15 % [Clinimix E 5%-15%] 2,000 ml IV DAILY@1800 vancomycin HCL 750 mg 0.9 % Sodium Chloride [Ns] 250 ml IV Q12H 05/19/20 18:13 vancomycin HCL 750 mg IV .STK-MED ONE 05/19/20 20:16 Glucose, Whole Blood Routine 05/19/20 20:36 Piperacillin Sodium/Tazobactam [Zosyn] 3.375 gm IV .STK-MED ONE 05/20/20 03:43 Piperacillin Sodium/Tazobactam [Zosyn] 3.375 gm IV .STK-MED ONE 05/20/20 04:50 vancomycin HCL 750 mg IV .STK-MED ONE 05/20/20 07:22 Glucose, Whole Blood Routine 05/20/20 08:12 Basic Metabolic Panel Stat Magnesium Stat Phosphorus Stat 05/20/20 08:38 Piperacillin Sodium/Tazobactam [Zosyn] 3.375 gm IV .STK-MED ONE 05/20/20 09:59 Add Laboratory Test Stat 05/20/20 10:59 Glucose, Whole Blood Routine 05/20/20 16:08 Glucose, Whole Blood Routine 05/20/20 16:10 Piperacillin Sodium/Tazobactam [Zosyn] 3.375 gm IV .STK-MED ONE vancomycin HCL 750 mg IV .STK-MED ONE 05/20/20 16:44 Vancomycin Trough Stat 05/20/20 18:00 Fat Emulsions 20% [Intralipid] 250 ml IV DAILY@1800 MVI, Adult [Infuvite Adult] 14 ml Trace Elements w/o chromium [Tralement] 1.4 ml AA 5 %/Calcium/Lytes/Dext 15 % [Clinimix E 5%-15%] 2,000 ml IV DAILY@1800 05/20/20 21:12 Piperacillin Sodium/Tazobactam [Zosyn] 3.375 gm IV .STK-MED ONE 05/20/20 21:15 Glucose, Whole Blood Routine 05/21/20 03:58 Piperacillin Sodium/Tazobactam [Zosyn] 3.375 gm IV .[facility] ONE 05/21/20 06:03 Basic Metabolic Panel Fasting Routine Complete Blood Count no Diff Routine 05/21/20 06:23 vancomycin HCL 750 mg IV .[facility] ONE 05/21/20 07:06 Glucose, Whole Blood Routine 05/21/20 10:55 Piperacillin Sodium/Tazobactam [Zosyn] 3.375 gm IV .[facility] ONE 05/21/20 11:00 Glucose, Whole Blood Routine 05/21/20 15:50 Piperacillin Sodium/Tazobactam [Zosyn] 3.375 gm IV .[facility] ONE 05/21/20 16:11 Glucose, Whole Blood Routine 05/21/20 18:00 Fat Emulsions 20% [Intralipid] 250 ml IV DAILY@1800 MVI, Adult [Infuvite Adult] 14 ml Trace Elements w/o chromium [Tralement] 1.4 ml AA 5 %/Calcium/Lytes/Dext 15 % [Clinimix E 5%-15%] 2,000 ml IV DAILY@1800 05/21/20 18:41 vancomycin HCL 750 mg IV .[facility] ONE 05/21/20 21:36 Glucose, Whole Blood Routine 05/21/20 21:46 Piperacillin Sodium/Tazobactam [Zosyn] 3.375 gm IV .[facility] ONE 05/22/20 04:57 Complete Blood Count no Diff Routine Vancomycin Trough Routine 05/22/20 06:22 vancomycin HCL 750 mg IV .[facility] ONE 05/22/20 07:16 Glucose, Whole Blood Routine 05/22/20 10:54 Glucose, Whole Blood Routine 05/22/20 16:39 Glucose, Whole Blood Routine 05/22/20 18:00 Fat Emulsions 20% [Intralipid] 250 ml IV DAILY@1800 MVI, Adult [Infuvite Adult] 14 ml Trace Elements w/o chromium [Tralement] 1.4 ml AA 5 %/Calcium/Lytes/Dext 15 % [Clinimix E 5%-15%] 2,000 ml IV DAILY@1800 05/22/20 18:10 vancomycin HCL 750 mg IV .[facility] ONE 05/22/20 20:24 Glucose, Whole Blood Routine 05/23/20 06:19 vancomycin HCL 750 mg IV .STK-MED ONE 05/23/20 11:02 Glucose, Whole Blood Routine 05/23/20 16:28 Glucose, Whole Blood Routine 05/23/20 18:00 Fat Emulsions 20% [Intralipid] 250 ml IV DAILY@1800 MVI, Adult [Infuvite Adult] 14 ml Trace Elements w/o chromium [Tralement] 1.4 ml AA 5 %/Calcium/Lytes/Dext 15 % [Clinimix E 5%-15%] 2,000 ml IV DAILY@1800 05/23/20 18:16 vancomycin HCL 750 mg IV .STK-MED ONE 05/23/20 20:23 Glucose, Whole Blood Routine 05/24/20 04:42 Complete Blood Count no Diff Routine Creatinine Stat Vancomycin Trough Stat 05/24/20 05:30 vancomycin HCL 750 mg IV .STK-MED ONE 05/24/20 08:15 Glucose, Whole Blood Routine 05/24/20 11:09 Glucose, Whole Blood Routine 05/24/20 11:18 Basic Metabolic Panel Stat Magnesium Stat Phosphorus Stat 05/24/20 12:37 Add Laboratory Test Stat 05/24/20 16:38 Glucose, Whole Blood Routine 05/24/20 18:18 vancomycin HCL 750 mg IV .K-MED ONE 05/24/20 20:52 Glucose, Whole Blood Routine 05/24/20 23:30 Sodium Phosphate,[place]-Dibasic [Fleet Enema] 133 ml AK ONCE ONE 05/25/20 00:37 Sodium Phosphate,[place]-Dibasic [Fleet Enema] 133 ml AK .STK-MED ONE 05/25/20 05:34 Complete Blood Count no Diff Routine 05/25/20 05:35 Basic Metabolic Panel Routine 05/25/20 05:57 vancomycin HCL 750 mg IV .STK-MED ONE 05/25/20 06:13 hydrOXYzine HCL [Atarax] 25 mg PO ONCE ONE 05/25/20 08:05 Glucose, Whole Blood Routine 05/25/20 12:24 Glucose, Whole Blood Routine 05/25/20 16:32 Glucose, Whole Blood Routine 05/25/20 16:58 Vancomycin Trough Routine 05/25/20 21:53 Glucose, Whole Blood Routine 05/26/20 04:31 Complete Blood Count no Diff Routine 05/26/20 07:08 Glucose, Whole Blood Routine 05/26/20 11:39 Glucose, Whole Blood Routine 05/26/20 16:11 Glucose, Whole Blood Routine 05/26/20 20:50 Glucose, Whole Blood Routine 05/27/20 08:04 Glucose, Whole Blood Routine 05/27/20 11:55 COVID-19 ID NOW (Brown) Stat Laboratory Last Values WBC 10.5 X10*3/uL (4.8-10.8) 05/26/20 04:31 RBC 2.81 X10*6/uL (4.20-5.50) L 05/26/20 04:31 Hgb 7.9 g/dl (12.0-16.0) L 05/26/20 04:31 Hct 25.8 % (37-47) L 05/26/20 04:31 MCV 91.8 fL (80-98) 05/26/20 04:31 MCH 28.1 pg (27.0-33.0) 05/26/20 04:31 MCHC 30.6 g/dl (31.0-35.0) L 05/26/20 04:31 RDW 15.9 % (11.0-16.0) 05/26/20 04:31 Plt Count 427 X10*3/uL (160-400) H 05/26/20 04:31 MPV 10.4 fL (9.4-12.3) 05/26/20 04:31 Immature Gran % (Auto) 2.3 % (0.0-0.4) H 05/19/20 08:34 Neut % (Auto) 72.0 % (45-73) 05/19/20 08:34 Lymph % (Auto) 14.5 % (20-40) L 05/19/20 08:34 [place] % (Auto) 8.1 % (2-11) 05/19/20 08:34 Eos % (Auto) 2.7 % (0-4) 05/19/20 08:34 Baso % (Auto) 0.4 % (0-2) 05/19/20 08:34 Lymph # (Auto) 1.9 X10*3/uL (1.2-4.9) 05/19/20 08:34 [place] # (Auto) 1.1 X10*3/uL (0.1-1.2) 05/19/20 08:34 Eos # (Auto) 0.4 X10*3/uL (0.0-0.4) 05/19/20 08:34 Baso # (Auto) 0.1 X10*3/uL (0.0-0.2) 05/19/20 08:34 Abs Immat Gran (auto) 0.31 X10*3/uL (0.00-0.03) H 05/19/20 08:34 Absolute Neuts (auto) 9.5 X10*3/uL (2.0-8.3) H 05/19/20 08:34 Absolute Nucleated RBC 0.000 X10*3/uL (0.0-0.012) 05/26/20 04:31 Nucleated RBC % (auto) 0.0 /100WBC (0.0-0.2) 05/26/20 04:31 Neutrophils % (Manual) 55 % (45-73) 05/06/20 05:35 Band Neutrophils % 31 % (3-5) H 05/06/20 05:35 Lymphocytes % (Manual) 9 % (20-40) L 05/06/20 05:35 Monocytes % (Manual) 4 % (2-11) 05/06/20 05:35 Metamyelocytes % 1 % 05/06/20 05:35 Abs Neuts (Manual) 9.2 X10*3/uL (2.2-7.9) H 05/06/20 05:35 Lymphocytes # (Manual) 1.0 X10*3/uL (0.6-4.8) 05/06/20 05:35 Monocytes # (Manual) 0.4 X10*3/uL (0.0-1.2) 05/06/20 05:35 Metamyelocytes # 0.1 X10*3/uL 05/06/20 05:35 Toxic Granulation PRESENT 05/06/20 05:35 Toxic Vacuolation PRES 05/06/20 05:35 Platelet Estimate NORMAL (NORMAL) 05/06/20 05:35 Large Platelets PRESENT 05/06/20 05:35 Plt Morphology Comment NOTE 05/06/20 05:35 RBC Morphology NORMAL 05/06/20 05:35 Acanthocytes (Spur) 1+ 05/06/20 05:35 Smear Tech's Comments VERIFIED 05/12/20 05:36 Hold Purple Top SEE NOTE 05/04/20 07:18 PT 12.0 SEC (10.8-13.0) D 05/13/20 10:10 INR 1.0 (0.9-1.1) 05/13/20 10:10 Hold Blue Top SEE NOTE 05/04/20 07:18 Sodium 139 mmol/L (135-145) 05/25/20 05:35 Potassium 4.3 mmol/l (3.3-5.1) 05/25/20 05:35 Chloride 106 mmol/L (96-108) 05/25/20 05:35 Carbon Dioxide 22 mmol/L (22-29) 05/25/20 05:35 Anion Gap 15 (12-20) 05/25/20 05:35 BUN 21 mg/dL (9-16) H 05/25/20 05:35 Creatinine 0.59 mg/dL (0.5-1.4) 05/25/20 05:35 Estim Creat Clear Calc 69.3 05/25/20 05:35 Estimated GFR > 60 05/25/20 05:35 POC Glucose 81 mg/dL (60-115) 05/27/20 08:04 Random Glucose 82 mg/dL (60-115) 05/25/20 05:35 Fasting Glucose 97 mg/dL (60-99) 05/21/20 06:03 Calcium 8.4 mg/dL (8.4-10.2) 05/25/20 05:35 Phosphorus 3.1 mg/dL (2.7-4.5) 05/24/20 11:18 Magnesium 1.7 mg/dL (1.6-2.6) 05/24/20 11:18 Total Bilirubin 0.7 mg/dL (0.0-1.0) 05/19/20 08:34 Direct Bilirubin 0.5 mg/dL (0.0-0.5) 05/19/20 08:34 AST 28 U/L (5-31) 05/19/20 08:34 ALT 32 U/L (0-31) H 05/19/20 08:34 Alkaline Phosphatase 323 U/L (39-117) H 05/19/20 08:34 Ammonia 34 umol/L (13-55) 05/19/20 13:27 Total Protein 6.4 g/dL (6.5-8.0) L 05/19/20 08:34 Albumin 2.7 g/dL (3.5-5.0) L 05/19/20 08:34 Triglycerides 107 mg/dL 05/17/20 05:09 Lipase 51 U/L (8-78) 05/04/20 07:58 Vitamin B12 994 pg/mL (200-900) H 05/07/20 05:17 Folate 4.7 ng/mL (> or = 4.0) 05/07/20 05:17 Gastrin 66 pg/mL (<=100) 05/04/20 17:56 TSH 2.26 uIU/mL (0.32-4.0) 05/07/20 05:17 Urine Color YELLOW 05/19/20 10:32 Urine Appearance CLEAR 05/19/20 10:32 Urine pH 5.5 (5.0-8.0) 05/19/20 10:32 Ur Specific [place] 1.025 (1.005-1.025) 05/19/20 10:32 Urine Protein NEG MG/DL (NEG-TRACE) 05/19/20 10:32 Urine Glucose (UA) NEG MG/DL (NEG) 05/19/20 10:32 Urine Ketones NEG MG/DL (NEG) 05/19/20 10:32 Urine Blood NEG (NEG) 05/19/20 10:32 Urine Nitrite NEG (NEG) 05/19/20 10:32 Ur Leukocyte Esterase NEG (NEG) 05/19/20 10:32 Stool Collect Date Cancelled 05/25/20 22:37 Stool 2 Collect Date Cancelled 05/25/20 22:37 Fecal Immunochem Test Cancelled 05/25/20 22:37 FIT Diagnostic Cancelled 05/25/20 22:37 Vancomycin Trough 14.0 mcg/mL (10.0-20.0) 05/25/20 16:58 COVID-19 (BELEM) Negative (Negative) 05/27/20 11:55 COVID-19 Clin Com See Note 05/27/20 11:55 Blood Type A Positive 05/04/20 07:24 Antibody Screen NEGATIVE 05/04/20 07:24 Discharge Plan Discharge Anticipated Discharge Date/Time: 05/27/20 15:00 Patient Disposition: Xfer Inpatient Rehab Fac [facility]errals: [facility] [Outside] Jasiel Fink MD [Primary Care Provider] - Natacha Riddle MD [Physician] - 06/08/20 Deon Angeles III, MD [Physician] - 06/03/20 Discharge Medications: New nystatin 100,000 unit/mL Suspension 200,000 unit PO QID 5 Days Qty: 40 RF: 0 oxcarbazepine 300 mg Tablet 300 mg PO BEDTIME Qty: 30 RF: 0 bisacodyl [Gentle Laxative (bisacodyl)] 10 mg Suppository 10 mg AK BEDTIME PRN (Reason: Constipation) Qty: 30 RF: 0 docusate sodium 100 mg Capsule 100 mg PO BID Qty: 60 RF: 0 sertraline 25 mg Tablet 25 mg PO DAILY Qty: 30 RF: 0 omeprazole 20 mg Capsule,Delayed Release(Dr/Ec) 20 mg PO BID@0630,1630 Qty: 60 RF: 0 risperidone 0.5 mg Tablet 0.5 mg PO BEDTIME Qty: 30 RF: 0 ferrous sulfate 324 mg (65 mg iron) Tablet,Delayed Release (Dr/Ec) 324 mg PO BIDWM Qty: 60 RF: 0 lorazepam 0.5 mg tablet 0.5 mg PO Q8H PRN (Reason: anxiety) Qty: 20 RF: 0 Discontinued sertraline 25 mg tablet 25 mg PO DAILY RF: 0 omeprazole 40 mg capsule,delayed release(DR/EC) 40 mg PO DAILY RF: 0 Discharge Orders: Discharge Order (Routine); Ordered 05/27/20 Ordered By: Natacha Riddle Diet: regular diet Activity on Discharge: No heavy lifting Activity Restrictions/Additional Instructions: Routine Krishnamurthy catheter care, will need follow-up with Dr. Deon Angeles III one week Has duodenostomy tube right upper quadrant of abdomen. Cleanse tube site gently with mild soap and water or similar skin cleanser every other day and apply a light dressing, secure tube to dressing or skin Visit Report Forms: Patient Portal Discharge page Care Plan Goals: return to normal strength and functional level Health Concerns: Recovery after surgery for perforated duodenal ulcer, urinary retention, anxiety and depression Plan of Treatment: Short-term rehabilitation, outpatient follow-up with surgery, Urology and Behavioral Health
--- NOTE | 2020-05-27 13:21 | MHC.CM.PN ---
Patient will be discharging today to [facility] at 3pm via BLS transport. Nurse, Isabel Ba are aware.
--- NOTE | 2020-05-27 13:37 | MHC.CARE ---
CARE Team coordinated with HARDENING MACHINE OPERATOR HELPER. Plan for Pt to be discharged to [facility] to set up discharging planning with PCP for re-started pysch medications once rehab is completed.
== END 2020-05-27 15:15 | DRG 326 ==
LOC: HO.ED 13:32 → HO.IMC 14:18
PROVIDERS: Internal Medicine; Internal Medicine Gastroenterology; Nurse Practitioner Acute Care; Psychiatry & Neurology Neurology; Surgery; Admitting Provider Student in an Organized Health Care Education/Training Program; Emergency Provider Emergency Medicine; PCP Internal Medicine; Visit Provider Surgery
PROC: 0DJ08ZZ Inspection of Upper Intestinal Tract, Via Natural or Artificial Opening Endoscopic (ICD-10-PCS; CPT 43235; principal; 2020-05-04 14:40)
PROC: (CPT 49000; principal; 2020-05-05 01:00)
DX: K26.6 Chronic or unspecified duodenal ulcer with both hemorrhage and perforation (principal); G93.41 Metabolic encephalopathy; K22.11 Ulcer of esophagus with bleeding; G89.29 Other chronic pain; R33.9 Retention of urine, unspecified; F32.9 Major depressive disorder, single episode, unspecified; E87.6 Hypokalemia; K66.0 Peritoneal adhesions (postprocedural) (postinfection); B37.9 Candidiasis, unspecified; K44.9 Diaphragmatic hernia without obstruction or gangrene; Z87.891 Personal history of nicotine dependence; Z20.828 Contact with and (suspected) exposure to other viral communicable diseases; Z79.899 Other long term (current) drug therapy
CPT/HCPCS: 36415; 36573; 71045; 74176; 78226; 80048; 80051; 80076; 80202; 81003; 82040; 82140; 82274; 82565; 82607; 82746; 82941; 82947; 83690; 83735; 84100; 84443; 84478; 84520; 85007; 85014; 85018; 85025; 85027; 85610; 86850; 86900; 86901; 87071; 87073; 87077; 87186; 87205; 87635; 88305; 88342; 96361; 96365; 96366; 96367; 96375; 97110; 97116; 97162; 97166; 97530; 97535; 99024; 99285; 99291; A9537; C1751; C1758; J0131; J1100; J1450; J1885; J2250; J2270; J2405; J2543; J3010; J3370; J3475

== ENCOUNTER → 2020-06-02 09:11 | Outpatient (BNVA) | payer MEDICARE, SELFPAY | PROVIDERS: PCP Internal Medicine; Visit Provider Urology | DX: N99.89 Other postprocedural complications and disorders of genitourinary system (principal); R33.8 Other retention of urine | CPT/HCPCS: 99202 ==

== ENCOUNTER → 2020-06-23 15:40 | Outpatient (BNVA) | payer MEDICARE, SELFPAY | PROVIDERS: PCP Internal Medicine; Visit Provider Surgery | DX: K26.9 Duodenal ulcer, unspecified as acute or chronic, without hemorrhage or perforation (principal) | CPT/HCPCS: 99212 ==

== ENCOUNTER → 2020-07-01 14:33 | Outpatient (BNVA) | payer MEDICARE, SELFPAY | PROVIDERS: PCP Internal Medicine; Visit Provider Surgery | DX: K26.9 Duodenal ulcer, unspecified as acute or chronic, without hemorrhage or perforation (principal) | CPT/HCPCS: 99212 ==

== ENCOUNTER 2020-07-21 12:39 | Outpatient (REF) | payer MEDICARE, SELFPAY ==
--- NOTE | ~2020-07-21 | MM_ITS ---
EXAMINATION: MM SCREENING DIGITAL BREAST TOMOSYNTHESIS, BILATERAL CLINICAL INFORMATION: Screening. Asymptomatic. The lifetime risk of breast cancer based on the Tyrer-Cuzick Model is 4.1%. COMPARISON: Mammography: None TECHNIQUE: Digital breast tomosynthesis is performed in both the craniocaudal and mediolateral oblique views along with computer-aided detection (CAD). Synthesized 2D images are generated from the tomosynthesis. Right exaggerated craniocaudal view also performed. FINDINGS: There are scattered areas of fibroglandular density (ACR BI-RADS breast composition Category b). There are no significant masses, abnormal calcifications, or other abnormalities. MM/MM tomosynthesis screening BI IMPRESSION: No mammographic evidence to suggest malignancy. ASSESSMENT: BI-RADS 1: Negative RECOMMENDATION: Routine annual mammography screening. This patient's information was entered into a reminder system with a target due date for their next mammogram.
== END 2020-07-21 12:40 | disposition home or self-care (01) ==
LOC: HO.MAMMO 12:39
PROVIDERS: Visit Provider Family Medicine
DX: Z12.31 Encounter for screening mammogram for malignant neoplasm of breast (principal)
CPT/HCPCS: 77063; 77067

== ENCOUNTER → 2020-10-27 07:34 | Outpatient (REF) | payer MEDICARE, SELFPAY ==
--- NOTE | 2020-10-27 07:43 | CA_ITS ---
Transthoracic Echocardiogram Patient (Last, First, Middle): Gypsy Rice M Gender: Female Date of : 1950 Age: 70 Procedure Date: 10/27/2020 Procedure Type: Transthoracic Echocardiogram Location: OP Height: 162.56 cm Weight: 49.9 kg BSA: 1.52 m2 Heart Rate: bpm BP: 117 / 70 mmHg Mud Mixer Operator: YR/CP Referring MD: Gadiel Tamez MD [place]: Everett Crouch MD Symptoms: R42 - Dizziness and giddiness Study Quality: Good ECG Rhythm: Sinus Conclusions: - 1. Normal LV systolic function grade 1 diastolic dysfunction 2. Normal cardiac valvular Doppler 3. Mildly elevated right ventricular systolic pressure 4. No pericardial effusion Findings Left Ventricle Normal left ventricular size, thickness, and systolic function. The visually estimated ejection fraction is between 60-65%. Spectral Doppler is indicative of an impaired relaxation filling pattern. E/E prime ratio is <8, consistent with normal filling pressures. Evidence suggests grade I (mild) diastolic dysfunction. Right Ventricle Normal right ventricular cavity size and systolic function. Atria Both atria are normal in size. There is no evidence of interatrial shunt. Aortic Valve The aortic valve structure and function is likely normal. There is no aortic valve stenosis. There is no aortic valve regurgitation. Mitral Valve Normal mitral valve structure and function. There is trace mitral valve regurgitation. There is no mitral valve stenosis. Pulmonic Valve The pulmonic valve is likely normal. There is trace pulmonic valve regurgitation. Tricuspid Valve Normal tricuspid valve structure. There is mild tricuspid valve regurgitation. The right ventricular systolic pressure is 40 mmHg. Normal right atrial pressure. Mild pulmonary hypertension is present. Great Vessels All visible segments of the aorta are normal in size. The pulmonary artery was not well visualized. Venous The inferior vena cava is normal in size and collapses greater than 50% with inspiration. Pericardium/Pleural There is no evidence of pericardial effusion. Prior Study Comparison No prior study available for comparison. Measurements 2D Linear Measurements IVSd: 0.99 0.6-0.9/0.6-1.0 cm LVIDd: 3.84 3.9-5.3/4.2-5.9 cm LVIDd Index: 2.53 2.4-3.2/2.2-3.1 cm/m2 LVIDs: 2.64 2.0-3.6 cm LVPWd: 0.82 0.7-1.1 cm Ao Root: 3.00 2.1-3.5 cm LA Diam: 2.70 2.7-3.8/3.0-4.0 cm LAIDs Index: 1.78 1.5-2.3 cm/m2 LV Mass: 129.19 67-162/88-224 g LV Mass Index: 84.99 43-95/49-115 g/m2 LVOT Diam: 2.00 3.0+(-)1.3 cm 2D Systolic Function EF 4C: 55.20 >55% EF 2C: 59.50 >55% EF BiP: 59.90 >55% Mitral Valve MV Pk E: 0.51 MV PK A: 0.77 MV Decel Time: 331.00 E/A: 0.70 E'Lateral: 7.18 E'Medial: 6.31 E/E' Med: 8.10 E/E' Lat: 7.20 PHT: 97.00 MVA PHT: 2.27 Decel [place]: 1.55 Aortic Valve AoV Pk Vincent: 1.45 AoV Mn Vincent: 1.08 AoV VTI: 0.31 AoV Pk Grad: 8.00 Aov Mn Grad: 5.00 MEGHANN Cont.VTI: 2.25 LVOT LVOT Pk Vincent: 1.08 LVOT Mn Vincent: 0.76 LVOT VTI: 0.22 LVOT Pk Grad: 5.00 LVOT Mn Grad: 3.00 LVOT Diam: 2.00 LVOT Area: 3.14 Diastolic Function MV Pk E: 0.51 MV Pk A: 0.77 E/A: 0.70 E'Medial: 6.31 E/E' Med: 8.10 E' Laterial: 7.18 E/E' Lat: 7.20 Tricuspid Valve TR Pk Vincent: 3.04 TR Pk Grad: 37.00 RA Press: 3.00 RVSP: 40.00 Great Vessels Aorta Ao Root-2D: 3.00 2.0-3.7 cm Ao Asc: 3.40 2.1-3.4 cm Ao Arch: 3.30 Updated in Other Vendor System with Status of Final Everett Crouch MD electronically signed on 10/27/2020 3:58:57 PM with status of Final
== END ==
LOC: HO.CARD 07:34
PROVIDERS: Visit Provider Internal Medicine Cardiovascular Disease
DX: R42 Dizziness and giddiness (principal)
CPT/HCPCS: 93306

== ENCOUNTER → 2020-12-06 14:32 | Outpatient (BNVA) | payer MEDICARE, SELFPAY | PROVIDERS: PCP Internal Medicine; Visit Provider Internal Medicine Cardiovascular Disease | DX: R42 Dizziness and giddiness (principal) | CPT/HCPCS: 99212 ==

== ENCOUNTER 2021-11-12 09:45 | Emergency (ER) | payer MEDICARE, SELFPAY ==
--- NOTE | ~2021-11-12 | CT_ITS ---
EXAMINATION: CT ABDOMEN AND PELVIS WITHOUT CONTRAST CLINICAL INFORMATION: 50 pound weight loss. COMPARISON: CT of the abdomen and pelvis done on 05/10/2020. TECHNIQUE: Multidetector volumetric imaging was performed from the superior aspect of the liver through the pubic symphysis. Sagittal and coronal reformatted images were obtained on the technologist's workstation. This CT examination was performed using dose optimization techniques as appropriate, variously including the following: *Automated exposure control *Adjustment of mA and/or kV according to patient size (this includes techniques or standardized protocols for targeted exams where dose is matched to indication/reason for exam; i.e. extremities or head) *Use of iterative reconstruction technique DLP: 235 mGy-cm FINDINGS: LUNG BASES: The visualized lung bases are unremarkable. LIVER, GALLBLADDER, AND BILIARY TREE: The liver is normal in size, shape, and attenuation. No focal hepatic lesion or biliary ductal dilatation is present. The gallbladder is unremarkable with no evidence of radiopaque gallstones, gallbladder wall thickening, or obvious pericholecystic inflammatory changes. PANCREAS: Unremarkable. SPLEEN: Unremarkable. ADRENAL GLANDS: Unremarkable. KIDNEYS AND URETERS: The left kidney is normal in size, shape, and attenuation. No hydronephrosis, hydroureter, or calculi seen. No perinephric stranding. Moderate right-sided hydronephrosis is present, shows interval progression since prior study. Interval development of 2 layering radiopaque calculi noted within the inferior posterior calyx, the larger measures approximately 0.8 cm at its maximum dimension (28:3). BLADDER: Suboptimally distended, grossly unremarkable. GASTROINTESTINAL TRACT: The small, large bowel loops are not distended. Significant fecal residual within the large bowel. Few small air-fluid levels are noted within the small bowel loops at anterior part of the lower pelvis. Nonvisualized appendix. ABDOMINAL WALL: No significant hernia is appreciated. LYMPH NODES: Evaluation of the retroperitoneum is technically limited due to lack of body fat and lack of oral and intravenous contrast. VASCULAR: Atherosclerotic disease of the aorta and is branches without formation. PELVIC VISCERA: There is no pelvic mass present. No evidence of any free fluid and/or free air. OSSEOUS STRUCTURES: Moderate diffuse osteopenia. CT/CT abdomen pelvis wo con IMPRESSION: 1. Technically limited study due to lack of oral and intravenous contrast and lack of body fat. 2. Moderate right-sided hydronephrosis, shows interval progression since prior study dated 05/10/2020. Note is made of interval development of 2 layering radiopaque calculi within the inferior posterior calyx, the largest measures 0.8 cm. 3. The etiology for weight loss is not evident on these images. Fleischner guidelines were followed.
--- NOTE | ~2021-11-12 | XR_ITS ---
EXAMINATION: XR CHEST CLINICAL INFORMATION: Weakness and weight loss COMPARISON: 05/06/2020 and prior TECHNIQUE: Nodule in lateral views in 3 parts FINDINGS: Large lung volumes suggest hyperinflation. No acute consolidation or effusion. No pneumothorax. Progressive asymmetric right apical pleural parenchymal scarring. Correlate with smoking history. If there is a history of smoking or other risk factors for lung cancer further evaluation with chest CT is advised. No obvious emphysema on limited CT images through the lung bases on 05/10/2020. Heart and mediastinum within normal limits. No mass or adenopathy. No edema. Nonobstructive gas pattern. No acute osseous finding. XR/XR chest 2V IMPRESSION: 1. Progressive hyperinflation. 2. Progressive asymmetric right apical pleural parenchymal scarring. If there is a history of smoking or other risk factors for lung cancer chest CT is indicated.
[2021-11-12 09:47] VITALS: BP 149/80; PULSE 87; RESP 16; TEMP 36.8; O2SAT 98; BMI 14.0
--- NOTE | 2021-11-12 10:24 | ECG_ITS ---
Test Reason : WEIGHT LOSS Blood Pressure : / mmHG Vent. Rate : 067 BPM Atrial Rate : 067 BPM P-R Int : 132 ms QRS Dur : 106 ms QT Int : 384 ms P-R-T Axes : 080 024 063 degrees QTc Int : 405 ms Normal sinus rhythm Incomplete right bundle branch block Borderline ECG When compared with ECG of 22-APR-2020 13:42, QT has shortened Referred By: Kajal Combs Electronically Signed By:SAMUEL JAVIER MD
--- NOTE | 2021-11-12 10:25 | PC.NURSE ---
Patient brought in to pod by self, reports increased depression, 50 lbs weight loss over the last year due to decreased appetite. Changed over with secuirty, belongings secured. Denies SI/HI. Reports she used to take antidepressants, but it has been about a year. Patient endorses prior alcoholism, has not drank in many years. Endorses having tried marijuana for appetite stimulation, which was unsuccessful. Urine and Covid collected. Awaiting further orders from provider. Patient currently visiting with family member. Care plan updated.
--- NOTE | 2021-11-12 10:27 | ED.PSYCH ---
HPI - Psych General Chief Complaint: Psychiatric Symptoms Stated Complaint: Psych eval Time Seen by Provider: 11/12/21 09:56 Source: patient Mode of arrival: ambulatory Limitations: no limitations History of Present Illness HPI Narrative: 71-year-old female with history of bipolar disorder, anxiety, depression, perforated duodenal ulcer with repair in 2019, formal alcohol abuse here with reports of 50 lb weight loss over the last 12 months. Patient tells me she has poor appetite. She tells me that when she tries to eat she feels full very quickly. No vomiting, diarrhea or constipation or urinary symptoms. She does report some generalized abdominal discomfort. She does report depression and has not been taking her psychiatric medications for more than 1 year. She denies any homicidal or suicidal ideations. Related Data Home Medications Medication Instructions Recorded Confirmed acetaminophen 325 mg tablet 325 mg PO QID PRN 06/23/20 07/01/20 magnesium citrate (Citrate of 150 ml PO DAILY 06/23/20 07/01/20 Magnesia) magnesium hydroxide 400 mg/5 mL 5 ml PO DAILY PRN 06/23/20 07/01/20 oral suspension (Milk of Magnesia) naloxone 4 mg/actuation nasal 1 spray intranasal Q2M 06/23/20 07/01/20 spray (Narcan) ondansetron 4 mg disintegrating 4 mg PO Q8H PRN nausea 06/23/20 07/01/20 tablet polyethylene glycol 3350 17 17 g PO DAILY 06/23/20 07/01/20 gram/dose oral powder (GlycoLax) sennosides 8.6 mg capsule (senna) 8.6 mg PO BEDTIME 06/23/20 07/01/20 sodium phosphates 19 gram-7 118 ml RI DAILY PRN 06/23/20 07/01/20 gram/118 mL enema (Fleet Enema) tamsulosin 0.4 mg capsule 0.8 mg PO BEDTIME 06/23/20 07/01/20 Previous Rx's Medication Instructions Recorded bisacodyl 10 mg rectal suppository 10 mg RI BEDTIME PRN Constipation 05/27/20 (Gentle Laxative (bisacodyl)) #30 ea docusate sodium 100 mg capsule 100 mg PO BID #60 caps 05/27/20 ferrous sulfate 324 mg (65 mg 324 mg PO BIDWM #60 tabs 01/07/21 iron) tablet,delayed release lorazepam 0.5 mg tablet 0.5 mg PO Q8H PRN anxiety #20 tabs 05/27/20 nystatin 100,000 unit/mL oral 200,000 unit PO QID 5 days #40 mL 05/27/20 suspension omeprazole 20 mg capsule,delayed 20 mg PO BID@0630,1630 #60 caps 05/27/20 release oxcarbazepine 300 mg tablet 300 mg PO BEDTIME #30 tabs 05/27/20 risperidone 0.5 mg tablet 0.5 mg PO BEDTIME #30 tabs 05/27/20 sertraline 25 mg tablet 25 mg PO DAILY #30 tabs 05/27/20 Allergies Allergy/AdvReac Type Severity Reaction Status Date / Time No Known Allergies Allergy Verified 12/06/20 14:38 [No Known Allergies*] Review of Systems Review of Systems: Yes all other systems are reviewed and are negative Constitutional: Constitutional: Reports no additional constitutional complaints, Denies body ache(s), Denies chills, Denies fever(s), Denies headache(s), Reports poor appetite, Denies weakness and Reports weight loss Eyes: Eyes: Reports no additional eye complaints and Denies change in vision ENT: Reports system reviewed and no additional complaints, except as documented, Denies dizziness, Denies headache(s), Denies nasal congestion, Denies nasal discharge and Denies neck pain Cardiovascular: Cardiovascular: Reports no additional cardiovascular complaints, Denies chest pain, Denies leg edema and Denies dyspnea Respiratory: Respiratory: Reports no additional respiratory complaints, Denies cough and Denies dyspnea Gastrointestinal: Gastrointestinal: Reports no additional gastrointestinal complaints, Denies abdominal pain, Denies melena, Denies hematochezia, Reports early satiety, Denies diarrhea, Denies nausea and Denies vomiting Genitourinary: Genitourinary: Reports no additional female genitourinary complaints and Denies urinary incontinence Musculoskeletal: Musculoskeletal: Reports no additional musculoskeletal complaints, Denies back pain, Denies arthralgias, Denies joint swelling, Denies neck pain, Denies numbness and Denies tingling Integumentary/Breasts: Skin/Breast: Reports system reviewed and no additional complaints, except as docu and Denies rash Neurologic: Reports system reviewed and no additional complaints, except as documented, Denies Abnormal speech present, Denies dizziness, Denies headache(s), Denies numbness, Denies tingling and Denies weakness Psychiatric: Psychiatric: Reports depression, Denies homicidal ideation and Denies suicidal ideation [facility] Past Medical History Attestation statement: The following information was validated with the patient. Source: old records reviewed and nursing notes reviewed Medical History Back pain Dizziness Encephalopathy History of ETOH abuse Perforated duodenal ulcer Peritonitis Postoperative retention of urine UGI bleed Surgical History History of appendectomy Family History Family History Mother No problems noted. Father No problems noted. Social History Social History Household Members: Significant Other Housing: House Do you presently have visiting nurse or other home services: No Alcohol intake: former Patient Tobacco Use Status: Never used Tobacco Use of substances other than those prescribed or required for medical reasons: No Advance Directives: Yes Advance Directives on File: Yes Advance Directives Date on File: 05/04/20 service: No Current occupational status: retired Physical Exam Vital Signs: Vital Signs: Last Vital Signs Temp 98.2 F 11/12/21 09:47 Pulse 87 11/12/21 09:47 Resp 16 11/12/21 09:47 BP 149/80 H 11/12/21 09:47 Pulse Ox 98 11/12/21 09:47 O2 Del Method 11/12/21 09:47 BMI result Body Mass Index 14.0 Const: General: cooperative, healthy appearing, comfortable and no acute distress Nutritional Appearance: thin Orientation/consciousness: patient oriented x3 Limitations: no limitations HEENT: Head: Yes normal to inspection Ears: hearing grossly normal bilaterally General nose exam: Normal external nose present Face and sinus: Yes normal facial exam Mouth: Normal oral and palatal mucosa present Throat: Yes posterior oropharynx normal Eyes: General: appearance normal, both eyes and all related structures Pupils: Equal, round and reactive pupils present Neck: Neck: Yes normal visual inspection Chest: Chest palpation & inspection: normal inspection of the chest Resp: Effort & Inspection: normal respiratory effort Auscultation: clear to auscultation bilaterally Cardio: Rate: regular rate Rhythm: regular rhythm Peripheral pulses: Peripheral pulses 2+ throughout GI: Inspection: Yes normal to inspection Palpation (GI): Soft to palpation and Tenderness to palpation present (GI) (Generalized with no rebound or guarding) Auscultation: normal bowel sounds Back/Spine/Pelvis: Thoracic/Lumbar Spine: thoracic and lumbar spine normal to inspection Skin: General skin exam: no rashes or lesions noted Neuro: General: patient oriented x3, no focal motor deficits and normal sensation to monofilament Cranial nerves: Yes CN's II-XII intact bilaterally and Yes Equal, round and reactive pupils present Cognition (Neuro): normal cognition Speech: No Abnormal speech present Gait exam (Neuro): Normal gait present Motor exam (neuro): 5/5 motor strength present throughout Extrem: General: Yes normal to inspection Course Course Course Narrative: Labs are unremarkable. UA shows no acute finding. Imaging shows some mild right-sided hydro secondary to stone. Unchanged from previous imaging. Normal renal function. UA shows no signs of infection. Patient denies any flank pain. I spoke to the patient and her . The patient has had a longstanding history of weight loss and poor appetite. She saw [place] 1 month ago and had endoscopy and colonoscopy that reportedly were normal. she had outpatient CT scan last week that was normal at [facility]. She has seen her primary care in the last few months as well as GI. They tell me that she has also had labs which all been normal. Lengthy discussion with patient and family in addition to the care team (Ade). Weight loss may be secondary to underlying mental health. Patient poses no imminent risk requiring hospitalization today. She has follow-up on Sunday with her mental health psychiatrist and her intake is next week with [facility]. Safety plan was made with patient and family. Will discharge home with strict return precautions. Reviewed worrisome signs and symptoms of when to return to the emergency department. Comfortable discharge home. -this patient was evaluated during a time of global shortage of ionizing contrast media. Based on guided to the [employer], best practices in local institutional broaches and alternative pathway for evaluating and managing the patient may have been employed in order to provide optimal care during the shortage MDM - Psych MDM Narrative Medical decision making narrative: 71-year-old female with a history of bipolar disease, anxiety, depression, former alcohol abuse, perforated duodenal ulcer requiring repair in 2019 here with reports of generalized abdominal pain, poor appetite, feeling full early, and 50 lb weight loss over the last 12 months. Patient also reports depression, not taking her medications. On exam mild diffuse tenderness. Patient is quite thin appearing. Eventually will need a care team consultation however patient will need medical clearance first. Concern for malignancy, acute abdominal pathology, infection, decompensated depression Will check labs, UA, chest x-ray, CT, COVID screen Medical Records Attestation: I reviewed the patient's medical records. Lab Data Attestation: I reviewed the patient's lab results. Result diagrams: 11/12/21 11:31 11/12/21 11:31 Labs: Lab Results 11/12/21 11/12/21 11/12/21 Range/Units 10:16 10:16 10:16 WBC (4.8-10.8) X10*3/uL RBC (4.20-5.50) X10*6/uL Hgb (12.0-16.0) g/dl Hct (37.0-47.0) % MCV (80.0-98.0) fL MCH (27.0-33.0) pg MCHC (31.0-35.0) g/dl RDW (11.0-16.0) % Plt Count (160-400) X10*3/uL MPV (9.4-12.3) fL Immature Gran % (Auto) (0.0-0.4) % Neut % (Auto) (45-73) % Lymph % (Auto) (20-40) % [place] % (Auto) (2-11) % Eos % (Auto) (0-4) % Baso % (Auto) (0-2) % Lymph # (Auto) (1.2-4.9) X10*3/uL [place] # (Auto) (0.1-1.2) X10*3/uL Eos # (Auto) (0.0-0.4) X10*3/uL Baso # (Auto) (0.0-0.2) X10*3/uL Abs Immat Gran (auto) (0.00-0.03) X10*3/uL Absolute Neuts (auto) (2.0-8.3) x10*3/uL Absolute Nucleated RBC (0.0-0.012) X10*3/uL Nucleated RBC % (auto) (0.0-0.2) /100WBC Sodium (135-145) mmol/L Potassium (3.3-5.1) mmol/L Chloride (96-108) mmol/L Carbon Dioxide (22-29) mmol/L Anion Gap (12-20) BUN (9-16) mg/dL Creatinine (0.5-1.4) mg/dL Estim Creat Clear Calc Estimated GFR Random Glucose (60-115) mg/dL Lactic Acid (0.5-2.0) mmol/L Calcium (8.4-10.2) mg/dL Magnesium (1.6-2.6) mg/dL Total Bilirubin (0.0-1.0) mg/dL Direct Bilirubin (0.0-0.5) mg/dL AST (5-31) U/L ALT (0-31) U/L Alkaline Phosphatase (39-117) U/L Total Protein (6.5-8.0) g/dL Albumin (3.5-5.0) g/dL Lipase (8-78) U/L TSH (0.32-4.0) uIU/mL Urine Color YELLOW Urine Appearance CLEAR Urine pH 5.5 (5.0-8.0) Ur Specific [place] >= 1.030 H (1.005-1.025) Urine Protein TRACE (NEG-TRACE) MG/DL Urine Glucose (UA) NEG (NEG) MG/DL Urine Ketones NEG (NEG) MG/DL Urine Blood NEG (NEG) Urine Nitrite NEG (NEG) Ur Leukocyte Esterase NEG (NEG) Urine Opiates Screen Not Detected (Not Detect) Urine Fentanyl Screen Not Detected (Not Detect) Ur Barbiturates Screen Not Detected (Not Detect) Ur Phencyclidine Scrn Not Detected (Not Detect) Ur Amphetamines Screen Not Detected (Not Detect) U Benzodiazepines Scrn Not Detected (Not Detect) Urine Cocaine Screen Not Detected (Not Detect) U Marijuana (THC) Screen Not Detected (Not Detect) Ethyl Alcohol mg/dL COVID-19 (BELEM) Negative (Negative) COVID-19 Clin Com See Note 11/12/21 11/12/21 11/12/21 Range/Units 11:31 11:31 11:31 WBC 6.4 (4.8-10.8) X10*3/uL RBC 4.44 (4.20-5.50) X10*6/uL Hgb 13.1 (12.0-16.0) g/dl Hct 40.6 (37.0-47.0) % MCV 91.4 (80.0-98.0) fL MCH 29.5 (27.0-33.0) pg MCHC 32.3 (31.0-35.0) g/dl RDW 12.9 (11.0-16.0) % Plt Count 242 (160-400) X10*3/uL MPV 9.0 L (9.4-12.3) fL Immature Gran % (Auto) 0.3 (0.0-0.4) % Neut % (Auto) 65.4 (45-73) % Lymph % (Auto) 24.2 (20-40) % [place] % (Auto) 9.3 (2-11) % Eos % (Auto) 0.6 (0-4) % Baso % (Auto) 0.2 (0-2) % Lymph # (Auto) 1.5 (1.2-4.9) X10*3/uL [place] # (Auto) 0.6 (0.1-1.2) X10*3/uL Eos # (Auto) 0.0 (0.0-0.4) X10*3/uL Baso # (Auto) 0.0 (0.0-0.2) X10*3/uL Abs Immat Gran (auto) 0.02 (0.00-0.03) X10*3/uL Absolute Neuts (auto) 4.2 (2.0-8.3) x10*3/uL Absolute Nucleated RBC 0.000 (0.0-0.012) X10*3/uL Nucleated RBC % (auto) 0.0 (0.0-0.2) /100WBC Sodium 138 (135-145) mmol/L Potassium 4.2 (3.3-5.1) mmol/L Chloride 103 (96-108) mmol/L Carbon Dioxide 29 (22-29) mmol/L Anion Gap 10 L (12-20) BUN 22 H (9-16) mg/dL Creatinine 0.72 (0.5-1.4) mg/dL Estim Creat Clear Calc 40.6 Estimated GFR > 60 Random Glucose 67 (60-115) mg/dL Lactic Acid (0.5-2.0) mmol/L Calcium 9.3 D (8.4-10.2) mg/dL Magnesium 1.9 (1.6-2.6) mg/dL Total Bilirubin 0.3 (0.0-1.0) mg/dL Direct Bilirubin 0.2 (0.0-0.5) mg/dL AST 19 (5-31) U/L ALT 19 (0-31) U/L Alkaline Phosphatase 97 D (39-117) U/L Total Protein 6.4 L (6.5-8.0) g/dL Albumin 3.8 D (3.5-5.0) g/dL Lipase 35 (8-78) U/L TSH 1.55 (0.32-4.0) uIU/mL Urine Color Urine Appearance Urine pH (5.0-8.0) Ur Specific [place] (1.005-1.025) Urine Protein (NEG-TRACE) MG/DL Urine Glucose (UA) (NEG) MG/DL Urine Ketones (NEG) MG/DL Urine Blood (NEG) Urine Nitrite (NEG) Ur Leukocyte Esterase (NEG) Urine Opiates Screen (Not Detect) Urine Fentanyl Screen (Not Detect) Ur Barbiturates Screen (Not Detect) Ur Phencyclidine Scrn (Not Detect) Ur Amphetamines Screen (Not Detect) U Benzodiazepines Scrn (Not Detect) Urine Cocaine Screen (Not Detect) U Marijuana (THC) Screen (Not Detect) Ethyl Alcohol < 10 mg/dL COVID-19 (BELEM) (Negative) COVID-19 Clin Com 11/12/21 Range/Units 11:52 WBC (4.8-10.8) X10*3/uL RBC (4.20-5.50) X10*6/uL Hgb (12.0-16.0) g/dl Hct (37.0-47.0) % MCV (80.0-98.0) fL MCH (27.0-33.0) pg MCHC (31.0-35.0) g/dl RDW (11.0-16.0) % Plt Count (160-400) X10*3/uL MPV (9.4-12.3) fL Immature Gran % (Auto) (0.0-0.4) % Neut % (Auto) (45-73) % Lymph % (Auto) (20-40) % [place] % (Auto) (2-11) % Eos % (Auto) (0-4) % Baso % (Auto) (0-2) % Lymph # (Auto) (1.2-4.9) X10*3/uL [place] # (Auto) (0.1-1.2) X10*3/uL Eos # (Auto) (0.0-0.4) X10*3/uL Baso # (Auto) (0.0-0.2) X10*3/uL Abs Immat Gran (auto) (0.00-0.03) X10*3/uL Absolute Neuts (auto) (2.0-8.3) x10*3/uL Absolute Nucleated RBC (0.0-0.012) X10*3/uL Nucleated RBC % (auto) (0.0-0.2) /100WBC Sodium (135-145) mmol/L Potassium (3.3-5.1) mmol/L Chloride (96-108) mmol/L Carbon Dioxide (22-29) mmol/L Anion Gap (12-20) BUN (9-16) mg/dL Creatinine (0.5-1.4) mg/dL Estim Creat Clear Calc Estimated GFR Random Glucose (60-115) mg/dL Lactic Acid 0.7 (0.5-2.0) mmol/L Calcium (8.4-10.2) mg/dL Magnesium (1.6-2.6) mg/dL Total Bilirubin (0.0-1.0) mg/dL Direct Bilirubin (0.0-0.5) mg/dL AST (5-31) U/L ALT (0-31) U/L Alkaline Phosphatase (39-117) U/L Total Protein (6.5-8.0) g/dL Albumin (3.5-5.0) g/dL Lipase (8-78) U/L TSH (0.32-4.0) uIU/mL Urine Color Urine Appearance Urine pH (5.0-8.0) Ur Specific [place] (1.005-1.025) Urine Protein (NEG-TRACE) MG/DL Urine Glucose (UA) (NEG) MG/DL Urine Ketones (NEG) MG/DL Urine Blood (NEG) Urine Nitrite (NEG) Ur Leukocyte Esterase (NEG) Urine Opiates Screen (Not Detect) Urine Fentanyl Screen (Not Detect) Ur Barbiturates Screen (Not Detect) Ur Phencyclidine Scrn (Not Detect) Ur Amphetamines Screen (Not Detect) U Benzodiazepines Scrn (Not Detect) Urine Cocaine Screen (Not Detect) U Marijuana (THC) Screen (Not Detect) Ethyl Alcohol mg/dL COVID-19 (BELEM) (Negative) COVID-19 Clin Com Imaging Data CT scan - abdomen: Attestation: I personally reviewed and interpreted this imaging study as follows: Radiologist's impression: FINDINGS: LUNG BASES: The visualized lung bases are unremarkable.? LIVER, GALLBLADDER, AND BILIARY TREE: The liver is normal in size, shape, and attenuation. No focal hepatic lesion or biliary ductal dilatation is present. The gallbladder is unremarkable with no evidence of radiopaque gallstones, gallbladder wall thickening, or obvious pericholecystic inflammatory changes.? PANCREAS: Unremarkable.? SPLEEN: Unremarkable.? ADRENAL GLANDS: Unremarkable.? KIDNEYS AND URETERS: The left kidney is normal in size, shape, and attenuation. No hydronephrosis, hydroureter, or calculi seen. No perinephric stranding. Moderate right-sided hydronephrosis is present, shows interval progression since prior study. Interval development of 2 layering radiopaque calculi noted within the inferior posterior calyx, the larger measures approximately 0.8 cm at its maximum dimension (28:3). BLADDER: Suboptimally distended, grossly unremarkable.? GASTROINTESTINAL TRACT: The small, large bowel loops are not distended. Significant fecal residual within the large bowel. Few small air-fluid levels are noted within the small bowel loops at anterior part of the lower pelvis. Nonvisualized appendix. ABDOMINAL WALL: No significant hernia is appreciated.? LYMPH NODES: Evaluation of the retroperitoneum is technically limited due to lack of body fat and lack of oral and intravenous contrast. VASCULAR: Atherosclerotic disease of the aorta and is branches without formation. PELVIC VISCERA: There is no pelvic mass present. No evidence of any free fluid and/or free air.? OSSEOUS STRUCTURES: Moderate diffuse osteopenia. CT/CT abdomen pelvis wo con IMPRESSION: ? 1. Technically limited study due to lack of oral and intravenous contrast and lack of body fat. 2. Moderate right-sided hydronephrosis, shows interval progression since prior study dated 05/10/2020. Note is made of interval development of 2 layering radiopaque calculi within the inferior posterior calyx, the largest measures 0.8 cm. 3. The etiology for weight loss is not evident on these images. Chest x-ray: Attestation: I personally reviewed and interpreted this imaging study as follows: Radiologist's impression: FINDINGS: Large lung volumes suggest hyperinflation. No acute consolidation or effusion. No pneumothorax. Progressive asymmetric right apical pleural parenchymal scarring. Correlate with smoking history. If there is a history of smoking or other risk factors for lung cancer further evaluation with chest CT is advised. No obvious emphysema on limited CT images through the lung bases on 05/10/2020. Heart and mediastinum within normal limits. No mass or adenopathy. No edema. Nonobstructive gas pattern. No acute osseous finding. XR/XR chest 2V IMPRESSION: ? 1. Progressive hyperinflation. 2. Progressive asymmetric right apical pleural parenchymal scarring. ? If there is a history of smoking or other risk factors for lung cancer chest CT is indicated. -Patient denies smoking history ECG Data Attestation: I personally reviewed and interpreted this ECG as follows: ECG interpretation date: 11/12/21 ECG interpretation time: 10:36 Interpretation: Normal sinus rhythm with a rate of 67, incomplete right bundle-branch block, normal RI, normal QT Discharge Plan Discharge Clinical Impression: Depression, Weight loss Patient Disposition: Home, Self-Care Instructions: Depression in Older Adults (ED), Depression (ED), Depression Management for Older Adults (ED) Additional Instructions: Follow-up with your outpatient providers this week as well as your intake with [facility]ala for any increasing depression, suicidal thoughts Prescriptions: No Action nystatin 100,000 unit/mL Suspension 200,000 unit PO QID 5 Days Qty: 40 0RF Protocol: Apply to: Apply to: oral swish and swallow oxcarbazepine 300 mg Tablet 300 mg PO BEDTIME Qty: 30 0RF bisacodyl [Gentle Laxative (bisacodyl)] 10 mg Suppository 10 mg RI BEDTIME PRN (Reason: Constipation) Qty: 30 0RF docusate sodium 100 mg Capsule 100 mg PO BID Qty: 60 0RF sertraline 25 mg Tablet 25 mg PO DAILY Qty: 30 0RF omeprazole 20 mg Capsule,Delayed Release(Dr/Ec) 20 mg PO BID@0630,1630 Qty: 60 0RF risperidone 0.5 mg Tablet 0.5 mg PO BEDTIME Qty: 30 0RF ferrous sulfate 324 mg (65 mg iron) Tablet,Delayed Release (Dr/Ec) 324 mg PO BIDWM Qty: 60 0RF lorazepam 0.5 mg tablet 0.5 mg PO Q8H PRN (Reason: anxiety) Qty: 20 0RF acetaminophen 325 mg tablet 325 mg PO QID PRN magnesium citrate [Citrate of Magnesia] Solution 150 ml PO DAILY Fleet Enema 19-7 gram/118 mL enema 118 ml RI DAILY PRN polyethylene glycol 3350 [GlycoLax] 17 gram/dose powder 17 g PO DAILY magnesium hydroxide [Milk of Magnesia] 400 mg/5 mL suspension 5 ml PO DAILY PRN Narcan 4 mg/actuation spray,non-aerosol 1 spray intranasal Q2M Rx Instructions: spray 1 dose into ONE nostril; alternate nostrils w each dose until help arrives senna 8.6 mg capsule 8.6 mg PO BEDTIME tamsulosin 0.4 mg capsule 0.8 mg PO BEDTIME ondansetron 4 mg tablet,disintegrating 4 mg PO Q8H PRN (Reason: nausea) Referrals: Jenny Castro MD [Primary Care Provider] - 1 week
[2021-11-12 10:37] LABS: Amphetamine Screen Urine Not Detected (Not Detect); Barbiturates, Urine Not Detected (Not Detect); Benzodiazepines Screen Urine Not Detected (Not Detect); Cannabinoid Screen Urine Not Detected (Not Detect); Cocaine Screen Urine Not Detected (Not Detect); Fentanyl, urine Not Detected (Not Detect); Opiate Screen Urine Not Detected (Not Detect); Phencyclidine Screen Urine Not Detected (Not Detect)
[2021-11-12 10:39] LABS: Appearance Urine CLEAR; Color Urine YELLOW; Glucose Urine UA NEG (NEG); Leukocyte Esterase Urine NEG (NEG); Nitrite Urine NEG (NEG); PH 5.5 (5.0-8.0); Specific Gravity - Urine >= 1.030 (1.005-1.025); Urine Blood NEG (NEG); Urine Ketones NEG (NEG); Urine Protein TRACE MG/DL (NEG-TRACE)
[2021-11-12 10:43] LABS: COVID-19 Test Negative (Negative)
[2021-11-12 11:38] LABS: MANUAL DIFF FLAG NO
[2021-11-12 11:39] LABS: Basophils Percent Auto 0.2 % (0-2); Eosinophils Percent Auto 0.6 % (0-4); Hematocrit 40.6 % (37.0-47.0); Hemoglobin 13.1 g/dl (12.0-16.0); Imm Gran Abs Auto 0.02 X10*3/uL (0.00-0.03); Imm Gran Pct Auto 0.3 % (0.0-0.4); Lymphocytes Absolute Auto 1.5 X10*3/uL (1.2-4.9); Lymphocytes Percent Auto 24.2 % (20-40); Mean Corpuscular HGB Conc 32.3 g/dl (31.0-35.0); Mean Corpuscular Hemoglobin 29.5 pg (27.0-33.0); Mean Corpuscular Volume 91.4 fL (80.0-98.0); Monocytes Absolute Auto 0.6 X10*3/uL (0.1-1.2); Monocytes Percent Auto 9.3 % (2-11); Neutrophils Absolute Auto 4.2 x10*3/uL (2.0-8.3); Neutrophils Percent Auto 65.4 % (45-73); Platelet Count 242 X10*3/uL (160-400); Red Blood Count 4.44 X10*6/uL (4.20-5.50); Red Cell Distribution Width 12.9 % (11.0-16.0); White Blood Count 6.4 X10*3/uL (4.8-10.8)
--- NOTE | 2021-11-12 11:54 | MHC.CARE ---
PT is a 71 year old female who self-presented to the ER per recommendation of her Psychiatric Practitioner, Dorothy Benitez, after having a virtual consultation on November 10. She reports that Ms. Benitez was concerned with possible impact mental health confusion. It was recommended that she be evaluated for inpatient care for medication review. Pt also has a diagnosis of Bi-Polar, however has not been on any medication for over a year, due to her refusal as she states that she does not like the way the medication makes her feel. Previously, she had been prescribed Risperidone, and Zyprexa, however continues to not take the medication. Pt previously had been seen for confused mental status. Pt states that they were previously Pt receive psychiatric/therapeutic services through [facility]. Pt was alert and did not demonstrate any level of confusion when speaking to this Care TEAM SW. Pt denies any SI/HI.?? Pt has lost over 50lbs within the last year which has led to an increase in her depression. She denies not wanting to eat and was able to explain that what she typically eats throughout the day. Pt stated that it was recommended that she utilize marijuana to assist with increasing her appetite however it has not assisted. PT was medically evaluated to ensure that she was not suffering from any medical complexities, however all labs and imaging were normal. Consult was completed with TOBIAS Combs relative to her medical treatment and her frail appearance. At this time, there is no medical determination that would necessitate a medical impatient admission. Case was conference with automation and controls instructor who agreed that Pt did not necessitate inpatient level of care. Pt to be discharged with safety plan listed below: 1)? Will contact [phone] if feeling unsafe 2)? Contact Satinder Cui? Practitioner, on Sunday, November 14 for follow up / medication 3)? Will return to [facility] ED if experiencing any further symptoms 4)? Follow up with [facility] with scheduled appointment TOBIAS Combs was alerted of the discharge.
[2021-11-12 12:05] LABS: Ethanol < 10 mg/dL
[2021-11-12 12:08] LABS: Lactic Acid 0.7 mmol/L (0.5-2.0)
[2021-11-12 12:11] LABS: Alanine Aminotransferase 19 U/L (0-31); Albumin Level 3.8 g/dL (3.5-5.0); Alkaline Phosphatase 97 U/L (39-117); Anion Gap 10 (12-20); Aspartate Amino Transferase 19 U/L (5-31); Bilirubin Direct 0.2 mg/dL (0.0-0.5); Bilirubin Total 0.3 mg/dL (0.0-1.0); Blood Urea Nitrogen 22 mg/dL (9-16); Calcium 9.3 mg/dL (8.4-10.2); Carbon Dioxide 29 mmol/L (22-29); Chloride 103 mmol/L (96-108); Creatinine Clr Calc Pharmacy 40.6; Estimated Glomerular Filt Rate > 60; Glucose Random 67 mg/dL (60-115); Lipase 35 U/L (8-78); Magnesium 1.9 mg/dL (1.6-2.6); Potassium 4.2 mmol/L (3.3-5.1); Sodium 138 mmol/L (135-145); Total Protein 6.4 g/dL (6.5-8.0)
[2021-11-12 13:05] LABS: Thyroid Stimulating Hormone 1.55 uIU/mL (0.32-4.0)
--- NOTE | 2021-11-12 15:37 | MHC.CARE ---
CARE reviewed safety plan with pt and also together with pt and pts partner. Together they agreed to follow up with OP provider and upcoming intake at [facility]. Pt expressed desire to discharge home and partner was willing to support this plan.
--- NOTE | 2021-11-14 09:58 | MHC.CARE ---
Follow up call completed
== END 2021-11-12 15:14 | disposition home or self-care (01) ==
PROVIDERS: Nurse Practitioner Family; Emergency Provider Emergency Medicine Emergency Medical Services; PCP Family Medicine
DX: F33.1 Major depressive disorder, recurrent, moderate (principal); R63.4 Abnormal weight loss; R10.9 Unspecified abdominal pain; Z20.822 Contact with and (suspected) exposure to COVID-19; Z79.899 Other long term (current) drug therapy; Z91.19 Patient's noncompliance with other medical treatment and regimen
CPT/HCPCS: 36415; 71046; 74176; 80048; 80076; 80307; 81003; 82077; 83605; 83690; 83735; 84443; 85025; 87040; 87635; 93005; 99284

== ENCOUNTER → 2021-12-14 09:49 | Outpatient (BNVA) | payer MEDICARE, SELFPAY | PROVIDERS: PCP Family Medicine; Referring Provider Family Medicine; Visit Provider Internal Medicine Cardiovascular Disease | DX: Z01.810 Encounter for preprocedural cardiovascular examination (principal); R42 Dizziness and giddiness | CPT/HCPCS: 93005; 99212 ==

== ENCOUNTER 2022-12-27 14:19 | Outpatient (AMB) | payer MEDICARE, SELFPAY ==
--- NOTE | 2022-12-27 14:21 | A.OFFVIS_ITS ---
Intake Vital Signs 12/27/22 14:22 Height 5 ft 4 in Weight 80 lb 3.972 oz BMI 13.8 BP 98/60 Blood Pressure Location Lt brachial Position Sitting Pulse 65 Pulse Source Monitor Intake Visit Reasons: 1 YEAR FOLLOW UP Intake Note: 1 year follow up with EKG. 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 She was previously seen for dizziness. She has significant weight loss with no clear etiology found. She also has been diagnosed with depression and has not been eating. She is on antidepressants and feels that her mood is better and she is eating better and has gained some weight. Overall she looks quite underweight. She walks the dog 2 times a day approximately 15 minutes each ti me. She has some shortness of breath with activities but nothing significant or progressive. No chest discomfort. EKG is not showing any dynamic changes. 12/27/22: She returns for follow-up. Blood pressure in the office is low. She has been diagnosed with anorexia nervosa which is the cause for her significant weight loss which is approximately 70 lb over the last year. She is being considered to go to 2 programs close to [place] for anorexia nervosa. She has no significant complaints. Occasionally she gets short of breath with activities. Looks very deconditioned and frail at this point. [facility] Medical History Back pain Dizziness Encephalopathy History of ETOH abuse Perforated duodenal ulcer Peritonitis Postoperative retention of urine UGI bleed Surgical History History of appendectomy History of gastric surgery Family History Mother No problems noted. Father No problems noted. Social History Household Members: Significant Other Housing: House Do you presently have visiting nurse or other home services: No Alcohol intake: former Patient Tobacco Use Status: Never used Tobacco Advance Directives Date on File: 05/04/20 service: No Current occupational status: retired Review of Systems Const Denies weakness ENT Denies dizziness Card Denies chest pain, Denies chest pain with activity, Denies syncope, Denies rapid heart rate, Denies pedal edema, Denies edema, Denies leg edema, Denies lightheadedness, Denies palpitations, Denies dyspnea, Denies dyspnea on exertion and Denies orthopnea Resp Denies cough, Denies dyspnea and Denies dyspnea on exertion GI Denies hematochezia and Denies change in stool character Musc Denies abnormal gait, Denies muscle cramps, Denies muscle weakness, Denies numbness, Denies radiating pain into limb and Denies tingling Neuro Denies abnormal gait, Denies dizziness, Denies syncope, Denies numbness, Denies tingling and Denies weakness Endo Denies palpitations Physical Exam Vital Signs: Last Vital Signs Pulse 65 12/27/22 14:22 BP 98/60 12/27/22 14:22 BMI result Body Mass Index 13.8 GENERAL APPEARANCE: in no acute distress, emaciated. NECK/THYROID: no carotid bruit, no jugular venous distention. SKIN: no suspicious lesions, warm and dry. HEART: no murmurs, regular rate and rhythm, S1, S2 normal. LUNGS: clear to auscultation bilaterally. ABDOMEN: normal, bowel sounds present, soft, nontender, nondistended. PERIPHERAL PULSES: equal. NEUROLOGIC: nonfocal, alert and oriented. . Office Procedures EKG Details: Normal sinus rhythm 65 beats per minute, normal axis, possible left atrial enlargement, incomplete right bundle-branch block, QTC 428 milliseconds. [id number], Complete Assessment & Plan Assessment & Plan (1) Anorexia nervosa: Code(s): F50.00 - Anorexia nervosa, unspecified (2) Dyspnea: Code(s): R06.00 - Dyspnea, unspecified Plan 72-year-old female who is here for follow-up. She was seen for perioperative cardiovascular risk assessment before endoscopy. No significant cardiovascular issues previously. She has anorexia nervosa diagnosed as significant weight loss at this point and will be going to anorexia nervosa specific rehab program close to [place]. She has some dyspnea with activities. She is very frail and deconditioned. I think her dyspnea is due to deconditioning at this point. I have reassured her and advised her to eat and go to some exercise program at the rehab facility. She can follow up with us p.r.n. from here onwards. We are available if there are any concerns in the future though. Thank you for allowing me to participate in the care of your patient. Please feel free to contact me if you have any questions. Coding Level of Care Code Est Pt Level 2 (73569) Diagnoses Anorexia nervosa F50.00 Dyspnea R06.00 CPT Codes EKG - CPT: 50402-[id number], Complete ([id number])
[2022-12-27 14:22] VITALS: BP 98/60; PULSE 65; BMI 13.8
== END 2022-12-27 15:07 | disposition home or self-care (01) ==
PROVIDERS: PCP Family Medicine; Referring Provider Family Medicine; Visit Provider Internal Medicine Cardiovascular Disease
DX: F50.00 Anorexia nervosa, unspecified (principal); R06.00 Dyspnea, unspecified
CPT/HCPCS: 93010; 99212

== ENCOUNTER → 2022-12-27 14:19 | Outpatient (BNVA) | payer MEDICARE, SELFPAY | PROVIDERS: PCP Family Medicine; Referring Provider Family Medicine; Visit Provider Internal Medicine Cardiovascular Disease | DX: F50.00 Anorexia nervosa, unspecified (principal); R06.00 Dyspnea, unspecified | CPT/HCPCS: 93005; 99212 ==